=== PATIENT | female | born 1935 | race Two or more races ===

== ENCOUNTER 2018-11-29 10:56 | Emergency (ER) | payer OTHER, MEDICARE ==
[2018-11-29 11:09] VITALS: BP 108/54; PULSE 70; TEMP 97.9; BMI 28.0
--- NOTE | 2018-11-29 11:53 | PDOC ---
History of Present Illness - General Chief Complaint: Injury Stated Complaint: LOWER BACK PAIN Time Seen by Provider: 11/29/18 11:17 History Source: Patient Exam Limitations: Clinical Condition - History of Present Illness Initial Comments: 11/29/18 11:48 Patient with no significant past medical history brought in by ambulance for evaluation of lower back pain in bilateral lower leg pain status post fall while trying to get out of a box yesterday. Patient reports she was trying to get the curbside and missed a step and fell on her side and now has lower back pain and pain to bilateral lower legs which only comes on when she is laying in bed in pain to leg improve when she stands up. Patient did not take anything for pain and declined any pain meds. Patient reports she just wanted to make sure she to have any fractures. She reported pain as mild 3 out of 10 pain to lower back and bilateral legs. Patient denies hitting head or loss of consciousness Timing/Duration: 24 hours Past History - Past Medical History Allergies/Adverse Reactions: Allergies Allergy/AdvReac Type Severity Reaction Status Date / Time No Known Allergies Allergy Verified 11/29/18 11:07 Home Medications: Ambulatory Orders NK [No Known Home Medication] 11/29/18 - Suicide/Smoking/Psychosocial Hx Smoking History: Never smoked Review of Systems - Review of Systems Able to Perform ROS?: Yes Is the patient limited Montenegrin proficient: No Constitutional: No: Weakness HEENTM: No: Symptoms Reported Respiratory: No: Symptoms reported Cardiac (ROS): No: Symptoms Reported ABD/GI: No: Nausea, Vomiting Musculoskeletal: Yes: See HPI, Back Pain (mild back pain to b/l lower back), Muscle Pain (anterial-lateral b/l legs). No: Joint Swelling, Muscle Weakness, Joint Stiffness Neurological: No: Numbness, Paresthesia, Tingling, Weakness All Other Systems: Reviewed and Negative *Physical Exam - Vital Signs Last Vital Signs Temp Pulse Resp BP Pulse Ox 97.9 F 70 18 108/54 L 11/29/18 11:08 11/29/18 11:08 11/29/18 11:08 11/29/18 11:08 - Physical Exam Comments: 11/29/18 11:51 GENERAL: Well developed, well nourished. Awake and alert. No acute distress. CARDIOVASCULAR: Regular rate and rhythm. No murmurs, rubs, or gallops. PULMONARY: No evidence of respiratory distress. MUSCULOSKELETAL : mild tenderness over posterior paravertebral muscle of lumbosacral spine of L4-S2 on bilateral sides. Mild tenderness to anterior granados of bilateral leg. No calf tenderness. No calf erythema or swelling. Free range of motion of lower extremity and hip. Negative Homans sign of bilateral lower extremity No bony deformities EXTREMITIES: No cyanosis. No clubbing. No edema. No calf tenderness. SKIN: Warm and dry. Normal capillary refill. No rashes. No jaundice. NEUROLOGICAL: Alert, awake, appropriate. No motor deficits in the lower extremities. PSYCHIATRIC: Cooperative. Good eye contact. Appropriate mood and affect. General Appearance: Yes: Nourished, Appropriately Dressed. No: Apparent Distress Moderate Sedation - Procedure Monitoring Vital Signs: Procedure Monitoring Vital Signs Temperature 97.9 F 11/29/18 11:08 Pulse Rate 70 11/29/18 11:08 Respiratory Rate 18 11/29/18 11:08 Blood Pressure 108/54 L 11/29/18 11:08 O2 Sat by Pulse Oximetry (%) ED Treatment Course - RADIOLOGY Radiology Studies Ordered: Category Date Time Status LEG TIB/FIB-LEFT [RAD] Stat Radiology 11/29/18 11:34 Ordered LEG TIB/FIB-RIGHT [RAD] Stat Radiology 11/29/18 11:34 Ordered SPINE-LUMBAR SACRAL [RAD] Stat Radiology 11/29/18 11:34 Ordered Medical Decision Making - Medical Decision Making 11/29/18 11:53 Patient with no significant past medical history presented for evaluation of bilateral lower leg pain and lower back pain status post fall yesterday. Patient with no head trauma or loss of consciousness from fall. Exam significant for mild tenderness to anterior granados no bilateral lower legs with no calf tenderness. Mild tenderness paravertebral muscle of lumbosacral spine of L4-S1 with free range of motion of hip. Symptoms likely muscle strain less likely fracture of lower extremity or back and less likely DVT given no calf tenderness. X-ray of bilateral lower extremity and lumbosacral ordered to rule out fracture. Patient be discharged home on NSAIDs to take as needed for pain if negative x-ray with orthopedist follow-up as needed. 11/29/18 12:40 X-ray shows no acute pathology. Patient declined pain meds is stable for discharge with orthopedist follow-up as needed *DC/Admit/Observation/Transfer Diagnosis at time of Disposition: Leg pain, bilateral Lumbago Qualifiers: Chronicity: acute Back pain laterality: bilateral Sciatica presence: without sciatica Qualified Code(s): M54.5 - Low back pain - Discharge Dispostion Disposition: HOME Condition at time of disposition: Stable Decision to Admit order: No - Referrals Referrals: Jose Garcia DO [Staff Physician] - - Patient Instructions Printed Discharge Instructions: How to Prevent Falls Additional Instructions: Your x-ray shows no fracture or acute pathology. The symptoms likely from muscle strain. Take Motrin or Tylenol as needed for pain. Follow-up referred orthopedics if symptoms persist for more than 4 days. - Post Discharge Activity
== END 2018-11-29 12:46 | disposition home or self-care (01) ==
LOC: JERFT 10:56
DX: M54.5 Low back pain (principal); M79.604 Pain in right leg; M79.605 Pain in left leg; W10.1XXA Fall (on)(from) sidewalk curb, initial encounter; Y93.89 Activity, other specified; Y92.480 Sidewalk as the place of occurrence of the external cause; Y99.8 Other external cause status
CPT/HCPCS: 72100-TC-FY; 73590-TC-LT-FY; 73590-TC-RT-FY; 99281-25

== ENCOUNTER 2018-12-06 03:13 | Inpatient (IN) | payer OTHER, MEDICARE ==
[2018-12-06 03:53] VITALS: BMI 28.3
[2018-12-06] MEDS ORDERED: LIDOCAINE 5% TOPICAL PATCH TP ONE ×2 (03:55→05:18)
--- NOTE | 2018-12-06 04:01 | PDOC ---
History of Present Illness - General Chief Complaint: Chronic pain Stated Complaint: BACK PAIN Time Seen by Provider: 12/06/18 03:44 History Source: Patient Exam Limitations: No Limitations - History of Present Illness Initial Comments: 12/06/18 03:55 Pt is an 83yo F with PMH of anxiety, bladder spasms presenting to ED with complaints of lower back pain. Pt fell last week and had pain. She has been taking ibuprofen and other pain medications which "helps a little bit" but pain felt worse today. She states the pain starts in her lower back near the buttocks and radiates down both legs at time. Worsened with movement and relieved by lying flat. She says she has been walking but pain is preventing her from doing so. She was given hydrocodone by her pmd but it did not help. She denies numbness/tingling, weakness, bowel incontinence, fevers, chills. PMD: PMH: see hpi PSH: Meds: Nardil Allergies: nkda Past History - Past Medical History Allergies/Adverse Reactions: Allergies Allergy/AdvReac Type Severity Reaction Status Date / Time No Known Allergies Allergy Verified 12/06/18 04:47 Home Medications: Ambulatory Orders Phenelzine Sulfate [Nardil] 12/06/18 - Suicide/Smoking/Psychosocial Hx Smoking History: Never smoked Have you smoked in the past 12 months: No Information on smoking cessation initiated: No Hx Alcohol Use: No Drug/Substance Use Hx: No Review of Systems - Review of Systems Constitutional: No: Chills, Fever, Weakness HEENTM: No: Symptoms Reported Respiratory: No: Symptoms reported Cardiac (ROS): No: Symptoms Reported ABD/GI: No: Symptoms Reported, Constipated, Diarrhea, Nausea, Vomiting, Abdominal cramping Musculoskeletal: Yes: See HPI, Back Pain, Muscle Pain (legs) Integumentary: No: Symptoms Reported Neurological: No: Headache, Numbness, Tingling, Tremors *Physical Exam - Vital Signs Last Vital Signs Temp Pulse Resp BP Pulse Ox 98.8 F 66 18 134/77 96 12/06/18 03:16 12/06/18 03:16 12/06/18 03:16 12/06/18 03:16 12/06/18 03:16 - Physical Exam General Appearance: Yes: Nourished, Appropriately Dressed, Moderate Distress HEENT: positive: EOMI, EVONNE, Normal ENT Inspection Neck: positive: Trachea midline, Supple. negative: Lymphadenopathy (R), Lymphadenopathy (L) Respiratory/Chest: positive: Lungs Clear, Normal Breath Sounds Cardiovascular: positive: Regular Rhythm, Regular Rate. negative: Murmur Vascular Pulses: Carotid (R): 2+, Carotid (L): 2+, Dorsalis-Pedis (R): 2+, Doralis-Pedis (L): 2+ Gastrointestinal/Abdominal: positive: Normal Bowel Sounds, Soft. negative: Distended, Guarding, Rebound, Tenderness Rectal Exam: positive: normal rectal tone Musculoskeletal: positive: Muscle Spasm, Other (full passive ROM. Full active ROM of legs however illicits pain. No sciatica type symptoms/pain). negative: CVA Tenderness, Vertebral Tenderness Extremity: positive: Normal Capillary Refill, Pelvis Stable. negative: Coldness , Cyanosis, Pedal Edema, Swelling, Calf Tenderness Integumentary: positive: Normal Color, Dry, Warm. negative: Rash, Ecchymosis Neurologic: positive: can technician II-XII NML intact, Fully Oriented, Alert, Normal Mood/ Affect, Normal Response, Motor Strength 5/5 Deep Tendon Reflexes: Knee (L): 2+, Knee (R): 2+ Moderate Sedation - Procedure Monitoring Vital Signs: Procedure Monitoring Vital Signs Temperature 98.8 F 12/06/18 03:16 Pulse Rate 66 12/06/18 03:16 Respiratory Rate 18 12/06/18 03:16 Blood Pressure 134/77 12/06/18 03:16 O2 Sat by Pulse Oximetry (%) 96 12/06/18 03:16 Medical Decision Making - Medical Decision Making 12/06/18 04:01 Pt is an 83yo F with PMH of anxiety, bladder spasms presenting to ED with complaints of lower back pain. Pt fell last week and had pain. She has been taking ibuprofen and other pain medications which "helps a little bit" but pain felt worse today. She states the pain starts in her lower back near the buttocks and radiates down both legs at time. Worsened with movement and relieved by lying flat. She says she has been walking but pain is preventing her from doing so. She was given hydrocodone by her pmd but it did not help. She denies numbness/tingling, weakness, bowel incontinence, fevers, chills. Vitals: wnl PE: strength 5/5, sensation intact, normal reflexes, normal rectal tone, no vertebral tenderness, paraspinal spasms Ddx includes but not limited to cord compression/cauda equina, AAA, nephrolithasis, fracture, disc herniation, msk -lower suspicion for cord compression at this time. Pt did have trauma however no fractures -Robaxin, lidoderm patch -CT of sacral spine and lumbar. 12/06/18 06:22 CT shows small central bulge at level of L3-L4. Pt said she was feeling better, some pain on the L side but improved. When asking pt to get up she reported feeling the pain again around the back and across the abdomen like a band. -2 Percocet, 15mg Toradol Will reassess. signed out to Dr. Patiño *DC/Admit/Observation/Transfer Diagnosis at time of Disposition: Back pain Qualifiers: Back pain location: low back pain Chronicity: acute Back pain laterality: unspecified Sciatica presence: without sciatica Qualified Code(s): M54.5 - Low back pain - Discharge Dispostion Disposition: HOME Condition at time of disposition: Good Decision to Admit order: No - Referrals Referrals: Jose Garcia DO [Staff Physician] - Juan Carlos Adame [Non Staff, Medical] - - Patient Instructions Printed Discharge Instructions: DI for Low Back Pain Additional Instructions: You were seen in the emergency room today for back pain. There is no fracture. The most likely cause of your symptoms is a muscle spasm. Make an appointment with Dr. Adame in the next few days for evaluation and management of your symptoms. Come back to the emergency room if you have numbness/tingling, lose control of your bowel movements, have numbness in the groin area, are unable to move your legs or if any new concerning symptom develops. Thank you - Post Discharge Activity
[2018-12-06] MEDS ORDERED: METHOCARBAMOL 500 MG TABLET PO ONE (04:06)
--- NOTE | 2018-12-06 04:09 | PDOC ---
Attending Attestation - Resident Resident Name: Mary Grace Ignacio - ED Attending Attestation I have performed the following: I have examined & evaluated the patient, The case was reviewed & discussed with the resident, I agree w/resident's findings & plan - HPI HPI: 12/06/18 06:36 Pt came with back pain. She fell last week and she had a Lspine XR in the ER that revealed scoliosis and she had decreased space btwn her vertebrae. She has pain that runs down her back of legs bilat. Sounds like sciatica. - Physicial Exam PE: 12/06/18 06:38 Agree with resident exam - Medical Decision Making 12/06/18 06:38 Pt will be treated with pain meds and muscle relaxants and she will be reevaluated after CT scan 12/06/18 06:40 Patient Name: WILFRED MAIN THIS IS A PRELIMINARY REPORT FROM [facility] DATE OF SERVICE: 2018-12-06 05:43:17 IMAGES: [id number] EXAM: LUMBAR SPINE CT W/O CONTRAST HISTORY: Trauma with back pain COMPARISON: None. FINDINGS: Lumbar vertebral bodies are morphologically normal with no fracture or loss of height. There are some degenerative changes in the intervertebral disc spaces with a small central bulge at the level of L3-L4 IMPRESSION: Mild degenerative changes without lumbar spine fracture Patient Name: WILFRED MAIN THIS IS A PRELIMINARY REPORT FROM [facility] DATE OF SERVICE: 2018-12-06 05:46:59 IMAGES: [id number] EXAM: PELVIS CT WITHOUT CONTRAST HISTORY: Concern for fracture COMPARISON: None. FINDINGS: There is no pelvic fracture. Bladder appears normal. Uterus is not visualized. Rectum appears normal IMPRESSION: No pelvic fracture 12/06/18 06:41 Pt was feeling better and she was able to get some sleep, but she states that she feels just as bad as when she came in. We will try some percocet and toradol and pt will be given breakfast in the AM and signed out to the day ER team, who can discharge her back to her intermediate once she is ready to go home
[2018-12-06] MEDS ORDERED: diazePAM 2 MG TABLET PO ONE (05:19)
[2018-12-06] MEDS ORDERED: LIDOCAINE 5% TOPICAL PATCH ONE (05:26)
[2018-12-06] MEDS ORDERED: KETOROLAC TROMETHAMINE 30 MG/1 ML VIAL IM ONE (06:32)
[2018-12-06] MEDS ORDERED: KETOROLAC TROMETHAMINE 15 MG/ML VIAL ONE (06:39)
--- NOTE | 2018-12-06 07:38 | PDOC ---
*Physical Exam - Vital Signs Last Vital Signs Temp Pulse Resp BP Pulse Ox 98.8 F 66 18 134/77 96 12/06/18 03:16 12/06/18 03:16 12/06/18 03:16 12/06/18 03:16 12/06/18 03:16 ED Treatment Course - LABORATORY CBC & Chemistry Diagram: 12/07/18 08:39 12/09/18 06:00 - Medications Given in the ED: ED Medications Discontinued Medications Generic Name Dose Route Start Last Admin Trade Name John PRN Reason Stop Dose Admin Diazepam 2 mg 12/06/18 05:19 12/06/18 06:36 Valium - PO 12/06/18 05:20 Not Given ONCE ONE Ketorolac Tromethamine 15 mg 12/06/18 06:32 12/06/18 06:52 Toradol Injection - IM 12/06/18 06:33 15 mg ONCE ONE Administration Lidocaine 1 patch 12/06/18 03:55 12/06/18 04:41 Lidoderm Patch - TP 12/06/18 03:56 1 patch ONCE ONE Administration Lidocaine 1 patch 12/06/18 05:18 12/06/18 06:51 Lidoderm Patch - TP 12/06/18 05:19 1 patch ONCE ONE Administration Methocarbamol 500 mg 12/06/18 04:06 12/06/18 04:42 Robaxin - PO 12/06/18 04:07 500 mg ONCE ONE Administration Oxycodone/Acetaminophen 2 combo 12/06/18 06:20 12/06/18 06:51 Percocet 5/325 - PO 12/06/18 06:21 2 combo ONCE ONE Administration Medical Decision Making - Medical Decision Making 12/06/18 07:05 s/o from Dr. Ignacio 83 yo female presents with difficulty ambulating and worsening back pain since fall last week. CT lumbar spine neg for fracture but shows small central bulge at L3-L4 without Pt continues to be in pain, states no improvement after Toradol, lidocaine patch , percocets. 2mg IV morphine ordered along with basic blood work and with admit for inability to ambulate Pt accepted for admission *DC/Admit/Observation/Transfer Diagnosis at time of Disposition: Back pain Qualifiers: Back pain location: low back pain Chronicity: acute Back pain laterality: unspecified Sciatica presence: without sciatica Qualified Code(s): M54.5 - Low back pain - Discharge Dispostion Condition at time of disposition: Stable Decision to Admit order: Yes - Referrals - Patient Instructions - Post Discharge Activity
[2018-12-06 09:36] LABS: BASO % 0.4 % (0-2.0); EOS % 1.5 % (0-4.5); HEMATOCRIT 37.9 % (32.4-45.2); HEMOGLOBIN 12.8 GM/dL (10.7-15.3); LYMPH % 8.7 % (8-40); MCH 26.6 pg (25.7-33.7); MCHC 33.7 g/dl (32.0-36.0); MEAN CELL VOLUME 79.1 fl (80-96); MEAN PLT VOLUME 8.4 fl (7.5-11.1); MONO % 7.1 % (3.8-10.2); NEUT % 82.3 % (42.8-82.8); PLATELET COUNT 255 K/MM3 (134-434); RDW 14.7 % (11.6-15.6); WHITE BLOOD COUNT 8.2 K/mm3 (4.0-10.0)
[2018-12-06] MEDS ORDERED: morphine CARPU-JECT 2 MG/1 ML DISP.SYRIN IVPUSH ONE (09:41)
[2018-12-06] MEDS ORDERED: MORPHINE SULFATE 2 MG/ML VIAL ONE (09:44)
[2018-12-06 10:01] LABS: ALBUMIN 3.3 g/dl (3.4-5.0); ALK PHOS 93 U/L (45-117); ANION GAP 7 MMOL/L (8-16); BILIRUBIN,TOTAL 0.4 mg/dL (0.2-1); BLOOD UREA NITROGEN 16 mg/dL (7-18); CALCIUM 8.9 mg/dL (8.5-10.1); CHLORIDE 106 mmol/L (98-107); CO2 28 mmol/L (21-32); CREATININE 0.9 mg/dL (0.55-1.3); GLUCOSE,RANDOM 125 mg/dL (74-106); POTASSIUM 4.1 mmol/L (3.5-5.1); SGOT/AST 16 U/L (15-37); SGPT/ALT 14 U/L (13-61); SODIUM 141 mmol/L (136-145); TOT PROT 6.3 g/dl (6.4-8.2)
--- NOTE | 2018-12-06 13:12 | EKG ---
Test Reason : Blood Pressure : / mmHG Vent. Rate : 066 BPM Atrial Rate : 066 BPM P-R Int : 192 ms QRS Dur : 088 ms QT Int : 414 ms P-R-T Axes : 062 -30 083 degrees QTc Int : 434 ms SINUS RHYTHM WITH PREMATURE ATRIAL COMPLEXES LEFT AXIS DEVIATION NONSPECIFIC T WAVE ABNORMALITY ABNORMAL ECG NO PREVIOUS ECGS AVAILABLE Confirmed by MD CRISTINA, MICAELA ([id number]) on 12/06/2018 1:11:31 PM Referred By: Confirmed By:MICAELA EVANS MD
[2018-12-06] MEDS ORDERED: GABAPENTIN 100 MG CAPSULE (FP) ONE (13:16)
--- NOTE | 2018-12-06 13:17 | HP ---
CHIEF COMPLAINT: intractable pain PCP: Dr Bae/ in COUNT INCLUDES THE [facility] HISTORY OF PRESENT ILLNESS: The patient is a 83 year old female [place] [address] [place] [address] living with a PMH of anxiety, irritable bladder that presented to the hospital complaining of severe pain in lower back. It started after she fell last week. She was leaving the bus , tripped and fell to the ground on her back. She was able to stand up and come home. Next day she went to [facility] ED and was discharged on pain medications. Over the course of week, the pain got progressively worse that prompted the patient to go to PCP yesterday. She was given pain medications but without seeing improvement, she decided to call ambulance today. She is complaining of lover back pain, 10/10, no aggravating/alleviating factors , no radiation, no numbness, urinary incontinence, fever, chills, chills. The patient denies dizziness, LOC, headache. ER course was notable for: (1)CT (2)percocet, (3) PAST MEDICAL HISTORY: ABOVE PAST SURGICAL HISTORY: hysterectomy, in , right lumpectomy in Social History: Smoking:quit in 1973, used to smoke 1.5 pack/day for 30 years Alcohol: stopped in September 2017, used to drink everyday Drugs: denies Lives [place] [address] [place] [address], never , no children. Family History: Mother; colon cancer Father: breast cancer Allergies No Known Allergies Allergy (Verified 12/06/18 04:47) HOME MEDICATIONS: Home Medications Medication Instructions Recorded Phenelzine Sulfate [Nardil] 12/06/18 REVIEW OF SYSTEMS CONSTITUTIONAL: Absent: fever, chills, diaphoresis, generalized weakness, malaise, loss of appetite, weight change HEENT: Absent: rhinorrhea, nasal congestion, throat pain, throat swelling, difficulty swallowing, mouth swelling, ear pain, eye pain, visual changes CARDIOVASCULAR: Absent: chest pain, syncope, palpitations, irregular heart rate, lightheadedness , peripheral edema RESPIRATORY: Absent: cough, shortness of breath, dyspnea with exertion, orthopnea, wheezing, stridor, hemoptysis GASTROINTESTINAL: Absent: abdominal pain, abdominal distension, nausea, vomiting, diarrhea, constipation, melena, hematochezia GENITOURINARY: Absent: dysuria, frequency, urgency, hesitancy, hematuria, flank pain, genital pain MUSCULOSKELETAL: Absent: myalgia, arthralgia, joint swelling, back pain, neck pain SKIN: Absent: rash, itching, pallor HEMATOLOGIC/IMMUNOLOGIC: Absent: easy bleeding, easy bruising, lymphadenopathy, frequent infections ENDOCRINE: Absent: unexplained weight gain, unexplained weight loss, heat intolerance, cold intolerance NEUROLOGIC: Absent: headache, focal weakness or paresthesias, dizziness, unsteady gait, seizure, mental status changes, bladder or bowel incontinence PSYCHIATRIC: Absent: anxiety, depression, suicidal or homicidal ideation, hallucinations. PHYSICAL EXAMINATION Vital Signs - 24 hr 12/06/18 12/06/18 12/06/18 03:16 07:24 13:03 Temperature 98.8 F 98.3 F 98.0 F Pulse Rate 66 Pulse Rate [ 74 70 Right Radial] Respiratory 18 15 18 Rate Blood Pressure 134/77 Blood Pressure 114/68 122/70 [Left Arm] O2 Sat by Pulse 96 95 96 Oximetry (%) GENERAL: Awake, alert, and fully oriented, in moderate distress, lying in bed.. HEAD: Normal with no signs of trauma. EYES: Pupils equal, round and reactive to light, extraocular movements intact, conjunctiva clear. EARS, NOSE, THROAT: Moist mucous membranes. NECK: Normal range of motion, supple without lymphadenopathy, JVD, or masses. LUNGS: Breath sounds equal, clear to auscultation bilaterally. No wheezes, and no crackles. No accessory muscle use. HEART: Regular rate and rhythm, normal S1 and S2 without murmur, rub or gallop. ABDOMEN: Soft, nontender, not distended, normoactive bowel sounds, no guarding, no rebound, no masses. MUSCULOSKELETAL: Normal range of motion at all joints. Tenderness to palpation in lumbar paraspinal muscles UPPER EXTREMITIES: No peripheral edema. LOWER EXTREMITIES: 2+ pulses, no peripheral edema. NEUROLOGICAL: Cranial nerves II-XII intact. Normal speech. Motor 5/5, sensation intact. PSYCHIATRIC: Cooperative, anxious. SKIN: Warm, dry, normal turgor, no rashes. Laboratory Results - last 24 hr 12/06/18 12/06/18 09:12 09:12 WBC 8.2 RBC 4.80 Hgb 12.8 Hct 37.9 MCV 79.1 L MCH 26.6 MCHC 33.7 RDW 14.7 Plt Count 255 MPV 8.4 Absolute Neuts (auto) 6.7 Neutrophils % 82.3 Lymphocytes % 8.7 Monocytes % 7.1 Eosinophils % 1.5 Basophils % 0.4 Nucleated RBC % 0 Sodium 141 Potassium 4.1 Chloride 106 Carbon Dioxide 28 Anion Gap 7 L BUN 16 Creatinine 0.9 Creat Clearance w eGFR 59.65 Random Glucose 125 H Calcium 8.9 Total Bilirubin 0.4 AST 16 ALT 14 Alkaline Phosphatase 93 Total Protein 6.3 L Albumin 3.3 L ASSESSMENT/PLAN: The patient is a 83 year old female [place] [address] [place] [address] living with a PMH of anxiety, irritable bladder that presented to the hospital complaining of severe pain in lower back. She is admitted for intractable pain. Intractable pain in lower back irritable bladder anxiety hyperlipidemia Plan: -the patient has been complaining of lower back pain for a week without successful pain control, CT positive only for degenerative chronic changes, no acute pathoology but the patient was not able to ambulate -will continue Cyclobenzaprine 5 mg BID -will continue Gabapentin 100 mg TID -Lidoderm patch -IV Toradol -PT evaluation F/E/N: no/no changes/regular DVT PPX; Heparin sq scds Disp: med surg Problem List - Problem (1) Back pain Code(s): M54.9 - DORSALGIA, UNSPECIFIED Qualifiers: Back pain location: low back pain Chronicity: acute Back pain laterality : unspecified Sciatica presence: without sciatica Qualified Code(s): M54.5 - Low back pain Visit type - Emergency Visit Emergency Visit: Yes ED Registration Date: 12/06/18 Care time: The patient presented to the Emergency Department on the above date and was hospitalized for further evaluation of their emergent condition. - New Patient This patient is new to me today: Yes Date on this admission: 12/06/18 - Critical Care Critical Care patient: No
[2018-12-06] MEDS: GABAPENTIN 100 MG CAPSULE (FP) PO SCH ×2 (13:20→21:52)
[2018-12-06] MEDS: KETOROLAC TROMETHAMINE 30 MG/1 ML VIAL IVPUSH PRN ×2 (13:34→21:54)
[2018-12-06] MEDS ORDERED: KETOROLAC TROMETHAMINE 30 MG/1 ML VIAL ONE (13:37)
--- NOTE | 2018-12-06 16:22 | PN ---
Teaching Attending Note Name of Resident: Marilu Arriaza ATTENDING PHYSICIAN STATEMENT I saw and evaluated the patient. I reviewed the resident's note and discussed the case with the resident. I agree with the resident's findings and plan as documented with exceptions below. SUBJECTIVE: 83 yof with PMHx of anxiety, irritable bladder, sustained a fall 11/29/18, when missed a step while getting to curbside and fell. She was seen in ED on 11/29 with negative L spine xrays and sent home. However, per patient, has been having progressive pain in the back with difficulty ambulating, prompting her to come to the ED. Denies any leg weakness/tingling/numbness, urinary or bowel changes. Has h/o irritable bladder with no new concerns. patient anxious currently initially refusing to move, then able to move and elevate legs. Occasionally on tangential conversations. 12 point ROS done, neg except above. OBJECTIVE: Vital Signs Period Temp Pulse Resp BP Sys/Zepeda Pulse Ox Last 24 Hr 97.9 F-98.8 F 66-84 15-22 114-146/68-84 95-96 Intake & Output 12/03/18 12/04/18 12/05/18 12/06/18 23:59 23:59 23:59 23:59 Weight 160 lb GENERAL: Awake, alert, and fully oriented, in no acute distress, anxious intermittently screaming in bed. HEAD: Normal with no signs of trauma. EYES: Pupils equal, round and reactive to light, extraocular movements intact, sclera anicteric, conjunctiva clear. No lid lag. EARS, NOSE, THROAT: Ears normal, nares patent, oropharynx clear without exudates. Moist mucous membranes. NECK: Normal range of motion, supple without lymphadenopathy, JVD, or masses. LUNGS: Breath sounds equal, clear to auscultation bilaterally. No wheezes, and no crackles. No accessory muscle use. HEART: Regular rate and rhythm, normal S1 and S2 ABDOMEN: Soft, nontender, not distended, normoactive bowel sounds, no guarding, no rebound, no masses. MUSCULOSKELETAL: No point spinal tenderness, paraspinal muscle spasm appreciated in the lumbar region, SLR able to do upto 50 degrees with encouragement UPPER EXTREMITIES: 2+ pulses, warm, well-perfused. No cyanosis. No clubbing. No peripheral edema. LOWER EXTREMITIES: 2+ pulses, warm, well-perfused. No calf tenderness. No peripheral edema. NEUROLOGICAL: AAOx3, power 5/5, sensation intact and symmetric, no pronator drift, EOMI, PERRL, DTR bilaterally symmetric, toes down going, Cranial nerves II-XII intact. Normal speech. Gait not observed PSYCHIATRIC:anxious, intermittently screaming, tangential conversations occasionally but directable SKIN: Warm, dry, normal turgor, no rashes or lesions noted, normal capillary refill. Home Medications Medication Instructions Recorded Phenelzine Sulfate [Nardil] 15 mg PO TID 12/06/18 Active Medications Cyclobenzaprine HCl (Cyclobenzaprine Hcl) 5 mg PO BID [facility] Gabapentin (Neurontin -) 100 mg PO TID [facility] Last Admin: 12/06/18 13:20 Dose: 100 mg Heparin Sodium (Porcine) (Heparin -) 5,000 unit SQ TID [facility] Ketorolac Tromethamine (Toradol Injection -) 30 mg IVPUSH Q6H PRN PRN Reason: PAIN LEVEL 6-10 Stop: 12/11/18 13:13 Last Admin: 12/06/18 13:34 Dose: 30 mg Lidocaine (Lidoderm Patch -) 1 patch TP DAILY [facility] Miscellaneous (Lidoderm Patch Removal) 1 each DAILY@2200 [facility] Pantoprazole Sodium (Protonix -) 40 mg PO DAILY [facility] Laboratory Results - last 24 hr 12/06/18 12/06/18 09:12 09:12 WBC 8.2 RBC 4.80 Hgb 12.8 Hct 37.9 MCV 79.1 L MCH 26.6 MCHC 33.7 RDW 14.7 Plt Count 255 MPV 8.4 Absolute Neuts (auto) 6.7 Neutrophils % 82.3 Lymphocytes % 8.7 Monocytes % 7.1 Eosinophils % 1.5 Basophils % 0.4 Nucleated RBC % 0 Sodium 141 Potassium 4.1 Chloride 106 Carbon Dioxide 28 Anion Gap 7 L BUN 16 Creatinine 0.9 Creat Clearance w eGFR 59.65 Random Glucose 125 H Calcium 8.9 Total Bilirubin 0.4 AST 16 ALT 14 Alkaline Phosphatase 93 Total Protein 6.3 L [address]in [address] Lumbar spine/Pelvis/CXR results reviewed EKG NSR, T inversion in V2-V3, flat T waves in V5-V6 (no prior available for comparison) ASSESSMENT AND PLAN: 83 yof with PMHx of anxiety, irritable bladder, with low back pain after fall 11/29/2018 -Acute low back pain s/p fall, suspect lumbar sprain -Anxiety -Irritable bladder Plan: Neurological exam/imaging non concerning Pain control with tylenol/toradol/percocet prn, standing flexeril/gabapentin. PT eval Continue nardil if available DVTPPX heparin Dispo admit to obs, d/c in 24 hours if symptoms improved and no new concerns. Plan discussed with patient in detail, all questions answered. total admit time 55 min.
[2018-12-06] MEDS ORDERED: LIDOCAINE PATCH REMOVAL MC ONE (16:30)
[2018-12-06] MEDS: HEPARIN NA (PORCINE) 5,000 UNITS/ML 1ML VIAL SQ SCH ×2 (16:39→21:51)
[2018-12-06] MEDS: LIDOCAINE PATCH REMOVAL MC SCH (21:51)
[2018-12-06] MEDS: CYCLOBENZAPRINE HCL 5 MG TABLET PO SCH (21:51)
[2018-12-06] MEDS ORDERED: LIDOCAINE PATCH REMOVAL MC SCH (22:00)
[2018-12-07] MEDS: GABAPENTIN 100 MG CAPSULE (FP) PO SCH ×3 (06:15→21:42)
[2018-12-07] MEDS: HEPARIN NA (PORCINE) 5,000 UNITS/ML 1ML VIAL SQ SCH ×3 (06:15→21:41)
[2018-12-07] MEDS: KETOROLAC TROMETHAMINE 30 MG/1 ML VIAL IVPUSH PRN ×2 (06:16→13:50)
[2018-12-07] MEDS: CYCLOBENZAPRINE HCL 5 MG TABLET PO SCH ×2 (06:22→10:16)
[2018-12-07 09:01] LABS: HEMATOCRIT 36.9 % (32.4-45.2); HEMOGLOBIN 12.6 GM/dL (10.7-15.3); MCH 26.9 pg (25.7-33.7); MEAN CELL VOLUME 79.1 fl (80-96); MEAN PLT VOLUME 8.2 fl (7.5-11.1); PLATELET COUNT 253 K/MM3 (134-434); RBC 4.67 M/mm3 (3.60-5.2); RDW 14.7 % (11.6-15.6)
[2018-12-07 09:30] LABS: ALBUMIN 3.1 g/dl (3.4-5.0); ALK PHOS 86 U/L (45-117); ANION GAP 8 MMOL/L (8-16); BILIRUBIN,TOTAL 0.5 mg/dL (0.2-1); BLOOD UREA NITROGEN 17 mg/dL (7-18); CALCIUM 8.6 mg/dL (8.5-10.1); CHLORIDE 104 mmol/L (98-107); CO2 27 mmol/L (21-32); CREATININE 0.6 mg/dL (0.55-1.3); GLUCOSE,RANDOM 92 mg/dL (74-106); MAGNESIUM 2.4 mg/dL (1.8-2.4); PHOSPHOROUS 3.5 mg/dL (2.5-4.9); POTASSIUM 3.2 mmol/L (3.5-5.1); SGOT/AST 16 U/L (15-37); SGPT/ALT 16 U/L (13-61); SODIUM 139 mmol/L (136-145)
[2018-12-07] MEDS ORDERED: PT OWN MED DRAWER 7, Y5N ONE ×2 (10:13→10:27)
[2018-12-07] MEDS: PANTOPRAZOLE 40 MG TABLET (FP) PO SCH (10:15)
[2018-12-07] MEDS: LIDOCAINE 5% TOPICAL PATCH TP SCH (10:16)
[2018-12-07] MEDS ORDERED: morphine CARPU-JECT 2 MG/1 ML DISP.SYRIN IVPUSH PRN (11:50)
--- NOTE | 2018-12-07 11:55 | PN ---
Physical Exam: SUBJECTIVE: Patient seen and examined, lying on her left, anxious, screaming, asking for 'stronger' pain medications. No leg weakness/tingling/urinary or bowel symptoms. OBJECTIVE: Vital Signs Period Temp Pulse Resp BP Sys/Zepeda Pulse Ox Last 24 Hr 97.5 F-98.6 F 70-84 18-22 100-146/59-84 93-96 Intake & Output 12/04/18 12/05/18 12/06/18 12/07/18 23:59 23:59 23:59 23:59 Intake Total 400 450 Balance 400 450 Weight 160 lb GENERAL: Awake, alert, and fully oriented, in no acute distress, anxious intermittently screaming in bed. HEAD: Normal with no signs of trauma. EYES: Pupils equal, round and reactive to light, extraocular movements intact, sclera anicteric, conjunctiva clear. No lid lag. EARS, NOSE, THROAT: Ears normal, nares patent, oropharynx clear without exudates. Moist mucous membranes. NECK: Normal range of motion, supple without lymphadenopathy, JVD, or masses. LUNGS: Breath sounds equal, clear to auscultation bilaterally. No wheezes, and no crackles. No accessory muscle use. HEART: Regular rate and rhythm, normal S1 and S2 ABDOMEN: Soft, nontender, not distended, normoactive bowel sounds, no guarding, no rebound, no masses. MUSCULOSKELETAL: No point spinal tenderness, paraspinal muscle spasm appreciated in the lumbar region, SLR able to do upto 50 degrees with encouragement, moving lower extremities in bed Extremities no edema NEUROLOGICAL: AAOx3, power 5/5, sensation intact and symmetric, no pronator drift, EOMI, PERRL,sensation intact and symmetric lower extremities, Gait not observed PSYCHIATRIC:anxious, intermittently screaming, tangential conversations occasionally but directable SKIN: Warm, dry, normal turgor, no rashes or lesions noted, normal capillary refill. Laboratory Results - last 24 hr 12/07/18 12/07/18 08:39 08:39 WBC 6.0 RBC 4.67 Hgb 12.6 Hct 36.9 MCV 79.1 L MCH 26.9 MCHC 34.0 RDW 14.7 Plt Count 253 MPV 8.2 Sodium 139 Potassium 3.2 L Chloride 104 Carbon Dioxide 27 Anion Gap 8 BUN 17 Creatinine 0.6 Creat Clearance w eGFR 95.24 Random Glucose 92 Calcium 8.6 Phosphorus 3.5 Magnesium 2.4 Total Bilirubin 0.5 AST 16 ALT 16 Alkaline Phosphatase 86 Total Protein 6.0 L Albumin 3.1 L Active Medications Generic Name Dose Route Start Last Admin Trade Name Freq PRN Reason Stop Dose Admin Diazepam 2 mg 12/07/18 12:00 Valium - PO BID VIGNESH Gabapentin 100 mg 12/06/18 14:00 12/07/18 06:15 Neurontin - PO 100 mg TID [facility]IGN[facility] Administration Heparin Sodium (Porcine) 5,000 unit 12/06/18 14:00 12/07/18 06:15 Heparin - SQ 5,000 unit TID VIGNESH Administration Ketorolac Tromethamine 30 mg 12/07/18 11:52 Toradol Injection - IVPUSH 12/11/18 13:13 Q6H PRN PAIN LEVEL 4 - 6 Lidocaine 1 patch 12/07/18 10:00 12/07/18 10:16 Lidoderm Patch - TP 1 patch DAILY [facility] Administration Miscellaneous 1 each 12/06/18 22:00 12/06/18 21:51 Lidoderm Patch Removal MC 1 each DAILY@2200 VIGN[facility] Administration Morphine Sulfate 1 mg 12/07/18 11:50 Morphine Injection - IVPUSH Q4H PRN PAIN LEVEL 6-10 Pantoprazole Sodium 40 mg 12/07/18 10:00 12/07/18 10:15 Protonix - PO 40 mg DAILY [facility] Administration ASSESSMENT/PLAN: 83 yof with PMHx of anxiety, irritable bladder, with low back pain after fall 11/29/2018 -Acute low back pain s/p fall, suspect lumbar sprain -Anxiety -Irritable bladder Plan: Neurological exam/imaging non concerning Ongoing pain, unable to work with PT. Will start morphine. D/c flexeril and place on valium Continu prn tylenol/toradol/percocet prn to be held for sedation. DVTPPX heparin Dispo admit to inpatient given ongoing pain, inability to ambulate, need for IV medications and unsafe disposition currently. Plan discussed with patient and nursing in detail, all questions answered. Visit type - Emergency Visit Emergency Visit: Yes ED Registration Date: 12/06/18 Care time: The patient presented to the Emergency Department on the above date and was hospitalized for further evaluation of their emergent condition. - New Patient This patient is new to me today: No - Critical Care Critical Care patient: No - Discharge Referral Referred to [facility] Med P.C.: No
[2018-12-07] MEDS: diazePAM 2 MG TABLET PO SCH ×2 (12:19→21:42)
[2018-12-07] MEDS: MORPHINE SULFATE 2 MG/ML VIAL IVPUSH PRN ×2 (12:28→16:48)
[2018-12-07] MEDS: LIDOCAINE PATCH REMOVAL MC SCH (21:42)
[2018-12-08] MEDS: HEPARIN NA (PORCINE) 5,000 UNITS/ML 1ML VIAL SQ SCH ×3 (06:15→22:39)
[2018-12-08] MEDS: GABAPENTIN 100 MG CAPSULE (FP) PO SCH ×3 (06:16→22:39)
[2018-12-08] MEDS: KETOROLAC TROMETHAMINE 30 MG/1 ML VIAL IVPUSH PRN ×2 (06:17→17:58)
[2018-12-08] MEDS ORDERED: PT OWN MED DRAWER 7, Y5N ONE (09:53)
[2018-12-08] MEDS: PANTOPRAZOLE 40 MG TABLET (FP) PO SCH (10:15)
[2018-12-08] MEDS: LIDOCAINE 5% TOPICAL PATCH TP SCH (10:16)
[2018-12-08] MEDS: diazePAM 2 MG TABLET PO SCH ×2 (10:16→22:39)
--- NOTE | 2018-12-08 10:52 | PN ---
Teaching Attending Note Name of Resident: Karen Renae ATTENDING PHYSICIAN STATEMENT I saw and evaluated the patient. I reviewed the resident's note and discussed the case with the resident. I agree with the resident's findings and plan as documented with exceptions below. SUBJECTIVE: Patient seen and examined. Back pain better, was sleeping comfortably when seen. Anxious but appropriate. OBJECTIVE: Vital Signs Period Temp Pulse Resp BP Sys/Zepeda Pulse Ox Last 24 Hr 97.5 F-98.6 F 63-74 17-20 87-123/53-71 95-97 Intake & Output 12/05/18 12/06/18 12/07/18 12/08/18 23:59 23:59 23:59 23:59 Intake Total 400 1180 250 Balance 400 1180 250 Weight 160 lb General: Sleeping in bed, comfortable CVS:S1s2 regular Chest: CTAB, no rales or wheezing Abdomen;Soft obese, NT Musculoskeletal: no point spinal tenderness, refuses to move given pain but moving her legs more and able to elevate to 50 degrees, no new concerns Home Medications Medication Instructions Recorded Phenelzine Sulfate [Nardil] 15 mg PO TID 12/06/18 Active Medications Diazepam (Valium -) 2 mg PO BID [facility] Last Admin: 12/08/18 10:16 Dose: 2 mg Gabapentin (Neurontin -) 100 mg PO TID [facility] Last Admin: 12/08/18 06:16 Dose: 100 mg Heparin Sodium (Porcine) (Heparin -) 5,000 unit SQ TID [facility] Last Admin: 12/08/18 06:15 Dose: 5,000 unit Ketorolac Tromethamine (Toradol Injection -) 30 mg IVPUSH Q6H PRN PRN Reason: PAIN LEVEL 4 - 6 Stop: 12/11/18 13:13 Last Admin: 12/08/18 06:17 Dose: 30 mg Lidocaine (Lidoderm Patch -) 1 patch TP DAILY [facility] Last Admin: 12/08/18 10:16 Dose: 1 patch Miscellaneous (Lidoderm Patch Removal) 1 each MC DAILY@2200 [facility] Last Admin: 12/07/18 21:42 Dose: 1 each Morphine Sulfate (Morphine Sulfate) 1 mg IVPUSH Q4H PRN PRN Reason: PAIN LEVEL 6-10 Last Admin: 12/07/18 16:48 Dose: 1 mg Pantoprazole Sodium (Protonix -) 40 mg PO DAILY [facility] Last Admin: 12/08/18 10:15 Dose: 40 mg ASSESSMENT AND PLAN: 83 yof with PMHx of anxiety, irritable bladder, with low back pain after fall 11/29/2018 -Acute low back pain s/p fall, suspect lumbar sprain -Anxiety -Irritable bladder Plan: Symptoms improved. Neurological exam/imaging non concerning Suspect anxiety component. Agreable to work with PT today. pain control with morphine/toradol/valdium and prn percocet, watch for sedation. DVTPPX heparin Dispo pending PT eval, symptom improvement and disposition planning. Plan discussed with patient, nursing and CM in detail, all questions answered.
[2018-12-08] MEDS: MORPHINE SULFATE 2 MG/ML VIAL IVPUSH PRN ×2 (13:57→22:39)
--- NOTE | 2018-12-08 18:39 | PN ---
Physical Exam: SUBJECTIVE: Patient seen and examined; still with complaints of back pain; + 25feet today with rolling walker OBJECTIVE: Vital Signs Period Temp Pulse Resp BP Sys/Zepeda Pulse Ox Last 24 Hr 97.4 F-98.6 F 63-83 17-20 87-123/53-74 95-97 GENERAL: The patient is awake, alert, and fully oriented anxious LUNGS: Breath sounds equal, clear to auscultation bilaterally, no wheezes, no crackles, no accessory muscle use. HEART: Regular rate and rhythm, S1, S2 without murmur, rub or gallop. ABDOMEN: Soft, nontender, nondistended, normoactive bowel sounds, no guarding, no rebound, no hepatosplenomegaly, no masses. BACK; b/l low back tenderness; no point tenderness Active Medications Generic Name Dose Route Start Last Admin Trade Name Freq PRN Reason Stop Dose Admin Diazepam 2 mg 12/07/18 12:00 12/08/18 10:16 Valium - PO 2 mg BID [facility]IGN[facility] Administration Gabapentin 100 mg 12/06/18 14:00 12/08/18 13:50 Neurontin - PO 100 mg TID [facility] Administration Heparin Sodium (Porcine) 5,000 unit 12/06/18 14:00 12/08/18 13:50 Heparin - SQ 5,000 unit TID [facility]IGN[facility] Administration Ketorolac Tromethamine 30 mg 12/07/18 11:52 12/08/18 17:58 Toradol Injection - IVPUSH 12/11/18 13:13 30 mg Q6H PRN Administration PAIN LEVEL 4 - 6 Lidocaine 1 patch 12/07/18 10:00 12/08/18 10:16 Lidoderm Patch - TP 1 patch DAILY [facility] Administration Miscellaneous 1 each 12/06/18 22:00 12/07/18 21:42 Lidoderm Patch Removal MC 1 each DAILY@2200 [facility]IGN[facility] Administration Morphine Sulfate 1 mg 12/07/18 12:21 12/08/18 13:57 Morphine Sulfate IVPUSH 1 mg Q4H PRN Administration PAIN LEVEL 6-10 Pantoprazole Sodium 40 mg 12/07/18 10:00 12/08/18 10:15 Protonix - PO 40 mg DAILY [facility] Administration ASSESSMENT/PLAN: This is a 83 year old female with a medical history of anxiety, irritable bladder, and low back pain s/p fall. 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 - New Patient This patient is new to me today: Yes Date on this admission: 12/08/18 - Critical Care Critical Care patient: No
[2018-12-08] MEDS ORDERED: POTASSIUM CHLORIDE TABS 20 MEQ TABLET.ER (FP) PO ONE (18:43)
[2018-12-08] MEDS: LIDOCAINE PATCH REMOVAL MC SCH (22:49)
[2018-12-09] MEDS: KETOROLAC TROMETHAMINE 30 MG/1 ML VIAL IVPUSH PRN ×3 (03:39→17:20)
[2018-12-09] MEDS: HEPARIN NA (PORCINE) 5,000 UNITS/ML 1ML VIAL SQ SCH ×3 (05:33→21:04)
[2018-12-09] MEDS: GABAPENTIN 100 MG CAPSULE (FP) PO SCH ×3 (05:33→21:04)
[2018-12-09] MEDS: MORPHINE SULFATE 2 MG/ML VIAL IVPUSH PRN ×4 (07:23→22:56)
[2018-12-09 07:40] LABS: ANION GAP 8 MMOL/L (8-16); BLOOD UREA NITROGEN 20 mg/dL (7-18); CALCIUM 8.9 mg/dL (8.5-10.1); CHLORIDE 103 mmol/L (98-107); CO2 25 mmol/L (21-32); CREATININE 0.5 mg/dL (0.55-1.3); GLUCOSE,RANDOM 81 mg/dL (74-106); MAGNESIUM 2.2 mg/dL (1.8-2.4); SODIUM 136 mmol/L (136-145)
[2018-12-09] MEDS ORDERED: PT OWN MED DRAWER 7, Y5N ONE (09:26)
[2018-12-09] MEDS: diazePAM 2 MG TABLET PO SCH ×2 (10:06→21:04)
[2018-12-09] MEDS: SENNOSIDES 8.6MG TABLET (FP) PO SCH ×2 (10:06→21:04)
[2018-12-09] MEDS: PANTOPRAZOLE 40 MG TABLET (FP) PO SCH (10:07)
[2018-12-09] MEDS: LIDOCAINE 5% TOPICAL PATCH TP SCH (10:08)
[2018-12-09] MEDS: POLYETHYLENE GLYCOL 3350 119 GM BTL PO SCH (10:08)
--- NOTE | 2018-12-09 11:50 | PN ---
Physical Exam: SUBJECTIVE: Patient seen and examined; laying in bed, when told to move extremities; in severe;screaming pain;unwilling to cooperate OBJECTIVE: Vital Signs Period Temp Pulse Resp BP Sys/Zepeda Pulse Ox Last 24 Hr 97.4 F-98 F 62-83 17-20 102-127/59-74 96-97 GENERAL: The patient is awake, alert, and fully oriented, in pain LUNGS: Breath sounds equal, clear to auscultation bilaterally, no wheezes, no crackles, no accessory muscle use. HEART: Regular rate and rhythm, S1, S2 without murmur, rub or gallop. ABDOMEN: Soft, nontender, nondistended, normoactive bowel sounds, no guarding, no rebound, no hepatosplenomegaly, no masses. EXTREMITIES: 2+ pulses, warm, well-perfused, no edema. Laboratory Results - last 24 hr 12/09/18 06:00 Sodium 136 Potassium 4.0 Chloride 103 Carbon Dioxide 25 Anion Gap 8 BUN 20 H Creatinine 0.5 L Creat Clearance w eGFR 117.54 Random Glucose 81 Calcium 8.9 Magnesium 2.2 Active Medications Generic Name Dose Route Start Last Admin Trade Name Freq PRN Reason Stop Dose Admin Diazepam 2 mg 12/07/18 12:00 12/09/18 10:06 Valium - PO 2 mg BID VIGNESH Administration Gabapentin 100 mg 12/06/18 14:00 12/09/18 05:33 Neurontin - PO 100 mg TID VIGNESH Administration Heparin Sodium (Porcine) 5,000 unit 12/06/18 14:00 12/09/18 05:33 Heparin - SQ 5,000 unit TID [facility]IGN[facility] Administration Ketorolac Tromethamine 30 mg 12/07/18 11:52 12/09/18 10:05 Toradol Injection - IVPUSH 12/11/18 13:13 30 mg Q6H PRN Administration PAIN LEVEL 4 - 6 Lidocaine 1 patch 12/07/18 10:00 12/09/18 10:08 Lidoderm Patch - TP 1 patch DAILY [facility] Administration Miscellaneous 1 each 12/06/18 22:00 12/08/18 22:49 Lidoderm Patch Removal MC 1 each DAILY@2200 VIGNESH Administration Morphine Sulfate 1 mg 12/07/18 12:21 12/09/18 07:23 Morphine Sulfate IVPUSH 1 mg Q4H PRN Administration PAIN LEVEL 6-10 Pantoprazole Sodium 40 mg 12/07/18 10:00 12/09/18 10:07 Protonix - PO 40 mg DAILY [facility] Administration Polyethylene Glycol 17 gm 12/09/18 10:00 12/09/18 10:08 Miralax (For Daily Use) - PO 17 gm DAILY VIGNESH Administration Senna 1 tab 12/09/18 10:00 12/09/18 10:06 Senna - PO 1 tab BID [facility]IGNESH Administration ASSESSMENT/PLAN: This is a 83 year old female with a medical history of anxiety, irritable bladder, and low back pain s/p fall. 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 - New Patient This patient is new to me today: No - Critical Care Critical Care patient: No
[2018-12-09 12:29] LABS: URINE APPEARANCE SLCLOUDY; URINE BILIRUBIN NEGATIVE (<2.0 mg/dL); URINE COLOR YELLOW; URINE GLUCOSE (UA) NEGATIVE (NEGATIVE); URINE KETONE 1+ (NEGATIVE); URINE LEUK ESTERASE NEGATIVE (NEGATIVE); URINE NITRITE NEGATIVE (NEGATIVE); URINE PROTEIN NEGATIVE (NEGATIVE); URINE UROBILINOGEN NEGATIVE mg/dL (0.2-1.0)
[2018-12-09 12:40] LABS: EPI CELLS RARE /HPF (FEW); URINE MUCUS RARE
--- NOTE | 2018-12-09 16:43 | PN ---
Teaching Attending Note Name of Resident: Karen Renae ATTENDING PHYSICIAN STATEMENT I saw and evaluated the patient. I reviewed the resident's note and discussed the case with the resident. I agree with the resident's findings and plan as documented with exceptions below. SUBJECTIVE: Patient seen and examined. back pain improved, worked with PT yesterday, intermittently screams OBJECTIVE: Vital Signs Period Temp Pulse Resp BP Sys/Zepeda Pulse Ox Last 24 Hr 97.4 F-98 F 62-82 17-20 102-127/59-69 96-97 Intake & Output 12/06/18 12/07/18 12/08/18 12/09/18 23:59 23:59 23:59 23:59 Intake Total 400 1180 650 Balance 400 1180 650 Weight 160 lb General: sleeping comfortably, when woken up, intermittently screaming and anxious Musculoskeletal: no spinal tenderness, refuses to move LE, then noted moving spontaneously in bed and withdrawing full to pain with no concerns Abdomen:Soft, NT Home Medications Medication Instructions Recorded Phenelzine Sulfate [Nardil] 15 mg PO TID 12/06/18 Active Medications Diazepam (Valium -) 2 mg PO BID [facility] Last Admin: 12/09/18 10:06 Dose: 2 mg Gabapentin (Neurontin -) 100 mg PO TID [facility] Last Admin: 12/09/18 14:11 Dose: 100 mg Heparin Sodium (Porcine) (Heparin -) 5,000 unit SQ TID [facility] Last Admin: 12/09/18 14:11 Dose: 5,000 unit Ketorolac Tromethamine (Toradol Injection -) 30 mg IVPUSH Q6H PRN PRN Reason: PAIN LEVEL 4 - 6 Stop: 12/11/18 13:13 Last Admin: 12/09/18 10:05 Dose: 30 mg Lidocaine (Lidoderm Patch -) 1 patch TP DAILY [facility] Last Admin: 12/09/18 10:08 Dose: 1 patch Miscellaneous (Lidoderm Patch Removal) 1 each MC DAILY@2200 [facility] Last Admin: 12/08/18 22:49 Dose: 1 each Morphine Sulfate (Morphine Sulfate) 1 mg IVPUSH Q4H PRN PRN Reason: PAIN LEVEL 6-10 Last Admin: 12/09/18 12:25 Dose: 1 mg Pantoprazole Sodium (Protonix -) 40 mg PO DAILY [facility] Last Admin: 12/09/18 10:07 Dose: 40 mg Polyethylene Glycol (Miralax (For Daily Use) -) 17 gm PO DAILY [facility] Last Admin: 12/09/18 10:08 Dose: 17 gm Senna (Senna -) 1 tab PO BID [facility] Last Admin: 12/09/18 10:06 Dose: 1 tab Laboratory Results - last 24 hr 12/09/18 12/09/18 06:00 11:20 Sodium 136 Potassium 4.0 Chloride 103 Carbon Dioxide 25 Anion Gap 8 BUN 20 H Creatinine 0.5 L Creat Clearance w eGFR 117.54 Random Glucose 81 Calcium 8.9 Magnesium 2.2 Urine Color Yellow Urine Appearance Slcloudy Urine pH 5.0 Ur Specific [place] 1.023 Urine Protein Negative Urine Glucose (UA) Negative Urine Ketones 1+ H Urine Blood 2+ H Urine Nitrite Negative Urine Bilirubin Negative Urine Urobilinogen Negative Ur Leukocyte Esterase Negative Urine WBC (Auto) 4 Urine RBC (Auto) 76 Ur Epithelial Cells Rare Urine Mucus Rare ASSESSMENT AND PLAN: 83 yof with PMHx of anxiety, irritable bladder, with low back pain after fall 11/29/2018 -Acute low back pain s/p fall, suspect lumbar sprain -Anxiety -Irritable bladder Plan: Symptoms improved. Neurological exam/imaging non concerning Suspect anxiety component. PT eval noted. For SNF pain control with morphine/toradol/valdium and prn percocet, watch for sedation. Aim to d/c on percocet/lidocaine patch and flexeril prn. Avoid standing benzos jail. DVTPPX heparin Dispo plan for SNF tomorrow. Plan discussed with patient, nursing and CM in detail, all questions answered.
[2018-12-09] MEDS: LIDOCAINE PATCH REMOVAL MC SCH (21:18)
[2018-12-10] MEDS: MORPHINE SULFATE 2 MG/ML VIAL IVPUSH PRN ×2 (01:53→05:37)
[2018-12-10] MEDS ORDERED: PT OWN MED DRAWER 7, Y5N ONE (04:23)
[2018-12-10] MEDS: GABAPENTIN 100 MG CAPSULE (FP) PO SCH ×2 (05:37→15:38)
[2018-12-10] MEDS: HEPARIN NA (PORCINE) 5,000 UNITS/ML 1ML VIAL SQ SCH ×2 (05:37→15:38)
[2018-12-10 07:12] LABS: BASO % 0.7 % (0-2.0); EOS % 3.4 % (0-4.5); HEMATOCRIT 37.4 % (32.4-45.2); HEMOGLOBIN 12.8 GM/dL (10.7-15.3); LYMPH % 17.2 % (8-40); MCH 26.8 pg (25.7-33.7); MCHC 34.4 g/dl (32.0-36.0); MEAN CELL VOLUME 78.1 fl (80-96); MEAN PLT VOLUME 8.2 fl (7.5-11.1); MONO % 10.2 % (3.8-10.2); NEUT % 68.5 % (42.8-82.8); PLATELET COUNT 285 K/MM3 (134-434); RBC 4.79 M/mm3 (3.60-5.2); RDW 14.6 % (11.6-15.6); WHITE BLOOD COUNT 6.4 K/mm3 (4.0-10.0)
[2018-12-10] MEDS: KETOROLAC TROMETHAMINE 30 MG/1 ML VIAL IVPUSH PRN ×2 (08:05→15:37)
[2018-12-10 08:08] LABS: ANION GAP 7 MMOL/L (8-16); BLOOD UREA NITROGEN 18 mg/dL (7-18); CALCIUM 8.9 mg/dL (8.5-10.1); CHLORIDE 101 mmol/L (98-107); CO2 25 mmol/L (21-32); CREATININE 0.5 mg/dL (0.55-1.3); GLUCOSE,RANDOM 90 mg/dL (74-106); PHOSPHOROUS 3.6 mg/dL (2.5-4.9); POTASSIUM 3.8 mmol/L (3.5-5.1); SODIUM 133 mmol/L (136-145)
[2018-12-10] MEDS: LIDOCAINE 5% TOPICAL PATCH TP SCH (10:01)
[2018-12-10] MEDS: PANTOPRAZOLE 40 MG TABLET (FP) PO SCH (10:02)
[2018-12-10] MEDS: POLYETHYLENE GLYCOL 3350 119 GM BTL PO SCH (10:02)
[2018-12-10] MEDS: SENNOSIDES 8.6MG TABLET (FP) PO SCH (10:02)
[2018-12-10] MEDS: diazePAM 2 MG TABLET PO SCH (10:02)
--- NOTE | 2018-12-10 16:51 | DS ---
Physical Exam: SUBJECTIVE: Patient seen and examined; pain improved; sitting in bed; walked with PT with 35 feet with physical therapy today. OBJECTIVE: Vital Signs Period Temp Pulse Resp BP Sys/Zepeda Pulse Ox Last 24 Hr 97.4 F-98.0 F 66-87 17-20 114-124/50-93 95-96 PHYSICAL EXAM GENERAL: The patient is awake, alert, and fully oriented, in no acute distress. LUNGS: Breath sounds equal, clear to auscultation bilaterally, no wheezes, no crackles, no accessory muscle use. HEART: Regular rate and rhythm, S1, S2 without murmur, rub or gallop. ABDOMEN: Soft, nontender, nondistended, normoactive bowel sounds, no guarding, no rebound, no hepatosplenomegaly, no masses. EXTREMITIES: 2+ pulses, warm, well-perfused, no edema. Back pain; tender to palpation b/l lower back; NEUROLOGICAL: Cranial nerves II through XII grossly intact. Normal speech, gait not observed. LABS Laboratory Results - last 24 hr 12/10/18 12/10/18 06:08 06:08 WBC 6.4 RBC 4.79 Hgb 12.8 Hct 37.4 MCV 78.1 L MCH 26.8 MCHC 34.4 RDW 14.6 Plt Count 285 MPV 8.2 Absolute Neuts (auto) 4.4 Neutrophils % 68.5 Lymphocytes % 17.2 D Monocytes % 10.2 Eosinophils % 3.4 D Basophils % 0.7 Nucleated RBC % 0 Sodium 133 L Potassium 3.8 Chloride 101 Carbon Dioxide 25 Anion Gap 7 L BUN 18 Creatinine 0.5 L Creat Clearance w eGFR 117.54 Random Glucose 90 Calcium 8.9 Phosphorus 3.6 Magnesium 2.0 HOSPITAL COURSE: Date of Admission:12/07/18 Date of Discharge: 12/10/18 This is a 83 year old female with a medical history of anxiety, irritable bladder, and low back pain s/p fall. CT scan negative for acute changes, evident for chronic degenerative changes. Pain most likely due to lumbar sprain. She will go to rehab on five days of oxycodone and tyelenol. Minutes to complete discharge: 35 Discharge Summary Reason For Visit: LOW BACK PAIN Current Active Problems Back pain (Acute) Condition: Stable - Instructions Diet, Activity, Other Instructions: Ms Mccann, you have been evaluated for back pain. Your CAT scans and xrays were negative for acute pathology. You were most likely experiencing a lumbar sprain. You will benefit from rehab and anti inflammatory medication and a new medication call gabapentin that was started for neuropathic pain. 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 Disposition: [facility] - Home Medications Comprehensive Discharge Medication List: Ambulatory Orders Phenelzine Sulfate [Nardil] 15 mg PO TID 12/06/18 Acetaminophen [Tylenol -] 500 mg PO Q6H 14 Days #100 tablet 12/10/18 Gabapentin [Neurontin -] 100 mg PO TID capsule 12/10/18 Oxycodone HCl/Acetaminophen [Oxycodone-Acetaminophen 5-325] 1 each PO Q8H PRN 5 Days #15 tablet MDD 15mg 12/10/18 This patient is new to me today: Yes Date on this admission: 12/10/18 Emergency Visit: Yes ED Registration Date: 12/07/18 Care time: The patient presented to the Emergency Department on the above date and was hospitalized for further evaluation of their emergent condition. Critical Care patient: No - Discharge Referral Referred to [facility] Med P.C.: No
--- NOTE | 2018-12-10 17:39 | PN ---
Teaching Attending Note Name of Resident: Karen Renae ATTENDING PHYSICIAN STATEMENT I saw and evaluated the patient. I reviewed the resident's note and discussed the case with the resident. I agree with the resident's findings and plan as documented. OBJECTIVE: Last Vital Signs Temp Pulse Resp BP Pulse Ox 36.6 C 87 20 120/93 95 12/10/18 14:43 12/10/18 14:43 12/10/18 14:43 12/10/18 14:43 12/10/18 09:00 Gen: nad Pulm: ctab w/o w/r/r CV: rrr w/o m/r/g Abd: +bs, s/nt/nd Ext: no c/c/e Ms Mccann is an 83 year old female who comes in with back pain. She was admitted to the hospital. CT scans did not show fracture. She was started on a pain control regimen. She is safe for discharge to SNF for further PT and pain management.
[2018-12-10 17:53] VITALS: BP 134/83; PULSE 64; TEMP 97.5
== END 2018-12-10 19:33 | DRG 552 ==
LOC: JER 03:13 → JERBED 11:48 → UNDOADMOB 11:48 → INTOOBSV 11:48 → JERBED 14:02 → J7W 14:02 → JERBED 14:25 → J7W 14:25 → OBSVTOIN 12-07 11:52
PROVIDERS: ADMIT Hospitalist; ATTEND Internal Medicine
DX: S33.5XXA Sprain of ligaments of lumbar spine, initial encounter (principal); F41.9 Anxiety disorder, unspecified; N32.89 Other specified disorders of bladder; E87.6 Hypokalemia; W18.39XA Other fall on same level, initial encounter; Y92.008 Other place in unspecified non-institutional (private) residence as the place of occurrence of the external cause; Z87.891 Personal history of nicotine dependence
CPT/HCPCS: 36415; 71045-TC-FY; 72131-TC; 72192-TC; 80048; 80053; 81003; 81015; 83735; 84100; 85025; 85027; 87086; 93005; 93010; 97116-GP; 97162-GP; 99282-25; G0378; J1644

== ENCOUNTER 2019-01-22 19:41 | Inpatient (IN) | payer OTHER, MEDICARE ==
--- NOTE | 2019-01-22 19:51 | PDOC ---
History of Present Illness - General Chief Complaint: Injury Stated Complaint: FALL Time Seen by Provider: 01/22/19 19:51 - History of Present Illness Initial Comments: 01/22/19 20:09 83F with pmh of chronic lower back pain, anxiety and overactive bladder, sent from [facility] s/p fall on her face, sustained cut on lower lip and small cut over right eye inner cantus. Patient seems to be somehwat confused, states she has pain in her lower back. Presenting here with abnormal vitals: fever of 103 and HR of 122 Vitals from the half-way were: temp of 96.5 and heart rate 134 Fall was unwitnessed by the half-way staff. Past History - Past Medical History Allergies/Adverse Reactions: Allergies Allergy/AdvReac Type Severity Reaction Status Date / Time No Known Allergies Allergy Verified 12/06/18 04:47 Home Medications: Ambulatory Orders Phenelzine Sulfate [Nardil] 15 mg PO TID 12/06/18 Acetaminophen [Tylenol -] 500 mg PO Q6H 14 Days #100 tablet 12/10/18 Gabapentin [Neurontin -] 100 mg PO TID capsule 12/10/18 Oxycodone HCl/Acetaminophen [Oxycodone-Acetaminophen 5-325] 1 each PO Q8H PRN 5 Days #15 tablet MDD 15mg 12/10/18 Anemia: No Asthma: No Cancer: Yes Cardiac Disorders: No CVA: No COPD: No CHF: No Dementia: No Diabetes: No GI Disorders: No Disorders: No HTN: No Hypercholesterolemia: No Liver Disease: No Seizures: No Thyroid Disease: No - Surgical History Abdominal Surgery: No Appendectomy: No Cardiac Surgery: No Cholecystectomy: No Lung Surgery: No Neurologic Surgery: No Orthopedic Surgery: No - Immunization History Immunization Up to Date: No - Suicide/Smoking/Psychosocial Hx Smoking History: Unknown if ever smoked Have you smoked in the past 12 months: No Information on smoking cessation initiated: No Hx Alcohol Use: No Drug/Substance Use Hx: No Review of Systems - Review of Systems Able to Perform ROS?: No (confused, altered) Is the patient limited Turkmen proficient: No *Physical Exam - Vital Signs Last Vital Signs Temp Pulse Resp BP Pulse Ox 103.0 F H 122 H 18 128/79 96 01/22/19 19:43 01/22/19 19:43 01/22/19 19:43 01/22/19 19:43 01/22/19 19:43 - Physical Exam General Appearance: Yes: Nourished, Appropriately Dressed. No: Apparent Distress HEENT: positive: Other (Small laceration over lips, nsala bridge deformity, dried blood in left nopstrl, no intranasal hematoma. Hematoma over right superior orbital ridge.) Respiratory/Chest: positive: Lungs Clear, Normal Breath Sounds. negative: Chest Tender, Respiratory Distress Cardiovascular: positive: Regular Rhythm, S1, S2, Tachycardia Gastrointestinal/Abdominal: positive: Normal Bowel Sounds, Flat, Soft. negative : Tender Musculoskeletal: positive: Normal Inspection. negative: CVA Tenderness Extremity: positive: Normal Capillary Refill, Normal Inspection, Normal Range of Motion Integumentary: positive: Normal Color, Dry, Warm Neurologic: positive: Confused (oriented to self only. ). negative: Fully Oriented, Alert ED Treatment Course - LABORATORY CBC & Chemistry Diagram: 01/22/19 20:30 01/22/19 20:09 Medical Decision Making - Medical Decision Making 01/22/19 21:11 83f with pmh of anxiety and chronic lower back pain presenting s/p fall on the face and fever with tachycardia. patietn is altered, confused oriented to self only. Spoke to NH who says the patient is "intermittently confused" Spoke to patient's daughter who is also POA, and let her know patient was here. In addition to r/o facial fracture, skull and cervical spine fractures and intracerebral bleed, we need to investigate the source of the patient's 103 fever. We will start by getting a full sepsis order set as well as tylenol IV to bring down the fever. Pneumonia vs UTi are on top of the diagnosis. We have to consider stroke as well since this could be a worsening of the patient's mental status but the patient isn't showing any focal deficits, no weaknesses. Her face looks somewhat asymmetrical but this might be because her right lower lip is swollen due to the fall. We will obtain 01/22/19 21:22 13.9 WBC and urine positive for UTi. Will start the patient on Zosyn immediately. 01/22/19 21:37 EKG: Left axis deviation, RBBB 01/22/19 21:52 Potassium 2.8. Will give ride bags of potassium IV and obtain magnesium level. Ct head/neck/facial read pending. Due to the patient being full code, hypotensive in the 80's after one Liter bag of IV saline and septic, we will admit to the ICU. Dr. Quinn was called and she accepted the patient. 01/22/19 23:01 Ct head negative for intracranial processes. No bleed or fractures. Ct c-spine negative CT facial bone: acute bilateral displaced nasal fracture. *DC/Admit/Observation/Transfer Diagnosis at time of Disposition: Sepsis - Discharge Dispostion Decision to Admit order: Yes - Referrals - Patient Instructions - Post Discharge Activity
[2019-01-22] MEDS ORDERED: ACETAMINOPHEN 1000 MG/100 ML VIAL (NON FORMULARY) IVPB ONE (19:52)
[2019-01-22] MEDS ORDERED: ACETAMINOPHEN INJECTION 100 ML IVPB ONE (20:10)
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
[2019-01-22 21:05] LABS: BASO % 0.7 % (0-2.0); EOS % 3.2 % (0-4.5); HEMATOCRIT 40.5 % (32.4-45.2); HEMOGLOBIN 13.2 GM/dL (10.7-15.3); LYMPH % 3.9 % (8-40); MCH 25.9 pg (25.7-33.7); MCHC 32.5 g/dl (32.0-36.0); MEAN CELL VOLUME 79.7 fl (80-96); MEAN PLT VOLUME 9.6 fl (7.5-11.1); MONO % 12.3 % (3.8-10.2); NEUT % 79.9 % (42.8-82.8); PLATELET COUNT 365 K/MM3 (134-434); RBC 5.08 M/mm3 (3.60-5.2); RDW 15.5 % (11.6-15.6); WHITE BLOOD COUNT 13.9 K/mm3 (4.0-10.0)
[2019-01-22 21:13] LABS: VENOUS PH 7.42 (7.31-7.41)
[2019-01-22 21:14] LABS: VENOUS PO2 26.6 mmHg (30-40)
[2019-01-22 21:15] LABS: EPI CELLS 1.9 /HPF (0-5/HPF); HYALINE CASTS 9 /lpf (0-8); PH,URINE 5.5 (5.0-8.0); URINE APPEARANCE TURBID; URINE BACTERIA 2710.9 /hpf (NEGATIVE); URINE BILIRUBIN NEGATIVE (NEGATIVE); URINE COLOR YELLOW; URINE GLUCOSE (UA) NEGATIVE (NEGATIVE); URINE KETONE NEGATIVE (NEGATIVE); URINE LEUK ESTERASE 3+ (NEGATIVE); URINE NITRITE NEGATIVE (NEGATIVE); URINE PROTEIN 1+ (NEGATIVE); URINE UROBILINOGEN 0.2 mg/dL (0.2-1.0); URINE WBC 512 /hpf (0-5)
[2019-01-22] MEDS ORDERED: SODIUM CHLORIDE 0.9% 1000 ML INFUS.BAG IV ONE ×2 (21:19)
[2019-01-22] MEDS ORDERED: PIPERACILLIN/TAZOB 3.375 GM 3.375 GM in DEXTROSE 5%-WATER - 50 ML IVPB ONE (21:20)
[2019-01-22] MEDS ORDERED: PIPERACILLIN/TAZOB 3.375 GM 3.375 GM/50 ML BAG IVPB ONE (21:22)
[2019-01-22 21:34] LABS: URINE RBC 10 /hpf (0-4)
[2019-01-22 21:48] LABS: ALBUMIN 2.6 g/dl (3.4-5.0); ALK PHOS 102 U/L (45-117); ANION GAP 12 MMOL/L (8-16); BILIRUBIN,TOTAL 0.5 mg/dL (0.2-1); BLOOD UREA NITROGEN 31 mg/dL (7-18); CALCIUM 8.6 mg/dL (8.5-10.1); CHLORIDE 90 mmol/L (98-107); CO2 28 mmol/L (21-32); CREATININE 2.5 mg/dL (0.55-1.3); GLUCOSE,RANDOM 137 mg/dL (74-106); SGOT/AST 18 U/L (15-37); SGPT/ALT 18 U/L (13-61); SODIUM 129 mmol/L (136-145); TOT PROT 5.9 g/dl (6.4-8.2)
[2019-01-22 21:50] LABS: POTASSIUM 2.8 mmol/L (3.5-5.1)
[2019-01-22] MEDS ORDERED: KCL 10 MEQ IVPB 10 MEQ/100 ML INFUS.BAG IVPB SCH (22:00)
[2019-01-22] MEDS: KCL 10 MEQ IVPB 10 MEQ/100 ML INFUS.BAG IVPB SCH ×2 (22:00→23:00)
[2019-01-22] MEDS ORDERED: KCL 10 MEQ IVPB 20 MEQ/200 ML INFUS.BAG IVPB ONE ×2 (22:01→23:38)
[2019-01-22 22:53] LABS: INR 1.22 (0.83-1.09); PROTHROMBIN TIME (PATIENT) 14.4 SEC (9.7-13.0)
[2019-01-22 22:55] LABS: ACTIVATED PTT 31.6 SECONDS (25.2-36.5)
[2019-01-22] MEDS ORDERED: SODIUM CHLORIDE 1,000 ML IV STA (23:42)
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
[2019-01-23] MEDS ORDERED: POTASSIUM CHLORIDE 20 MEQ PREMIX IVPB 100 ML IVPB ONE (03:05)
[2019-01-23] MEDS: SODIUM CHLORIDE 1,000 ML IV SCH ×2 (05:20→12:39)
[2019-01-23] MEDS: HEPARIN NA (PORCINE) 5,000 UNITS/ML 1ML VIAL SQ SCH ×3 (06:11→21:52)
[2019-01-23 07:14] LABS: INR 1.17 (0.83-1.09); PROTHROMBIN TIME (PATIENT) 13.8 SEC (9.7-13.0)
[2019-01-23 07:16] LABS: ACTIVATED PTT 29.1 SECONDS (25.2-36.5)
[2019-01-23 07:26] LABS: BASO % 0.4 % (0-2.0); EOS % 3.1 % (0-4.5); HEMATOCRIT 32.5 % (32.4-45.2); HEMOGLOBIN 10.7 GM/dL (10.7-15.3); LYMPH % 4.9 % (8-40); MCH 26.3 pg (25.7-33.7); MCHC 33.1 g/dl (32.0-36.0); MEAN CELL VOLUME 79.6 fl (80-96); MEAN PLT VOLUME 9.1 fl (7.5-11.1); MONO % 15.5 % (3.8-10.2); NEUT % 76.1 % (42.8-82.8); PLATELET COUNT 320 K/MM3 (134-434); RBC 4.08 M/mm3 (3.60-5.2); RDW 15.4 % (11.6-15.6); WHITE BLOOD COUNT 12.7 K/mm3 (4.0-10.0)
[2019-01-23 07:28] LABS: ALBUMIN 2.1 g/dl (3.4-5.0); ALK PHOS 84 U/L (45-117); ANION GAP 9 MMOL/L (8-16); BILIRUBIN,TOTAL 0.6 mg/dL (0.2-1); BLOOD UREA NITROGEN 27 mg/dL (7-18); CALCIUM 7.5 mg/dL (8.5-10.1); CHLORIDE 105 mmol/L (98-107); CO2 24 mmol/L (21-32); CREATININE 2.4 mg/dL (0.55-1.3); GLUCOSE,RANDOM 107 mg/dL (74-106); MAGNESIUM 2.1 mg/dL (1.8-2.4); PHOSPHOROUS 3.6 mg/dL (2.5-4.9); POTASSIUM 3.3 mmol/L (3.5-5.1); SGOT/AST 18 U/L (15-37); SGPT/ALT 15 U/L (13-61); SODIUM 138 mmol/L (136-145); TOT PROT 4.9 g/dl (6.4-8.2)
[2019-01-23] MEDS: KCL 10 MEQ IVPB 10 MEQ/100 ML INFUS.BAG IVPB SCH ×4 (08:30→10:30)
[2019-01-23] MEDS ORDERED: SODIUM CHLORIDE 500 ML IV STA ×2 (08:46→19:08)
[2019-01-23] MEDS ORDERED: cefTRIAXone SODIUM 1 GM VIAL ONE (09:04)
[2019-01-23] MEDS ORDERED: DEXTROSE 5%-WATER - 50 ML IVPB ONE ×4 (09:04→21:41)
[2019-01-23] MEDS ORDERED: PT OWN MED DRAWER 7, Y5N ONE (09:27)
[2019-01-23] MEDS: MUPIROCIN 2% TOPICAL OINTMENT FOR DECOLONIZATION NS SCH ×2 (09:36→21:52)
[2019-01-23] MEDS ORDERED: CEFTRIAXONE 1 GM in DEXTROSE 5%-WATER - 50 ML IVPB SCH (10:00)
[2019-01-23 10:39] LABS: MAGNESIUM 1.9 mg/dL (1.8-2.4)
--- NOTE | 2019-01-23 10:42 | EKG ---
Test Reason : Blood Pressure : / mmHG Vent. Rate : 136 BPM Atrial Rate : 136 BPM P-R Int : 146 ms QRS Dur : 110 ms QT Int : 278 ms P-R-T Axes : 078 -66 068 degrees QTc Int : 418 ms SINUS TACHYCARDIA LEFT AXIS DEVIATION INCOMPLETE RBBB ABNORMAL ECG WHEN COMPARED WITH ECG OF 06-DEC-2018 08:04, PREMATURE ATRIAL COMPLEXES ARE NO LONGER PRESENT VENT. RATE HAS INCREASED BY 70 BPM INCOMPLETE RIGHT BUNDLE BRANCH BLOCK IS NOW PRESENT Confirmed by JUDY OCAMPO MD ([id number]) on 01/23/2019 10:42:12 AM Referred By: Confirmed By:JUDY OCAMPO MD
--- NOTE | 2019-01-23 11:05 | HP ---
Admitting History and Physical - Primary Care Physician PCP: Hector Quinn - Admission Chief Complaint: fall History of Present Illness: 83 year old female, with a significant PMH of chronic low back pain, anxiety, and hyperactive bladder, who presents to the emergency department [facility] from [facility] s/p fall. Patient notes she was getting off the bus, when she couldnt make it to the platform and fell onto her face. Patient presents with a laceration to her upper and lower lip and bruising with swelling of her nose. She endorses low back pain. Patient presents with AMS while in the ED, and cannot correctly recall current date, location, and president. HPI is limited secondary to patient being a poor historian (intermittently confused at baseline). - Past Medical History Musculoskeletal: Yes: Chronic low back pain - Smoking History Smoking history: Unknown if ever smoked Have you smoked in the past 12 months: No - Alcohol/Substance Use Hx Alcohol Use: No Home Medications - Allergies Allergies/Adverse Reactions: Allergies Allergy/AdvReac Type Severity Reaction Status Date / Time No Known Allergies Allergy Verified 01/23/19 00:06 - Home Medications Home Medications: Ambulatory Orders Diazepam 0.5 mg PO BID 01/23/19 Gabapentin 200 mg PO BID 01/23/19 Heparin - 5,000 unit SQ Q8H 01/23/19 Lidocaine [Lidocaine Pain Relief] 1 each TP DAILY 01/23/19 Mirabegron [Myrbetriq] 50 mg PO DAILY 01/23/19 Oxycodone HCl 5 mg PO Q6H PRN 01/23/19 Pantoprazole Sodium [Protonix] 40 mg PO DAILY 01/23/19 Polyethylene Glycol 3350 [Miralax (For Daily Use) -] 17 gm PO DAILY 01/23/19 Sennosides [Senna] 8.6 mg PO DAILY 01/23/19 Simethicone [Gas Relief] 80 mg PO DAILY 01/23/19 Zinc Oxide 20% Topical Oint gm NR TID 01/23/19 Physical Examination Vital Signs: Vital Signs Temperature 97.7 F 01/23/19 10:00 Pulse Rate 111 H 01/23/19 08:00 Respiratory Rate 21 H 01/23/19 10:00 Blood Pressure 88/62 L 01/23/19 10:00 O2 Sat by Pulse Oximetry (%) 99 01/23/19 08:00 Constitutional: Yes: No Distress HENT: Yes: Atraumatic Neck: Yes: Supple Cardiovascular: Yes: Regular Rate and Rhythm Respiratory: Yes: CTA Bilaterally Gastrointestinal: Yes: Normal Bowel Sounds Extremities: Yes: WNL Edema: No Peripheral Pulses WNL: Yes Neurological: Yes: Alert Labs: CBC, BMP 01/23/19 05:30 01/23/19 05:30 Imaging - Results Cat Scan: Report Reviewed Problem List - Problems (1) Fall Assessment/Plan: pt eval head ct no acute problem Code(s): W19.XXXA - UNSPECIFIED FALL, INITIAL ENCOUNTER (2) UTI (urinary tract infection) Assessment/Plan: iv abx id consult cxs sent Code(s): N39.0 - URINARY TRACT INFECTION, SITE NOT SPECIFIED (3) Sepsis Code(s): A41.9 - SEPSIS, UNSPECIFIED ORGANISM (4) Back pain Code(s): M54.9 - DORSALGIA, UNSPECIFIED Qualifiers: Back pain location: low back pain Chronicity: acute Back pain laterality : unspecified Sciatica presence: without sciatica Qualified Code(s): M54.5 - Low back pain Assessment/Plan Laboratory Tests 01/22/19 01/22/19 01/22/19 20:09 20:09 20:09 WBC RBC Hgb Hct MCV MCH MCHC RDW Plt Count MPV Absolute Neuts (auto) Neutrophils % Lymphocytes % Monocytes % Eosinophils % Basophils % Nucleated RBC % PT with INR 14.40 H INR 1.22 H PTT (Actin FS) 31.6 VBG pH 7.42 H POC VBG pCO2 42.0 POC VBG pO2 26.6 L VBG HCO3 26.7 VBG O2 Sat (Sukhwinder) 45.6 L VBG Base Excess 2.5 H Sodium 129 L Potassium 2.8 L* Chloride 90 L Carbon Dioxide 28 Anion Gap 12 BUN 31 H Creatinine 2.5 H Creat Clearance w eGFR 18.35 Random Glucose 137 H Lactic Acid Calcium 8.6 Phosphorus Magnesium 1.9 Total Bilirubin 0.5 AST 18 ALT 18 Alkaline Phosphatase 102 Creatine Kinase 82 Creatine Kinase Index CK-MB (CK-2) 1.0 Troponin I 0.04 Total Protein 5.9 L Albumin 2.6 L Urine Color Urine Appearance Urine pH Ur Specific Buckley Urine Protein Urine Glucose (UA) Urine Ketones Urine Blood Urine Nitrite Urine Bilirubin Urine Urobilinogen Ur Leukocyte Esterase Urine WBC (Auto) Urine RBC (Auto) Urine Casts (Auto) U Pathogenic Cast Auto U Epithel Cells (Auto) U Sm Round Cell (Auto) Urine Crystals (Auto) Urine Bacteria (Auto) 01/22/19 01/22/19 01/22/19 20:09 20:20 20:30 WBC 13.9 H RBC 5.08 Hgb 13.2 Hct 40.5 MCV 79.7 L MCH 25.9 MCHC 32.5 RDW 15.5 Plt Count 365 D MPV 9.6 D Absolute Neuts (auto) 11.1 H Neutrophils % 79.9 Lymphocytes % 3.9 L D Monocytes % 12.3 H Eosinophils % 3.2 Basophils % 0.7 Nucleated RBC % 0 PT with INR INR PTT (Actin FS) VBG pH POC VBG pCO2 POC VBG pO2 VBG HCO3 VBG O2 Sat (Sukhwinder) VBG Base Excess Sodium Potassium Chloride Carbon Dioxide Anion Gap BUN Creatinine Creat Clearance w eGFR Random Glucose Lactic Acid 1.3 1.6 Calcium Phosphorus Magnesium Total Bilirubin AST ALT Alkaline Phosphatase Creatine Kinase Creatine Kinase Index CK-MB (CK-2) Troponin I Total Protein Albumin Urine Color Urine Appearance Urine pH Ur Specific Buckley Urine Protein Urine Glucose (UA) Urine Ketones Urine Blood Urine Nitrite Urine Bilirubin Urine Urobilinogen Ur Leukocyte Esterase Urine WBC (Auto) Urine RBC (Auto) Urine Casts (Auto) U Pathogenic Cast Auto U Epithel Cells (Auto) U Sm Round Cell (Auto) Urine Crystals (Auto) Urine Bacteria (Auto) 01/22/19 01/23/19 01/23/19 20:30 05:30 05:30 WBC 12.7 H RBC 4.08 Hgb 10.7 Hct 32.5 D MCV 79.6 L MCH 26.3 MCHC 33.1 RDW 15.4 Plt Count 320 MPV 9.1 Absolute Neuts (auto) 9.7 H Neutrophils % 76.1 Lymphocytes % 4.9 L D Monocytes % 15.5 H Eosinophils % 3.1 Basophils % 0.4 Nucleated RBC % 0 PT with INR 13.80 H INR 1.17 H PTT (Actin FS) 29.1 VBG pH POC VBG pCO2 POC VBG pO2 VBG HCO3 VBG O2 Sat (Sukhwinder) VBG Base Excess Sodium Potassium Chloride Carbon Dioxide Anion Gap BUN Creatinine Creat Clearance w eGFR Random Glucose Lactic Acid Calcium Phosphorus Magnesium Total Bilirubin AST ALT Alkaline Phosphatase Creatine Kinase Creatine Kinase Index CK-MB (CK-2) Troponin I Total Protein Albumin Urine Color Yellow Urine Appearance Turbid Urine pH 5.5 Ur Specific Buckley 1.007 L Urine Protein 1+ H Urine Glucose (UA) Negative Urine Ketones Negative Urine Blood 2+ H Urine Nitrite Negative Urine Bilirubin Negative Urine Urobilinogen 0.2 Ur Leukocyte Esterase 3+ H Urine WBC (Auto) 512 Urine RBC (Auto) 10 Urine Casts (Auto) 9 U Pathogenic Cast Auto No Result Required. U Epithel Cells (Auto) 1.9 U Sm Round Cell (Auto) No Result Required. Urine Crystals (Auto) No Result Required. Urine Bacteria (Auto) 2710.9 01/23/19 05:30 WBC RBC Hgb Hct MCV MCH MCHC RDW Plt Count MPV Absolute Neuts (auto) Neutrophils % Lymphocytes % Monocytes % Eosinophils % Basophils % Nucleated RBC % PT with INR INR PTT (Actin FS) VBG pH POC VBG pCO2 POC VBG pO2 VBG HCO3 VBG O2 Sat (Sukhwinder) VBG Base Excess Sodium 138 Potassium 3.3 L Chloride 105 Carbon Dioxide 24 Anion Gap 9 BUN 27 H Creatinine 2.4 H Creat Clearance w eGFR 19.23 Random Glucose 107 H Lactic Acid Calcium 7.5 L Phosphorus 3.6 Magnesium 2.1 Total Bilirubin 0.6 AST 18 ALT 15 Alkaline Phosphatase 84 Creatine Kinase 200 H Creatine Kinase Index 1.1 CK-MB (CK-2) 2.2 Troponin I 0.07 H Total Protein 4.9 L Albumin 2.1 L Urine Color Urine Appearance Urine pH Ur Specific Buckley Urine Protein Urine Glucose (UA) Urine Ketones Urine Blood Urine Nitrite Urine Bilirubin Urine Urobilinogen Ur Leukocyte Esterase Urine WBC (Auto) Urine RBC (Auto) Urine Casts (Auto) U Pathogenic Cast Auto U Epithel Cells (Auto) U Sm Round Cell (Auto) Urine Crystals (Auto) Urine Bacteria (Auto) Active Medications Generic Name Dose Route Start Last Admin Trade Name Freq PRN Reason Stop Dose Admin Acetaminophen 1,000 mg 01/22/19 23:59 Ofirmev Injection - IVPB Q6H PRN FEVER Chlorhexidine Gluconate 1 applic 01/23/19 22:00 Hibiclens For Decolonization - TP HS VIGNESH Heparin Sodium (Porcine) 5,000 unit 01/23/19 06:00 05/03/19 06:11 Heparin - SQ 5,000 unit TID VIGNESH Administration Ceftriaxone Sodium 1 gm/ 50 mls @ 100 mls/hr 01/23/19 10:00 01/23/19 09:35 Dextrose IVPB 100 mls/hr DAILY VIGNESH Administration Protocol Sodium Chloride 1,000 mls @ 100 mls/hr 01/23/19 03:15 01/23/19 05:20 Normal Saline - IV 100 mls/hr ASDIR VIGNESH Administration Potassium Chloride 10 meq in 100 mls @ 100 mls/hr 01/23/19 08:30 01/23/19 10: 30 Potassium Chloride 10 Meq Premix Ivpb - IVPB 01/23/19 11:29 100 mls/hr Q60M VIGNESH Administration Mupirocin 1 applic 01/23/19 10:00 01/23/19 09:36 Bactroban Ointment (For Decolonization) - NS 01/28/19 09:59 1 applic BID VIGNESH Administration icu cc time 60 min
--- NOTE | 2019-01-23 12:03 | PN ---
Teaching Attending Note Name of Resident: Liz Donohue ATTENDING PHYSICIAN STATEMENT I saw and evaluated the patient. I reviewed the resident's note and discussed the case with the resident. I agree with the resident's findings and plan as documented. SUBJECTIVE: Pt seen and examined in the ICU. Tachycardic, hypotensive but responding to IVF boluses. Fever curve trending down. OBJECTIVE: Vital Signs Period Temp Pulse Resp BP Sys/Zepeda Pulse Ox Last 24 Hr 97.4 F-103.0 F 106-128 18-22 67-128/41-79 96-99 Intake & Output 01/20/19 01/21/19 01/22/19 01/23/19 23:59 23:59 23:59 23:59 Intake Total 850 Balance 850 Weight 83.915 kg 63.911 kg Gen: NAD at rest Heart: RRR Lung: decreased breath sounds at the bases Abd: soft, nontender Ext: no edema CBC, BMP 01/23/19 05:30 01/23/19 05:30 Active Medications Acetaminophen (Ofirmev Injection -) 1,000 mg IVPB Q6H PRN PRN Reason: FEVER Chlorhexidine Gluconate (Hibiclens For Decolonization -) 1 applic TP HS VIGNESH Heparin Sodium (Porcine) (Heparin -) 5,000 unit SQ TID [facility] Last Admin: 01/23/19 06:11 Dose: 5,000 unit Ceftriaxone Sodium 1 gm/ (Dextrose) 50 mls @ 100 mls/hr IVPB DAILY [facility]; Protocol Last Admin: 01/23/19 09:35 Dose: 100 mls/hr Sodium Chloride (Normal Saline -) 1,000 mls @ 100 mls/hr IV ASDIR VIGNESH Last Admin: 01/23/19 05:20 Dose: 100 mls/hr Mupirocin (Bactroban Ointment (For Decolonization) -) 1 applic NS BID VIGNESH Stop: 01/28/19 09:59 Last Admin: 01/23/19 09:36 Dose: 1 applic ASSESSMENT AND PLAN: UTI Severe Sepsis Acute Kidney Injury Anxiety - continue antibiotics - f/u cultures - IVF boluses - if not responding to boluses then will need central line and pressors - monitor urine output, creatinine - bladder/renal ultrasounds - O2 to keep SpO2 >90% - DVT prophylaxis - continue ICU monitoring critical care time spent in reviewing chart, evaluating patient and formulating plan 35 min
--- NOTE | 2019-01-23 12:08 | CON.ID ---
Consult Consult Specialty:: sepsis,uti,fall, ams Referred by:: Reason for Consultation:: sepsis,hypotensive,ams - History of Present Illness Chief Complaint: fall History of Present Illness: 83 year old female, with a significant PMH of chronic low back pain, anxiety, and hyperactive bladder, who presents to the emergency department BIBA from [facility] s/p fall. Patient notes she was getting off the bus, when she couldnt make it to the platform and fell onto her face. Patient presents with a laceration to her upper and lower lip and bruising with swelling of her nose. She endorses low back pain. Patient presents with AMS while in the ED, and cannot correctly recall current date, location, and president. HPI is limited secondary to patient being a poor historian (intermittently confused at baseline). patient still confused,also found to be hypotensive and in icu now - History Source History Provided By: Patient, Medical Record Limitations to Obtaining History: Poor Historian - Alcohol/Substance Use Hx Alcohol Use: No - Smoking History Smoking history: Unknown if ever smoked Have you smoked in the past 12 months: No Home Medications - Allergies Allergies/Adverse Reactions: Allergies Allergy/AdvReac Type Severity Reaction Status Date / Time No Known Allergies Allergy Verified 01/23/19 00:06 - Home Medications Home Medications: Ambulatory Orders RX: Diazepam 0.5 mg PO BID 01/23/19 RX: Gabapentin 200 mg PO BID 01/23/19 RX: Heparin - 5,000 unit SQ Q8H 01/23/19 RX: Lidocaine [Lidocaine Pain Relief] 1 each TP DAILY 01/23/19 RX: Mirabegron [Myrbetriq] 50 mg PO DAILY 01/23/19 RX: Oxycodone HCl 5 mg PO Q6H PRN 01/23/19 RX: Pantoprazole Sodium [Protonix] 40 mg PO DAILY 01/23/19 RX: Polyethylene Glycol 3350 [Miralax 119 gm Btl -] 17 gm PO DAILY 01/23/19 RX: Sennosides [Senna] 8.6 mg PO DAILY 01/23/19 RX: Simethicone [Gas Relief] 80 mg PO DAILY 01/23/19 RX: Zinc Oxide 20% Topical Oint gm NR TID 01/23/19 Amoxicillin/Potassium Clav [Augmentin 875-125 Tablet] 1 each PO BID #14 tablet 01/27/19 Review of Systems - Review of Systems Constitutional: reports: Other (pain all over) Eyes: reports: No Symptoms HENT: reports: No Symptoms Neck: reports: No Symptoms Cardiovascular: reports: No Symptoms Respiratory: reports: No Symptoms Gastrointestinal: reports: No Symptoms Genitourinary: reports: Frequency Musculoskeletal: reports: Back Pain, Other (pain all over) Neurological: reports: Confusion Endocrine: reports: No Symptoms Hematology/Lymphatic: reports: No Symptoms Psychiatric: reports: No Symptoms Physical Exam Vital Signs: Vital Signs Temperature 97.7 F 01/23/19 10:00 Pulse Rate 111 H 01/23/19 08:00 Respiratory Rate 21 H 01/23/19 10:00 Blood Pressure 88/62 L 01/23/19 10:00 O2 Sat by Pulse Oximetry (%) 99 01/23/19 08:00 Constitutional: Yes: Calm, Mild Distress Eyes: Yes: Conjunctiva Clear HENT: Yes: Atraumatic, Normocephalic Neck: Yes: Supple, Trachea Midline Cardiovascular: Yes: Regular Rate and Rhythm, Other (conitnues to be hypotensive ) Respiratory: Yes: Regular, On Nasal O2 Gastrointestinal: Yes: Normal Bowel Sounds, Soft Musculoskeletal: Yes: Muscle Pain Extremities: Yes: WNL Integumentary: Yes: Other (injury from fall) Wound/Incision: Yes: Clean/Dry Neurological: Yes: Alert, Confusion Psychiatric: Yes: Alert Labs: CBC, BMP 01/23/19 05:30 01/23/19 05:30 Imaging - Results Chest X-ray: Report Reviewed, Image Reviewed X-ray: Report Reviewed, Image Reviewed Cat Scan: Report Reviewed, Image Reviewed Assessment/Plan UTI Severe Sepsis Acute Kidney Injury Anxiety hypotension plan broad spectrum abx hydration close watch on bp await for all cx reports monitor wbc rest as per the team cc 40 min
[2019-01-23] MEDS ORDERED: PIPERACILLIN/TAZOBACTAM 2.25 GM VIAL IVPB ONE ×3 (12:57→21:41)
[2019-01-23] MEDS: PIPERACILLIN/TAZOB 2.25 GM 2.25 GM in DEXTROSE 5%-WATER - 50 ML IVPB SCH ×3 (13:00→21:51)
[2019-01-23] MEDS: ACETAMINOPHEN 1000 MG/100 ML VIAL (NON FORMULARY) IVPB PRN (13:54)
--- NOTE | 2019-01-23 15:48 | PN ---
Physical Exam: SUBJECTIVE: Patient seen this morning and has no complaints. Patient oriented x 0. OBJECTIVE: Vital Signs Temperature 99 F 01/23/19 13:11 Pulse Rate 124 H 01/23/19 13:11 Respiratory Rate 22 H 01/23/19 13:11 Blood Pressure 98/58 L 01/23/19 13:11 O2 Sat by Pulse Oximetry (%) 99 01/23/19 08:00 GENERAL: The patient is awake and alert EYES: PERRL, extraocular movements intact ENT: moist mucous membranes. LUNGS: Breath sounds equal, clear to auscultation bilaterally, no wheezes, no crackles, HEART: Regular rate and rhythm, S1, S2 without murmur, rub or gallop. ABDOMEN: Soft, nontender, nondistended, normoactive bowel sounds, no guarding EXTREMITIES: 2+ pulses, warm, well-perfused, no edema. NEUROLOGICAL: Cranial nerves II through XII grossly intact. Normal speech, gait not observed. SKIN: Warm, dry, normal turgor, no rashes or lesions noted CBCD WBC 12.7 K/mm3 (4.0-10.0) H 01/23/19 05:30 RBC 4.08 M/mm3 (3.60-5.2) 01/23/19 05:30 Hgb 10.7 GM/dL (10.7-15.3) 01/23/19 05:30 Hct 32.5 % (32.4-45.2) D 01/23/19 05:30 MCV 79.6 fl (80-96) L 01/23/19 05:30 MCHC 33.1 g/dl (32.0-36.0) 01/23/19 05:30 RDW 15.4 % (11.6-15.6) 01/23/19 05:30 Plt Count 320 K/MM3 (134-434) 01/23/19 05:30 MPV 9.1 fl (7.5-11.1) 01/23/19 05:30 CMP Sodium 138 mmol/L (136-145) 01/23/19 05:30 Potassium 3.3 mmol/L (3.5-5.1) L 01/23/19 05:30 Chloride 105 mmol/L (98-107) 01/23/19 05:30 Carbon Dioxide 24 mmol/L (21-32) 01/23/19 05:30 Anion Gap 9 MMOL/L (8-16) 01/23/19 05:30 BUN 27 mg/dL (7-18) H 01/23/19 05:30 Creatinine 2.4 mg/dL (0.55-1.3) H 01/23/19 05:30 Creat Clearance w eGFR 19.23 (>60) 01/23/19 05:30 Calcium 7.5 mg/dL (8.5-10.1) L 01/23/19 05:30 Total Bilirubin 0.6 mg/dL (0.2-1) 01/23/19 05:30 AST 18 U/L (15-37) 01/23/19 05:30 ALT 15 U/L (13-61) 01/23/19 05:30 Alkaline Phosphatase 84 U/L (45-117) 01/23/19 05:30 Total Protein 4.9 g/dl (6.4-8.2) L 01/23/19 05:30 Albumin 2.1 g/dl (3.4-5.0) L 01/23/19 05:30 Active Medications Acetaminophen (Ofirmev Injection -) 1,000 mg IVPB Q6H PRN PRN Reason: FEVER Last Admin: 01/23/19 13:54 Dose: 1,000 mg Chlorhexidine Gluconate (Hibiclens For Decolonization -) 1 applic TP HS VIGNESH Heparin Sodium (Porcine) (Heparin -) 5,000 unit SQ TID VIGNESH Last Admin: 01/23/19 13:45 Dose: 5,000 unit Sodium Chloride (Normal Saline -) 1,000 mls @ 100 mls/hr IV ASDIR VIGNESH Last Admin: 01/23/19 12:39 Dose: 100 mls/hr Piperacillin Sod/Tazobactam (Sod 2.25 gm/ Dextrose) 50 mls @ 100 mls/hr IVPB Q6H-IV VIGNESH; Protocol Last Admin: 01/23/19 13:00 Dose: 100 mls/hr Mupirocin (Bactroban Ointment (For Decolonization) -) 1 applic NS BID VIGNESH Stop: 01/28/19 09:59 Last Admin: 01/23/19 09:36 Dose: 1 applic ASSESSMENT/PLAN: Patient is a 83 y/o female with a hsitory of anxiety, back pain and dementia who presents for severe sepsis 2/2 to UTI. Neuro - dementia at baseline Cardio - low blood pressure 2/2 to severe sepsis - pressures respond to fluid, IV boluses as needed - slight tropinemia 2/2 to demand Pulm - stable - keep O2 > 90 % Renal - f/u bladder/renal ultrasounds - JONATHAN 2/2 to severe sepsis - continue to trend - avoid nephrotoxic agents ID - UTI - f/u urine cultures and blood cultures - Zosyn for treatment as per ID - acetaminophen as needed for fever FEN - NS @ 100 - soft diet as tolerated - replete K as needed Dispo: monitor in ICU while blood pressures still labile - spoke with patients health care proxy, patient is DNR/DNI Visit type - Emergency Visit Emergency Visit: No - New Patient This patient is new to me today: Yes Date on this admission: 01/23/19 - Critical Care Critical Care patient: Yes Total Critical Care Time (in minutes): 35 Critical Care Statement: The care of this patient involved high complexity decision making to prevent further life threatening deterioration of the patient 's condition and/or to evaluate & treat vital organ system(s) failure or risk of failure.
[2019-01-23] MEDS ORDERED: traMADol HCL 50 MG TABLET PO ONE (18:40)
[2019-01-23] MEDS: CHLORHEXIDINE GLUCONATE 4% CLEANSER FOR DECOLONIZATION TP SCH (21:53)
[2019-01-24] MEDS: PIPERACILLIN/TAZOB 2.25 GM 2.25 GM in DEXTROSE 5%-WATER - 50 ML IVPB SCH ×4 (03:17→20:12)
[2019-01-24] MEDS: SODIUM CHLORIDE 1,000 ML IV SCH (03:18)
[2019-01-24] MEDS ORDERED: DEXTROSE 5%-WATER - 50 ML IVPB ONE ×4 (05:45→20:03)
[2019-01-24] MEDS ORDERED: PIPERACILLIN/TAZOBACTAM 2.25 GM VIAL IVPB ONE ×4 (05:45→20:02)
[2019-01-24] MEDS: HEPARIN NA (PORCINE) 5,000 UNITS/ML 1ML VIAL SQ SCH ×3 (06:29→21:54)
[2019-01-24 06:51] LABS: HEMATOCRIT 32.8 % (32.4-45.2); HEMOGLOBIN 10.8 GM/dL (10.7-15.3); MCH 26.4 pg (25.7-33.7); MCHC 33.1 g/dl (32.0-36.0); MEAN CELL VOLUME 79.9 fl (80-96); MEAN PLT VOLUME 8.7 fl (7.5-11.1); PLATELET COUNT 385 K/MM3 (134-434); RDW 15.7 % (11.6-15.6); WHITE BLOOD COUNT 14.5 K/mm3 (4.0-10.0)
[2019-01-24 07:13] LABS: ALBUMIN 2.1 g/dl (3.4-5.0); ALK PHOS 94 U/L (45-117); ANION GAP 11 MMOL/L (8-16); BILIRUBIN,TOTAL 0.7 mg/dL (0.2-1); BLOOD UREA NITROGEN 23 mg/dL (7-18); CALCIUM 7.9 mg/dL (8.5-10.1); CHLORIDE 111 mmol/L (98-107); CO2 21 mmol/L (21-32); CREATININE 2.2 mg/dL (0.55-1.3); GLUCOSE,RANDOM 119 mg/dL (74-106); MAGNESIUM 1.7 mg/dL (1.8-2.4); PHOSPHOROUS 3.5 mg/dL (2.5-4.9); POTASSIUM 3.2 mmol/L (3.5-5.1); SGOT/AST 15 U/L (15-37); SGPT/ALT 16 U/L (13-61); SODIUM 143 mmol/L (136-145); TOT PROT 5.1 g/dl (6.4-8.2)
[2019-01-24] MEDS: KCL 10 MEQ IVPB 10 MEQ/100 ML INFUS.BAG IVPB SCH ×3 (07:30→09:30)
[2019-01-24] MEDS: ACETAMINOPHEN 1000 MG/100 ML VIAL (NON FORMULARY) IVPB PRN ×2 (07:42→16:59)
[2019-01-24] MEDS: MUPIROCIN 2% TOPICAL OINTMENT FOR DECOLONIZATION NS SCH ×2 (09:58→23:27)
--- NOTE | 2019-01-24 12:14 | PN ---
Progress Note (short form) - Note Progress Note: Seen and examined in the ICU -required IVF for BP support -low grade fever 99% -c/o severe back pain -denies ERNST/n/v/CP Current Medications Acetaminophen (Ofirmev Injection -) 1,000 mg IVPB Q6H PRN PRN Reason: FEVER Last Admin: 01/24/19 07:42 Dose: 1,000 mg Chlorhexidine Gluconate (Hibiclens For Decolonization -) 1 applic TP HS VIGNESH Last Admin: 01/23/19 21:53 Dose: 1 applic Heparin Sodium (Porcine) (Heparin -) 5,000 unit SQ TID VIGNESH Last Admin: 01/24/19 06:29 Dose: 5,000 unit Sodium Chloride (Normal Saline -) 1,000 mls @ 100 mls/hr IV ASDIR VIGNESH Last Admin: 01/24/19 03:18 Dose: 100 mls/hr Piperacillin Sod/Tazobactam (Sod 2.25 gm/ Dextrose) 50 mls @ 100 mls/hr IVPB Q6H-IV VIGNESH; Protocol Last Admin: 01/24/19 08:48 Dose: 100 mls/hr Mupirocin (Bactroban Ointment (For Decolonization) -) 1 applic NS BID VIGNESH Stop: 01/28/19 09:59 Last Admin: 01/24/19 09:58 Dose: 1 applic Vital Signs Period Temp Pulse Resp BP Sys/Zepeda Pulse Ox Last 24 Hr 98.1 F-99 F 88-124 18-22 77-124/54-74 92-99 Intake & Output 01/21/19 01/22/19 01/23/19 01/24/19 23:59 23:59 23:59 23:59 Intake Total 2650 2500 Balance 2650 2500 Weight 83.915 kg 63.911 kg Exam: General: awake, alert c/o back pain HEENT: PERRL CV: NSR Pulm: faint insp crackles ABB: SNTND EXT: WWP, no edema Neuro: AOx3, ANDERSON CBC, BMP 01/24/19 05:30 01/24/19 05:30 ASSESSMENT AND PLAN: UTI Severe Sepsis Acute Kidney Injury Anxiety - continue antibiotics - IVF boluses, will given LR x1 liter now for goal MAP >60 - monitor urine output, creatinine - renal dose medication - pain management - O2 to keep SpO2 >90% - DVT prophylaxis - continue ICU monitoring Jelena ACNP Pulm/CCM critical care time spent in reviewing chart, evaluating patient and formulating plan 35 min
[2019-01-24] MEDS ORDERED: LACTATED RINGERS SOLUTION 1000 ML INFUS.BAG IV ONE (12:15)
[2019-01-24] MEDS ORDERED: morphine SULFATE 4 MG/ML VIAL IVPUSH ONE ×2 (12:16→21:43)
--- NOTE | 2019-01-24 12:36 | PN ---
Progress Note, Physician History of Present Illness: patient still continues to ache bp still running low - Current Medication List Current Medications: Active Medications Acetaminophen (Ofirmev Injection -) 1,000 mg IVPB Q6H PRN PRN Reason: FEVER Last Admin: 01/24/19 07:42 Dose: 1,000 mg Chlorhexidine Gluconate (Hibiclens For Decolonization -) 1 applic TP HS [facility] Last Admin: 01/23/19 21:53 Dose: 1 applic Heparin Sodium (Porcine) (Heparin -) 5,000 unit SQ TID [facility] Last Admin: 01/24/19 06:29 Dose: 5,000 unit Sodium Chloride (Normal Saline -) 1,000 mls @ 100 mls/hr IV ASDIR [facility] Last Admin: 01/24/19 03:18 Dose: 100 mls/hr Piperacillin Sod/Tazobactam (Sod 2.25 gm/ Dextrose) 50 mls @ 100 mls/hr IVPB Q6H-IV VIGNESH; Protocol Last Admin: 01/24/19 08:48 Dose: 100 mls/hr Lactated Ringer's (Lactated Ringers Solution) 1,000 ml IV NOW ONE Stop: 01/24/19 12:16 Morphine Sulfate (Morphine Sulfate) 2 mg IVPUSH ONCE ONE Stop: 01/24/19 12:17 Mupirocin (Bactroban Ointment (For Decolonization) -) 1 applic NS BID [facility] Stop: 01/28/19 09:59 Last Admin: 01/24/19 09:58 Dose: 1 applic - Objective Vital Signs: Vital Signs Temperature 98.4 F 01/24/19 08:00 Pulse Rate 88 01/24/19 10:00 Respiratory Rate 21 H 01/24/19 10:00 Blood Pressure 97/67 01/24/19 10:00 O2 Sat by Pulse Oximetry (%) 92 L 01/24/19 08:00 Constitutional: Yes: Calm, Mild Distress Cardiovascular: Yes: Regular Rate and Rhythm Respiratory: Yes: Regular, CTA Bilaterally Gastrointestinal: Yes: Normal Bowel Sounds, Soft Musculoskeletal: Yes: WNL Extremities: Yes: WNL Neurological: Yes: Alert Psychiatric: Yes: Alert Labs: CBC, BMP 01/24/19 05:30 01/24/19 05:30 INR, PTT INR 1.17 (0.83-1.09) H 01/23/19 05:30 Assessment/Plan UTI Severe Sepsis Acute Kidney Injury Anxiety hypotension patient still requiring fluids to maintain bp wbc trending up plan continue abx will give one dose of vanco close monitoring monitor bp monitor wbc cc 40 min
[2019-01-24] MEDS ORDERED: VANCOMYCIN 1 GRAM (PRE-DOCKED) 1,000 MG/250 ML BAG IVPB ONE (13:00)
--- NOTE | 2019-01-24 13:22 | PN ---
Progress Note, Physician - Current Medication List Current Medications: Active Medications Acetaminophen (Ofirmev Injection -) 1,000 mg IVPB Q6H PRN PRN Reason: FEVER Last Admin: 01/24/19 07:42 Dose: 1,000 mg Chlorhexidine Gluconate (Hibiclens For Decolonization -) 1 applic TP HS [facility] Last Admin: 01/23/19 21:53 Dose: 1 applic Heparin Sodium (Porcine) (Heparin -) 5,000 unit SQ TID [facility] Last Admin: 01/24/19 06:29 Dose: 5,000 unit Sodium Chloride (Normal Saline -) 1,000 mls @ 100 mls/hr IV ASDIR [facility]IGN[facility] Last Admin: 01/24/19 03:18 Dose: 100 mls/hr Piperacillin Sod/Tazobactam (Sod 2.25 gm/ Dextrose) 50 mls @ 100 mls/hr IVPB Q6H-IV VIGN[facility]; Protocol Last Admin: 01/24/19 08:48 Dose: 100 mls/hr Vancomycin HCl (Vancomycin (Pre-Docked)) 1,000 mg in 250 mls @ 166.667 mls/hr IVPB ONCE ONE; Protocol Stop: 01/24/19 14:29 Mupirocin (Bactroban Ointment (For Decolonization) -) 1 applic NS BID [facility] Stop: 01/28/19 09:59 Last Admin: 01/24/19 09:58 Dose: 1 applic - Objective Vital Signs: Vital Signs Temperature 98.4 F 01/24/19 08:00 Pulse Rate 88 01/24/19 10:00 Respiratory Rate 21 H 01/24/19 10:00 Blood Pressure 97/67 01/24/19 10:00 O2 Sat by Pulse Oximetry (%) 92 L 01/24/19 08:00 Constitutional: Yes: No Distress HENT: Yes: Atraumatic Neck: Yes: Supple Cardiovascular: Yes: Regular Rate and Rhythm Respiratory: Yes: CTA Bilaterally Gastrointestinal: Yes: Normal Bowel Sounds Extremities: Yes: WNL Edema: No Neurological: Yes: Alert, Oriented Labs: CBC, BMP 01/24/19 05:30 01/24/19 05:30 INR, PTT INR 1.17 (0.83-1.09) H 01/23/19 05:30 Problem List - Problems (1) Fall Assessment/Plan: pt eval head ct no acute problem Code(s): W19.XXXA - UNSPECIFIED FALL, INITIAL ENCOUNTER (2) UTI (urinary tract infection) Assessment/Plan: iv abx id consult cxs sent Code(s): N39.0 - URINARY TRACT INFECTION, SITE NOT SPECIFIED (3) Sepsis Assessment/Plan: on abx cxs sent Code(s): A41.9 - SEPSIS, UNSPECIFIED ORGANISM (4) Back pain Code(s): M54.9 - DORSALGIA, UNSPECIFIED Qualifiers: Back pain location: low back pain Chronicity: acute Back pain laterality : unspecified Sciatica presence: without sciatica Qualified Code(s): M54.5 - Low back pain Assessment/Plan Laboratory Tests 01/22/19 01/22/19 01/22/19 20:09 20:09 20:09 WBC RBC Hgb Hct MCV MCH MCHC RDW Plt Count MPV Absolute Neuts (auto) Neutrophils % Lymphocytes % Monocytes % Eosinophils % Basophils % Nucleated RBC % PT with INR 14.40 H INR 1.22 H PTT (Actin FS) 31.6 VBG pH 7.42 H POC VBG pCO2 42.0 POC VBG pO2 26.6 L VBG HCO3 26.7 VBG O2 Sat (Sukhwinder) 45.6 L VBG Base Excess 2.5 H Sodium 129 L Potassium 2.8 L* Chloride 90 L Carbon Dioxide 28 Anion Gap 12 BUN 31 H Creatinine 2.5 H Creat Clearance w eGFR 18.35 Random Glucose 137 H Lactic Acid Calcium 8.6 Phosphorus Magnesium 1.9 Total Bilirubin 0.5 AST 18 ALT 18 Alkaline Phosphatase 102 Creatine Kinase 82 Creatine Kinase Index CK-MB (CK-2) 1.0 Troponin I 0.04 Total Protein 5.9 L Albumin 2.6 L Urine Color Urine Appearance Urine pH Ur Specific [place] Urine Protein Urine Glucose (UA) Urine Ketones Urine Blood Urine Nitrite Urine Bilirubin Urine Urobilinogen Ur Leukocyte Esterase Urine WBC (Auto) Urine RBC (Auto) Urine Casts (Auto) U Pathogenic Cast Auto U Epithel Cells (Auto) U Sm Round Cell (Auto) Urine Crystals (Auto) Urine Bacteria (Auto) 01/22/19 01/22/19 01/22/19 20:09 20:20 20:30 WBC 13.9 H RBC 5.08 Hgb 13.2 Hct 40.5 MCV 79.7 L MCH 25.9 MCHC 32.5 RDW 15.5 Plt Count 365 D MPV 9.6 D Absolute Neuts (auto) 11.1 H Neutrophils % 79.9 Lymphocytes % 3.9 L D Monocytes % 12.3 H Eosinophils % 3.2 Basophils % 0.7 Nucleated RBC % 0 PT with INR INR PTT (Actin FS) VBG pH POC VBG pCO2 POC VBG pO2 VBG HCO3 VBG O2 Sat (Sukhwinder) VBG Base Excess Sodium Potassium Chloride Carbon Dioxide Anion Gap BUN Creatinine Creat Clearance w eGFR Random Glucose Lactic Acid 1.3 1.6 Calcium Phosphorus Magnesium Total Bilirubin AST ALT Alkaline Phosphatase Creatine Kinase Creatine Kinase Index CK-MB (CK-2) Troponin I Total Protein Albumin Urine Color Urine Appearance Urine pH Ur Specific [place] Urine Protein Urine Glucose (UA) Urine Ketones Urine Blood Urine Nitrite Urine Bilirubin Urine Urobilinogen Ur Leukocyte Esterase Urine WBC (Auto) Urine RBC (Auto) Urine Casts (Auto) U Pathogenic Cast Auto U Epithel Cells (Auto) U Sm Round Cell (Auto) Urine Crystals (Auto) Urine Bacteria (Auto) 01/22/19 01/23/19 01/23/19 20:30 05:30 05:30 WBC 12.7 H RBC 4.08 Hgb 10.7 Hct 32.5 D MCV 79.6 L MCH 26.3 MCHC 33.1 RDW 15.4 Plt Count 320 MPV 9.1 Absolute Neuts (auto) 9.7 H Neutrophils % 76.1 Lymphocytes % 4.9 L D Monocytes % 15.5 H Eosinophils % 3.1 Basophils % 0.4 Nucleated RBC % 0 PT with INR 13.80 H INR 1.17 H PTT (Actin FS) 29.1 VBG pH POC VBG pCO2 POC VBG pO2 VBG HCO3 VBG O2 Sat (Sukhwinder) VBG Base Excess Sodium Potassium Chloride Carbon Dioxide Anion Gap BUN Creatinine Creat Clearance w eGFR Random Glucose Lactic Acid Calcium Phosphorus Magnesium Total Bilirubin AST ALT Alkaline Phosphatase Creatine Kinase Creatine Kinase Index CK-MB (CK-2) Troponin I Total Protein Albumin Urine Color Yellow Urine Appearance Turbid Urine pH 5.5 Ur Specific [place] 1.007 L Urine Protein 1+ H Urine Glucose (UA) Negative Urine Ketones Negative Urine Blood 2+ H Urine Nitrite Negative Urine Bilirubin Negative Urine Urobilinogen 0.2 Ur Leukocyte Esterase 3+ H Urine WBC (Auto) 512 Urine RBC (Auto) 10 Urine Casts (Auto) 9 U Pathogenic Cast Auto No Result Required. U Epithel Cells (Auto) 1.9 U Sm Round Cell (Auto) No Result Required. Urine Crystals (Auto) No Result Required. Urine Bacteria (Auto) 2710.9 01/23/19 05:30 WBC RBC Hgb Hct MCV MCH MCHC RDW Plt Count MPV Absolute Neuts (auto) Neutrophils % Lymphocytes % Monocytes % Eosinophils % Basophils % Nucleated RBC % PT with INR INR PTT (Actin FS) VBG pH POC VBG pCO2 POC VBG pO2 VBG HCO3 VBG O2 Sat (Sukhwinder) VBG Base Excess Sodium 138 Potassium 3.3 L Chloride 105 Carbon Dioxide 24 Anion Gap 9 BUN 27 H Creatinine 2.4 H Creat Clearance w eGFR 19.23 Random Glucose 107 H Lactic Acid Calcium 7.5 L Phosphorus 3.6 Magnesium 2.1 Total Bilirubin 0.6 AST 18 ALT 15 Alkaline Phosphatase 84 Creatine Kinase 200 H Creatine Kinase Index 1.1 CK-MB (CK-2) 2.2 Troponin I 0.07 H Total Protein 4.9 L Albumin 2.1 L Urine Color Urine Appearance Urine pH Ur Specific [place] Urine Protein Urine Glucose (UA) Urine Ketones Urine Blood Urine Nitrite Urine Bilirubin Urine Urobilinogen Ur Leukocyte Esterase Urine WBC (Auto) Urine RBC (Auto) Urine Casts (Auto) U Pathogenic Cast Auto U Epithel Cells (Auto) U Sm Round Cell (Auto) Urine Crystals (Auto) Urine Bacteria (Auto) Active Medications Generic Name Dose Route Start Last Admin Trade Name Freq PRN Reason Stop Dose Admin Acetaminophen 1,000 mg 01/22/19 23:59 Ofirmev Injection - IVPB Q6H PRN FEVER Chlorhexidine Gluconate 1 applic 01/23/19 22:00 Hibiclens For Decolonization - TP HS VIGNESH Heparin Sodium (Porcine) 5,000 unit 01/23/19 06:00 01/23/19 06:11 Heparin - SQ 5,000 unit TID VIGNESH Administration Ceftriaxone Sodium 1 gm/ 50 mls @ 100 mls/hr 01/23/19 10:00 01/23/19 09:35 Dextrose IVPB 100 mls/hr DAILY VIGNESH Administration Protocol Sodium Chloride 1,000 mls @ 100 mls/hr 01/23/19 03:15 01/23/19 05:20 Normal Saline - IV 100 mls/hr ASDIR VIGNESH Administration Potassium Chloride 10 meq in 100 mls @ 100 mls/hr 01/23/19 08:30 01/23/19 10: 30 Potassium Chloride 10 Meq Premix Ivpb - IVPB 01/23/19 11:29 100 mls/hr Q60M VIGNESH Administration Mupirocin 1 applic 01/23/19 10:00 01/23/19 09:36 Bactroban Ointment (For Decolonization) - NS 01/28/19 09:59 1 applic BID VIGNESH Administration icu cc time 60 min
[2019-01-24 14:19] LABS: ANION GAP 9 MMOL/L (8-16); BLOOD UREA NITROGEN 22 mg/dL (7-18); CHLORIDE 110 mmol/L (98-107); CO2 19 mmol/L (21-32); CREATININE 2.1 mg/dL (0.55-1.3); GLUCOSE,RANDOM 112 mg/dL (74-106); POTASSIUM 3.5 mmol/L (3.5-5.1); SODIUM 138 mmol/L (136-145)
[2019-01-24 15:49] VITALS: BMI 22.6
[2019-01-24] MEDS ORDERED: QUEtiapine FUMARATE 25 MG TABLET (FP) PO ONE (23:14)
[2019-01-24] MEDS: CHLORHEXIDINE GLUCONATE 4% CLEANSER FOR DECOLONIZATION TP SCH (23:27)
[2019-01-25] MEDS ORDERED: PIPERACILLIN/TAZOBACTAM 2.25 GM VIAL IVPB ONE ×4 (03:14→21:27)
[2019-01-25] MEDS ORDERED: DEXTROSE 5%-WATER - 50 ML IVPB ONE ×4 (03:15→21:27)
[2019-01-25] MEDS: SODIUM CHLORIDE 1,000 ML IV SCH ×2 (03:18→06:14)
[2019-01-25] MEDS: PIPERACILLIN/TAZOB 2.25 GM 2.25 GM in DEXTROSE 5%-WATER - 50 ML IVPB SCH ×4 (03:19→21:33)
[2019-01-25] MEDS: HEPARIN NA (PORCINE) 5,000 UNITS/ML 1ML VIAL SQ SCH ×3 (06:13→21:33)
[2019-01-25 06:55] LABS: HEMATOCRIT 32.1 % (32.4-45.2); HEMOGLOBIN 10.6 GM/dL (10.7-15.3); MCH 26.5 pg (25.7-33.7); MCHC 33.1 g/dl (32.0-36.0); MEAN PLT VOLUME 8.6 fl (7.5-11.1); PLATELET COUNT 402 K/MM3 (134-434); RBC 4.01 M/mm3 (3.60-5.2); RDW 16.2 % (11.6-15.6); WHITE BLOOD COUNT 14.2 K/mm3 (4.0-10.0)
[2019-01-25 07:25] LABS: ANION GAP 11 MMOL/L (8-16); BLOOD UREA NITROGEN 22 mg/dL (7-18); CALCIUM 7.9 mg/dL (8.5-10.1); CHLORIDE 110 mmol/L (98-107); CO2 22 mmol/L (21-32); CREATININE 2.1 mg/dL (0.55-1.3); GLUCOSE,RANDOM 93 mg/dL (74-106); MAGNESIUM 1.9 mg/dL (1.8-2.4); PHOSPHOROUS 3.3 mg/dL (2.5-4.9); POTASSIUM 3.4 mmol/L (3.5-5.1); SODIUM 143 mmol/L (136-145)
[2019-01-25] MEDS: MUPIROCIN 2% TOPICAL OINTMENT FOR DECOLONIZATION NS SCH ×2 (11:01→21:33)
--- NOTE | 2019-01-25 11:12 | PN ---
Progress Note (short form) - Note Progress Note: Seen and examined in the ICU -agiated/delirius overnight t/w seroquel w/ good effect -BP stable, requiring 1 liter NS yesterday AM -Cultures w/ sousa sens e. coli in urine -required morphine for pain r/t fall Current Medications Acetaminophen (Ofirmev Injection -) 1,000 mg IVPB Q6H PRN PRN Reason: FEVER Last Admin: 01/24/19 16:59 Dose: 1,000 mg Chlorhexidine Gluconate (Hibiclens For Decolonization -) 1 applic TP HS [facility] Last Admin: 01/24/19 23:27 Dose: 1 applic Heparin Sodium (Porcine) (Heparin -) 5,000 unit SQ TID [facility] Last Admin: 01/25/19 06:13 Dose: 5,000 unit Sodium Chloride (Normal Saline -) 1,000 mls @ 100 mls/hr IV ASDIR VIGNESH Last Admin: 01/25/19 06:14 Dose: 100 mls/hr Piperacillin Sod/Tazobactam (Sod 2.25 gm/ Dextrose) 50 mls @ 100 mls/hr IVPB Q6H-IV VIGNESH; Protocol Last Admin: 01/25/19 08:52 Dose: 100 mls/hr Mupirocin (Bactroban Ointment (For Decolonization) -) 1 applic NS BID [facility]IGN[facility] Stop: 01/28/19 09:59 Last Admin: 01/25/19 11:01 Dose: 1 applic Vital Signs Period Temp Pulse Resp BP Sys/Zepeda Pulse Ox Last 24 Hr 98.0 F-98.3 F 88-101 17-23 87-113/53-82 97-97 Intake & Output 01/22/19 01/23/19 01/24/19 01/25/19 23:59 23:59 23:59 23:59 Intake Total 2650 5000 1370 Balance 2650 5000 1370 Weight 83.915 kg 63.911 kg 63.503 kg Exam: in bed w/o dostress Neuro: grossly intact, AOx3 Pulm: CTA CV: NSR Abd: SNTND Ext: WWP CBC, BMP 01/25/19 05:30 01/25/19 05:30 ASSESSMENT AND PLAN: UTI Severe Sepsis Acute Kidney Injury Anxiety - continue antibiotics - seroquel qpm for delirium/agitation - IVF boluses, will given LR x1 liter now for goal MAP >60 - monitor urine output, creatinine - renal dose medication - pain management - O2 to keep SpO2 >90% - DVT prophylaxis - stable for floor transfer Jelena ACNP Pulm/CCM critical care time spent in reviewing chart, evaluating patient and formulating plan 35 min
--- NOTE | 2019-01-25 11:36 | PN ---
Progress Note, Physician History of Present Illness: patient still continues to ache bp stabilizing - Current Medication List Current Medications: Active Medications Acetaminophen (Ofirmev Injection -) 1,000 mg IVPB Q6H PRN PRN Reason: FEVER Last Admin: 01/24/19 16:59 Dose: 1,000 mg Chlorhexidine Gluconate (Hibiclens For Decolonization -) 1 applic TP HS [facility] Last Admin: 01/24/19 23:27 Dose: 1 applic Heparin Sodium (Porcine) (Heparin -) 5,000 unit SQ TID [facility]IGN[facility] Last Admin: 01/25/19 06:13 Dose: 5,000 unit Sodium Chloride (Normal Saline -) 1,000 mls @ 100 mls/hr IV ASDIR VIGNESH Last Admin: 01/25/19 06:14 Dose: 100 mls/hr Piperacillin Sod/Tazobactam (Sod 2.25 gm/ Dextrose) 50 mls @ 100 mls/hr IVPB Q6H-IV VIGNESH; Protocol Last Admin: 01/25/19 08:52 Dose: 100 mls/hr Mupirocin (Bactroban Ointment (For Decolonization) -) 1 applic NS BID [facility] Stop: 01/28/19 09:59 Last Admin: 01/25/19 11:01 Dose: 1 applic - Objective Vital Signs: Vital Signs Temperature 98.0 F 01/25/19 10:00 Pulse Rate 98 H 01/25/19 10:00 Respiratory Rate 17 01/25/19 10:00 Blood Pressure 103/69 01/25/19 10:00 O2 Sat by Pulse Oximetry (%) 97 01/25/19 09:00 Constitutional: Yes: No Distress, Calm HENT: Yes: Atraumatic Cardiovascular: Yes: Regular Rate and Rhythm Respiratory: Yes: Regular, CTA Bilaterally Gastrointestinal: Yes: Normal Bowel Sounds, Soft Musculoskeletal: Yes: WNL Extremities: Yes: WNL Neurological: Yes: Alert, Oriented Psychiatric: Yes: Alert, Oriented Labs: CBC, BMP 01/25/19 05:30 01/25/19 05:30 INR, PTT INR 1.17 (0.83-1.09) H 01/23/19 05:30 Assessment/Plan UTI Severe Sepsis Acute Kidney Injury Anxiety hypotension wbc still on the higher side plan will continue abx close watch on wbc urine cx noted monitor bp fluids as needed rest as per icu cc 40 min
[2019-01-25] MEDS ORDERED: QUEtiapine FUMARATE 25 MG TABLET (FP) ONE (21:27)
[2019-01-25] MEDS: QUEtiapine FUMARATE 50 MG TABLET PO SCH (21:34)
[2019-01-25] MEDS: CHLORHEXIDINE GLUCONATE 4% CLEANSER FOR DECOLONIZATION TP SCH (21:34)
--- NOTE | 2019-01-25 21:46 | PN ---
Progress Note, Physician - Current Medication List Current Medications: Active Medications Acetaminophen (Ofirmev Injection -) 1,000 mg IVPB Q6H PRN PRN Reason: FEVER Last Admin: 01/24/19 16:59 Dose: 1,000 mg Chlorhexidine Gluconate (Hibiclens For Decolonization -) 1 applic TP HS [facility] Last Admin: 01/25/19 21:34 Dose: 1 applic Heparin Sodium (Porcine) (Heparin -) 5,000 unit SQ TID [facility] Last Admin: 01/25/19 21:33 Dose: 5,000 unit Piperacillin Sod/Tazobactam (Sod 2.25 gm/ Dextrose) 50 mls @ 100 mls/hr IVPB Q6H-IV VIGNESH; Protocol Last Admin: 01/25/19 21:33 Dose: 100 mls/hr Mupirocin (Bactroban Ointment (For Decolonization) -) 1 applic NS BID [facility] Stop: 01/28/19 09:59 Last Admin: 01/25/19 21:33 Dose: 1 applic Quetiapine Fumarate (Seroquel -) 50 mg PO HS [facility] Last Admin: 01/25/19 21:34 Dose: 50 mg - Objective Vital Signs: Vital Signs Temperature 98.8 F 01/25/19 18:00 Pulse Rate 106 H 01/25/19 19:00 Respiratory Rate 23 H 01/25/19 19:00 Blood Pressure 115/68 01/25/19 19:00 O2 Sat by Pulse Oximetry (%) 100 01/25/19 19:00 Labs: CBC, BMP 01/25/19 05:30 01/25/19 05:30 INR, PTT INR 1.17 (0.83-1.09) H 01/23/19 05:30 Problem List - Problems (1) [id number] kidney injury Code(s): N17.9 - ACUTE KIDNEY FAILURE, UNSPECIFIED; N18.9 - CHRONIC KIDNEY DISEASE, UNSPECIFIED (2) Fall Code(s): W19.XXXA - UNSPECIFIED FALL, INITIAL ENCOUNTER Qualifiers: Encounter type: subsequent encounter Qualified Code(s): W19.XXXD - Unspecified fall, subsequent encounter (3) Sepsis Code(s): A41.9 - SEPSIS, UNSPECIFIED ORGANISM Qualifiers: Sepsis type: Escherichia coli Qualified Code(s): A41.51 - Sepsis due to Escherichia coli [E. coli] (4) Lumbago Code(s): M54.5 - LOW BACK PAIN Qualifiers: Chronicity: acute Back pain laterality: bilateral Sciatica presence: without sciatica Qualified Code(s): M54.5 - Low back pain
[2019-01-25] MEDS ORDERED: LORazepam 2 MG/ML SDV VIAL IVPUSH ONE (22:52)
[2019-01-26] MEDS: PIPERACILLIN/TAZOB 2.25 GM 2.25 GM in DEXTROSE 5%-WATER - 50 ML IVPB SCH ×4 (02:16→21:24)
[2019-01-26] MEDS: HEPARIN NA (PORCINE) 5,000 UNITS/ML 1ML VIAL SQ SCH (05:56)
[2019-01-26] MEDS ORDERED: METOPROLOL TARTRATE 5 MG/5 ML VIAL IVPUSH ONE (06:19)
[2019-01-26 06:46] LABS: HEMATOCRIT 33.3 % (32.4-45.2); HEMOGLOBIN 11.3 GM/dL (10.7-15.3); MCHC 33.8 g/dl (32.0-36.0); MEAN CELL VOLUME 79.8 fl (80-96); MEAN PLT VOLUME 8.3 fl (7.5-11.1); PLATELET COUNT 470 K/MM3 (134-434); RBC 4.17 M/mm3 (3.60-5.2); RDW 15.9 % (11.6-15.6); WHITE BLOOD COUNT 11.2 K/mm3 (4.0-10.0)
[2019-01-26] MEDS ORDERED: SODIUM CHLORIDE 0.9% 500 ML INFUS.BAG IV ONE (06:56)
[2019-01-26 07:16] LABS: ALBUMIN 1.9 g/dl (3.4-5.0); ALK PHOS 108 U/L (45-117); ANION GAP 9 MMOL/L (8-16); BILIRUBIN,TOTAL 0.7 mg/dL (0.2-1); BLOOD UREA NITROGEN 20 mg/dL (7-18); CALCIUM 8.7 mg/dL (8.5-10.1); CHLORIDE 112 mmol/L (98-107); CO2 24 mmol/L (21-32); CREATININE 1.9 mg/dL (0.55-1.3); GLUCOSE,RANDOM 90 mg/dL (74-106); MAGNESIUM 1.8 mg/dL (1.8-2.4); PHOSPHOROUS 3.4 mg/dL (2.5-4.9); SGOT/AST 14 U/L (15-37); SGPT/ALT 19 U/L (13-61); SODIUM 145 mmol/L (136-145); TOT PROT 5.3 g/dl (6.4-8.2)
[2019-01-26] MEDS ORDERED: DEXTROSE 5%-WATER - 50 ML IVPB ONE ×3 (08:28→20:59)
[2019-01-26] MEDS ORDERED: PIPERACILLIN/TAZOBACTAM 2.25 GM VIAL IVPB ONE ×3 (08:28→20:59)
[2019-01-26] MEDS: POTASSIUM CHLORIDE TABS 20 MEQ TABLET.ER (FP) PO ONE ×2 (09:08→12:06)
--- NOTE | 2019-01-26 09:59 | EKG ---
Test Reason : Blood Pressure : / mmHG Vent. Rate : 139 BPM Atrial Rate : 139 BPM P-R Int : 128 ms QRS Dur : 086 ms QT Int : 304 ms P-R-T Axes : 000 -39 078 degrees QTc Int : 462 ms SINUS TACHYCARDIA LEFT AXIS DEVIATION NONSPECIFIC ST AND T WAVE ABNORMALITY ABNORMAL ECG WHEN COMPARED WITH ECG OF 22-JAN-2019 21:02, RIGHT BUNDLE BRANCH BLOCK IS NO LONGER PRESENT ? LEAD PLACEMENT Confirmed by LILLY IVERSON, MIGUEL ([id number]) on 01/26/2019 9:58:36 AM Referred By: Confirmed By:MIGUEL CARR MD
[2019-01-26] MEDS: MUPIROCIN 2% TOPICAL OINTMENT FOR DECOLONIZATION NS SCH ×2 (10:19→21:25)
[2019-01-26] MEDS ORDERED: POTASSIUM CHLORIDE ORAL LIQUID 20 MEQ/15 ML PO ONE (11:00)
--- NOTE | 2019-01-26 12:46 | CON.CARD ---
Consult Consult Specialty:: Cardiology Referred by:: ICU Resident Reason for Consultation:: PAF with RVR - History of Present Illness Chief Complaint: Altered mental status History of Present Illness: 83 year old female, with a significant PMH of chronic low back pain, anxiety, and hyperactive bladder presents to the emergency department BIBA from [facility] s/p fall and AMS, initially tachycardic, hypotensive but responding to IVF boluses. Fever curve trending down. Cultures w/ sousa sens e. coli in urine Review of telemtry shows bursts of paroxysmal atrial fibrillation/flutter with RVR. - History Source History Provided By: Medical Record Limitations to Obtaining History: Clinical Condition - Past Medical History Musculoskeletal: Yes: Chronic low back pain - Alcohol/Substance Use Hx Alcohol Use: No - Smoking History Smoking history: Unknown if ever smoked Have you smoked in the past 12 months: No Home Medications - Allergies Allergies/Adverse Reactions: Allergies Allergy/AdvReac Type Severity Reaction Status Date / Time No Known Allergies Allergy Verified 01/23/19 00:06 - Home Medications Home Medications: Ambulatory Orders Diazepam 0.5 mg PO BID 01/23/19 Gabapentin 200 mg PO BID 01/23/19 Heparin - 5,000 unit SQ Q8H 01/23/19 Lidocaine [Lidocaine Pain Relief] 1 each TP DAILY 01/23/19 Mirabegron [Myrbetriq] 50 mg PO DAILY 01/23/19 Oxycodone HCl 5 mg PO Q6H PRN 01/23/19 Pantoprazole Sodium [Protonix] 40 mg PO DAILY 01/23/19 Polyethylene Glycol 3350 [Miralax (For Daily Use) -] 17 gm PO DAILY 01/23/19 Sennosides [Senna] 8.6 mg PO DAILY 01/23/19 Simethicone [Gas Relief] 80 mg PO DAILY 01/23/19 Zinc Oxide 20% Topical Oint gm NR TID 01/23/19 Review of Systems Unable to obtain ROS, reason: Altered mental status Vital Signs: Vital Signs Temperature 98 F 01/26/19 10:00 Pulse Rate 88 01/26/19 10:00 Respiratory Rate 16 01/26/19 10:00 Blood Pressure 88/59 L 01/26/19 10:00 O2 Sat by Pulse Oximetry (%) 100 01/25/19 19:00 Constitutional: Yes: No Distress, Calm, Thin Neck: Yes: Supple Respiratory: Yes: Regular, Diminished, On Nasal O2 Gastrointestinal: Yes: Normal Bowel Sounds, Soft Cardiovascular: Yes: Regular Rate and Rhythm JVD: No Carotid Bruit: No Heart Sounds: Yes: S1, S2 Edema: No - Other Data Labs, Other Data: CBC, BMP 01/26/19 05:30 01/26/19 05:30 INR, PTT INR 1.17 (0.83-1.09) H 01/23/19 05:30 Afib/flutter @ 139 Tele: Paroxysmal afib/flutter->SR with PAC Ejection Fraction %: LVEF > or = 40 % Imaging - Results Chest X-ray: Report Reviewed (NAD) Cat Scan: Report Reviewed (HCT: Right chronic cortical and small, chronic bilateral cerebellar infarcts) Problem List - Problems (1) Paroxysmal atrial flutter Code(s): I48.92 - UNSPECIFIED ATRIAL FLUTTER (2) Fall Code(s): W19.XXXA - UNSPECIFIED FALL, INITIAL ENCOUNTER Qualifiers: Encounter type: subsequent encounter Qualified Code(s): W19.XXXD - Unspecified fall, subsequent encounter (3) Sepsis Code(s): A41.9 - SEPSIS, UNSPECIFIED ORGANISM Qualifiers: Sepsis type: Escherichia coli Qualified Code(s): A41.51 - Sepsis due to Escherichia coli [E. coli] (4) UTI (urinary tract infection) Code(s): N39.0 - URINARY TRACT INFECTION, SITE NOT SPECIFIED Qualifiers: Urinary tract infection type: site unspecified Hematuria presence: without hematuria Qualified Code(s): N39.0 - Urinary tract infection, site not specified (5) History of multiple strokes Code(s): Z86.73 - PRSNL HX OF TIA (TIA), AND CEREB INFRC W/O RESID DEFICITS Assessment/Plan 01/26/2019 Echo: Normal LV and RV size with low normal LV and RV fxn, normal atrial sizes 1. Paroxysmal atrial fibrillation/flutter now in SR 2. Resolving Sepsis source 3. Acute on chronic kidney injury due to above improving 4. H/o strokes P:1. Agree with Eliquis 2.5 bid given elevated risk score and Lopressor 12.5 bid as hemodynamics tolerate 2. Abx course per C&S 3. Judicious IVF and monitor renal recovery 4. Thank you for consultative opportunity
--- NOTE | 2019-01-26 14:23 | PN ---
Teaching Attending Note Name of Resident: Mary Grace Ignacio ATTENDING PHYSICIAN STATEMENT I saw and evaluated the patient. I reviewed the resident's note and discussed the case with the resident. I agree with the resident's findings and plan as documented. SUBJECTIVE: Patient seen and examined in the ICU. Awake and alert. Reports generalized pain. No CP or SOB. Hemodynamics have remained stable. Intake & Output 01/23/19 01/24/19 01/25/19 01/26/19 23:59 23:59 23:59 23:59 Intake Total 2650 5000 2920 200 Balance 2650 5000 2920 200 Weight 140 lb 14.4 oz 140 lb Last Vital Signs Temp Pulse Resp BP Pulse Ox 98 F 88 16 88/59 L 100 01/26/19 10:00 01/26/19 10:00 01/26/19 10:00 01/26/19 10:00 01/25/19 19:00 Active Medications Acetaminophen (Ofirmev Injection -) 1,000 mg IVPB Q6H PRN PRN Reason: FEVER Last Admin: 01/24/19 16:59 Dose: 1,000 mg Apixaban (Eliquis -) 2.5 mg PO BID [facility] Chlorhexidine Gluconate (Hibiclens For Decolonization -) 1 applic TP HS [facility] Last Admin: 01/25/19 21:34 Dose: 1 applic Piperacillin Sod/Tazobactam (Sod 2.25 gm/ Dextrose) 50 mls @ 100 mls/hr IVPB Q6H-IV [facility]IGN[facility]; Protocol Last Admin: 01/26/19 09:08 Dose: 100 mls/hr Metoprolol Tartrate (Lopressor -) 12.5 mg PO BID [facility] Mupirocin (Bactroban Ointment (For Decolonization) -) 1 applic NS BID [facility] Stop: 01/28/19 09:59 Last Admin: 01/26/19 10:19 Dose: Not Given Quetiapine Fumarate (Seroquel -) 50 mg PO HS [facility] Last Admin: 01/25/19 21:34 Dose: 50 mg GENERAL: awake and alert, NAD EYES: PERRL, extraocular movements intact ENT: dry mucous membranes. LUNGS: Breath sounds equal, clear to auscultation bilaterally, no wheezes, no crackles, HEART: Regular rate and rhythm, S1, S2 without murmur, rub or gallop. ABDOMEN: Soft, nontender, nondistended, normoactive bowel sounds, no guarding EXTREMITIES: 2+ pulses, warm, well-perfused, no edema. NEUROLOGICAL: non-focal SKIN: Warm, dry, normal turgor, no rashes or lesions noted Laboratory Results - last 24 hr 01/26/19 01/26/19 05:30 05:30 WBC 11.2 H RBC 4.17 Hgb 11.3 Hct 33.3 MCV 79.8 L MCH 27.0 MCHC 33.8 RDW 15.9 H Plt Count 470 H MPV 8.3 Sodium 145 Potassium 3.0 L Chloride 112 H Carbon Dioxide 24 Anion Gap 9 BUN 20 H Creatinine 1.9 H Creat Clearance w eGFR 25.18 Random Glucose 90 Calcium 8.7 Phosphorus 3.4 Magnesium 1.8 Total Bilirubin 0.7 AST 14 L ALT 19 Alkaline Phosphatase 108 Total Protein 5.3 L Albumin 1.9 L TSH 1.21 Assessment/Plan Resolving Sepsis due to UTI Acute Kidney Injury Anxiety P AFib - ABX per ID - f/u final cultures - IVF boluses as needed - monitor urine output, creatinine - O2 to keep SpO2 >90% - DVT prophylaxis - Cardiology evaluation - Cardiac Telemetry monitoring Dr Souza
--- NOTE | 2019-01-26 15:03 | PN ---
Progress Note, Physician History of Present Illness: pain all over stable - Current Medication List Current Medications: Active Medications Acetaminophen (Ofirmev Injection -) 1,000 mg IVPB Q6H PRN PRN Reason: FEVER Last Admin: 01/24/19 16:59 Dose: 1,000 mg Apixaban (Eliquis -) 2.5 mg PO BID [facility] Chlorhexidine Gluconate (Hibiclens For Decolonization -) 1 applic TP HS [facility] Last Admin: 01/25/19 21:34 Dose: 1 applic Piperacillin Sod/Tazobactam (Sod 2.25 gm/ Dextrose) 50 mls @ 100 mls/hr IVPB Q6H-IV [facility]; Protocol Last Admin: 01/26/19 09:08 Dose: 100 mls/hr Metoprolol Tartrate (Lopressor -) 12.5 mg PO BID [facility] Mupirocin (Bactroban Ointment (For Decolonization) -) 1 applic NS BID [facility] Stop: 01/28/19 09:59 Last Admin: 01/26/19 10:19 Dose: Not Given Quetiapine Fumarate (Seroquel -) 50 mg PO HS [facility] Last Admin: 01/25/19 21:34 Dose: 50 mg - Objective Vital Signs: Vital Signs Temperature 98 F 01/26/19 14:00 Pulse Rate 92 H 01/26/19 14:00 Respiratory Rate 16 01/26/19 14:00 Blood Pressure 104/70 01/26/19 14:00 O2 Sat by Pulse Oximetry (%) 100 01/25/19 19:00 Constitutional: Yes: No Distress, Calm Cardiovascular: Yes: S1, S2 Respiratory: Yes: Regular, CTA Bilaterally Gastrointestinal: Yes: Normal Bowel Sounds, Soft Musculoskeletal: Yes: WNL Extremities: Yes: WNL Neurological: Yes: Alert, Oriented Psychiatric: Yes: Alert, Oriented Labs: CBC, BMP 01/26/19 05:30 01/26/19 05:30 INR, PTT INR 1.17 (0.83-1.09) H 01/23/19 05:30 Assessment/Plan UTI Severe Sepsis Acute Kidney Injury Anxiety hypotension wbc still on the higher side plan continue abx close monitoring rest as per the team cx results finalization
--- NOTE | 2019-01-26 15:19 | ECHO ---
Name: JOSE DAVID, WILFRED Exam:Adult Echocardiogram Study Date: 01/26/2019 02:31 PM Age: 83 yrs Reason For Study: sanket BP: 104/70 mmHg MMode/2D Measurements & Calculations IVSd: 0.85 cm Ao root diam: 3.4 cm LVIDd: 4.1 cm LA dimension: 2.6 cm LVIDs: 3.0 cm LVPWd: 1.0 cm EDV(Teich): 72.2 ml LVOT diam: 2.1 cm ESV(Teich): 35.0 ml TAPSE: 1.8 cm RV S Sharif: 8.8 cm/sec Doppler Measurements & Calculations MV E max sharif: 61.1 cm/sec Ao V2 max: 139.6 cm/sec MV A max sharif: 55.3 cm/sec Ao max P.8 mmHg MV E/A: 1.1 Ao V2 mean: 101.8 cm/sec MV dec time: 0.23 sec Ao mean P.6 mmHg Ao V2 VTI: 26.9 cm CLEMENT(I,D): 2.3 cm2 CLEMENT(V,D): 2.7 cm2 LV V1 max P.0 mmHg SV(LVOT): 62.9 ml LV V1 mean P.1 mmHg LV V1 max: 112.0 cm/sec LV V1 mean: 81.5 cm/sec LV V1 VTI: 18.6 cm Med Peak E' Sharif: 8.8 cm/sec Med E/e': 6.9 Lat Peak E' Sharif: 5.4 cm/sec Lat E/e': 11.2 Procedure A complete two-dimensional transthoracic echocardiogram was performed (2D, M-mode, Doppler and color flow Doppler). Technically limited study. Left Ventricle The left ventricle is normal in size. Left ventricular systolic function is low normal. Ejection Frac tion = 50-55%. No regional wall motion abnormalities noted. Right Ventricle The right ventricle is normal size. RV systolic TDI is estimated 9 cm/s suggests overall low normal f unction. Atria The left atrial size is normal. Right atrial size is normal. Mitral Valve The mitral valve is normal in structure and function. There is no mitral regurgitation noted. Tricuspid Valve The tricuspid valve is normal in structure and function. No tricuspid regurgitation. Aortic Valve The aortic valve is normal in structure and function. No aortic regurgitation is present. Pulmonic Valve The pulmonic valve is not well visualized. Great Vessels The aortic root is normal size. Pericardium/Pleura There is no pericardial effusion. Interpretation Summary Technically limited study The left ventricle is normal in size. Left ventricular systolic function is low normal. No regional wall motion abnormalities noted. Ejection Fraction = 50-55%. RV systolic TDI is estimated 9 cm/s suggests overall low normal function The left atrial size is normal. Right atrial size is normal. No significant valvular regurgitations are seen There is no pericardial effusion. Adarsh Degroot MD 01/26/2019 03:19 PM
--- NOTE | 2019-01-26 15:48 | PN ---
Physical Exam: SUBJECTIVE: Patient seen and examined at bedside. Pt had episode of tachyarrhythmia overnight with HR to 140s. EKG done. Possible atrial flutter/ fibrillation. Pt given 5mg Lopressor iv. HR decreased to 80s. NSR at this time. Pt does not have any complaints. OBJECTIVE: HD #4 Vital Signs Period Temp Pulse Resp BP Sys/Zepeda Pulse Ox Last 24 Hr 98 F-98.9 F 82-143 12-23 88-127/54-73 100-100 GENERAL: The patient is awake, alert, in no acute distress. LUNGS: Breath sounds equal, clear to auscultation bilaterally, no wheezes, no crackles, no accessory muscle use. HEART: Regular rate and rhythm, S1, S2 without murmur, rub or gallop. ABDOMEN: Soft, nontender, nondistended, normoactive bowel sounds, no guarding, no rebound, no hepatosplenomegaly, no masses. EXTREMITIES: 2+ pulses, warm, well-perfused, no edema. NEUROLOGICAL: Cranial nerves II through XII grossly intact. Normal speech, gait not observed. PSYCH: Normal mood, normal affect. SKIN: Warm, dry, normal turgor, no rashes or lesions noted Laboratory Results - last 24 hr 01/26/19 01/26/19 05:30 05:30 WBC 11.2 H RBC 4.17 Hgb 11.3 Hct 33.3 MCV 79.8 L MCH 27.0 MCHC 33.8 RDW 15.9 H Plt Count 470 H MPV 8.3 Sodium 145 Potassium 3.0 L Chloride 112 H Carbon Dioxide 24 Anion Gap 9 BUN 20 H Creatinine 1.9 H Creat Clearance w eGFR 25.18 Random Glucose 90 Calcium 8.7 Phosphorus 3.4 Magnesium 1.8 Total Bilirubin 0.7 AST 14 L ALT 19 Alkaline Phosphatase 108 Total Protein 5.3 L Albumin 1.9 L TSH 1.21 Active Medications Generic Name Dose Route Start Last Admin Trade Name Freq PRN Reason Stop Dose Admin Acetaminophen 1,000 mg 01/22/19 23:59 01/24/19 16:59 Ofirmev Injection - IVPB 1,000 mg Q6H PRN Administration FEVER Apixaban 2.5 mg 01/26/19 22:00 Eliquis - PO BID [facility] Chlorhexidine Gluconate 1 applic 01/23/19 22:00 01/25/19 21:34 Hibiclens For Decolonization - TP 1 applic HS [facility] Administration Piperacillin Sod/Tazobactam 50 mls @ 100 mls/hr 01/23/19 12:45 01/26/19 15:39 Sod 2.25 gm/ Dextrose IVPB 100 mls/hr Q6H-IV [facility] Administration Protocol Metoprolol Tartrate 12.5 mg 01/26/19 22:00 Lopressor - PO BID [facility] Mupirocin 1 applic 01/23/19 10:00 01/26/19 10:19 Bactroban Ointment (For Decolonization) - NS 01/28/19 09:59 Not Given BID [facility] Quetiapine Fumarate 50 mg 01/25/19 22:00 01/25/19 21:34 Seroquel - PO 50 mg HS [facility] Administration ASSESSMENT/PLAN: Neuro - dementia at baseline -Seroquel 50mg HS Cardio - low blood pressure 2/2 to severe sepsis. Responding to fluids. - Atrial fibrillation/flutter. Cardiology consulted. - Starting on lopressor 12.5mg BID and Eliquis 2.5 mg BID per cardiology recommendations - Echo ordered - DC heparin. Endo - Will check TSH levels per cardiology recommendation Pulm - stable - keep O2 > 90 % Renal - US do not show hydronephrosis or bladder wall thickening. - JONATHAN 2/2 to severe sepsis. Cr trending downward - continue to trend - avoid nephrotoxic agents ID - UTI - f/u urine cultures and blood cultures - Zosyn for treatment as per ID - acetaminophen as needed for fever FEN - NS @ 100 - soft diet as tolerated - replete K as needed Dispo: BP stable, not hypotensive. Stable for tele floor. Visit type - Emergency Visit Emergency Visit: No - New Patient This patient is new to me today: Yes Date on this admission: 01/26/19 - Critical Care Critical Care patient: Yes Total Critical Care Time (in minutes): 40 Critical Care Statement: The care of this patient involved high complexity decision making to prevent further life threatening deterioration of the patient 's condition and/or to evaluate & treat vital organ system(s) failure or risk of failure. - Discharge Referral Referred to [facility] Med P.C.: No
--- NOTE | 2019-01-26 17:51 | PN ---
Progress Note, Physician - Current Medication List Current Medications: Active Medications Acetaminophen (Ofirmev Injection -) 1,000 mg IVPB Q6H PRN PRN Reason: FEVER Last Admin: 01/24/19 16:59 Dose: 1,000 mg Apixaban (Eliquis -) 2.5 mg PO BID [facility] Chlorhexidine Gluconate (Hibiclens For Decolonization -) 1 applic TP HS [facility] Last Admin: 01/25/19 21:34 Dose: 1 applic Piperacillin Sod/Tazobactam (Sod 2.25 gm/ Dextrose) 50 mls @ 100 mls/hr IVPB Q6H-IV [facility]; Protocol Last Admin: 01/26/19 15:39 Dose: 100 mls/hr Metoprolol Tartrate (Lopressor -) 12.5 mg PO BID [facility] Mupirocin (Bactroban Ointment (For Decolonization) -) 1 applic NS BID [facility] Stop: 01/28/19 09:59 Last Admin: 01/26/19 10:19 Dose: Not Given Quetiapine Fumarate (Seroquel -) 50 mg PO [facility] Last Admin: 01/25/19 21:34 Dose: 50 mg - Objective Vital Signs: Vital Signs Temperature 97.6 F 01/26/19 17:28 Pulse Rate 88 01/26/19 16:00 Respiratory Rate 68 H 01/26/19 17:28 Blood Pressure 103/75 01/26/19 17:28 O2 Sat by Pulse Oximetry (%) 100 01/25/19 19:00 Constitutional: Yes: No Distress HENT: Yes: Atraumatic Neck: Yes: Supple Cardiovascular: Yes: Regular Rate and Rhythm Respiratory: Yes: CTA Bilaterally Gastrointestinal: Yes: Normal Bowel Sounds Extremities: Yes: WNL Edema: No Neurological: Yes: Alert, Oriented Labs: CBC, BMP 01/26/19 05:30 01/26/19 05:30 INR, PTT INR 1.17 (0.83-1.09) H 01/23/19 05:30 Problem List - Problems (1) Fall Assessment/Plan: pt eval head ct no acute problem Code(s): W19.XXXA - UNSPECIFIED FALL, INITIAL ENCOUNTER Qualifiers: Encounter type: subsequent encounter Qualified Code(s): W19.XXXD - Unspecified fall, subsequent encounter (2) UTI (urinary tract infection) Assessment/Plan: iv abx id consult cxs sent Code(s): N39.0 - URINARY TRACT INFECTION, SITE NOT SPECIFIED Qualifiers: Urinary tract infection type: site unspecified Hematuria presence: without hematuria Qualified Code(s): N39.0 - Urinary tract infection, site not specified (3) Sepsis Assessment/Plan: on abx cxs sent Code(s): A41.9 - SEPSIS, UNSPECIFIED ORGANISM Qualifiers: Sepsis type: Escherichia coli Qualified Code(s): A41.51 - Sepsis due to Escherichia coli [E. coli] (4) Back pain Assessment/Plan: prn pain meds Code(s): M54.9 - DORSALGIA, UNSPECIFIED Qualifiers: Back pain location: low back pain Chronicity: acute Back pain laterality : unspecified Sciatica presence: without sciatica Qualified Code(s): M54.5 - Low back pain Assessment/Plan icu cc time 40 min
[2019-01-26] MEDS ORDERED: QUEtiapine FUMARATE 25 MG TABLET (FP) ONE (20:58)
[2019-01-26] MEDS: APIXABAN 2.5 MG TABLET PO SCH (21:25)
[2019-01-26] MEDS: METOPROLOL TARTRATE 25 MG TABLET (FP) PO SCH (21:25)
[2019-01-26] MEDS: CHLORHEXIDINE GLUCONATE 4% CLEANSER FOR DECOLONIZATION TP SCH (21:25)
[2019-01-26] MEDS: QUEtiapine FUMARATE 50 MG TABLET PO SCH (21:26)
[2019-01-26] MEDS ORDERED: METOPROLOL TARTRATE 25 MG TABLET (FP) PO SCH (22:00)
[2019-01-27] MEDS ORDERED: PIPERACILLIN/TAZOBACTAM 2.25 GM VIAL IVPB ONE ×4 (01:57→20:48)
[2019-01-27] MEDS ORDERED: DEXTROSE 5%-WATER - 50 ML IVPB ONE ×4 (01:58→20:48)
[2019-01-27] MEDS: PIPERACILLIN/TAZOB 2.25 GM 2.25 GM in DEXTROSE 5%-WATER - 50 ML IVPB SCH ×4 (03:04→21:25)
[2019-01-27 09:10] LABS: BASO % 0.9 % (0-2.0); EOS % 6.6 % (0-4.5); HEMATOCRIT 34.3 % (32.4-45.2); HEMOGLOBIN 11.3 GM/dL (10.7-15.3); LYMPH % 10.9 % (8-40); MCH 26.1 pg (25.7-33.7); MEAN CELL VOLUME 79.2 fl (80-96); MEAN PLT VOLUME 7.9 fl (7.5-11.1); MONO % 10.5 % (3.8-10.2); NEUT % 71.1 % (42.8-82.8); PLATELET COUNT 495 K/MM3 (134-434); RBC 4.33 M/mm3 (3.60-5.2); RDW 15.9 % (11.6-15.6); WHITE BLOOD COUNT 9.4 K/mm3 (4.0-10.0)
[2019-01-27] MEDS: METOPROLOL TARTRATE 25 MG TABLET (FP) PO SCH ×2 (09:33→21:27)
[2019-01-27] MEDS: APIXABAN 2.5 MG TABLET PO SCH ×2 (09:33→21:26)
[2019-01-27] MEDS: MUPIROCIN 2% TOPICAL OINTMENT FOR DECOLONIZATION NS SCH ×2 (09:34→21:26)
[2019-01-27 09:42] LABS: ALBUMIN 1.9 g/dl (3.4-5.0); ALK PHOS 97 U/L (45-117); ANION GAP 8 MMOL/L (8-16); BILIRUBIN,TOTAL 0.4 mg/dL (0.2-1); BLOOD UREA NITROGEN 16 mg/dL (7-18); CALCIUM 8.7 mg/dL (8.5-10.1); CHLORIDE 111 mmol/L (98-107); CO2 28 mmol/L (21-32); CREATININE 1.6 mg/dL (0.55-1.3); GLUCOSE,RANDOM 99 mg/dL (74-106); MAGNESIUM 1.8 mg/dL (1.8-2.4); PHOSPHOROUS 3.8 mg/dL (2.5-4.9); SGOT/AST 15 U/L (15-37); SGPT/ALT 17 U/L (13-61); SODIUM 147 mmol/L (136-145)
[2019-01-27 09:46] LABS: POTASSIUM 2.8 mmol/L (3.5-5.1)
[2019-01-27] MEDS: KCL 10 MEQ IVPB 10 MEQ/100 ML INFUS.BAG IVPB SCH ×5 (10:33→21:26)
[2019-01-27] MEDS: ACETAMINOPHEN 1000 MG/100 ML VIAL (NON FORMULARY) IVPB PRN (12:18)
--- NOTE | 2019-01-27 12:37 | PN ---
Physical Exam: SUBJECTIVE: Patient seen and examined. Resting comfortably. No acute events overnight OBJECTIVE: Vital Signs Period Temp Pulse Resp BP Sys/Zepeda Pulse Ox Last 24 Hr 97.6 F-98 F 68-94 16-68 103-126/66-80 100-100 GENERAL: The patient is awake, alert, disoriented at baseline in no acute distress. EYES: PERRL, extraocular movements intact, sclera anicteric, conjunctiva clear. No ptosis. LUNGS: Breath sounds equal, clear to auscultation bilaterally, no wheezes, no crackles, no accessory muscle use. HEART: Regular rate and rhythm, S1, S2 without murmur, rub or gallop. ABDOMEN: Soft, nontender, nondistended, normoactive bowel sounds, no guarding, no rebound, no hepatosplenomegaly, no masses. EXTREMITIES: 2+ pulses, warm, well-perfused, no edema. SKIN: Warm, dry, normal turgor, no rashes or lesions noted Laboratory Results - last 24 hr 01/26/19 01/27/19 01/27/19 05:30 08:30 08:30 WBC 9.4 RBC 4.33 Hgb 11.3 Hct 34.3 MCV 79.2 L MCH 26.1 MCHC 33.0 RDW 15.9 H Plt Count 495 H MPV 7.9 Absolute Neuts (auto) 6.7 Neutrophils % 71.1 Lymphocytes % 10.9 D Monocytes % 10.5 H Eosinophils % 6.6 H D Basophils % 0.9 Nucleated RBC % 0 Sodium 145 147 H Potassium 3.0 L 2.8 L* Chloride 112 H 111 H Carbon Dioxide 24 28 Anion Gap 9 8 BUN 20 H 16 Creatinine 1.9 H 1.6 H Creat Clearance w eGFR 25.18 30.71 Random Glucose 90 99 Calcium 8.7 8.7 Phosphorus 3.4 3.8 Magnesium 1.8 1.8 Total Bilirubin 0.7 0.4 AST 14 L 15 ALT 19 17 Alkaline Phosphatase 108 97 Total Protein 5.3 L 5.0 L Albumin 1.9 L 1.9 L TSH 1.21 Active Medications Generic Name Dose Route Start Last Admin Trade Name Freq PRN Reason Stop Dose Admin Apixaban 2.5 mg 01/26/19 22:00 01/27/19 09:33 Eliquis - PO 2.5 mg BID [facility] Administration Chlorhexidine Gluconate 1 applic 01/23/19 22:00 01/26/19 21:25 Hibiclens For Decolonization - TP 1 applic HS [facility] Administration Piperacillin Sod/Tazobactam 50 mls @ 100 mls/hr 01/23/19 12:45 01/27/19 09:32 Sod 2.25 gm/ Dextrose IVPB 100 mls/hr Q6H-IV [facility] Administration Protocol Potassium Chloride 10 meq in 100 mls @ 100 mls/hr 01/27/19 11:00 01/27/19 11: 17 Potassium Chloride 10 Meq Premix Ivpb - IVPB 01/27/19 13:59 100 mls/hr Q60M [facility] Administration Metoprolol Tartrate 12.5 mg 01/26/19 22:00 01/27/19 09:33 Lopressor - PO 12.5 mg BID [facility] Administration Mupirocin 1 applic 01/23/19 10:00 01/27/19 09:34 Bactroban Ointment (For Decolonization) - NS 01/28/19 09:59 1 applic BID [facility] Administration Quetiapine Fumarate 50 mg 01/25/19 22:00 01/26/19 21:26 Seroquel - PO 50 mg HS [facility]IGN[facility] Administration ASSESSMENT/PLAN: Neuro - dementia at baseline -Seroquel 50mg HS Cardio - low blood pressure 2/2 to severe sepsis. Responding to fluids. BP has been stable - Atrial fibrillation/flutter. Cardiology consulted. - Starting on lopressor 12.5mg BID and Eliquis 2.5 mg BID per cardiology recommendations - Echo. EF 50-55% - DC heparin. Endo - Hypokalemia this AM. will replete - TSH normal Pulm - stable - keep O2 > 90 %. Is on RA Renal - US do not show hydronephrosis or bladder wall thickening. - JONATHAN 2/2 to severe sepsis. Cr trending downward - continue to trend - avoid nephrotoxic agents ID - UTI - f/u urine cultures and blood cultures - Zosyn for treatment as per ID - acetaminophen as needed for fever FEN - NS @ 100 - soft diet as tolerated - replete K as needed Dispo: BP stable, not hypotensive. Stable for tele floor. Waiting for bed Visit type - Emergency Visit Emergency Visit: Yes ED Registration Date: 01/22/19 Care time: The patient presented to the Emergency Department on the above date and was hospitalized for further evaluation of their emergent condition. - New Patient This patient is new to me today: No - Critical Care Critical Care patient: Yes Total Critical Care Time (in minutes): 40 Critical Care Statement: The care of this patient involved high complexity decision making to prevent further life threatening deterioration of the patient 's condition and/or to evaluate & treat vital organ system(s) failure or risk of failure.
--- NOTE | 2019-01-27 13:40 | PN ---
Progress Note, Physician History of Present Illness: continues to complain of generalized body pain otherwise looks comfortable - Current Medication List Current Medications: Active Medications Apixaban (Eliquis -) 2.5 mg PO BID [facility] Last Admin: 01/27/19 09:33 Dose: 2.5 mg Chlorhexidine Gluconate (Hibiclens For Decolonization -) 1 applic TP [facility] Last Admin: 01/26/19 21:25 Dose: 1 applic Piperacillin Sod/Tazobactam (Sod 2.25 gm/ Dextrose) 50 mls @ 100 mls/hr IVPB Q6H-IV [facility]; Protocol Last Admin: 01/27/19 09:32 Dose: 100 mls/hr Potassium Chloride (Potassium Chloride 10 Meq Premix Ivpb -) 10 meq in 100 mls @ 100 mls/hr IVPB Q60M [facility] Stop: 01/27/19 13:59 Last Admin: 01/27/19 12:37 Dose: 100 mls/hr Metoprolol Tartrate (Lopressor -) 12.5 mg PO BID [facility] Last Admin: 01/27/19 09:33 Dose: 12.5 mg Mupirocin (Bactroban Ointment (For Decolonization) -) 1 applic NS BID [facility] Stop: 01/28/19 09:59 Last Admin: 01/27/19 09:34 Dose: 1 applic Quetiapine Fumarate (Seroquel -) 50 mg PO [facility] Last Admin: 01/26/19 21:26 Dose: 50 mg - Objective Vital Signs: Vital Signs Temperature 97.8 F 01/27/19 06:00 Pulse Rate 82 01/27/19 10:00 Respiratory Rate 16 01/27/19 10:00 Blood Pressure 122/72 01/27/19 10:00 O2 Sat by Pulse Oximetry (%) 100 01/26/19 19:42 Constitutional: Yes: Calm, Mild Distress Cardiovascular: Yes: S1, S2 Respiratory: Yes: Regular, CTA Bilaterally Gastrointestinal: Yes: Normal Bowel Sounds, Soft Musculoskeletal: Yes: WNL Extremities: Yes: WNL Neurological: Yes: Alert, Oriented Psychiatric: Yes: Alert, Oriented Labs: CBC, BMP 01/27/19 08:30 01/27/19 08:30 INR, PTT INR 1.17 (0.83-1.09) H 01/23/19 05:30 Assessment/Plan UTI Severe Sepsis Acute Kidney Injury Anxiety hypotension wbc still on the higher side plan will continue abx wbc has normalized bp stable continue abx will decide to deescalte tomorrow rest as per the team cc 40 min
--- NOTE | 2019-01-27 13:46 | PN ---
Progress Note, Physician Chief Complaint: Events noted Remains in ICU History of Present Illness: Patient was seen and examined. Arousable. Chart was reviewed Denies chest pain or palpitations - Current Medication List Current Medications: Active Medications Apixaban (Eliquis -) 2.5 mg PO BID [facility] Last Admin: 01/27/19 09:33 Dose: 2.5 mg Chlorhexidine Gluconate (Hibiclens For Decolonization -) 1 applic TP [facility] Last Admin: 01/26/19 21:25 Dose: 1 applic Piperacillin Sod/Tazobactam (Sod 2.25 gm/ Dextrose) 50 mls @ 100 mls/hr IVPB Q6H-IV [facility]; Protocol Last Admin: 01/27/19 09:32 Dose: 100 mls/hr Potassium Chloride (Potassium Chloride 10 Meq Premix Ivpb -) 10 meq in 100 mls @ 100 mls/hr IVPB Q60M [facility] Stop: 01/27/19 13:59 Last Admin: 01/27/19 12:37 Dose: 100 mls/hr Metoprolol Tartrate (Lopressor -) 12.5 mg PO BID [facility] Last Admin: 01/27/19 09:33 Dose: 12.5 mg Mupirocin (Bactroban Ointment (For Decolonization) -) 1 applic NS BID [facility] Stop: 01/28/19 09:59 Last Admin: 01/27/19 09:34 Dose: 1 applic Quetiapine Fumarate (Seroquel -) 50 mg PO [facility] Last Admin: 01/26/19 21:26 Dose: 50 mg - Objective Vital Signs: Vital Signs Temperature 97.8 F 01/27/19 06:00 Pulse Rate 82 01/27/19 10:00 Respiratory Rate 16 01/27/19 10:00 Blood Pressure 122/72 01/27/19 10:00 O2 Sat by Pulse Oximetry (%) 100 01/26/19 19:42 Cardiovascular: Yes: Regular Rate and Rhythm, S1, S2 Respiratory: Yes: Diminished Gastrointestinal: Yes: Normal Bowel Sounds, Soft. No: Tenderness Edema: No Labs: CBC, BMP 01/27/19 08:30 01/27/19 08:30 Problem List - Problems (1) History of multiple strokes Code(s): Z86.73 - PRSNL HX OF TIA (TIA), AND CEREB INFRC W/O RESID DEFICITS (2) Paroxysmal atrial flutter Code(s): I48.92 - UNSPECIFIED ATRIAL FLUTTER (3) Sepsis Code(s): A41.9 - SEPSIS, UNSPECIFIED ORGANISM Qualifiers: Sepsis type: Escherichia coli Qualified Code(s): A41.51 - Sepsis due to Escherichia coli [E. coli] (4) UTI (urinary tract infection) Code(s): N39.0 - URINARY TRACT INFECTION, SITE NOT SPECIFIED Qualifiers: Urinary tract infection type: site unspecified Hematuria presence: without hematuria Qualified Code(s): N39.0 - Urinary tract infection, site not specified Assessment/Plan 1. Paroxysmal atrial fibrillation/flutter 2. Sepsis source 3. Acute on chronic kidney injury 4. History of stroke PLAN: 1. Agree with Eliquis 2.5 mg BID given elevated risk score and Lopressor 12.5 mg BID as hemodynamics tolerate 2. Antibiotic coverage 3. Judicious IVF and monitor renal function Further plans are to follow Adarsh Degroot MD
--- NOTE | 2019-01-27 14:29 | PN ---
Teaching Attending Note Name of Resident: Mary Grace Ignacio ATTENDING PHYSICIAN STATEMENT I saw and evaluated the patient. I reviewed the resident's note and discussed the case with the resident. I agree with the resident's findings and plan as documented. SUBJECTIVE: Patient seen and examined in the ICU. Awake and alert. Still with generalized pain but better. No CP or SOB. Hemodynamics have remained stable. Intake & Output 01/24/19 01/25/19 01/26/19 01/27/19 23:59 23:59 23:59 23:59 Intake Total 5000 2920 1110 Balance 5000 2920 1110 Weight 140 lb Last Vital Signs Temp Pulse Resp BP Pulse Ox 98 F 84 16 114/85 100 01/27/19 12:00 01/27/19 12:00 01/27/19 12:00 01/27/19 12:00 01/26/19 19:42 Active Medications Apixaban (Eliquis -) 2.5 mg PO BID [facility] Last Admin: 01/27/19 09:33 Dose: 2.5 mg Chlorhexidine Gluconate (Hibiclens For Decolonization -) 1 applic TP [facility] Last Admin: 01/26/19 21:25 Dose: 1 applic Piperacillin Sod/Tazobactam (Sod 2.25 gm/ Dextrose) 50 mls @ 100 mls/hr IVPB Q6H-IV [facility]; Protocol Last Admin: 01/27/19 09:32 Dose: 100 mls/hr Metoprolol Tartrate (Lopressor -) 12.5 mg PO BID [facility] Last Admin: 01/27/19 09:33 Dose: 12.5 mg Mupirocin (Bactroban Ointment (For Decolonization) -) 1 applic NS BID [facility] Stop: 01/28/19 09:59 Last Admin: 01/27/19 09:34 Dose: 1 applic Quetiapine Fumarate (Seroquel -) 50 mg PO [facility] Last Admin: 01/26/19 21:26 Dose: 50 mg GENERAL: awake and alert, NAD EYES: PERRL, extraocular movements intact ENT: dry mucous membranes. LUNGS: Breath sounds equal, clear to auscultation bilaterally, no wheezes, no crackles, HEART: Regular rate and rhythm, S1, S2 without murmur, rub or gallop. ABDOMEN: Soft, nontender, nondistended, normoactive bowel sounds, no guarding EXTREMITIES: 2+ pulses, warm, well-perfused, no edema. NEUROLOGICAL: non-focal SKIN: Warm, dry, normal turgor, no rashes or lesions noted Laboratory Results - last 24 hr 01/27/19 01/27/19 08:30 08:30 WBC 9.4 RBC 4.33 Hgb 11.3 Hct 34.3 MCV 79.2 L MCH 26.1 MCHC 33.0 RDW 15.9 H Plt Count 495 H MPV 7.9 Absolute Neuts (auto) 6.7 Neutrophils % 71.1 Lymphocytes % 10.9 D Monocytes % 10.5 H Eosinophils % 6.6 H D Basophils % 0.9 Nucleated RBC % 0 Sodium 147 H Potassium 2.8 L* Chloride 111 H Carbon Dioxide 28 Anion Gap 8 BUN 16 Creatinine 1.6 H Creat Clearance w eGFR 30.71 Random Glucose 99 Calcium 8.7 Phosphorus 3.8 Magnesium 1.8 Total Bilirubin 0.4 AST 15 ALT 17 Alkaline Phosphatase 97 Total Protein 5.0 L Albumin 1.9 L Assessment/Plan Resolving Sepsis due to UTI Acute Kidney Injury Anxiety P AFib - Lopressor BID - Eliquis for AC - ABX per ID - IVF boluses as needed - monitor urine output, creatinine - O2 to keep SpO2 >90% - DVT prophylaxis - Cardiac Telemetry monitoring Dr Souza
[2019-01-27] MEDS ORDERED: LORazepam 2 MG/ML SDV VIAL IVPUSH ONE (16:32)
--- NOTE | 2019-01-27 17:16 | PN ---
Progress Note, Physician - Current Medication List Current Medications: Active Medications Apixaban (Eliquis -) 2.5 mg PO BID [facility] Last Admin: 01/27/19 09:33 Dose: 2.5 mg Chlorhexidine Gluconate (Hibiclens For Decolonization -) 1 applic TP [facility] Last Admin: 01/26/19 21:25 Dose: 1 applic Piperacillin Sod/Tazobactam (Sod 2.25 gm/ Dextrose) 50 mls @ 100 mls/hr IVPB Q6H-IV [facility]; Protocol Last Admin: 01/27/19 15:28 Dose: 100 mls/hr Metoprolol Tartrate (Lopressor -) 12.5 mg PO BID [facility] Last Admin: 01/27/19 09:33 Dose: 12.5 mg Mupirocin (Bactroban Ointment (For Decolonization) -) 1 applic NS BID [facility] Stop: 01/28/19 09:59 Last Admin: 01/27/19 09:34 Dose: 1 applic Quetiapine Fumarate (Seroquel -) 50 mg PO [facility] Last Admin: 01/26/19 21:26 Dose: 50 mg - Objective Vital Signs: Vital Signs Temperature 97.9 F 01/27/19 14:00 Pulse Rate 78 01/27/19 16:00 Respiratory Rate 16 01/27/19 16:00 Blood Pressure 112/80 01/27/19 16:00 O2 Sat by Pulse Oximetry (%) 100 01/26/19 19:42 Constitutional: Yes: No Distress HENT: Yes: Atraumatic Neck: Yes: Supple Cardiovascular: Yes: Regular Rate and Rhythm Respiratory: Yes: CTA Bilaterally Gastrointestinal: Yes: Normal Bowel Sounds Extremities: Yes: WNL Edema: No Peripheral Pulses WNL: Yes Neurological: Yes: Alert, Oriented Labs: CBC, BMP 01/27/19 08:30 01/27/19 08:30 INR, PTT INR 1.17 (0.83-1.09) H 01/23/19 05:30 Problem List - Problems (1) Fall Assessment/Plan: pt eval head ct no acute problem Code(s): W19.XXXA - UNSPECIFIED FALL, INITIAL ENCOUNTER Qualifiers: Encounter type: subsequent encounter Qualified Code(s): W19.XXXD - Unspecified fall, subsequent encounter (2) UTI (urinary tract infection) Assessment/Plan: iv abx id consult cxs sent Code(s): N39.0 - URINARY TRACT INFECTION, SITE NOT SPECIFIED Qualifiers: Urinary tract infection type: site unspecified Hematuria presence: without hematuria Qualified Code(s): N39.0 - Urinary tract infection, site not specified (3) Sepsis Assessment/Plan: on abx cxs sent Code(s): A41.9 - SEPSIS, UNSPECIFIED ORGANISM Qualifiers: Sepsis type: Escherichia coli Qualified Code(s): A41.51 - Sepsis due to Escherichia coli [E. coli] (4) Back pain Code(s): M54.9 - DORSALGIA, UNSPECIFIED Qualifiers: Back pain location: low back pain Chronicity: acute Back pain laterality : unspecified Sciatica presence: without sciatica Qualified Code(s): M54.5 - Low back pain Assessment/Plan icu cc time 40 min
[2019-01-27] MEDS: CHLORHEXIDINE GLUCONATE 4% CLEANSER FOR DECOLONIZATION TP SCH (21:26)
[2019-01-27] MEDS: QUEtiapine FUMARATE 50 MG TABLET PO SCH (21:27)
[2019-01-28] MEDS: PIPERACILLIN/TAZOB 2.25 GM 2.25 GM in DEXTROSE 5%-WATER - 50 ML IVPB SCH ×2 (03:00→09:24)
[2019-01-28] MEDS ORDERED: PIPERACILLIN/TAZOBACTAM 2.25 GM VIAL IVPB ONE ×3 (06:15→13:17)
[2019-01-28] MEDS ORDERED: DEXTROSE 5%-WATER - 50 ML IVPB ONE ×3 (06:16→13:17)
[2019-01-28 06:38] LABS: BASO % 0.8 % (0-2.0); EOS % 6.5 % (0-4.5); HEMATOCRIT 32.5 % (32.4-45.2); HEMOGLOBIN 11.1 GM/dL (10.7-15.3); LYMPH % 15.8 % (8-40); MCH 26.9 pg (25.7-33.7); MCHC 34.2 g/dl (32.0-36.0); MEAN CELL VOLUME 78.8 fl (80-96); MEAN PLT VOLUME 7.6 fl (7.5-11.1); MONO % 9.5 % (3.8-10.2); NEUT % 67.4 % (42.8-82.8); PLATELET COUNT 511 K/MM3 (134-434); RBC 4.12 M/mm3 (3.60-5.2); WHITE BLOOD COUNT 8.6 K/mm3 (4.0-10.0)
[2019-01-28 07:03] LABS: ALBUMIN 1.8 g/dl (3.4-5.0); ALK PHOS 87 U/L (45-117); ANION GAP 8 MMOL/L (8-16); BILIRUBIN,TOTAL 0.4 mg/dL (0.2-1); BLOOD UREA NITROGEN 17 mg/dL (7-18); CALCIUM 8.4 mg/dL (8.5-10.1); CHLORIDE 108 mmol/L (98-107); CO2 28 mmol/L (21-32); GLUCOSE,RANDOM 81 mg/dL (74-106); SGOT/AST 15 U/L (15-37); SGPT/ALT 16 U/L (13-61); SODIUM 143 mmol/L (136-145); TOT PROT 4.8 g/dl (6.4-8.2)
--- NOTE | 2019-01-28 07:31 | PN ---
Physical Exam: SUBJECTIVE: Patient seen and examined at bedside. Patient agitated yesterday afternoon requiring .5 ativan. no events overnight. OBJECTIVE: Vital Signs Period Temp Pulse Resp BP Sys/Zepeda Pulse Ox Last 24 Hr 97.6 F-98.4 F 76-90 15-29 81-122/51-85 GENERAL: The patient is drowsy, easily rousable to voice. HEAD: Normal with no signs of trauma. NECK: Trachea midline, full range of motion, supple. LUNGS: Breath sounds equal, clear to auscultation bilaterally, no wheezes, no crackles, no accessory muscle use. HEART: Regular rate and rhythm, S1, S2 without murmur, rub or gallop. ABDOMEN: Soft, nontender, nondistended, normoactive bowel sounds, no guarding, no rebound, no hepatosplenomegaly, no masses. EXTREMITIES: 2+ pulses, warm, well-perfused, no edema. NEUROLOGICAL: Cranial nerves II through X grossly intact. Normal speech. SKIN: Warm, dry, normal turgor, no rashes or lesions noted Laboratory Results - last 24 hr 01/27/19 01/27/19 01/28/19 08:30 08:30 05:30 WBC 9.4 8.6 RBC 4.33 4.12 Hgb 11.3 11.1 Hct 34.3 32.5 MCV 79.2 L 78.8 L MCH 26.1 26.9 MCHC 33.0 34.2 RDW 15.9 H 16.0 H Plt Count 495 H 511 H MPV 7.9 7.6 Absolute Neuts (auto) 6.7 5.8 Neutrophils % 71.1 67.4 Lymphocytes % 10.9 D 15.8 D Monocytes % 10.5 H 9.5 Eosinophils % 6.6 H D 6.5 H Basophils % 0.9 0.8 Nucleated RBC % 0 0 Sodium 147 H Potassium 2.8 L* Chloride 111 H Carbon Dioxide 28 Anion Gap 8 BUN 16 Creatinine 1.6 H Creat Clearance w eGFR 30.71 Random Glucose 99 Calcium 8.7 Phosphorus 3.8 Magnesium 1.8 Total Bilirubin 0.4 AST 15 ALT 17 Alkaline Phosphatase 97 Total Protein 5.0 L Albumin 1.9 L 01/28/19 05:30 WBC RBC Hgb Hct MCV MCH MCHC RDW Plt Count MPV Absolute Neuts (auto) Neutrophils % Lymphocytes % Monocytes % Eosinophils % Basophils % Nucleated RBC % Sodium 143 Potassium Chloride 108 H Carbon Dioxide 28 Anion Gap 8 BUN 17 Creatinine 1.6 H Creat Clearance w eGFR 30.71 Random Glucose 81 Calcium 8.4 L Phosphorus Magnesium Total Bilirubin 0.4 AST 15 ALT 16 Alkaline Phosphatase 87 Total Protein 4.8 L Albumin 1.8 L Active Medications Generic Name Dose Route Start Last Admin Trade Name Freq PRN Reason Stop Dose Admin Apixaban 2.5 mg 01/26/19 22:00 01/27/19 21:26 Eliquis - PO 2.5 mg BID VIGNESH Administration Chlorhexidine Gluconate 1 applic 01/23/19 22:00 01/27/19 21:26 Hibiclens For Decolonization - TP 1 applic HS VIGNESH Administration Piperacillin Sod/Tazobactam 50 mls @ 100 mls/hr 01/23/19 12:45 01/28/19 03:00 Sod 2.25 gm/ Dextrose IVPB 100 mls/hr Q6H-IV VIGNESH Administration Protocol Lactated Ringer's 1,000 ml in 1,000 mls @ 75 mls/hr 01/28/19 07:45 Lactated Ringers Solution IV 01/28/19 21:04 ASDIR VIGNESH Metoprolol Tartrate 12.5 mg 01/26/19 22:00 01/27/19 21:27 Lopressor - PO 12.5 mg BID VIGNESH Administration Mupirocin 1 applic 01/23/19 10:00 01/27/19 21:26 Bactroban Ointment (For Decolonization) - NS 01/28/19 09:59 Not Given BID VIGNESH Quetiapine Fumarate 50 mg 01/25/19 22:00 01/27/19 21:27 Seroquel - PO 50 mg HS VIGNESH Administration ASSESSMENT/PLAN: 83 yo f w/ PMH chronic low back pain, anxiety, and hyperactive bladder, who presents to the emergency department BIBA from [facility] s/p fall. She was admitted to the ICU for sepsis 2/2 UTI. Neuro - dementia at baseline -Seroquel 50mg HS not home med; d/c'd -on BID diazepam at home; will resume when patient more awake Cardio - BP stable; was low overnight. Responding to fluids. Will resume this AM - Atrial fibrillation/flutter. Cardiology consulted. - Starting on lopressor 12.5mg BID and Eliquis 2.5 mg BID per cardiology recommendations - Echo. EF 50-55% - DC heparin. Endo - Patient w/ persistent hypokalemia; will replete - TSH normal Pulm - stable - keep O2 > 90 %. Is on RA Renal - US do not show hydronephrosis or bladder wall thickening. - JONATHAN likely 2/2 to severe sepsis. Cr trending downward. Will continue fluids w/ LR @ 75 - continue to trend - avoid nephrotoxic agents ID - UTI - f/u urine cultures and blood cultures - Zosyn 2.25 (day 6) for treatment as per ID - acetaminophen PRN fever FEN - LR @ 75 - soft diet as tolerated - replete K as needed Dispo: -Stable for tele floor. Waiting for bed Visit type - Emergency Visit Emergency Visit: Yes ED Registration Date: 01/22/19 Care time: The patient presented to the Emergency Department on the above date and was hospitalized for further evaluation of their emergent condition. - New Patient This patient is new to me today: Yes Date on this admission: 02/01/19 - Critical Care Critical Care patient: No - Discharge Referral Referred to [facility] Med P.C.: No
[2019-01-28] MEDS ORDERED: LACTATED RINGERS SOLUTION 1,000 ML/1,000 ML INFUS.BAG IV SCH (07:45)
[2019-01-28 08:14] LABS: POTASSIUM 2.7 mmol/L (3.5-5.1)
[2019-01-28] MEDS: KCL 10 MEQ IVPB 10 MEQ/100 ML INFUS.BAG IVPB SCH ×3 (08:30→11:33)
[2019-01-28] MEDS: PANTOPRAZOLE 40 MG TABLET (FP) PO SCH (09:00)
[2019-01-28] MEDS: METOPROLOL TARTRATE 25 MG TABLET (FP) PO SCH ×2 (09:03→21:12)
[2019-01-28] MEDS: SIMETHICONE 80 MG TAB.CHEW (FP) PO SCH (09:23)
[2019-01-28] MEDS: POTASSIUM CHLORIDE TABS 20 MEQ TABLET.ER (FP) PO SCH (09:23)
[2019-01-28] MEDS: POLYETHYLENE GLYCOL 3350 119 GM BTL PO SCH (09:23)
[2019-01-28] MEDS: SENNOSIDES 8.6MG TABLET (FP) PO SCH (09:23)
[2019-01-28] MEDS: APIXABAN 2.5 MG TABLET PO SCH ×2 (09:23→21:13)
[2019-01-28 10:02] LABS: CREATININE 1.6 mg/dL (0.55-1.3)
--- NOTE | 2019-01-28 11:32 | PN ---
Teaching Attending Note Name of Resident: Sebastian Key ATTENDING PHYSICIAN STATEMENT I saw and evaluated the patient. I reviewed the resident's note and discussed the case with the resident. I agree with the resident's findings and plan as documented. SUBJECTIVE: Pt seen and examined in the ICU. c/o generalized pain which is chronic. Currently in sinus rhythm. OBJECTIVE: Vital Signs Period Temp Pulse Resp BP Sys/Zepeda Pulse Ox Last 24 Hr 97.6 F-98.4 F 75-90 15-29 81-119/51-85 Intake & Output 01/25/19 01/26/19 01/27/19 01/28/19 23:59 23:59 23:59 23:59 Intake Total 2920 1110 250 150 Balance 2920 1110 250 150 Gen: NAD at rest Heart: RRR Lung: decreased breath sounds at the bases Abd: soft, nontender Ext: no edema CBC, BMP 01/28/19 05:30 01/28/19 05:30 Active Medications Apixaban (Eliquis -) 2.5 mg PO BID [facility] Last Admin: 01/28/19 09:23 Dose: 2.5 mg Chlorhexidine Gluconate (Hibiclens For Decolonization -) 1 applic TP HS [facility] Last Admin: 01/27/19 21:26 Dose: 1 applic Piperacillin Sod/Tazobactam (Sod 2.25 gm/ Dextrose) 50 mls @ 100 mls/hr IVPB Q6H-IV VIGNESH; Protocol Last Admin: 01/28/19 09:24 Dose: 100 mls/hr Lactated Ringer's (Lactated Ringers Solution) 1,000 ml in 1,000 mls @ 75 mls/ hr IV ASDIR VIGNESH Stop: 01/28/19 21:04 Last Admin: 01/28/19 08:00 Dose: 75 mls/hr Metoprolol Tartrate (Lopressor -) 12.5 mg PO BID [facility] Last Admin: 01/28/19 09:03 Dose: 12.5 mg Pantoprazole Sodium (Protonix -) 40 mg PO DAILY [facility] Last Admin: 01/28/19 09:00 Dose: 40 mg Polyethylene Glycol (Miralax (For Daily Use) -) 17 gm PO DAILY [facility] Last Admin: 01/28/19 09:23 Dose: 17 gm Potassium Chloride (K-Dur -) 40 meq PO DAILY [facility] Last Admin: 01/28/19 09:23 Dose: 40 meq Senna (Senna -) 1 tab PO DAILY VIGNESH Last Admin: 01/28/19 09:23 Dose: 1 tab Simethicone (Mylicon -) 80 mg PO DAILY [facility] Last Admin: 01/28/19 09:23 Dose: 80 mg ASSESSMENT AND PLAN: UTI Severe Sepsis Acute Kidney Injury Paroxysmal Atrial Fibrillation Anxiety - continue antibiotics per ID - IVF - monitor urine output, creatinine - O2 to keep SpO2 >90% - pain control - rate/rhythm control - continue anticoagulation - can monitor on telemetry
--- NOTE | 2019-01-28 13:38 | PN ---
Progress Note, Physician History of Present Illness: stable no new issues - Current Medication List Current Medications: Active Medications Apixaban (Eliquis -) 2.5 mg PO BID [facility] Last Admin: 01/28/19 09:23 Dose: 2.5 mg Chlorhexidine Gluconate (Hibiclens For Decolonization -) 1 applic TP HS [facility] Last Admin: 01/27/19 21:26 Dose: 1 applic Gabapentin (Neurontin -) 200 mg PO BID [facility] Lactated Ringer's (Lactated Ringers Solution) 1,000 ml in 1,000 mls @ 75 mls/ hr IV ASDIR [facility] Stop: 01/28/19 21:04 Last Admin: 01/28/19 08:00 Dose: 75 mls/hr Metoprolol Tartrate (Lopressor -) 12.5 mg PO BID [facility] Last Admin: 01/28/19 09:03 Dose: 12.5 mg Non-Formulary Medication (Lidocaine [Lidocaine Pain Relief]) 1 each TP DAILY [facility] Oxycodone HCl (Roxicodone -) 5 mg PO Q6H PRN PRN Reason: PAIN Pantoprazole Sodium (Protonix -) 40 mg PO DAILY [facility] Last Admin: 01/28/19 09:00 Dose: 40 mg Polyethylene Glycol (Miralax (For Daily Use) -) 17 gm PO DAILY [facility] Last Admin: 01/28/19 09:23 Dose: 17 gm Potassium Chloride (K-Dur -) 40 meq PO DAILY [facility] Last Admin: 01/28/19 09:23 Dose: 40 meq Senna (Senna -) 1 tab PO DAILY [facility] Last Admin: 01/28/19 09:23 Dose: 1 tab Simethicone (Mylicon -) 80 mg PO DAILY [facility] Last Admin: 01/28/19 09:23 Dose: 80 mg - Objective Vital Signs: Vital Signs Temperature 98.1 F 01/28/19 10:00 Pulse Rate 67 01/28/19 10:00 Respiratory Rate 15 01/28/19 10:00 Blood Pressure 112/74 01/28/19 10:00 O2 Sat by Pulse Oximetry (%) 98 01/28/19 10:00 Constitutional: Yes: Calm, Mild Distress Cardiovascular: Yes: S1, S2 Respiratory: Yes: Regular, CTA Bilaterally Musculoskeletal: Yes: WNL Extremities: Yes: Other Neurological: Yes: Alert Psychiatric: Yes: Alert Labs: CBC, BMP 01/28/19 05:30 01/28/19 05:30 INR, PTT INR 1.17 (0.83-1.09) H 01/23/19 05:30 Assessment/Plan UTI Severe Sepsis Acute Kidney Injury Anxiety hypotension wbc normalized plan will stop abx and monitor rest as per the team
[2019-01-28] MEDS ORDERED: LIDOCAINE TP SCH (13:45)
[2019-01-28] MEDS: oxyCODONE HCL 5 MG TABLET PO PRN ×2 (14:18→21:13)
[2019-01-28] MEDS: GABAPENTIN 100 MG CAPSULE (FP) PO SCH ×2 (14:18→21:13)
--- NOTE | 2019-01-28 17:17 | PN ---
Progress Note, Physician History of Present Illness: Mental status improving, remains in NSR, afebrile. - Current Medication List Current Medications: Active Medications Apixaban (Eliquis -) 2.5 mg PO BID [facility] Last Admin: 01/28/19 09:23 Dose: 2.5 mg Chlorhexidine Gluconate (Hibiclens For Decolonization -) 1 applic TP HS [facility] Last Admin: 01/27/19 21:26 Dose: 1 applic Gabapentin (Neurontin -) 200 mg PO BID [facility] Last Admin: 01/28/19 14:18 Dose: 200 mg Lactated Ringer's (Lactated Ringers Solution) 1,000 ml in 1,000 mls @ 75 mls/ hr IV ASDIR [facility] Stop: 01/28/19 21:04 Last Admin: 01/28/19 08:00 Dose: 75 mls/hr Metoprolol Tartrate (Lopressor -) 12.5 mg PO BID [facility] Last Admin: 01/28/19 09:03 Dose: 12.5 mg Non-Formulary Medication (Lidocaine [Lidocaine Pain Relief]) 1 each TP DAILY [facility] Oxycodone HCl (Roxicodone -) 5 mg PO Q6H PRN PRN Reason: PAIN Last Admin: 01/28/19 14:18 Dose: 5 mg Pantoprazole Sodium (Protonix -) 40 mg PO DAILY [facility] Last Admin: 01/28/19 09:00 Dose: 40 mg Polyethylene Glycol (Miralax (For Daily Use) -) 17 gm PO DAILY [facility] Last Admin: 01/28/19 09:23 Dose: 17 gm Potassium Chloride (K-Dur -) 40 meq PO DAILY [facility] Last Admin: 01/28/19 09:23 Dose: 40 meq Senna (Senna -) 1 tab PO DAILY [facility] Last Admin: 01/28/19 09:23 Dose: 1 tab Simethicone (Mylicon -) 80 mg PO DAILY [facility] Last Admin: 01/28/19 09:23 Dose: 80 mg - Objective Vital Signs: Vital Signs Temperature 97.7 F 01/28/19 14:00 Pulse Rate 94 H 01/28/19 16:00 Respiratory Rate 01/28/19 16:00 Blood Pressure 109/78 01/28/19 16:00 O2 Sat by Pulse Oximetry (%) 100 01/28/19 14:25 Constitutional: Yes: No Distress, Calm, Thin Neck: Yes: Supple Cardiovascular: Yes: Regular Rate and Rhythm Respiratory: Yes: Regular, Diminished, On Nasal O2 Gastrointestinal: Yes: Normal Bowel Sounds, Soft Edema: No Labs: CBC, BMP 01/28/19 05:30 01/28/19 05:30 INR, PTT INR 1.17 (0.83-1.09) H 01/23/19 05:30 - ....Imaging EKG: Report Reviewed (Tele: NSR) Problem List - Problems (1) Paroxysmal atrial flutter Code(s): I48.92 - UNSPECIFIED ATRIAL FLUTTER (2) Fall Code(s): W19.XXXA - UNSPECIFIED FALL, INITIAL ENCOUNTER Qualifiers: Encounter type: subsequent encounter Qualified Code(s): W19.XXXD - Unspecified fall, subsequent encounter (3) Sepsis Code(s): A41.9 - SEPSIS, UNSPECIFIED ORGANISM Qualifiers: Sepsis type: Escherichia coli Qualified Code(s): A41.51 - Sepsis due to Escherichia coli [E. coli] (4) UTI (urinary tract infection) Code(s): N39.0 - URINARY TRACT INFECTION, SITE NOT SPECIFIED Qualifiers: Urinary tract infection type: site unspecified Hematuria presence: without hematuria Qualified Code(s): N39.0 - Urinary tract infection, site not specified (5) History of multiple strokes Code(s): Z86.73 - PRSNL HX OF TIA (TIA), AND CEREB INFRC W/O RESID DEFICITS Assessment/Plan 01/26/2019 Echo: Normal LV and RV size with low normal LV and RV fxn, normal atrial sizes 1. Paroxysmal atrial fibrillation/flutter now in SR 2. Resolving Sepsis source 3. Acute on chronic kidney injury due to above improving 4. H/o strokes P:1. Continue Eliquis 2.5 bid given elevated risk score and Lopressor 12.5 bid as hemodynamics tolerate 2. Monitor off Abx course per C&S 3. Judicious IVF and monitor renal recovery 4. O2 to keep SpO2 >90%
[2019-01-28] MEDS: LIDOCAINE 5% TOPICAL PATCH TP SCH (18:04)
--- NOTE | 2019-01-28 18:21 | PN ---
Progress Note, Physician History of Present Illness: doing well - Current Medication List Current Medications: Active Medications Apixaban (Eliquis -) 2.5 mg PO BID [facility] Chlorhexidine Gluconate (Hibiclens For Decolonization -) 1 applic TP HS [facility] Diazepam (Valium -) 0.5 mg PO BID [facility] Gabapentin (Neurontin -) 200 mg PO BID [facility] Last Admin: 01/28/19 14:18 Dose: 200 mg Lactated Ringer's (Lactated Ringers Solution) 1,000 ml in 1,000 mls @ 75 mls/ hr IV ASDIR VIGNESH Stop: 01/28/19 21:04 Last Admin: 01/28/19 08:00 Dose: 75 mls/hr Lidocaine (Lidoderm Patch -) 1 patch TP DAILY [facility] Last Admin: 01/28/19 18:04 Dose: 1 patch Metoprolol Tartrate (Lopressor -) 12.5 mg PO BID [facility] Miscellaneous (Lidoderm Patch Removal) 1 each MC DAILY@2200 [facility] Oxycodone HCl (Roxicodone -) 5 mg PO Q6H PRN PRN Reason: PAIN Last Admin: 01/28/19 14:18 Dose: 5 mg Pantoprazole Sodium (Protonix -) 40 mg PO DAILY [facility] Last Admin: 01/28/19 09:00 Dose: 40 mg Polyethylene Glycol (Miralax (For Daily Use) -) 17 gm PO DAILY [facility] Last Admin: 01/28/19 09:23 Dose: 17 gm Potassium Chloride (K-Dur -) 40 meq PO DAILY [facility] Last Admin: 01/28/19 09:23 Dose: 40 meq Senna (Senna -) 1 tab PO DAILY [facility] Last Admin: 01/28/19 09:23 Dose: 1 tab Simethicone (Mylicon -) 80 mg PO DAILY [facility] Last Admin: 01/28/19 09:23 Dose: 80 mg - Objective Vital Signs: Vital Signs Temperature 98.7 F 01/28/19 17:51 Pulse Rate 93 H 01/28/19 17:51 Respiratory Rate 17 01/28/19 17:51 Blood Pressure 119/69 01/28/19 17:51 O2 Sat by Pulse Oximetry (%) 100 01/28/19 14:25 Constitutional: Yes: No Distress HENT: Yes: Atraumatic Neck: Yes: Supple Cardiovascular: Yes: Regular Rate and Rhythm Respiratory: Yes: CTA Bilaterally Gastrointestinal: Yes: Normal Bowel Sounds Extremities: Yes: WNL Neurological: Yes: Alert, Oriented Labs: CBC, BMP 01/28/19 05:30 01/28/19 05:30 INR, PTT INR 1.17 (0.83-1.09) H 01/23/19 05:30 Problem List - Problems (1) Fall Assessment/Plan: pt eval head ct no acute problem Code(s): W19.XXXA - UNSPECIFIED FALL, INITIAL ENCOUNTER Qualifiers: Encounter type: subsequent encounter Qualified Code(s): W19.XXXD - Unspecified fall, subsequent encounter (2) UTI (urinary tract infection) Assessment/Plan: iv abx completed monitor Code(s): N39.0 - URINARY TRACT INFECTION, SITE NOT SPECIFIED Qualifiers: Urinary tract infection type: site unspecified Hematuria presence: without hematuria Qualified Code(s): N39.0 - Urinary tract infection, site not specified (3) Sepsis Assessment/Plan: completed abx observe Code(s): A41.9 - SEPSIS, UNSPECIFIED ORGANISM Qualifiers: Sepsis type: Escherichia coli Qualified Code(s): A41.51 - Sepsis due to Escherichia coli [E. coli] (4) Back pain Assessment/Plan: prn pain meds Code(s): M54.9 - DORSALGIA, UNSPECIFIED Qualifiers: Back pain location: low back pain Chronicity: acute Back pain laterality : unspecified Sciatica presence: without sciatica Qualified Code(s): M54.5 - Low back pain Assessment/Plan icu cc time 40 min
[2019-01-28] MEDS: ACETAMINOPHEN 325 MG TABLET (FP) PO PRN (21:12)
[2019-01-28] MEDS: CHLORHEXIDINE GLUCONATE 4% CLEANSER FOR DECOLONIZATION TP SCH (21:23)
[2019-01-28] MEDS: LIDOCAINE PATCH REMOVAL MC SCH (21:23)
[2019-01-28] MEDS ORDERED: diazePAM 5 MG TABLET PO SCH ×2 (22:00)
[2019-01-28 22:22] LABS: CALCIUM 8.6 mg/dL (8.5-10.1); CREATININE 1.9 mg/dL (0.55-1.3); POTASSIUM 3.9 mmol/L (3.5-5.1)
[2019-01-29 07:04] LABS: HEMATOCRIT 32.4 % (32.4-45.2); HEMOGLOBIN 10.7 GM/dL (10.7-15.3); MCH 26.3 pg (25.7-33.7); MCHC 33.2 g/dl (32.0-36.0); MEAN CELL VOLUME 79.3 fl (80-96); MEAN PLT VOLUME 7.8 fl (7.5-11.1); PLATELET COUNT 488 K/MM3 (134-434); RBC 4.08 M/mm3 (3.60-5.2); WHITE BLOOD COUNT 17.8 K/mm3 (4.0-10.0)
[2019-01-29 07:20] LABS: CALCIUM 8.5 mg/dL (8.5-10.1); CREATININE 2.6 mg/dL (0.55-1.3); MAGNESIUM 1.6 mg/dL (1.8-2.4); PHOSPHOROUS 3.4 mg/dL (2.5-4.9); POTASSIUM 3.8 mmol/L (3.5-5.1)
[2019-01-29] MEDS: APIXABAN 2.5 MG TABLET PO SCH ×2 (09:29→21:50)
[2019-01-29] MEDS: SIMETHICONE 80 MG TAB.CHEW (FP) PO SCH (09:29)
[2019-01-29] MEDS: GABAPENTIN 100 MG CAPSULE (FP) PO SCH ×2 (09:29→21:50)
[2019-01-29] MEDS: SENNOSIDES 8.6MG TABLET (FP) PO SCH (09:29)
[2019-01-29] MEDS: POTASSIUM CHLORIDE TABS 20 MEQ TABLET.ER (FP) PO SCH (09:29)
[2019-01-29] MEDS: METOPROLOL TARTRATE 25 MG TABLET (FP) PO SCH ×2 (09:29→21:50)
[2019-01-29] MEDS: PANTOPRAZOLE 40 MG TABLET (FP) PO SCH (09:29)
[2019-01-29] MEDS: POLYETHYLENE GLYCOL 3350 119 GM BTL PO SCH (09:30)
[2019-01-29] MEDS: LIDOCAINE 5% TOPICAL PATCH TP SCH (09:30)
--- NOTE | 2019-01-29 09:48 | PN ---
Progress Note, Physician History of Present Illness: Mental status improving, remains in NSR, afebrile. - Current Medication List Current Medications: Active Medications Acetaminophen (Tylenol -) 650 mg PO Q6H PRN PRN Reason: FEVER Last Admin: 01/28/19 21:12 Dose: 650 mg Apixaban (Eliquis -) 2.5 mg PO BID [facility] Last Admin: 01/29/19 09:29 Dose: 2.5 mg Chlorhexidine Gluconate (Hibiclens For Decolonization -) 1 applic TP HS [facility] Last Admin: 01/28/19 21:23 Dose: Not Given Diazepam (Valium -) 0.5 mg PO BID [facility] Gabapentin (Neurontin -) 200 mg PO BID [facility] Last Admin: 01/29/19 09:29 Dose: 200 mg Lidocaine (Lidoderm Patch -) 1 patch TP DAILY [facility] Last Admin: 01/29/19 09:30 Dose: 1 patch Metoprolol Tartrate (Lopressor -) 12.5 mg PO BID [facility] Last Admin: 01/29/19 09:29 Dose: 12.5 mg Miscellaneous (Lidoderm Patch Removal) 1 each MC DAILY@2200 [facility] Last Admin: 01/28/19 21:23 Dose: Not Given Oxycodone HCl (Roxicodone -) 5 mg PO Q6H PRN PRN Reason: PAIN Last Admin: 01/28/19 21:13 Dose: 5 mg Pantoprazole Sodium (Protonix -) 40 mg PO DAILY [facility] Last Admin: 01/29/19 09:29 Dose: 40 mg Polyethylene Glycol (Miralax (For Daily Use) -) 17 gm PO DAILY [facility] Last Admin: 01/29/19 09:30 Dose: Not Given Potassium Chloride (K-Dur -) 40 meq PO DAILY [facility] Last Admin: 01/29/19 09:29 Dose: 40 meq Senna (Senna -) 1 tab PO DAILY [facility] Last Admin: 01/29/19 09:29 Dose: Not Given Simethicone (Mylicon -) 80 mg PO DAILY [facility] Last Admin: 01/29/19 09:29 Dose: 80 mg - Objective Vital Signs: Vital Signs Temperature 97.9 F 01/29/19 08:13 Pulse Rate 84 01/29/19 08:13 Respiratory Rate 18 01/29/19 08:13 Blood Pressure 101/51 L 01/29/19 08:13 O2 Sat by Pulse Oximetry (%) 95 01/29/19 08:15 Constitutional: Yes: No Distress, Calm Neck: Yes: Supple Cardiovascular: Yes: Regular Rate and Rhythm Respiratory: Yes: Regular, Diminished Gastrointestinal: Yes: Normal Bowel Sounds, Soft Edema: No Labs: CBC, BMP 01/29/19 05:30 01/29/19 05:30 INR, PTT INR 1.17 (0.83-1.09) H 01/23/19 05:30 - ....Imaging EKG: Report Reviewed (Tele: NSR) Problem List - Problems (1) Paroxysmal atrial flutter Code(s): I48.92 - UNSPECIFIED ATRIAL FLUTTER (2) Fall Code(s): W19.XXXA - UNSPECIFIED FALL, INITIAL ENCOUNTER Qualifiers: Encounter type: subsequent encounter Qualified Code(s): W19.XXXD - Unspecified fall, subsequent encounter (3) Sepsis Code(s): A41.9 - SEPSIS, UNSPECIFIED ORGANISM Qualifiers: Sepsis type: Escherichia coli Qualified Code(s): A41.51 - Sepsis due to Escherichia coli [E. coli] (4) UTI (urinary tract infection) Code(s): N39.0 - URINARY TRACT INFECTION, SITE NOT SPECIFIED Qualifiers: Urinary tract infection type: site unspecified Hematuria presence: without hematuria Qualified Code(s): N39.0 - Urinary tract infection, site not specified (5) History of multiple strokes Code(s): Z86.73 - PRSNL HX OF TIA (TIA), AND CEREB INFRC W/O RESID DEFICITS Assessment/Plan 01/26/2019 Echo: Normal LV and RV size with low normal LV and RV fxn, normal atrial sizes 1. Paroxysmal atrial fibrillation/flutter now in SR 2. Resolving Sepsis source 3. Acute on chronic kidney injury 4. H/o strokes P:1. Continue Eliquis 2.5 bid given elevated risk score and Lopressor 12.5 bid as hemodynamics tolerate 2. Monitor off Abx course per C&S 3. Judicious IVF and monitor renal recovery 4. O2 to keep SpO2 >90%
--- NOTE | 2019-01-29 10:29 | PN ---
Progress Note, Physician History of Present Illness: stable generalized pain - Current Medication List Current Medications: Active Medications Acetaminophen (Tylenol -) 650 mg PO Q6H PRN PRN Reason: FEVER Last Admin: 01/28/19 21:12 Dose: 650 mg Apixaban (Eliquis -) 2.5 mg PO BID [facility] Last Admin: 01/29/19 09:29 Dose: 2.5 mg Chlorhexidine Gluconate (Hibiclens For Decolonization -) 1 applic TP HS [facility] Last Admin: 01/28/19 21:23 Dose: Not Given Diazepam (Valium -) 0.5 mg PO BID [facility] Gabapentin (Neurontin -) 200 mg PO BID [facility] Last Admin: 01/29/19 09:29 Dose: 200 mg Lidocaine (Lidoderm Patch -) 1 patch TP DAILY [facility] Last Admin: 01/29/19 09:30 Dose: 1 patch Metoprolol Tartrate (Lopressor -) 12.5 mg PO BID [facility] Last Admin: 01/29/19 09:29 Dose: 12.5 mg Miscellaneous (Lidoderm Patch Removal) 1 each MC DAILY@2200 [facility] Last Admin: 01/28/19 21:23 Dose: Not Given Oxycodone HCl (Roxicodone -) 5 mg PO Q6H PRN PRN Reason: PAIN Last Admin: 01/28/19 21:13 Dose: 5 mg Pantoprazole Sodium (Protonix -) 40 mg PO DAILY [facility] Last Admin: 01/29/19 09:29 Dose: 40 mg Polyethylene Glycol (Miralax (For Daily Use) -) 17 gm PO DAILY [facility] Last Admin: 01/29/19 09:30 Dose: Not Given Potassium Chloride (K-Dur -) 40 meq PO DAILY [facility] Last Admin: 01/29/19 09:29 Dose: 40 meq Senna (Senna -) 1 tab PO DAILY [facility] Last Admin: 01/29/19 09:29 Dose: Not Given Simethicone (Mylicon -) 80 mg PO DAILY [facility] Last Admin: 01/29/19 09:29 Dose: 80 mg - Objective Vital Signs: Vital Signs Temperature 97.9 F 01/29/19 08:13 Pulse Rate 84 01/29/19 08:13 Respiratory Rate 18 01/29/19 08:13 Blood Pressure 101/51 L 01/29/19 08:13 O2 Sat by Pulse Oximetry (%) 95 01/29/19 08:15 Constitutional: Yes: No Distress, Calm Cardiovascular: Yes: S1, S2 Gastrointestinal: Yes: Normal Bowel Sounds Musculoskeletal: Yes: WNL Extremities: Yes: WNL Neurological: Yes: Alert, Oriented Psychiatric: Yes: Alert, Oriented Labs: CBC, BMP 01/29/19 05:30 01/29/19 05:30 INR, PTT INR 1.17 (0.83-1.09) H 01/23/19 05:30 Assessment/Plan UTI Severe Sepsis Acute Kidney Injury Anxiety hypotension plan continue current mgmt monitor wbc rest as per the team patient stable
--- NOTE | 2019-01-29 10:59 | PN ---
Progress Note (short form) - Note Progress Note: PULMONARY Denies shortness of breath or chest pain. Vital Signs Period Temp Pulse Resp BP Sys/Zepeda Pulse Ox Last 24 Hr 97.7 F-100.2 F 78-104 17-22 80-119/45-78 95-100 Gen: NAD at rest Heart: RRR Lung: decreased breath sounds at the bases Abd: soft, nontender Ext: no edema CBC, BMP 01/29/19 05:30 01/29/19 05:30 Active Medications Acetaminophen (Tylenol -) 650 mg PO Q6H PRN PRN Reason: FEVER Last Admin: 01/28/19 21:12 Dose: 650 mg Apixaban (Eliquis -) 2.5 mg PO BID [facility] [place] Last Admin: 01/29/19 09:29 Dose: 2.5 mg Chlorhexidine Gluconate (Hibiclens For Decolonization -) 1 applic TP HS [facility] [place] Last Admin: 01/28/19 21:23 Dose: Not Given Diazepam (Valium -) 0.5 mg PO BID [facility] [place] Gabapentin (Neurontin -) 200 mg PO BID [facility] [place] Last Admin: 01/29/19 09:29 Dose: 200 mg Lidocaine (Lidoderm Patch -) 1 patch TP DAILY [facility] [place] Last Admin: 01/29/19 09:30 Dose: 1 patch Metoprolol Tartrate (Lopressor -) 12.5 mg PO BID [facility] [place] Last Admin: 01/29/19 09:29 Dose: 12.5 mg Miscellaneous (Lidoderm Patch Removal) 1 each MC DAILY@2200 [facility] [place] Last Admin: 01/28/19 21:23 Dose: Not Given Oxycodone HCl (Roxicodone -) 5 mg PO Q6H PRN PRN Reason: PAIN Last Admin: 01/28/19 21:13 Dose: 5 mg Pantoprazole Sodium (Protonix -) 40 mg PO DAILY [facility] [place] Last Admin: 01/29/19 09:29 Dose: 40 mg Polyethylene Glycol (Miralax (For Daily Use) -) 17 gm PO DAILY [facility] [place] Last Admin: 01/29/19 09:30 Dose: Not Given Potassium Chloride (K-Dur -) 40 meq PO DAILY [facility] [place] Last Admin: 01/29/19 09:29 Dose: 40 meq Senna (Senna -) 1 tab PO DAILY [facility] [place] Last Admin: 01/29/19 09:29 Dose: Not Given Simethicone (Mylicon -) 80 mg PO DAILY [facility] Last Admin: 01/29/19 09:29 Dose: 80 mg A/P UTI Severe Sepsis resolving Acute Kidney Injury Paroxysmal Atrial Fibrillation Anxiety - continue antibiotics per ID - resume IVF - monitor urine output, creatinine - may need ruiz placement - O2 to keep SpO2 >90% - pain control - rate/rhythm control - continue anticoagulation
[2019-01-29] MEDS: SODIUM CHLORIDE 1,000 ML IV SCH (11:16)
[2019-01-29 11:27] LABS: HEMATOCRIT 30.6 % (32.4-45.2); HEMOGLOBIN 10.2 GM/dL (10.7-15.3); MCH 26.4 pg (25.7-33.7); MCHC 33.2 g/dl (32.0-36.0); MEAN CELL VOLUME 79.6 fl (80-96); MEAN PLT VOLUME 7.4 fl (7.5-11.1); PLATELET COUNT 466 K/MM3 (134-434); RBC 3.85 M/mm3 (3.60-5.2); RDW 15.9 % (11.6-15.6)
[2019-01-29] MEDS: ACETAMINOPHEN 325 MG TABLET (FP) PO PRN (13:40)
[2019-01-29] MEDS: oxyCODONE HCL 5 MG TABLET PO PRN (13:40)
--- NOTE | 2019-01-29 17:00 | PN ---
Progress Note, Physician History of Present Illness: wbc increased had temp last night - Current Medication List Current Medications: Active Medications Acetaminophen (Tylenol -) 650 mg PO Q6H PRN PRN Reason: FEVER Last Admin: 01/29/19 13:40 Dose: 650 mg Apixaban (Eliquis -) 2.5 mg PO BID [facility] Last Admin: 01/29/19 09:29 Dose: 2.5 mg Chlorhexidine Gluconate (Hibiclens For Decolonization -) 1 applic TP HS [facility] Last Admin: 01/28/19 21:23 Dose: Not Given Diazepam (Valium -) 0.5 mg PO BID [facility] Gabapentin (Neurontin -) 200 mg PO BID [facility] Last Admin: 01/29/19 09:29 Dose: 200 mg Sodium Chloride (Normal Saline -) 1,000 mls @ 75 mls/hr IV ASDIR [facility] Last Admin: 01/29/19 11:16 Dose: 75 mls/hr Lidocaine (Lidoderm Patch -) 1 patch TP DAILY [facility] Last Admin: 01/29/19 09:30 Dose: 1 patch Metoprolol Tartrate (Lopressor -) 12.5 mg PO BID [facility] Last Admin: 01/29/19 09:29 Dose: 12.5 mg Miscellaneous (Lidoderm Patch Removal) 1 each MC DAILY@2200 [facility] Last Admin: 01/28/19 21:23 Dose: Not Given Oxycodone HCl (Roxicodone -) 5 mg PO Q6H PRN PRN Reason: PAIN Last Admin: 01/29/19 13:40 Dose: 5 mg Pantoprazole Sodium (Protonix -) 40 mg PO DAILY [facility] Last Admin: 01/29/19 09:29 Dose: 40 mg Polyethylene Glycol (Miralax (For Daily Use) -) 17 gm PO DAILY [facility] Last Admin: 01/29/19 09:30 Dose: Not Given Potassium Chloride (K-Dur -) 40 meq PO DAILY [facility] Last Admin: 01/29/19 09:29 Dose: 40 meq Senna (Senna -) 1 tab PO DAILY [facility] Last Admin: 01/29/19 09:29 Dose: Not Given Simethicone (Mylicon -) 80 mg PO DAILY [facility] Last Admin: 01/29/19 09:29 Dose: 80 mg - Objective Vital Signs: Vital Signs Temperature 97.7 F 01/29/19 15:39 Pulse Rate 67 05/09/19 15:39 Respiratory Rate 20 01/29/19 15:39 Blood Pressure 89/51 L 01/29/19 15:39 O2 Sat by Pulse Oximetry (%) 95 01/29/19 08:15 HENT: Yes: Atraumatic Neck: Yes: Supple Cardiovascular: Yes: Regular Rate and Rhythm Respiratory: Yes: CTA Bilaterally Gastrointestinal: Yes: Normal Bowel Sounds Extremities: Yes: WNL Edema: No Neurological: Yes: Alert, Oriented Labs: CBC, BMP 01/29/19 11:05 01/29/19 05:30 INR, PTT INR 1.17 (0.83-1.09) H 01/23/19 05:30 Problem List - Problems (1) Fall Assessment/Plan: pt eval head ct no acute problem Code(s): W19.XXXA - UNSPECIFIED FALL, INITIAL ENCOUNTER Qualifiers: Encounter type: subsequent encounter Qualified Code(s): W19.XXXD - Unspecified fall, subsequent encounter (2) UTI (urinary tract infection) Assessment/Plan: will start abx again Code(s): N39.0 - URINARY TRACT INFECTION, SITE NOT SPECIFIED Qualifiers: Urinary tract infection type: site unspecified Hematuria presence: without hematuria Qualified Code(s): N39.0 - Urinary tract infection, site not specified (3) Sepsis Assessment/Plan: start abx agaib iv hydration Code(s): A41.9 - SEPSIS, UNSPECIFIED ORGANISM Qualifiers: Sepsis type: Escherichia coli Qualified Code(s): A41.51 - Sepsis due to Escherichia coli [E. coli] (4) Back pain Assessment/Plan: prn pain meds Code(s): M54.9 - DORSALGIA, UNSPECIFIED Qualifiers: Back pain location: low back pain Chronicity: acute Back pain laterality : unspecified Sciatica presence: without sciatica Qualified Code(s): M54.5 - Low back pain (5) [id number] kidney injury Assessment/Plan: iv hydration renal consult Code(s): N17.9 - ACUTE KIDNEY FAILURE, UNSPECIFIED; N18.9 - CHRONIC KIDNEY DISEASE, UNSPECIFIED
[2019-01-29] MEDS ORDERED: PIPERACILLIN/TAZOBACTAM 3.375 GM VIAL IVPB ONE (18:11)
[2019-01-29] MEDS ORDERED: DEXTROSE 5%-WATER - 50 ML IVPB ONE (18:11)
[2019-01-29] MEDS ORDERED: PIPERACILLIN/TAZOB 3.375 GM 3.375 GM in DEXTROSE 5%-WATER - 50 ML IVPB ONE (18:30)
[2019-01-29] MEDS: LIDOCAINE PATCH REMOVAL MC SCH (21:50)
[2019-01-29] MEDS: CHLORHEXIDINE GLUCONATE 4% CLEANSER FOR DECOLONIZATION TP SCH (21:50)
[2019-01-30 07:10] LABS: BASO % 0.7 % (0-2.0); EOS % 2.7 % (0-4.5); HEMATOCRIT 30.6 % (32.4-45.2); HEMOGLOBIN 9.9 GM/dL (10.7-15.3); LYMPH % 4.3 % (8-40); MCH 25.7 pg (25.7-33.7); MCHC 32.3 g/dl (32.0-36.0); MEAN CELL VOLUME 79.7 fl (80-96); MEAN PLT VOLUME 7.8 fl (7.5-11.1); MONO % 7.1 % (3.8-10.2); NEUT % 85.2 % (42.8-82.8); PLATELET COUNT 469 K/MM3 (134-434); RBC 3.84 M/mm3 (3.60-5.2); RDW 16.3 % (11.6-15.6); WHITE BLOOD COUNT 18.9 K/mm3 (4.0-10.0)
[2019-01-30 08:00] LABS: ALBUMIN 1.9 g/dl (3.4-5.0); BILIRUBIN,TOTAL 0.4 mg/dL (0.2-1); CALCIUM 8.4 mg/dL (8.5-10.1); CREATININE 3.2 mg/dL (0.55-1.3); POTASSIUM 3.9 mmol/L (3.5-5.1)
--- NOTE | 2019-01-30 09:31 | PN ---
Progress Note, Physician History of Present Illness: Mental status improving, remains in NSR, afebrile. - Current Medication List Current Medications: Active Medications Acetaminophen (Tylenol -) 650 mg PO Q6H PRN PRN Reason: FEVER Last Admin: 01/29/19 13:40 Dose: 650 mg Apixaban (Eliquis -) 2.5 mg PO BID [facility] Last Admin: 01/29/19 21:50 Dose: 2.5 mg Chlorhexidine Gluconate (Hibiclens For Decolonization -) 1 applic TP HS [facility] Last Admin: 01/29/19 21:50 Dose: Not Given Gabapentin (Neurontin -) 200 mg PO BID [facility] Last Admin: 01/29/19 21:50 Dose: 200 mg Sodium Chloride (Normal Saline -) 1,000 mls @ 75 mls/hr IV ASDIR [facility] Last Admin: 01/29/19 11:16 Dose: 75 mls/hr Lidocaine (Lidoderm Patch -) 1 patch TP DAILY [facility] Last Admin: 01/29/19 09:30 Dose: 1 patch Metoprolol Tartrate (Lopressor -) 12.5 mg PO BID [facility] Last Admin: 01/29/19 21:50 Dose: 12.5 mg Miscellaneous (Lidoderm Patch Removal) 1 each MC DAILY@2200 [facility] Last Admin: 01/29/19 21:50 Dose: 1 each Oxycodone HCl (Roxicodone -) 5 mg PO Q6H PRN PRN Reason: PAIN Last Admin: 01/29/19 13:40 Dose: 5 mg Pantoprazole Sodium (Protonix -) 40 mg PO DAILY [facility] Last Admin: 01/29/19 09:29 Dose: 40 mg Polyethylene Glycol (Miralax (For Daily Use) -) 17 gm PO DAILY [facility] Last Admin: 01/29/19 09:30 Dose: Not Given Potassium Chloride (K-Dur -) 40 meq PO DAILY [facility] Last Admin: 01/29/19 09:29 Dose: 40 meq Senna (Senna -) 1 tab PO DAILY [facility] Last Admin: 01/29/19 09:29 Dose: Not Given Simethicone (Mylicon -) 80 mg PO DAILY [facility] Last Admin: 01/29/19 09:29 Dose: 80 mg - Objective Vital Signs: Vital Signs Temperature 98.1 F 01/30/19 06:00 Pulse Rate 82 01/30/19 06:00 Respiratory Rate 18 01/30/19 06:00 Blood Pressure 102/60 01/30/19 06:00 O2 Sat by Pulse Oximetry (%) 98 01/30/19 06:00 Constitutional: Yes: No Distress, Calm Neck: Yes: Supple Cardiovascular: Yes: Regular Rate and Rhythm Respiratory: Yes: Regular, Diminished Gastrointestinal: Yes: Soft, Hypoactive Bowel Sounds Edema: No Labs: CBC, BMP 01/30/19 06:19 01/30/19 06:19 INR, PTT INR 1.17 (0.83-1.09) H 01/23/19 05:30 - ....Imaging EKG: Report Reviewed (Tele: NSR) Problem List - Problems (1) Paroxysmal atrial flutter Code(s): I48.92 - UNSPECIFIED ATRIAL FLUTTER (2) Fall Code(s): W19.XXXA - UNSPECIFIED FALL, INITIAL ENCOUNTER Qualifiers: Encounter type: subsequent encounter Qualified Code(s): W19.XXXD - Unspecified fall, subsequent encounter (3) Sepsis Code(s): A41.9 - SEPSIS, UNSPECIFIED ORGANISM Qualifiers: Sepsis type: Escherichia coli Qualified Code(s): A41.51 - Sepsis due to Escherichia coli [E. coli] (4) UTI (urinary tract infection) Code(s): N39.0 - URINARY TRACT INFECTION, SITE NOT SPECIFIED Qualifiers: Urinary tract infection type: site unspecified Hematuria presence: without hematuria Qualified Code(s): N39.0 - Urinary tract infection, site not specified (5) History of multiple strokes Code(s): Z86.73 - PRSNL HX OF TIA (TIA), AND CEREB INFRC W/O RESID DEFICITS (6) [id number] kidney injury Code(s): N17.9 - ACUTE KIDNEY FAILURE, UNSPECIFIED; N18.9 - CHRONIC KIDNEY DISEASE, UNSPECIFIED (7) Bladder distension Code(s): N32.89 - OTHER SPECIFIED DISORDERS OF BLADDER Assessment/Plan 01/26/2019 Echo: Normal LV and RV size with low normal LV and RV fxn, normal atrial sizes 1. Paroxysmal atrial fibrillation/flutter now in SR 2. Resolving Sepsis source 3. Acute on chronic kidney injury 4. Bladder distension 5. H/o strokes P:1. Continue Eliquis 2.5 bid given elevated risk score and Lopressor 12.5 bid as hemodynamics tolerate 2. Monitor off Abx course per C&S 3. Judicious IVF, ruiz and monitor renal recovery 4. O2 to keep SpO2 >90%
[2019-01-30] MEDS: LIDOCAINE 5% TOPICAL PATCH TP SCH (09:51)
[2019-01-30] MEDS: PANTOPRAZOLE 40 MG TABLET (FP) PO SCH (09:52)
[2019-01-30] MEDS: APIXABAN 2.5 MG TABLET PO SCH ×2 (09:52→22:10)
[2019-01-30] MEDS: SENNOSIDES 8.6MG TABLET (FP) PO SCH (09:52)
[2019-01-30] MEDS: ACETAMINOPHEN 325 MG TABLET (FP) PO PRN (09:52)
[2019-01-30] MEDS: GABAPENTIN 100 MG CAPSULE (FP) PO SCH ×2 (09:52→22:11)
[2019-01-30] MEDS: SIMETHICONE 80 MG TAB.CHEW (FP) PO SCH (09:52)
[2019-01-30] MEDS: METOPROLOL TARTRATE 25 MG TABLET (FP) PO SCH ×2 (09:52→22:10)
[2019-01-30] MEDS: POTASSIUM CHLORIDE TABS 20 MEQ TABLET.ER (FP) PO SCH (09:52)
[2019-01-30] MEDS: oxyCODONE HCL 5 MG TABLET PO PRN (09:53)
[2019-01-30] MEDS: POLYETHYLENE GLYCOL 3350 119 GM BTL PO SCH (11:23)
[2019-01-30] MEDS: SODIUM CHLORIDE 1,000 ML IV SCH (11:23)
--- NOTE | 2019-01-30 11:30 | PN ---
Progress Note, Physician History of Present Illness: PULMONARY AWAKE,COMFORTABLE,-RESP DISTRESS - Current Medication List Current Medications: Active Medications Acetaminophen (Tylenol -) 650 mg PO Q6H PRN PRN Reason: FEVER Last Admin: 01/30/19 09:52 Dose: 650 mg Apixaban (Eliquis -) 2.5 mg PO BID [facility] Last Admin: 01/30/19 09:52 Dose: 2.5 mg Chlorhexidine Gluconate (Hibiclens For Decolonization -) 1 applic TP HS [facility] Last Admin: 01/29/19 21:50 Dose: Not Given Gabapentin (Neurontin -) 200 mg PO BID [facility] Last Admin: 01/30/19 09:52 Dose: 200 mg Sodium Chloride (Normal Saline -) 1,000 mls @ 75 mls/hr IV ASDIR [facility] Last Admin: 01/30/19 11:23 Dose: 75 mls/hr Lidocaine (Lidoderm Patch -) 1 patch TP DAILY [facility] Last Admin: 01/30/19 09:51 Dose: 1 patch Metoprolol Tartrate (Lopressor -) 12.5 mg PO BID [facility] Last Admin: 01/30/19 09:52 Dose: 12.5 mg Miscellaneous (Lidoderm Patch Removal) 1 each MC DAILY@2200 [facility] Last Admin: 01/29/19 21:50 Dose: 1 each Oxycodone HCl (Roxicodone -) 5 mg PO Q6H PRN PRN Reason: PAIN Last Admin: 01/30/19 09:53 Dose: 5 mg Pantoprazole Sodium (Protonix -) 40 mg PO DAILY [facility] Last Admin: 01/30/19 09:52 Dose: 40 mg Polyethylene Glycol (Miralax (For Daily Use) -) 17 gm PO DAILY [facility] Last Admin: 01/30/19 11:23 Dose: Not Given Potassium Chloride (K-Dur -) 40 meq PO DAILY [facility] Last Admin: 01/30/19 09:52 Dose: 40 meq Senna (Senna -) 1 tab PO DAILY [facility] Last Admin: 01/30/19 09:52 Dose: 1 tab Simethicone (Mylicon -) 80 mg PO DAILY [facility] Last Admin: 01/30/19 09:52 Dose: 80 mg - Objective Vital Signs: Vital Signs Temperature 98.1 F 01/30/19 10:00 Pulse Rate 76 01/30/19 10:00 Respiratory Rate 18 01/30/19 10:00 Blood Pressure 100/52 L 01/30/19 10:00 O2 Sat by Pulse Oximetry (%) 98 01/30/19 10:00 Constitutional: Yes: Well Nourished, Calm Eyes: Yes: WNL HENT: Yes: WNL Neck: Yes: WNL Cardiovascular: Yes: Pulse Irregular, S1, S2 Respiratory: Yes: CTA Bilaterally Gastrointestinal: Yes: Normal Bowel Sounds, Soft Extremities: Yes: WNL Edema: No Labs: CBC, BMP 01/30/19 06:19 01/30/19 06:19 INR, PTT INR 1.17 (0.83-1.09) H 01/23/19 05:30 Problem List - Problems (1) [id number]-[id number] kidney injury Code(s): N17.9 - ACUTE KIDNEY FAILURE, UNSPECIFIED; N18.9 - CHRONIC KIDNEY DISEASE, UNSPECIFIED (2) Paroxysmal atrial flutter Code(s): I48.92 - UNSPECIFIED ATRIAL FLUTTER (3) Sepsis Code(s): A41.9 - SEPSIS, UNSPECIFIED ORGANISM Qualifiers: Sepsis type: Escherichia coli Qualified Code(s): A41.51 - Sepsis due to Escherichia coli [E. coli] (4) UTI (urinary tract infection) Code(s): N39.0 - URINARY TRACT INFECTION, SITE NOT SPECIFIED Qualifiers: Urinary tract infection type: site unspecified Hematuria presence: without hematuria Qualified Code(s): N39.0 - Urinary tract infection, site not specified Assessment/Plan A/P UTI Severe Sepsis resolving Acute Kidney Injury Paroxysmal Atrial Fibrillation Anxiety - antibiotics per ID - IVF - monitor urine output, creatinine - O2 to keep SpO2 >90% - pain control - rate/rhythm control - anticoagulation DR BEYER
[2019-01-30 12:33] LABS: EPI CELLS 5.3 /HPF (0-5/HPF); HYALINE CASTS 49 /lpf (0-8); PH,URINE 7.5 (5.0-8.0); URINE APPEARANCE TURBID; URINE BILIRUBIN NEGATIVE (NEGATIVE); URINE COLOR YELLOW; URINE GLUCOSE (UA) NEGATIVE (NEGATIVE); URINE KETONE NEGATIVE (NEGATIVE); URINE LEUK ESTERASE 3+ (NEGATIVE); URINE NITRITE NEGATIVE (NEGATIVE); URINE PROTEIN TRACE (NEGATIVE); URINE RBC 7 /hpf (0-4); URINE UROBILINOGEN 0.2 mg/dL (0.2-1.0); URINE WBC 800 /hpf (0-5)
--- NOTE | 2019-01-30 14:05 | PN ---
Progress Note, Physician History of Present Illness: clinically patient stable awake and alert wbc on the higher side - Current Medication List Current Medications: Active Medications Acetaminophen (Tylenol -) 650 mg PO Q6H PRN PRN Reason: FEVER Last Admin: 01/30/19 09:52 Dose: 650 mg Apixaban (Eliquis -) 2.5 mg PO BID [facility] Last Admin: 01/30/19 09:52 Dose: 2.5 mg Chlorhexidine Gluconate (Hibiclens For Decolonization -) 1 applic TP HS [facility] Last Admin: 01/29/19 21:50 Dose: Not Given Gabapentin (Neurontin -) 200 mg PO BID [facility] Last Admin: 01/30/19 09:52 Dose: 200 mg Sodium Chloride (Normal Saline -) 1,000 mls @ 75 mls/hr IV ASDIR [facility] Last Admin: 01/30/19 11:23 Dose: 75 mls/hr Lidocaine (Lidoderm Patch -) 1 patch TP DAILY [facility] Last Admin: 01/30/19 09:51 Dose: 1 patch Metoprolol Tartrate (Lopressor -) 12.5 mg PO BID [facility] Last Admin: 01/30/19 09:52 Dose: 12.5 mg Miscellaneous (Lidoderm Patch Removal) 1 each MC DAILY@2200 [facility] Last Admin: 01/29/19 21:50 Dose: 1 each Oxycodone HCl (Roxicodone -) 5 mg PO Q6H PRN PRN Reason: PAIN Last Admin: 01/30/19 09:53 Dose: 5 mg Pantoprazole Sodium (Protonix -) 40 mg PO DAILY [facility] Last Admin: 01/30/19 09:52 Dose: 40 mg Polyethylene Glycol (Miralax (For Daily Use) -) 17 gm PO DAILY [facility] Last Admin: 01/30/19 11:23 Dose: Not Given Potassium Chloride (K-Dur -) 40 meq PO DAILY [facility] Last Admin: 01/30/19 09:52 Dose: 40 meq Senna (Senna -) 1 tab PO DAILY [facility] Last Admin: 01/30/19 09:52 Dose: 1 tab Simethicone (Mylicon -) 80 mg PO DAILY [facility] Last Admin: 01/30/19 09:52 Dose: 80 mg - Objective Vital Signs: Vital Signs Temperature 98.1 F 01/30/19 10:00 Pulse Rate 76 01/30/19 10:00 Respiratory Rate 18 01/30/19 10:00 Blood Pressure 100/52 L 01/30/19 10:00 O2 Sat by Pulse Oximetry (%) 98 01/30/19 10:00 Constitutional: Yes: No Distress, Calm Cardiovascular: Yes: S1, S2 Respiratory: Yes: Regular, Poor Air Entry Gastrointestinal: Yes: Normal Bowel Sounds Musculoskeletal: Yes: WNL Extremities: Yes: WNL Neurological: Yes: Alert, Oriented Psychiatric: Yes: Alert, Oriented Labs: CBC, BMP 01/30/19 06:19 01/30/19 06:19 INR, PTT INR 1.17 (0.83-1.09) H 01/23/19 05:30 Assessment/Plan UTI Severe Sepsis Acute Kidney Injury Anxiety hypotension patients wbc has increased also her creatinine has incrsed urine showing infection again will start patient on ceftriaxone consider nephrology
[2019-01-30] MEDS ORDERED: cefTRIAXone SODIUM 1 GM VIAL ONE (14:37)
[2019-01-30] MEDS ORDERED: DEXTROSE 5%-WATER - 50 ML IVPB ONE (14:38)
[2019-01-30] MEDS: CEFTRIAXONE 1 GM in DEXTROSE 5%-WATER - 50 ML IVPB SCH (14:38)
--- NOTE | 2019-01-30 15:33 | PN ---
Progress Note, Physician - Current Medication List Current Medications: Active Medications Acetaminophen (Tylenol -) 650 mg PO Q6H PRN PRN Reason: FEVER Last Admin: 01/30/19 09:52 Dose: 650 mg Apixaban (Eliquis -) 2.5 mg PO BID [facility] Last Admin: 01/30/19 09:52 Dose: 2.5 mg Chlorhexidine Gluconate (Hibiclens For Decolonization -) 1 applic TP HS [facility] Last Admin: 01/29/19 21:50 Dose: Not Given Gabapentin (Neurontin -) 200 mg PO BID [facility] Last Admin: 01/30/19 09:52 Dose: 200 mg Sodium Chloride (Normal Saline -) 1,000 mls @ 75 mls/hr IV ASDIR [facility] Last Admin: 01/30/19 11:23 Dose: 75 mls/hr Ceftriaxone Sodium 1 gm/ (Dextrose) 50 mls @ 100 mls/hr IVPB DAILY [facility]; Protocol Last Admin: 01/30/19 14:38 Dose: 100 mls/hr Lidocaine (Lidoderm Patch -) 1 patch TP DAILY [facility] Last Admin: 01/30/19 09:51 Dose: 1 patch Metoprolol Tartrate (Lopressor -) 12.5 mg PO BID [facility] Last Admin: 01/30/19 09:52 Dose: 12.5 mg Miscellaneous (Lidoderm Patch Removal) 1 each MC DAILY@2200 [facility] Last Admin: 01/29/19 21:50 Dose: 1 each Oxycodone HCl (Roxicodone -) 5 mg PO Q6H PRN PRN Reason: PAIN Last Admin: 01/30/19 09:53 Dose: 5 mg Pantoprazole Sodium (Protonix -) 40 mg PO DAILY [facility] Last Admin: 01/30/19 09:52 Dose: 40 mg Polyethylene Glycol (Miralax (For Daily Use) -) 17 gm PO DAILY [facility] Last Admin: 01/30/19 11:23 Dose: Not Given Potassium Chloride (K-Dur -) 40 meq PO DAILY [facility] Last Admin: 01/30/19 09:52 Dose: 40 meq Senna (Senna -) 1 tab PO DAILY [facility] Last Admin: 01/30/19 09:52 Dose: 1 tab Simethicone (Mylicon -) 80 mg PO DAILY [facility] Last Admin: 01/30/19 09:52 Dose: 80 mg - Objective Vital Signs: Vital Signs Temperature 98.3 F 01/30/19 14:00 Pulse Rate 71 01/30/19 14:00 Respiratory Rate 18 01/30/19 10:00 Blood Pressure 110/59 L 01/30/19 14:00 O2 Sat by Pulse Oximetry (%) 98 01/30/19 10:00 Constitutional: Yes: No Distress HENT: Yes: Atraumatic Neck: Yes: Supple Cardiovascular: Yes: Regular Rate and Rhythm Respiratory: Yes: CTA Bilaterally Gastrointestinal: Yes: Normal Bowel Sounds Extremities: Yes: WNL Edema: No Peripheral Pulses WNL: Yes Neurological: Yes: Alert, Oriented Labs: CBC, BMP 01/30/19 06:19 01/30/19 06:19 INR, PTT INR 1.17 (0.83-1.09) H 01/23/19 05:30 Problem List - Problems (1) Fall Code(s): W19.XXXA - UNSPECIFIED FALL, INITIAL ENCOUNTER Qualifiers: Encounter type: subsequent encounter Qualified Code(s): W19.XXXD - Unspecified fall, subsequent encounter (2) UTI (urinary tract infection) Assessment/Plan: on iv abx Code(s): N39.0 - URINARY TRACT INFECTION, SITE NOT SPECIFIED Qualifiers: Urinary tract infection type: site unspecified Hematuria presence: without hematuria Qualified Code(s): N39.0 - Urinary tract infection, site not specified (3) Sepsis Assessment/Plan: on iv abx iv hydration Code(s): A41.9 - SEPSIS, UNSPECIFIED ORGANISM Qualifiers: Sepsis type: Escherichia coli Qualified Code(s): A41.51 - Sepsis due to Escherichia coli [E. coli] (4) Back pain Assessment/Plan: prn pain meds Code(s): M54.9 - DORSALGIA, UNSPECIFIED Qualifiers: Back pain location: low back pain Chronicity: acute Back pain laterality : unspecified Sciatica presence: without sciatica Qualified Code(s): M54.5 - Low back pain (5) [id number] kidney injury Assessment/Plan: iv hydration renal consult Code(s): N17.9 - ACUTE KIDNEY FAILURE, UNSPECIFIED; N18.9 - CHRONIC KIDNEY DISEASE, UNSPECIFIED
--- NOTE | 2019-01-30 16:41 | CONSULT ---
Consult Consult Specialty:: Nephrology Reason for Consultation:: JONATHAN - History of Present Illness Chief Complaint: initially presented after a fall History of Present Illness: Pt is an 83 year old female with pmhx of back pain, cva, a-fib, overactive bladder and anxiety who was initially admitted after a fall. She was found to be febrile and admitted with sepsis secondary to UTI. She was found to have to have elevated creatinine on admission that improved mildly then worsened. I was called to evaluate her. She was started on fluids last night and she had a ruiz placed today. She is making urine. She denies shortness of breath. 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 Cardio/Vascular: Yes: AFIB Musculoskeletal: Yes: Chronic low back pain - Alcohol/Substance Use Hx Alcohol Use: No - Smoking History Smoking history: Unknown if ever smoked Have you smoked in the past 12 months: No Home Medications - Allergies Allergies/Adverse Reactions: Allergies Allergy/AdvReac Type Severity Reaction Status Date / Time No Known Allergies Allergy Verified 01/23/19 00:06 - Home Medications Home Medications: Ambulatory Orders Diazepam 0.5 mg PO BID 01/23/19 Gabapentin 200 mg PO BID 01/23/19 Heparin - 5,000 unit SQ Q8H 01/23/19 Lidocaine [Lidocaine Pain Relief] 1 each TP DAILY 01/23/19 Mirabegron [Myrbetriq] 50 mg PO DAILY 01/23/19 Oxycodone HCl 5 mg PO Q6H PRN 01/23/19 Pantoprazole Sodium [Protonix] 40 mg PO DAILY 01/23/19 Polyethylene Glycol 3350 [Miralax 119 gm Btl -] 17 gm PO DAILY 01/23/19 Sennosides [Senna] 8.6 mg PO DAILY 01/23/19 Simethicone [Gas Relief] 80 mg PO DAILY 01/23/19 Zinc Oxide 20% Topical Oint gm NR TID 01/23/19 Amoxicillin/Potassium Clav [Augmentin 875-125 Tablet] 1 each PO BID #14 tablet 01/27/19 Family Disease History - Family Disease History Family History: Denies Review of Systems - Review of Systems Constitutional: reports: Malaise. denies: Chills Eyes: reports: No Symptoms HENT: reports: No Symptoms Neck: reports: No Symptoms Cardiovascular: reports: No Symptoms Gastrointestinal: reports: No Symptoms Genitourinary: reports: No Symptoms Musculoskeletal: reports: Back Pain Neurological: reports: No Symptoms Endocrine: reports: No Symptoms Psychiatric: reports: No Symptoms Physical Exam Vital Signs: Vital Signs Temperature 97.8 F 01/30/19 15:53 Pulse Rate 72 01/30/19 15:53 Respiratory Rate 18 01/30/19 10:00 Blood Pressure 80/46 L 01/30/19 15:53 O2 Sat by Pulse Oximetry (%) 98 01/30/19 10:00 Constitutional: Yes: Calm Eyes: Yes: Conjunctiva Clear HENT: Yes: Atraumatic Cardiovascular: Yes: S1, S2 Respiratory: Yes: CTA Bilaterally Gastrointestinal: Yes: Soft Renal/: Yes: Ruiz Present Musculoskeletal: Yes: Muscle Weakness Edema: No Neurological: Yes: Oriented Psychiatric: Yes: Oriented Labs: CBC, BMP 01/30/19 06:19 01/30/19 06:19 Imaging - Results Ultrasound: Report Reviewed Problem List - Problems (1) JONATHAN (acute kidney injury) Code(s): N17.9 - ACUTE KIDNEY FAILURE, UNSPECIFIED (2) Paroxysmal atrial flutter Code(s): I48.92 - UNSPECIFIED ATRIAL FLUTTER (3) Sepsis Code(s): A41.9 - SEPSIS, UNSPECIFIED ORGANISM Qualifiers: Sepsis type: Escherichia coli Qualified Code(s): A41.51 - Sepsis due to Escherichia coli [E. coli] (4) UTI (urinary tract infection) Code(s): N39.0 - URINARY TRACT INFECTION, SITE NOT SPECIFIED Qualifiers: Urinary tract infection type: site unspecified Hematuria presence: without hematuria Qualified Code(s): N39.0 - Urinary tract infection, site not specified (5) Back pain Code(s): M54.9 - DORSALGIA, UNSPECIFIED Qualifiers: Back pain location: low back pain Chronicity: acute Back pain laterality : unspecified Sciatica presence: without sciatica Qualified Code(s): M54.5 - Low back pain Assessment/Plan Current Medications Generic Name Dose Route Start Last Admin Trade Name Freq PRN Reason Stop Dose Admin Acetaminophen 650 mg 01/28/19 20:47 01/30/19 09:52 Tylenol - PO 650 mg Q6H PRN Administration FEVER Apixaban 2.5 mg 01/28/19 22:00 01/30/19 09:52 Eliquis - PO 2.5 mg BID V[facility] Administration Chlorhexidine Gluconate 1 applic 01/28/19 22:00 01/29/19 21:50 Hibiclens For Decolonization - TP Not Given HS [facility]IGNESH Gabapentin 200 mg 01/28/19 13:45 01/30/19 09:52 Neurontin - PO 200 mg BID V[facility] Administration Sodium Chloride 1,000 mls @ 75 mls/hr 01/29/19 11:00 01/30/19 11:23 Normal Saline - IV 75 mls/hr ASDIR [facility] Administration Ceftriaxone Sodium 1 gm/ 50 mls @ 100 mls/hr 01/30/19 14:30 01/30/19 14:38 Dextrose IVPB 100 mls/hr DAILY [facility] Administration Protocol Lidocaine 1 patch 01/28/19 17:45 01/30/19 09:51 Lidoderm Patch - TP 1 patch DAILY [facility] Administration Metoprolol Tartrate 12.5 mg 01/28/19 22:00 01/30/19 09:52 Lopressor - PO 12.5 mg BID [facility] Administration Miscellaneous 1 each 01/28/19 22:00 01/29/19 21:50 Lidoderm Patch Removal MC 1 each DAILY@2200 [facility] Administration Oxycodone HCl 5 mg 01/28/19 13:34 01/30/19 09:53 Roxicodone - PO 5 mg Q6H PRN Administration PAIN Pantoprazole Sodium 40 mg 01/28/19 10:00 01/30/19 09:52 Protonix - PO 40 mg DAILY [facility] Administration Polyethylene Glycol 17 gm 01/28/19 10:00 01/30/19 11:23 Miralax (For Daily Use) - PO Not Given DAILY [facility] Potassium Chloride 40 meq 01/28/19 10:00 01/30/19 09:52 K-Dur - PO 40 meq DAILY [facility] Administration Senna 1 tab 01/28/19 10:00 01/30/19 09:52 Senna - PO 1 tab DAILY [facility] Administration Simethicone 80 mg 01/28/19 10:00 01/30/19 09:52 Mylicon - PO 80 mg DAILY [facility] Administration Impression 1. JONATHAN 2. UTI 3. sepsis 4. a-fib 5. cva Plan - check urine eos - repeat ua - monitor output - cont fluids as she is not eating - will order renal workup for JONATHAN - renal dose meds
[2019-01-30] MEDS: CHLORHEXIDINE GLUCONATE 4% CLEANSER FOR DECOLONIZATION TP SCH (22:13)
[2019-01-30] MEDS: LIDOCAINE PATCH REMOVAL MC SCH (22:17)
[2019-01-31] MEDS: oxyCODONE HCL 5 MG TABLET PO PRN ×2 (00:51→09:16)
[2019-01-31] MEDS: ACETAMINOPHEN 325 MG TABLET (FP) PO PRN ×3 (00:52→17:09)
[2019-01-31] MEDS ORDERED: cefTRIAXone SODIUM 1 GM VIAL ONE (07:28)
[2019-01-31] MEDS ORDERED: DEXTROSE 5%-WATER - 50 ML IVPB ONE (07:28)
[2019-01-31 08:22] LABS: CALCIUM 8.5 mg/dL (8.5-10.1); CREATININE 3.9 mg/dL (0.55-1.3); POTASSIUM 3.7 mmol/L (3.5-5.1)
--- NOTE | 2019-01-31 08:33 | PN ---
Progress Note (short form) - Note Progress Note: RENAL pt is awake and alert denies new complaints very anxious Last Vital Signs Temp Pulse Resp BP Pulse Ox 97.8 F 71 20 103/59 L 100 01/31/19 07:45 01/31/19 07:45 01/31/19 07:45 01/31/19 07:45 01/31/19 07:45 lungs clear cvs s1s2 rr abd soft ext no edema neuro a+ox3 [address] with a lot of urine CBC, BMP 01/30/19 06:19 01/31/19 06:38 Current Medications Generic Name Dose Route Start Last Admin Trade Name Freq PRN Reason Stop Dose Admin Acetaminophen 650 mg 01/28/19 20:47 01/31/19 00:52 Tylenol - PO 650 mg Q6H PRN Administration FEVER Apixaban 2.5 mg 01/28/19 22:00 01/30/19 22:10 Eliquis - PO 2.5 mg BID [facility] Administration Chlorhexidine Gluconate 1 applic 01/28/19 22:00 01/30/19 22:13 Hibiclens For Decolonization - TP Not Given HS [facility] Gabapentin 200 mg 01/28/19 13:45 01/30/19 22:11 Neurontin - PO 200 mg BID [facility] Administration Sodium Chloride 1,000 mls @ 75 mls/hr 01/29/19 11:00 01/30/19 11:23 Normal Saline - IV 75 mls/hr ASDIR [facility] Administration Ceftriaxone Sodium 1 gm/ 50 mls @ 100 mls/hr 01/30/19 14:30 01/30/19 14:38 Dextrose IVPB 100 mls/hr DAILY [facility] Administration Protocol Lidocaine 1 patch 01/28/19 17:45 01/30/19 09:51 Lidoderm Patch - TP 1 patch DAILY [facility] Administration Metoprolol Tartrate 12.5 mg 01/28/19 22:00 01/30/19 22:10 Lopressor - PO 12.5 mg BID [facility] Administration Miscellaneous 1 each 01/28/19 22:00 01/30/19 22:17 Lidoderm Patch Removal MC 1 each DAILY@2200 [facility] Administration Oxycodone HCl 5 mg 01/28/19 13:34 01/31/19 00:51 Roxicodone - PO 5 mg Q6H PRN Administration PAIN Pantoprazole Sodium 40 mg 01/28/19 10:00 01/30/19 09:52 Protonix - PO 40 mg DAILY [facility] Administration Polyethylene Glycol 17 gm 01/28/19 10:00 01/30/19 11:23 Miralax (For Daily Use) - PO Not Given DAILY [facility] Potassium Chloride 40 meq 01/28/19 10:00 01/30/19 09:52 K-Dur - PO 40 meq DAILY [facility] Administration Senna 1 tab 01/28/19 10:00 01/30/19 09:52 Senna - PO 1 tab DAILY [facility] Administration Simethicone 80 mg 01/28/19 10:00 01/30/19 09:52 Mylicon - PO 80 mg DAILY [facility] Administration Impression 1. JONATHAN- etiology unclear. She is making a lot of urine with ruiz which makes obstructive uropathy a possibility since she has a ruiz now 2. UTI 3. sepsis 4. a-fib 5. cva Plan - check urine eos - repeat ua - monitor output - increase fluids - will order renal workup for JONATHAN - renal dose meds dc ppi MV
[2019-01-31] MEDS ORDERED: RANITIDINE HCL 150 MG TABLET (FP) PO ONE (08:38)
[2019-01-31] MEDS: CEFTRIAXONE 1 GM in DEXTROSE 5%-WATER - 50 ML IVPB SCH (09:15)
[2019-01-31] MEDS: GABAPENTIN 100 MG CAPSULE (FP) PO SCH ×2 (09:16→21:17)
[2019-01-31] MEDS: POTASSIUM CHLORIDE TABS 20 MEQ TABLET.ER (FP) PO SCH (09:17)
[2019-01-31] MEDS: SENNOSIDES 8.6MG TABLET (FP) PO SCH (09:18)
[2019-01-31] MEDS: APIXABAN 2.5 MG TABLET PO SCH ×2 (09:18→21:12)
[2019-01-31] MEDS: POLYETHYLENE GLYCOL 3350 119 GM BTL PO SCH (09:18)
[2019-01-31] MEDS: SIMETHICONE 80 MG TAB.CHEW (FP) PO SCH (09:18)
[2019-01-31] MEDS: METOPROLOL TARTRATE 25 MG TABLET (FP) PO SCH ×2 (09:19→21:16)
[2019-01-31] MEDS: SODIUM CHLORIDE 1,000 ML IV SCH (09:21)
--- NOTE | 2019-01-31 12:55 | PN ---
Progress Note, Physician History of Present Illness: stable - Current Medication List Current Medications: Active Medications Acetaminophen (Tylenol -) 650 mg PO Q6H PRN PRN Reason: FEVER Last Admin: 01/31/19 09:17 Dose: 650 mg Apixaban (Eliquis -) 2.5 mg PO BID [facility] Last Admin: 01/31/19 09:18 Dose: 2.5 mg Chlorhexidine Gluconate (Hibiclens For Decolonization -) 1 applic TP HS [facility] Last Admin: 01/30/19 22:13 Dose: Not Given Gabapentin (Neurontin -) 200 mg PO BID [facility] Last Admin: 01/31/19 09:16 Dose: 200 mg Ceftriaxone Sodium 1 gm/ (Dextrose) 50 mls @ 100 mls/hr IVPB DAILY [facility]; Protocol Last Admin: 01/31/19 09:15 Dose: 100 mls/hr Sodium Chloride (Normal Saline -) 1,000 mls @ 100 mls/hr IV ASDIR [facility] Last Admin: 01/31/19 09:21 Dose: 100 mls/hr Lidocaine (Lidoderm Patch -) 1 patch TP DAILY [facility] Last Admin: 01/30/19 09:51 Dose: 1 patch Metoprolol Tartrate (Lopressor -) 12.5 mg PO BID [facility] Last Admin: 01/31/19 09:19 Dose: 12.5 mg Miscellaneous (Lidoderm Patch Removal) 1 each MC DAILY@2200 [facility] Last Admin: 01/30/19 22:17 Dose: 1 each Oxycodone HCl (Roxicodone -) 5 mg PO Q6H PRN PRN Reason: PAIN Last Admin: 01/31/19 09:16 Dose: 5 mg Polyethylene Glycol (Miralax (For Daily Use) -) 17 gm PO DAILY [facility] Last Admin: 01/31/19 09:18 Dose: Not Given Potassium Chloride (K-Dur -) 40 meq PO DAILY [facility] Last Admin: 01/31/19 09:17 Dose: 40 meq Senna (Senna -) 1 tab PO DAILY [facility] Last Admin: 01/31/19 09:18 Dose: 1 tab Simethicone (Mylicon -) 80 mg PO DAILY [facility] Last Admin: 01/31/19 09:18 Dose: 80 mg - Objective Vital Signs: Vital Signs Temperature 97.8 F 01/31/19 07:45 Pulse Rate 71 01/31/19 07:45 Respiratory Rate 20 01/31/19 07:45 Blood Pressure 103/59 L 01/31/19 07:45 O2 Sat by Pulse Oximetry (%) 100 01/31/19 07:45 Constitutional: Yes: No Distress HENT: Yes: Atraumatic Neck: Yes: Supple Cardiovascular: Yes: Regular Rate and Rhythm Respiratory: Yes: CTA Bilaterally Gastrointestinal: Yes: Normal Bowel Sounds Extremities: Yes: WNL Edema: No Neurological: Yes: Alert Labs: CBC, BMP 01/30/19 06:19 01/31/19 06:38 INR, PTT INR 1.17 (0.83-1.09) H 01/23/19 05:30 Problem List - Problems (1) Fall Assessment/Plan: pt eval head ct no acute problem Code(s): W19.XXXA - UNSPECIFIED FALL, INITIAL ENCOUNTER Qualifiers: Encounter type: subsequent encounter Qualified Code(s): W19.XXXD - Unspecified fall, subsequent encounter (2) UTI (urinary tract infection) Assessment/Plan: on iv abx cxs noted id on board Code(s): N39.0 - URINARY TRACT INFECTION, SITE NOT SPECIFIED Qualifiers: Urinary tract infection type: site unspecified Hematuria presence: without hematuria Qualified Code(s): N39.0 - Urinary tract infection, site not specified (3) Sepsis Assessment/Plan: on iv abx iv hydration Code(s): A41.9 - SEPSIS, UNSPECIFIED ORGANISM Qualifiers: Sepsis type: Escherichia coli Qualified Code(s): A41.51 - Sepsis due to Escherichia coli [E. coli] (4) Back pain Assessment/Plan: prn pain meds Code(s): M54.9 - DORSALGIA, UNSPECIFIED Qualifiers: Back pain location: low back pain Chronicity: acute Back pain laterality : unspecified Sciatica presence: without sciatica Qualified Code(s): M54.5 - Low back pain (5) [id number] kidney injury Assessment/Plan: iv hydration renal consult Code(s): N17.9 - ACUTE KIDNEY FAILURE, UNSPECIFIED; N18.9 - CHRONIC KIDNEY DISEASE, UNSPECIFIED
--- NOTE | 2019-01-31 13:02 | PN ---
Progress Note (short form) - Note Progress Note: PULMONARY Denies shortness of breath or chest pain. Good urine output s/p ruiz placement. Vital Signs Period Temp Pulse Resp BP Sys/Zepeda Pulse Ox Last 24 Hr 97.8 F-98.4 F 71-85 18-20 80-110/46-69 100-100 Intake & Output 01/28/19 01/29/19 01/30/19 01/31/19 23:59 23:59 23:59 23:59 Intake Total 1655 2075 1415 1380 Output Total 1250 1000 Balance 1655 2075 165 380 Gen: NAD at rest Heart: RRR Lung: decreased breath sounds at the bases Abd: soft, nontender Ext: no edema CBC, BMP 01/30/19 06:19 01/31/19 06:38 Active Medications Acetaminophen (Tylenol -) 650 mg PO Q6H PRN PRN Reason: FEVER Last Admin: 01/31/19 09:17 Dose: 650 mg Apixaban (Eliquis -) 2.5 mg PO BID [facility] Last Admin: 01/31/19 09:18 Dose: 2.5 mg Chlorhexidine Gluconate (Hibiclens For Decolonization -) 1 applic TP HS [facility] Last Admin: 01/30/19 22:13 Dose: Not Given Gabapentin (Neurontin -) 200 mg PO BID [facility] Last Admin: 01/31/19 09:16 Dose: 200 mg Ceftriaxone Sodium 1 gm/ (Dextrose) 50 mls @ 100 mls/hr IVPB DAILY [facility]; Protocol Last Admin: 01/31/19 09:15 Dose: 100 mls/hr Sodium Chloride (Normal Saline -) 1,000 mls @ 100 mls/hr IV ASDIR [facility] Last Admin: 01/31/19 09:21 Dose: 100 mls/hr Lidocaine (Lidoderm Patch -) 1 patch TP DAILY [facility] Last Admin: 01/30/19 09:51 Dose: 1 patch Metoprolol Tartrate (Lopressor -) 12.5 mg PO BID [facility] Last Admin: 01/31/19 09:19 Dose: 12.5 mg Miscellaneous (Lidoderm Patch Removal) 1 each MC DAILY@2200 [facility] Last Admin: 01/30/19 22:17 Dose: 1 each Oxycodone HCl (Roxicodone -) 5 mg PO Q6H PRN PRN Reason: PAIN Last Admin: 01/31/19 09:16 Dose: 5 mg Polyethylene Glycol (Miralax (For Daily Use) -) 17 gm PO DAILY [facility] Last Admin: 01/31/19 09:18 Dose: Not Given Potassium Chloride (K-Dur -) 40 meq PO DAILY [facility] Last Admin: 01/31/19 09:17 Dose: 40 meq Senna (Senna -) 1 tab PO DAILY [facility] Last Admin: 01/31/19 09:18 Dose: 1 tab Simethicone (Mylicon -) 80 mg PO DAILY [facility] Last Admin: 01/31/19 09:18 Dose: 80 mg A/P UTI Severe Sepsis resolving Acute Kidney Injury Paroxysmal Atrial Fibrillation Anxiety - continue antibiotics per ID - IVF - monitor urine output, creatinine - O2 to keep SpO2 >90% - pain control - rate/rhythm control - continue anticoagulation
--- NOTE | 2019-01-31 16:26 | PN ---
Progress Note, Physician History of Present Illness: Pt seen, events noted. She is alert, without distress. Denies SOB/cough, chest pain, abd pain/n/v/d. Ruiz catheter has been placed. - Current Medication List Current Medications: Active Medications Acetaminophen (Tylenol -) 650 mg PO Q6H PRN PRN Reason: FEVER Last Admin: 01/31/19 09:17 Dose: 650 mg Apixaban (Eliquis -) 2.5 mg PO BID [facility] Last Admin: 01/31/19 09:18 Dose: 2.5 mg Chlorhexidine Gluconate (Hibiclens For Decolonization -) 1 applic TP HS [facility] Last Admin: 01/30/19 22:13 Dose: Not Given Gabapentin (Neurontin -) 200 mg PO BID [facility] Last Admin: 01/31/19 09:16 Dose: 200 mg Ceftriaxone Sodium 1 gm/ (Dextrose) 50 mls @ 100 mls/hr IVPB DAILY [facility]; Protocol Last Admin: 01/31/19 09:15 Dose: 100 mls/hr Sodium Chloride (Normal Saline -) 1,000 mls @ 100 mls/hr IV ASDIR [facility] Last Admin: 01/31/19 09:21 Dose: 100 mls/hr Lidocaine (Lidoderm Patch -) 1 patch TP DAILY [facility] Last Admin: 01/30/19 09:51 Dose: 1 patch Metoprolol Tartrate (Lopressor -) 12.5 mg PO BID [facility] Last Admin: 01/31/19 09:19 Dose: 12.5 mg Miscellaneous (Lidoderm Patch Removal) 1 each MC DAILY@2200 [facility] Last Admin: 01/30/19 22:17 Dose: 1 each Polyethylene Glycol (Miralax (For Daily Use) -) 17 gm PO DAILY [facility] Last Admin: 01/31/19 09:18 Dose: Not Given Potassium Chloride (K-Dur -) 40 meq PO DAILY [facility] Last Admin: 01/31/19 09:17 Dose: 40 meq Senna (Senna -) 1 tab PO DAILY [facility] Last Admin: 01/31/19 09:18 Dose: 1 tab Simethicone (Mylicon -) 80 mg PO DAILY [facility] Last Admin: 01/31/19 09:18 Dose: 80 mg - Objective Vital Signs: Vital Signs Temperature 97.9 F 01/31/19 14:03 Pulse Rate 71 01/31/19 14:03 Respiratory Rate 20 01/31/19 07:45 Blood Pressure 111/65 01/31/19 14:03 O2 Sat by Pulse Oximetry (%) 100 01/31/19 07:45 Constitutional: Yes: No Distress, Calm Cardiovascular: Yes: Regular Rate and Rhythm Respiratory: Yes: Regular Gastrointestinal: Yes: Normal Bowel Sounds, Soft Genitourinary: Yes: Ruiz Present Integumentary: Yes: Bruising Neurological: Yes: Alert Labs: CBC, BMP 01/30/19 06:19 01/31/19 06:38 INR, PTT INR 1.17 (0.83-1.09) H 01/23/19 05:30 Microbiology 01/30/19 11:30 Urine - Urine Ruiz Urine Culture - Final NO GROWTH OBTAINED 01/22/19 20:09 Blood - Peripheral Venous Blood Culture - Final NO GROWTH AFTER 5 DAYS INCUBATION 01/22/19 20:09 Blood - Peripheral Venous Blood Culture - Final NO GROWTH AFTER 5 DAYS INCUBATION 01/22/19 20:30 Urine - Urine Clean Catch Urine Culture - Final Escherichia Coli Problem List - Problems (1) JONATHAN (acute kidney injury) Code(s): N17.9 - ACUTE KIDNEY FAILURE, UNSPECIFIED (2) Sepsis Code(s): A41.9 - SEPSIS, UNSPECIFIED ORGANISM Qualifiers: Sepsis type: Escherichia coli Qualified Code(s): A41.51 - Sepsis due to Escherichia coli [E. coli] (3) UTI (urinary tract infection) Code(s): N39.0 - URINARY TRACT INFECTION, SITE NOT SPECIFIED Qualifiers: Urinary tract infection type: site unspecified Hematuria presence: without hematuria Qualified Code(s): N39.0 - Urinary tract infection, site not specified (4) Back pain Code(s): M54.9 - DORSALGIA, UNSPECIFIED Qualifiers: Back pain location: low back pain Chronicity: acute Back pain laterality : unspecified Sciatica presence: without sciatica Qualified Code(s): M54.5 - Low back pain Assessment/Plan UTI s/p Fall AMS - resolved Hypotension - improved Leukocytosis - wbc upward trend JONATHAN - creatinine rising, ruiz inserted -- latest Urine culture neg, wbc elevated but relative stable since yesterday, will continue monitor -- has been started on Ceftriaxone, continue for now empirically -- blood culture, urine eosinophils ordered -- Nephrology following monitor vitals
--- NOTE | 2019-01-31 17:03 | PN ---
Progress Note, Physician Chief Complaint: Alert; lying in bed; c/o lower back pain. History of Present Illness: The patient is an 83 year old white female, with a significant PMH of chronic low back pain, PAF, systolic CHF (ECHO: low normal LVEF and RVEF), anxiety, ? dementia, and hyperactive bladder, who presents to the emergency department BIB from [facility] s/p fall. Patient notes she was getting off the bus , when she couldnt make it to the platform and fell onto her face. Patient presents with a laceration to her upper and lower lip and bruising with swelling of her nose. She endorses low back pain. Patient presents with AMS while in the ED, and cannot correctly recall current date, location, and president. HPI is limited secondary to patient being a poor historian ( intermittently confused at baseline). - Current Medication List Current Medications: Active Medications Acetaminophen (Tylenol -) 650 mg PO Q6H PRN PRN Reason: FEVER Last Admin: 01/31/19 09:17 Dose: 650 mg Apixaban (Eliquis -) 2.5 mg PO BID [facility] Last Admin: 01/31/19 09:18 Dose: 2.5 mg Chlorhexidine Gluconate (Hibiclens For Decolonization -) 1 applic TP HS [facility] Last Admin: 01/30/19 22:13 Dose: Not Given Gabapentin (Neurontin -) 200 mg PO BID [facility] Last Admin: 01/31/19 09:16 Dose: 200 mg Ceftriaxone Sodium 1 gm/ (Dextrose) 50 mls @ 100 mls/hr IVPB DAILY [facility]; Protocol Last Admin: 01/31/19 09:15 Dose: 100 mls/hr Sodium Chloride (Normal Saline -) 1,000 mls @ 100 mls/hr IV ASDIR [facility] Last Admin: 01/31/19 09:21 Dose: 100 mls/hr Lidocaine (Lidoderm Patch -) 1 patch TP DAILY [facility] Last Admin: 01/30/19 09:51 Dose: 1 patch Metoprolol Tartrate (Lopressor -) 12.5 mg PO BID [facility] Last Admin: 01/31/19 09:19 Dose: 12.5 mg Miscellaneous (Lidoderm Patch Removal) 1 each MC DAILY@2200 [facility] Last Admin: 01/30/19 22:17 Dose: 1 each Polyethylene Glycol (Miralax (For Daily Use) -) 17 gm PO DAILY [facility] Last Admin: 01/31/19 09:18 Dose: Not Given Potassium Chloride (K-Dur -) 40 meq PO DAILY [facility] Last Admin: 01/31/19 09:17 Dose: 40 meq Senna (Senna -) 1 tab PO DAILY [facility] Last Admin: 01/31/19 09:18 Dose: 1 tab Simethicone (Mylicon -) 80 mg PO DAILY [facility] Last Admin: 01/31/19 09:18 Dose: 80 mg - Objective Vital Signs: Vital Signs Temperature 97.9 F 01/31/19 14:03 Pulse Rate 71 01/31/19 14:03 Respiratory Rate 20 01/31/19 07:45 Blood Pressure 111/65 01/31/19 14:03 O2 Sat by Pulse Oximetry (%) 100 01/31/19 07:45 Constitutional: Yes: Anxious Eyes: Yes: WNL HENT: Yes: WNL Neck: Yes: WNL Cardiovascular: Yes: S1 (varies in intensity), S2 Respiratory: Yes: WNL Gastrointestinal: Yes: Soft ...Rectal Exam: Yes: Deferred Genitourinary: No: Anuria Breast(s): Yes: WNL Musculoskeletal: Yes: Back Pain, Muscle Weakness Extremities: Yes: Cool Edema: No Integumentary: Yes: WNL Neurological: Yes: Confusion, Weakness Psychiatric: Yes: Other (?hx dementia) Labs: CBC, BMP 01/30/19 06:19 01/31/19 06:38 INR, PTT INR 1.17 (0.83-1.09) H 01/23/19 05:30 Abnormal Lab Results 01/31/19 06:38 Chloride 108 H BUN 33 H Creatinine 3.9 H Abnormal Lab Results 02/01/19 02/01/19 06:23 06:23 WBC 11.7 H Hgb 9.7 L Hct 29.5 L RDW 16.5 H Plt Count 457 H Absolute Neuts (auto) 9.3 H Chloride 112 H BUN 32 H Creatinine 3.7 H Calcium 8.4 L AST 8 L ALT 12 L Total Protein 4.8 L Albumin 1.8 L - ....Imaging Other: Image Reviewed (telemetry: NSR with sinus arrhythmia) Problem List - Problems (1) [id number] kidney injury Assessment/Plan: Fluids; avoid dehydration. F/u BUN/Cr. Code(s): N17.9 - ACUTE KIDNEY FAILURE, UNSPECIFIED; N18.9 - CHRONIC KIDNEY DISEASE, UNSPECIFIED (2) Paroxysmal atrial flutter Assessment/Plan: No in sinus rhythm with sinus arrhythmia. On metoprolol tartrate bid. On apixaban 2.5 mg bid. Code(s): I48.92 - UNSPECIFIED ATRIAL FLUTTER (3) UTI (urinary tract infection) Code(s): N39.0 - URINARY TRACT INFECTION, SITE NOT SPECIFIED Qualifiers: Urinary tract infection type: site unspecified Hematuria presence: without hematuria Qualified Code(s): N39.0 - Urinary tract infection, site not specified (4) Back pain Code(s): M54.9 - DORSALGIA, UNSPECIFIED Qualifiers: Back pain location: low back pain Chronicity: acute Back pain laterality : unspecified Sciatica presence: without sciatica Qualified Code(s): M54.5 - Low back pain
[2019-01-31] MEDS: CHLORHEXIDINE GLUCONATE 4% CLEANSER FOR DECOLONIZATION TP SCH (21:18)
[2019-01-31] MEDS: LIDOCAINE PATCH REMOVAL MC SCH (21:19)
[2019-01-31 23:13] LABS: EPI CELLS 7.4 /HPF (0-5/HPF); HYALINE CASTS 6 /lpf (0-8); PH,URINE 7.5 (5.0-8.0); URINE APPEARANCE CLEAR; URINE BACTERIA 1.9 /hpf (NEGATIVE); URINE BILIRUBIN NEGATIVE (NEGATIVE); URINE COLOR YELLOW; URINE GLUCOSE (UA) NEGATIVE (NEGATIVE); URINE KETONE NEGATIVE (NEGATIVE); URINE LEUK ESTERASE 2+ (NEGATIVE); URINE NITRITE NEGATIVE (NEGATIVE); URINE PROTEIN TRACE (NEGATIVE); URINE RBC 3 /hpf (0-4); URINE UROBILINOGEN 0.2 mg/dL (0.2-1.0); URINE WBC 34 /hpf (0-5)
[2019-02-01] MEDS: oxyCODONE HCL 5 MG TABLET PO PRN ×2 (01:59→22:21)
[2019-02-01] MEDS: ACETAMINOPHEN 325 MG TABLET (FP) PO PRN ×3 (06:53→22:21)
[2019-02-01 07:33] LABS: BASO % 0.4 % (0-2.0); EOS % 3.6 % (0-4.5); HEMATOCRIT 29.5 % (32.4-45.2); HEMOGLOBIN 9.7 GM/dL (10.7-15.3); LYMPH % 8.3 % (8-40); MCH 26.8 pg (25.7-33.7); MEAN CELL VOLUME 81.1 fl (80-96); MEAN PLT VOLUME 7.9 fl (7.5-11.1); MONO % 7.9 % (3.8-10.2); NEUT % 79.8 % (42.8-82.8); PLATELET COUNT 457 K/MM3 (134-434); RBC 3.64 M/mm3 (3.60-5.2); RDW 16.5 % (11.6-15.6); WHITE BLOOD COUNT 11.7 K/mm3 (4.0-10.0)
[2019-02-01 07:51] LABS: ALBUMIN 1.8 g/dl (3.4-5.0); BILIRUBIN,TOTAL 0.3 mg/dL (0.2-1); CALCIUM 8.4 mg/dL (8.5-10.1); CREATININE 3.7 mg/dL (0.55-1.3); POTASSIUM 3.7 mmol/L (3.5-5.1); TOT PROT 4.8 g/dl (6.4-8.2)
[2019-02-01] MEDS: SODIUM CHLORIDE 1,000 ML IV SCH ×2 (08:00→19:26)
[2019-02-01] MEDS ORDERED: DEXTROSE 5%-WATER - 50 ML IVPB ONE (09:51)
[2019-02-01] MEDS ORDERED: cefTRIAXone SODIUM 1 GM VIAL ONE (09:51)
[2019-02-01] MEDS: APIXABAN 2.5 MG TABLET PO SCH ×2 (10:37→22:20)
[2019-02-01] MEDS: METOPROLOL TARTRATE 25 MG TABLET (FP) PO SCH ×2 (10:37→22:20)
[2019-02-01] MEDS: GABAPENTIN 100 MG CAPSULE (FP) PO SCH ×2 (10:37→22:20)
[2019-02-01] MEDS: SENNOSIDES 8.6MG TABLET (FP) PO SCH (10:38)
[2019-02-01] MEDS: SIMETHICONE 80 MG TAB.CHEW (FP) PO SCH (10:38)
[2019-02-01] MEDS: POTASSIUM CHLORIDE TABS 20 MEQ TABLET.ER (FP) PO SCH (10:38)
[2019-02-01] MEDS: CEFTRIAXONE 1 GM in DEXTROSE 5%-WATER - 50 ML IVPB SCH (10:39)
[2019-02-01] MEDS: LIDOCAINE 5% TOPICAL PATCH TP SCH (10:40)
[2019-02-01] MEDS: POLYETHYLENE GLYCOL 3350 119 GM BTL PO SCH (10:40)
--- NOTE | 2019-02-01 12:05 | PN ---
Progress Note (short form) - Note Progress Note: PULMONARY Denies shortness of breath or chest pain. Vital Signs Period Temp Pulse Resp BP Sys/Zepeda Pulse Ox Last 24 Hr 97.5 F-98.7 F 71-86 20-20 111-121/63-72 94-95 Intake & Output 01/29/19 01/30/19 01/31/19 02/01/19 23:59 23:59 23:59 23:59 Intake Total 2075 1415 3030 200 Output Total 1250 3900 1200 Balance 2075 165 -870 -1000 Gen: NAD at rest Heart: RRR Lung: decreased breath sounds at the bases Abd: soft, nontender Ext: no edema CBC, BMP 02/01/19 06:23 02/01/19 06:23 Active Medications Acetaminophen (Tylenol -) 650 mg PO Q6H PRN PRN Reason: FEVER Last Admin: 02/01/19 06:53 Dose: 650 mg Apixaban (Eliquis -) 2.5 mg PO BID [facility] Last Admin: 02/01/19 10:37 Dose: 2.5 mg Chlorhexidine Gluconate (Hibiclens For Decolonization -) 1 applic TP HS [facility] Last Admin: 01/31/19 21:18 Dose: Not Given Gabapentin (Neurontin -) 200 mg PO BID [facility] Last Admin: 02/01/19 10:37 Dose: 200 mg Ceftriaxone Sodium 1 gm/ (Dextrose) 50 mls @ 100 mls/hr IVPB DAILY [facility]; Protocol Last Admin: 02/01/19 10:39 Dose: 100 mls/hr Sodium Chloride (Normal Saline -) 1,000 mls @ 100 mls/hr IV ASDIR [facility] Last Admin: 02/01/19 08:00 Dose: 100 mls/hr Lidocaine (Lidoderm Patch -) 1 patch TP DAILY [facility] Last Admin: 02/01/19 10:40 Dose: 1 patch Metoprolol Tartrate (Lopressor -) 12.5 mg PO BID [facility] Last Admin: 02/01/19 10:37 Dose: 12.5 mg Miscellaneous (Lidoderm Patch Removal) 1 each MC DAILY@2200 [facility] Last Admin: 01/31/19 21:19 Dose: 1 each Oxycodone HCl (Roxicodone -) 5 mg PO Q6H PRN PRN Reason: PAIN LEVEL 4 - 6 Last Admin: 02/01/19 01:59 Dose: 5 mg Polyethylene Glycol (Miralax (For Daily Use) -) 17 gm PO DAILY [facility] Last Admin: 02/01/19 10:40 Dose: 17 gm Potassium Chloride (K-Dur -) 40 meq PO DAILY [facility] Last Admin: 02/01/19 10:38 Dose: 40 meq Senna (Senna -) 1 tab PO DAILY [facility] Last Admin: 02/01/19 10:38 Dose: 1 tab Simethicone (Mylicon -) 80 mg PO DAILY [facility] Last Admin: 02/01/19 10:38 Dose: 80 mg A/P UTI Severe Sepsis resolving Acute Kidney Injury Paroxysmal Atrial Fibrillation Anxiety - continue antibiotics per ID - IVF - monitor urine output, creatinine - O2 to keep SpO2 >90% - pain control - rate/rhythm control - continue anticoagulation
--- NOTE | 2019-02-01 13:17 | PN ---
Progress Note, Physician History of Present Illness: Pt is alert, without distress. only complaining of generalized body pain. - Current Medication List Current Medications: Active Medications Acetaminophen (Tylenol -) 650 mg PO Q6H PRN PRN Reason: FEVER Last Admin: 02/01/19 06:53 Dose: 650 mg Apixaban (Eliquis -) 2.5 mg PO BID [facility] Last Admin: 02/01/19 10:37 Dose: 2.5 mg Chlorhexidine Gluconate (Hibiclens For Decolonization -) 1 applic TP HS [facility] Last Admin: 01/31/19 21:18 Dose: Not Given Gabapentin (Neurontin -) 200 mg PO BID [facility] Last Admin: 02/01/19 10:37 Dose: 200 mg Ceftriaxone Sodium 1 gm/ (Dextrose) 50 mls @ 100 mls/hr IVPB DAILY [facility]; Protocol Last Admin: 02/01/19 10:39 Dose: 100 mls/hr Sodium Chloride (Normal Saline -) 1,000 mls @ 100 mls/hr IV ASDIR [facility] Last Admin: 02/01/19 08:00 Dose: 100 mls/hr Lidocaine (Lidoderm Patch -) 1 patch TP DAILY [facility] Last Admin: 02/01/19 10:40 Dose: 1 patch Metoprolol Tartrate (Lopressor -) 12.5 mg PO BID [facility] Last Admin: 02/01/19 10:37 Dose: 12.5 mg Miscellaneous (Lidoderm Patch Removal) 1 each MC DAILY@2200 [facility] Last Admin: 01/31/19 21:19 Dose: 1 each Oxycodone HCl (Roxicodone -) 5 mg PO Q6H PRN PRN Reason: PAIN LEVEL 4 - 6 Last Admin: 02/01/19 01:59 Dose: 5 mg Polyethylene Glycol (Miralax (For Daily Use) -) 17 gm PO DAILY [facility] Last Admin: 02/01/19 10:40 Dose: 17 gm Potassium Chloride (K-Dur -) 40 meq PO DAILY [facility] Last Admin: 02/01/19 10:38 Dose: 40 meq Senna (Senna -) 1 tab PO DAILY [facility] Last Admin: 02/01/19 10:38 Dose: 1 tab Simethicone (Mylicon -) 80 mg PO DAILY [facility] Last Admin: 02/01/19 10:38 Dose: 80 mg - Objective Vital Signs: Vital Signs Temperature 97.6 F 05/12/19 10:00 Pulse Rate 77 02/01/19 10:00 Respiratory Rate 20 02/01/19 10:00 Blood Pressure 121/72 02/01/19 10:00 O2 Sat by Pulse Oximetry (%) 95 02/01/19 10:00 Constitutional: Yes: No Distress, Calm Cardiovascular: Yes: Regular Rate and Rhythm Respiratory: Yes: Regular Gastrointestinal: Yes: Normal Bowel Sounds, Soft Genitourinary: Yes: Ruiz Present Neurological: Yes: Alert Labs: CBC, BMP 02/01/19 06:23 02/01/19 06:23 INR, PTT INR 1.17 (0.83-1.09) H 01/23/19 05:30 Microbiology 01/30/19 11:30 Urine - Urine Ruiz Urine Culture - Final NO GROWTH OBTAINED 01/22/19 20:09 Blood - Peripheral Venous Blood Culture - Final NO GROWTH AFTER 5 DAYS INCUBATION 01/22/19 20:09 Blood - Peripheral Venous Blood Culture - Final NO GROWTH AFTER 5 DAYS INCUBATION 01/22/19 20:30 Urine - Urine Clean Catch Urine Culture - Final Escherichia Coli Problem List - Problems (1) JONATHAN (acute kidney injury) Code(s): N17.9 - ACUTE KIDNEY FAILURE, UNSPECIFIED (2) Sepsis Code(s): A41.9 - SEPSIS, UNSPECIFIED ORGANISM Qualifiers: Sepsis type: Escherichia coli Qualified Code(s): A41.51 - Sepsis due to Escherichia coli [E. coli] (3) UTI (urinary tract infection) Code(s): N39.0 - URINARY TRACT INFECTION, SITE NOT SPECIFIED Qualifiers: Urinary tract infection type: site unspecified Hematuria presence: without hematuria Qualified Code(s): N39.0 - Urinary tract infection, site not specified (4) Back pain Code(s): M54.9 - DORSALGIA, UNSPECIFIED Qualifiers: Back pain location: low back pain Chronicity: acute Back pain laterality : unspecified Sciatica presence: without sciatica Qualified Code(s): M54.5 - Low back pain Assessment/Plan UTI s/p Fall AMS - resolved Hypotension - improved Leukocytosis JONATHAN -ruiz inserted -- latest Urine culture neg, f/u blood culture results -- continue antibiotics for now, will re-assess need -- wbc decreased, remains afebrile -- urine eosinophils ordered -- creatinine decreased, Nephrology following monitor vitals
--- NOTE | 2019-02-01 14:56 | PN ---
Progress Note, Physician Chief Complaint: Pt alert; has trouble getting comfortable in bed; c/o back pain. History of Present Illness: The patient is an 83 year old white female, with a significant PMH of chronic low back pain, anxiety, and hyperactive bladder, who presents to the emergency department [facility] from [facility] s/p fall. Patient notes she was getting off the bus, when she couldnt make it to the platform and fell onto her face. Patient presents with a laceration to her upper and lower lip and bruising with swelling of her nose. She endorses low back pain. Patient presents with AMS while in the ED, and cannot correctly recall current date, location, and president. HPI is limited secondary to patient being a poor historian ( intermittently confused at baseline). - Current Medication List Current Medications: Active Medications Acetaminophen (Tylenol -) 650 mg PO Q6H PRN PRN Reason: FEVER Last Admin: 02/01/19 13:52 Dose: 650 mg Apixaban (Eliquis -) 2.5 mg PO BID [facility] Last Admin: 02/01/19 10:37 Dose: 2.5 mg Chlorhexidine Gluconate (Hibiclens For Decolonization -) 1 applic TP HS [facility] Last Admin: 01/31/19 21:18 Dose: Not Given Gabapentin (Neurontin -) 200 mg PO BID [facility] Last Admin: 02/01/19 10:37 Dose: 200 mg Ceftriaxone Sodium 1 gm/ (Dextrose) 50 mls @ 100 mls/hr IVPB DAILY [facility]; Protocol Last Admin: 02/01/19 10:39 Dose: 100 mls/hr Sodium Chloride (Normal Saline -) 1,000 mls @ 100 mls/hr IV ASDIR [facility] Last Admin: 02/01/19 08:00 Dose: 100 mls/hr Lidocaine (Lidoderm Patch -) 1 patch TP DAILY [facility] Last Admin: 02/01/19 10:40 Dose: 1 patch Metoprolol Tartrate (Lopressor -) 12.5 mg PO BID [facility] Last Admin: 02/01/19 10:37 Dose: 12.5 mg Miscellaneous (Lidoderm Patch Removal) 1 each MC DAILY@2200 [facility] Last Admin: 01/31/19 21:19 Dose: 1 each Oxycodone HCl (Roxicodone -) 5 mg PO Q6H PRN PRN Reason: PAIN LEVEL 4 - 6 Last Admin: 02/01/19 01:59 Dose: 5 mg Polyethylene Glycol (Miralax (For Daily Use) -) 17 gm PO DAILY [facility] Last Admin: 02/01/19 10:40 Dose: 17 gm Potassium Chloride (K-Dur -) 40 meq PO DAILY [facility] Last Admin: 02/01/19 10:38 Dose: 40 meq Senna (Senna -) 1 tab PO DAILY [facility] Last Admin: 02/01/19 10:38 Dose: 1 tab Simethicone (Mylicon -) 80 mg PO DAILY [facility] Last Admin: 02/01/19 10:38 Dose: 80 mg - Objective Vital Signs: Vital Signs Temperature 98.6 F 02/01/19 14:00 Pulse Rate 73 02/01/19 14:00 Respiratory Rate 20 02/01/19 10:00 Blood Pressure 110/61 02/01/19 14:00 O2 Sat by Pulse Oximetry (%) 95 02/01/19 10:00 Constitutional: Yes: Anxious, Thin Eyes: Yes: WNL HENT: Yes: WNL Neck: Yes: WNL Cardiovascular: Yes: S1, S2 Respiratory: Yes: WNL Gastrointestinal: Yes: Soft ...Rectal Exam: Yes: Deferred Genitourinary: No: Anuria Breast(s): Yes: WNL Musculoskeletal: Yes: Back Pain, Muscle Weakness Extremities: Yes: Cool Edema: No Peripheral Pulses WNL: Yes Integumentary: Yes: WNL Neurological: Yes: Confusion, Weakness Psychiatric: Yes: Other Labs: CBC, BMP 02/01/19 06:23 02/01/19 06:23 INR, PTT INR 1.17 (0.83-1.09) H 01/23/19 05:30 Abnormal Lab Results 02/01/19 02/01/19 06:23 06:23 WBC 11.7 H Hgb 9.7 L Hct 29.5 L RDW 16.5 H Plt Count 457 H Absolute Neuts (auto) 9.3 H Chloride 112 H BUN 32 H Creatinine 3.7 H Calcium 8.4 L AST 8 L ALT 12 L Total Protein 4.8 L Albumin 1.8 L Problem List - Problems (1) [id number] kidney injury Assessment/Plan: Worsening BUN/Cr. Fluids; avoid dehydration. Renal w/u in progress; PPI d/tristin. Code(s): N17.9 - ACUTE KIDNEY FAILURE, UNSPECIFIED; N18.9 - CHRONIC KIDNEY DISEASE, UNSPECIFIED (2) Paroxysmal atrial flutter Assessment/Plan: Now sinus rhythm with sinus arrhythmia. On metoprolol tartrate bid. On apixaban 2.5 mg bid. ECHO: low normal LVEF and RVEF Code(s): I48.92 - UNSPECIFIED ATRIAL FLUTTER (3) UTI (urinary tract infection) Assessment/Plan: on antibiotics. Leukocytosis improving. Code(s): N39.0 - URINARY TRACT INFECTION, SITE NOT SPECIFIED Qualifiers: Urinary tract infection type: site unspecified Hematuria presence: without hematuria Qualified Code(s): N39.0 - Urinary tract infection, site not specified (4) Back pain Assessment/Plan: on roxycodone. Code(s): M54.9 - DORSALGIA, UNSPECIFIED Qualifiers: Back pain location: low back pain Chronicity: acute Back pain laterality : unspecified Sciatica presence: without sciatica Qualified Code(s): M54.5 - Low back pain
[2019-02-01] MEDS: CHLORHEXIDINE GLUCONATE 4% CLEANSER FOR DECOLONIZATION TP SCH (22:20)
[2019-02-01] MEDS: LIDOCAINE PATCH REMOVAL MC SCH (22:20)
--- NOTE | 2019-02-01 23:12 | PN ---
Progress Note, Physician - Current Medication List Current Medications: Active Medications Acetaminophen (Tylenol -) 650 mg PO Q6H PRN PRN Reason: FEVER Last Admin: 02/01/19 22:21 Dose: 650 mg Apixaban (Eliquis -) 2.5 mg PO BID [facility] Last Admin: 02/01/19 22:20 Dose: 2.5 mg Chlorhexidine Gluconate (Hibiclens For Decolonization -) 1 applic TP HS [facility] Last Admin: 02/01/19 22:20 Dose: Not Given Gabapentin (Neurontin -) 200 mg PO BID [facility] Last Admin: 02/01/19 22:20 Dose: 200 mg Ceftriaxone Sodium 1 gm/ (Dextrose) 50 mls @ 100 mls/hr IVPB DAILY [facility]; Protocol Last Admin: 02/01/19 10:39 Dose: 100 mls/hr Sodium Chloride (Normal Saline -) 1,000 mls @ 100 mls/hr IV ASDIR [facility] Last Admin: 02/01/19 19:26 Dose: 100 mls/hr Lidocaine (Lidoderm Patch -) 1 patch TP DAILY [facility] Last Admin: 02/01/19 10:40 Dose: 1 patch Metoprolol Tartrate (Lopressor -) 12.5 mg PO BID [facility] Last Admin: 02/01/19 22:20 Dose: 12.5 mg Miscellaneous (Lidoderm Patch Removal) 1 each MC DAILY@2200 [facility] Last Admin: 02/01/19 22:20 Dose: 1 each Oxycodone HCl (Roxicodone -) 5 mg PO Q6H PRN PRN Reason: PAIN LEVEL 4 - 6 Last Admin: 02/01/19 22:21 Dose: 5 mg Polyethylene Glycol (Miralax (For Daily Use) -) 17 gm PO DAILY [facility] Last Admin: 02/01/19 10:40 Dose: 17 gm Potassium Chloride (K-Dur -) 40 meq PO DAILY [facility] Last Admin: 02/01/19 10:38 Dose: 40 meq Senna (Senna -) 1 tab PO DAILY [facility] Last Admin: 02/01/19 10:38 Dose: 1 tab Simethicone (Mylicon -) 80 mg PO DAILY [facility] Last Admin: 02/01/19 10:38 Dose: 80 mg - Objective Vital Signs: Vital Signs Temperature 98.4 F 02/01/19 21:07 Pulse Rate 78 02/01/19 21:07 Respiratory Rate 20 02/01/19 21:07 Blood Pressure 132/70 02/01/19 21:07 O2 Sat by Pulse Oximetry (%) 93 L 02/01/19 21:00 Labs: CBC, BMP 02/01/19 06:23 02/01/19 06:23 INR, PTT INR 1.17 (0.83-1.09) H 01/23/19 05:30
[2019-02-02 00:10] LABS: HBSAG SCREEN Negative (Negative); HEP B CORE AB, TOT Negative (Negative)
[2019-02-02] MEDS ORDERED: cefTRIAXone SODIUM 1 GM VIAL ONE (09:31)
[2019-02-02] MEDS ORDERED: DEXTROSE 5%-WATER - 50 ML IVPB ONE (09:31)
[2019-02-02] MEDS: CEFTRIAXONE 1 GM in DEXTROSE 5%-WATER - 50 ML IVPB SCH (09:33)
[2019-02-02] MEDS: GABAPENTIN 100 MG CAPSULE (FP) PO SCH ×2 (09:33→21:30)
[2019-02-02] MEDS: METOPROLOL TARTRATE 25 MG TABLET (FP) PO SCH ×2 (09:33→21:29)
[2019-02-02] MEDS: APIXABAN 2.5 MG TABLET PO SCH ×2 (09:33→21:29)
[2019-02-02] MEDS: SIMETHICONE 80 MG TAB.CHEW (FP) PO SCH (09:33)
[2019-02-02] MEDS: SENNOSIDES 8.6MG TABLET (FP) PO SCH (09:35)
[2019-02-02] MEDS: LIDOCAINE 5% TOPICAL PATCH TP SCH (09:35)
[2019-02-02] MEDS: POTASSIUM CHLORIDE TABS 20 MEQ TABLET.ER (FP) PO SCH (09:35)
--- NOTE | 2019-02-02 09:42 | PN ---
Progress Note, Physician History of Present Illness: Mental status improving, remains in NSR, afebrile. - Current Medication List Current Medications: Active Medications Acetaminophen (Tylenol -) 650 mg PO Q6H PRN PRN Reason: FEVER Last Admin: 02/01/19 22:21 Dose: 650 mg Apixaban (Eliquis -) 2.5 mg PO BID [facility] Last Admin: 02/01/19 22:20 Dose: 2.5 mg Chlorhexidine Gluconate (Hibiclens For Decolonization -) 1 applic TP HS [facility] Last Admin: 02/01/19 22:20 Dose: Not Given Gabapentin (Neurontin -) 200 mg PO BID [facility] Last Admin: 02/01/19 22:20 Dose: 200 mg Ceftriaxone Sodium 1 gm/ (Dextrose) 50 mls @ 100 mls/hr IVPB DAILY [facility]; Protocol Last Admin: 02/01/19 10:39 Dose: 100 mls/hr Sodium Chloride (Normal Saline -) 1,000 mls @ 100 mls/hr IV ASDIR [facility] Last Admin: 02/01/19 19:26 Dose: 100 mls/hr Lidocaine (Lidoderm Patch -) 1 patch TP DAILY [facility] Last Admin: 02/01/19 10:40 Dose: 1 patch Metoprolol Tartrate (Lopressor -) 12.5 mg PO BID [facility] Last Admin: 02/01/19 22:20 Dose: 12.5 mg Miscellaneous (Lidoderm Patch Removal) 1 each MC DAILY@2200 [facility] Last Admin: 02/01/19 22:20 Dose: 1 each Oxycodone HCl (Roxicodone -) 5 mg PO Q6H PRN PRN Reason: PAIN LEVEL 4 - 6 Last Admin: 02/01/19 22:21 Dose: 5 mg Polyethylene Glycol (Miralax (For Daily Use) -) 17 gm PO DAILY [facility] Last Admin: 02/01/19 10:40 Dose: 17 gm Potassium Chloride (K-Dur -) 40 meq PO DAILY [facility] Last Admin: 02/01/19 10:38 Dose: 40 meq Senna (Senna -) 1 tab PO DAILY [facility] Last Admin: 02/01/19 10:38 Dose: 1 tab Simethicone (Mylicon -) 80 mg PO DAILY [facility] Last Admin: 02/01/19 10:38 Dose: 80 mg - Objective Vital Signs: Vital Signs Temperature 98 F 02/02/19 09:15 Pulse Rate 80 02/02/19 09:15 Respiratory Rate 20 02/02/19 09:15 Blood Pressure 147/80 02/02/19 09:15 O2 Sat by Pulse Oximetry (%) 93 L 02/01/19 22:00 Constitutional: Yes: No Distress, Calm, Thin Neck: Yes: Supple Cardiovascular: Yes: Regular Rate and Rhythm Respiratory: Yes: Regular, Diminished Gastrointestinal: Yes: Normal Bowel Sounds, Soft Edema: No Labs: CBC, BMP 02/01/19 06:23 02/01/19 06:23 INR, PTT INR 1.17 (0.83-1.09) H 01/23/19 05:30 - ....Imaging EKG: Report Reviewed (Tele: NSR) Problem List - Problems (1) Paroxysmal atrial flutter Code(s): I48.92 - UNSPECIFIED ATRIAL FLUTTER (2) Fall Code(s): W19.XXXA - UNSPECIFIED FALL, INITIAL ENCOUNTER Qualifiers: Encounter type: subsequent encounter Qualified Code(s): W19.XXXD - Unspecified fall, subsequent encounter (3) Sepsis Code(s): A41.9 - SEPSIS, UNSPECIFIED ORGANISM Qualifiers: Sepsis type: Escherichia coli Qualified Code(s): A41.51 - Sepsis due to Escherichia coli [E. coli] (4) UTI (urinary tract infection) Code(s): N39.0 - URINARY TRACT INFECTION, SITE NOT SPECIFIED Qualifiers: Urinary tract infection type: site unspecified Hematuria presence: without hematuria Qualified Code(s): N39.0 - Urinary tract infection, site not specified (5) History of multiple strokes Code(s): Z86.73 - PRSNL HX OF TIA (TIA), AND CEREB INFRC W/O RESID DEFICITS (6) [id number] kidney injury Code(s): N17.9 - ACUTE KIDNEY FAILURE, UNSPECIFIED; N18.9 - CHRONIC KIDNEY DISEASE, UNSPECIFIED (7) Bladder distension Code(s): N32.89 - OTHER SPECIFIED DISORDERS OF BLADDER Assessment/Plan 01/26/2019 Echo: Normal LV and RV size with low normal LV and RV fxn, normal atrial sizes 1. Paroxysmal atrial fibrillation/flutter now in SR 2. Resolving Sepsis source 3. Acute on chronic kidney injury, possible obstructive uropathy now with ruiz 4. Bladder distension 5. H/o strokes P:1. Continue Eliquis 2.5 bid given elevated risk score and Lopressor 12.5 bid as hemodynamics tolerate 2. Complete Abx course per C&S 3. Judicious IVF, ruiz and monitor renal recovery 4. O2 to keep SpO2 >90%
[2019-02-02] MEDS: POLYETHYLENE GLYCOL 3350 119 GM BTL PO SCH (09:45)
--- NOTE | 2019-02-02 11:34 | PN ---
Progress Note, Physician History of Present Illness: generalized body ache says she walked a bit now feels uncomfortable wbc has decreased - Current Medication List Current Medications: Active Medications Acetaminophen (Tylenol -) 650 mg PO Q6H PRN PRN Reason: FEVER Last Admin: 02/01/19 22:21 Dose: 650 mg Apixaban (Eliquis -) 2.5 mg PO BID [facility] Last Admin: 02/02/19 09:33 Dose: 2.5 mg Chlorhexidine Gluconate (Hibiclens For Decolonization -) 1 applic TP HS [facility] Last Admin: 02/01/19 22:20 Dose: Not Given Gabapentin (Neurontin -) 200 mg PO BID [facility] Last Admin: 02/02/19 09:33 Dose: 200 mg Ceftriaxone Sodium 1 gm/ (Dextrose) 50 mls @ 100 mls/hr IVPB DAILY [facility]; Protocol Last Admin: 02/02/19 09:33 Dose: 100 mls/hr Sodium Chloride (Normal Saline -) 1,000 mls @ 100 mls/hr IV ASDIR [facility] Last Admin: 02/01/19 19:26 Dose: 100 mls/hr Lidocaine (Lidoderm Patch -) 1 patch TP DAILY [facility] Last Admin: 02/02/19 09:35 Dose: 1 patch Metoprolol Tartrate (Lopressor -) 12.5 mg PO BID [facility] Last Admin: 02/02/19 09:33 Dose: 12.5 mg Miscellaneous (Lidoderm Patch Removal) 1 each MC DAILY@2200 [facility] Last Admin: 02/01/19 22:20 Dose: 1 each Oxycodone HCl (Roxicodone -) 5 mg PO Q6H PRN PRN Reason: PAIN LEVEL 4 - 6 Last Admin: 02/01/19 22:21 Dose: 5 mg Polyethylene Glycol (Miralax (For Daily Use) -) 17 gm PO DAILY [facility] Last Admin: 02/02/19 09:45 Dose: 17 gm Potassium Chloride (K-Dur -) 40 meq PO DAILY [facility] Last Admin: 02/02/19 09:35 Dose: 40 meq Senna (Senna -) 1 tab PO DAILY [facility] Last Admin: 02/02/19 09:35 Dose: 1 tab Simethicone (Mylicon -) 80 mg PO DAILY [facility] Last Admin: 02/02/19 09:33 Dose: 80 mg - Objective Vital Signs: Vital Signs Temperature 98 F 02/02/19 09:15 Pulse Rate 80 02/02/19 09:15 Respiratory Rate 20 02/02/19 09:15 Blood Pressure 147/80 02/02/19 09:15 O2 Sat by Pulse Oximetry (%) 96 02/02/19 10:00 Constitutional: Yes: Calm, Mild Distress Cardiovascular: Yes: S1, S2 Respiratory: Yes: Regular, CTA Bilaterally Gastrointestinal: Yes: Normal Bowel Sounds, Soft Musculoskeletal: Yes: WNL Extremities: Yes: Other Neurological: Yes: Alert, Oriented Psychiatric: Yes: Alert, Oriented Labs: CBC, BMP 02/01/19 06:23 02/01/19 06:23 INR, PTT INR 1.17 (0.83-1.09) H 01/23/19 05:30 Assessment/Plan UTI Severe Sepsis Acute Kidney Injury Anxiety hypotension plan continue current mgmt wbc trending down will deescalate abx tomorrow if stable rest as per the team
[2019-02-02] MEDS: ACETAMINOPHEN 325 MG TABLET (FP) PO PRN ×2 (11:36→21:54)
[2019-02-02] MEDS: SODIUM CHLORIDE 1,000 ML IV SCH (11:37)
[2019-02-02] MEDS: oxyCODONE HCL 5 MG TABLET PO PRN ×2 (11:37→21:55)
--- NOTE | 2019-02-02 12:15 | PN ---
Progress Note, Physician History of Present Illness: Pt seen and examined at bedside. She is awake and alert. She denies shortness of breath. She has poor PO intake. - Current Medication List Current Medications: Active Medications Acetaminophen (Tylenol -) 650 mg PO Q6H PRN PRN Reason: FEVER Last Admin: 02/02/19 11:36 Dose: 650 mg Apixaban (Eliquis -) 2.5 mg PO BID [facility] Last Admin: 02/02/19 09:33 Dose: 2.5 mg Chlorhexidine Gluconate (Hibiclens For Decolonization -) 1 applic TP HS [facility] Last Admin: 02/01/19 22:20 Dose: Not Given Gabapentin (Neurontin -) 200 mg PO BID [facility] Last Admin: 02/02/19 09:33 Dose: 200 mg Ceftriaxone Sodium 1 gm/ (Dextrose) 50 mls @ 100 mls/hr IVPB DAILY [facility]; Protocol Last Admin: 02/02/19 09:33 Dose: 100 mls/hr Sodium Chloride (Normal Saline -) 1,000 mls @ 100 mls/hr IV ASDIR [facility] Last Admin: 02/02/19 11:37 Dose: 100 mls/hr Lidocaine (Lidoderm Patch -) 1 patch TP DAILY [facility] Last Admin: 02/02/19 09:35 Dose: 1 patch Metoprolol Tartrate (Lopressor -) 12.5 mg PO BID [facility] Last Admin: 02/02/19 09:33 Dose: 12.5 mg Miscellaneous (Lidoderm Patch Removal) 1 each MC DAILY@2200 [facility] Last Admin: 02/01/19 22:20 Dose: 1 each Oxycodone HCl (Roxicodone -) 5 mg PO Q6H PRN PRN Reason: PAIN LEVEL 4 - 6 Last Admin: 02/02/19 11:37 Dose: 5 mg Polyethylene Glycol (Miralax (For Daily Use) -) 17 gm PO DAILY [facility] Last Admin: 02/02/19 09:45 Dose: 17 gm Potassium Chloride (K-Dur -) 40 meq PO DAILY [facility] Last Admin: 02/02/19 09:35 Dose: 40 meq Senna (Senna -) 1 tab PO DAILY [facility] Last Admin: 02/02/19 09:35 Dose: 1 tab Simethicone (Mylicon -) 80 mg PO DAILY [facility] Last Admin: 02/02/19 09:33 Dose: 80 mg - Objective Vital Signs: Vital Signs Temperature 98 F 02/02/19 09:15 Pulse Rate 80 02/02/19 09:15 Respiratory Rate 20 02/02/19 09:15 Blood Pressure 147/80 02/02/19 09:15 O2 Sat by Pulse Oximetry (%) 96 02/02/19 10:00 Constitutional: Yes: Calm Eyes: Yes: Conjunctiva Clear HENT: Yes: Atraumatic Neck: Yes: Supple Cardiovascular: Yes: S1, S2 Respiratory: Yes: CTA Bilaterally Gastrointestinal: Yes: Normal Bowel Sounds, Soft Genitourinary: Yes: Shea Present Musculoskeletal: Yes: WNL Edema: No Neurological: Yes: Oriented Psychiatric: Yes: Oriented Labs: CBC, BMP 02/01/19 06:23 02/01/19 06:23 INR, PTT INR 1.17 (0.83-1.09) H 01/23/19 05:30 Problem List - Problems (1) JONATHAN (acute kidney injury) Code(s): N17.9 - ACUTE KIDNEY FAILURE, UNSPECIFIED (2) Paroxysmal atrial flutter Code(s): I48.92 - UNSPECIFIED ATRIAL FLUTTER (3) Sepsis Code(s): A41.9 - SEPSIS, UNSPECIFIED ORGANISM Qualifiers: Sepsis type: Escherichia coli Qualified Code(s): A41.51 - Sepsis due to Escherichia coli [E. coli] (4) UTI (urinary tract infection) Code(s): N39.0 - URINARY TRACT INFECTION, SITE NOT SPECIFIED Qualifiers: Urinary tract infection type: site unspecified Hematuria presence: without hematuria Qualified Code(s): N39.0 - Urinary tract infection, site not specified (5) Back pain Code(s): M54.9 - DORSALGIA, UNSPECIFIED Qualifiers: Back pain location: low back pain Chronicity: acute Back pain laterality : unspecified Sciatica presence: without sciatica Qualified Code(s): M54.5 - Low back pain Assessment/Plan Current Medications Generic Name Dose Route Start Last Admin Trade Name Freq PRN Reason Stop Dose Admin Acetaminophen 650 mg 01/28/19 20:47 02/02/19 11:36 Tylenol - PO 650 mg Q6H PRN Administration FEVER Apixaban 2.5 mg 01/28/19 22:00 02/02/19 09:33 Eliquis - PO 2.5 mg BID [facility] Administration Chlorhexidine Gluconate 1 applic 01/28/19 22:00 02/01/19 22:20 Hibiclens For Decolonization - TP Not Given HS [facility]IGN[facility] Gabapentin 200 mg 01/28/19 13:45 02/02/19 09:33 Neurontin - PO 200 mg BID [facility] Administration Ceftriaxone Sodium 1 gm/ 50 mls @ 100 mls/hr 01/30/19 14:30 02/02/19 09:33 Dextrose IVPB 100 mls/hr DAILY [facility] Administration Protocol Sodium Chloride 1,000 mls @ 100 mls/hr 01/31/19 08:37 02/02/19 11:37 Normal Saline - IV 100 mls/hr ASDIR [facility] Administration Lidocaine 1 patch 01/28/19 17:45 02/02/19 09:35 Lidoderm Patch - TP 1 patch DAILY [facility] Administration Metoprolol Tartrate 12.5 mg 01/28/19 22:00 02/02/19 09:33 Lopressor - PO 12.5 mg BID [facility] Administration Miscellaneous 1 each 01/28/19 22:00 02/01/19 22:20 Lidoderm Patch Removal MC 1 each DAILY@2200 [facility] Administration Oxycodone HCl 5 mg 01/31/19 17:16 02/02/19 11:37 Roxicodone - PO 5 mg Q6H PRN Administration PAIN LEVEL 4 - 6 Polyethylene Glycol 17 gm 01/28/19 10:00 02/02/19 09:45 Miralax (For Daily Use) - PO 17 gm DAILY [facility] Administration Potassium Chloride 40 meq 01/28/19 10:00 02/02/19 09:35 K-Dur - PO 40 meq DAILY [facility] Administration Senna 1 tab 01/28/19 10:00 02/02/19 09:35 Senna - PO 1 tab DAILY [facility] Administration Simethicone 80 mg 01/28/19 10:00 02/02/19 09:33 Mylicon - PO 80 mg DAILY [facility] Administration Laboratory Tests 12/09/18 12/10/18 01/22/19 06:00 06:08 20:09 WBC Sodium Potassium Chloride Carbon Dioxide Anion Gap BUN Creatinine 0.5 L 0.5 L 2.5 H Ur Specific [place] Urine Blood Ur Leukocyte Esterase Urine WBC (Auto) Urine RBC (Auto) Urine Eosinophils CELESTINA M-Mitch URIEL Screen c-ANCA Proteinase 3 (PR3) p-ANCA Atypical p-ANCA Myeloperoxidase Ab Double Strand DNA Ab Glomerular Base Memb Ab Hepatitis A Ab Total Hep Bs Antigen Hep Bs Antibody Hep B Core Total Ab HCV Quantitation 01/23/19 01/24/19 01/26/19 05:30 05:30 05:30 WBC Sodium Potassium Chloride Carbon Dioxide Anion Gap BUN Creatinine 2.4 H 2.2 H 1.9 H Ur Specific [place] Urine Blood Ur Leukocyte Esterase Urine WBC (Auto) Urine RBC (Auto) Urine Eosinophils CELESTINA M-Mitch URIEL Screen c-ANCA Proteinase 3 (PR3) p-ANCA Atypical p-ANCA Myeloperoxidase Ab Double Strand DNA Ab Glomerular Base Memb Ab Hepatitis A Ab Total Hep Bs Antigen Hep Bs Antibody Hep B Core Total Ab HCV Quantitation 01/28/19 01/28/19 01/29/19 05:30 21:00 05:30 WBC Sodium Potassium Chloride Carbon Dioxide Anion Gap BUN Creatinine 1.6 H 1.9 H 2.6 H Ur Specific [place] Urine Blood Ur Leukocyte Esterase Urine WBC (Auto) Urine RBC (Auto) Urine Eosinophils CELESTINA M-Mitch URIEL Screen c-ANCA Proteinase 3 (PR3) p-ANCA Atypical p-ANCA Myeloperoxidase Ab Double Strand DNA Ab Glomerular Base Memb Ab Hepatitis A Ab Total Hep Bs Antigen Hep Bs Antibody Hep B Core Total Ab HCV Quantitation 01/29/19 01/30/19 01/30/19 11:05 06:19 06:19 WBC 18.0 H 18.9 H Sodium 135 L Potassium 3.9 Chloride 104 Carbon Dioxide 21 Anion Gap 10 BUN 29 H Creatinine 3.2 H Ur Specific [place] Urine Blood Ur Leukocyte Esterase Urine WBC (Auto) Urine RBC (Auto) Urine Eosinophils CELESTINA M-Mitch URIEL Screen c-ANCA Proteinase 3 (PR3) p-ANCA Atypical p-ANCA Myeloperoxidase Ab Double Strand DNA Ab Glomerular Base Memb Ab Hepatitis A Ab Total Hep Bs Antigen Hep Bs Antibody Hep B Core Total Ab HCV Quantitation 01/30/19 01/31/19 01/31/19 11:30 06:38 06:38 WBC Sodium Potassium Chloride Carbon Dioxide Anion Gap BUN Creatinine Ur Specific [place] 1.005 L Urine Blood 2+ H Ur Leukocyte Esterase 3+ H Urine WBC (Auto) 800 Urine RBC (Auto) 7 Urine Eosinophils CELESTINA M-Mitch Pending URIEL Screen Pending c-ANCA Pending Proteinase 3 (PR3) Pending p-ANCA Pending Atypical p-ANCA Pending Myeloperoxidase Ab Pending Double Strand DNA Ab Pending Glomerular Base Memb Ab Pending Hepatitis A Ab Total Hep Bs Antigen Hep Bs Antibody Hep B Core Total Ab HCV Quantitation 01/31/19 01/31/19 06:38 10:00 WBC Sodium Potassium Chloride Carbon Dioxide Anion Gap BUN Creatinine Ur Specific [place] Urine Blood Ur Leukocyte Esterase Urine WBC (Auto) Urine RBC (Auto) Urine Eosinophils Pending CELESTINA M-Mitch URIEL Screen c-ANCA Proteinase 3 (PR3) p-ANCA Atypical p-ANCA Myeloperoxidase Ab Double Strand DNA Ab Glomerular Base Memb Ab Hepatitis A Ab Total Negative Hep Bs Antigen Negative Hep Bs Antibody Non reactive Hep B Core Total Ab Negative HCV Quantitation Pending Impression 1. JONATHAN 2. UTI 3. sepsis 4. a-fib 5. cva Plan - renal function is starting to improve - follow urine eos - cont fluids - follow serologic workup - renal dose meds
--- NOTE | 2019-02-02 12:39 | PN ---
Progress Note (short form) - Note Progress Note: Overall improving. Denies shortness of breath or chest pain. No acute events overnight. Intake & Output 01/30/19 01/31/19 02/01/19 02/02/19 23:59 23:59 23:59 23:59 Intake Total 1415 3030 2820 1060 Output Total 1250 3900 2900 Balance 165 -870 -80 1060 Last Vital Signs Temp Pulse Resp BP Pulse Ox 98 F 80 20 147/80 96 02/02/19 09:15 02/02/19 09:15 02/02/19 09:15 02/02/19 09:15 02/02/19 10:00 Active Medications Acetaminophen (Tylenol -) 650 mg PO Q6H PRN PRN Reason: FEVER Last Admin: 02/02/19 11:36 Dose: 650 mg Apixaban (Eliquis -) 2.5 mg PO BID [facility] Last Admin: 02/02/19 09:33 Dose: 2.5 mg Chlorhexidine Gluconate (Hibiclens For Decolonization -) 1 applic TP HS [facility] Last Admin: 02/01/19 22:20 Dose: Not Given Gabapentin (Neurontin -) 200 mg PO BID [facility] Last Admin: 02/02/19 09:33 Dose: 200 mg Ceftriaxone Sodium 1 gm/ (Dextrose) 50 mls @ 100 mls/hr IVPB DAILY [facility]; Protocol Last Admin: 02/02/19 09:33 Dose: 100 mls/hr Sodium Chloride (Normal Saline -) 1,000 mls @ 100 mls/hr IV ASDIR [facility] Last Admin: 02/02/19 11:37 Dose: 100 mls/hr Lidocaine (Lidoderm Patch -) 1 patch TP DAILY [facility] Last Admin: 02/02/19 09:35 Dose: 1 patch Metoprolol Tartrate (Lopressor -) 12.5 mg PO BID [facility] Last Admin: 02/02/19 09:33 Dose: 12.5 mg Miscellaneous (Lidoderm Patch Removal) 1 each MC DAILY@2200 [facility] Last Admin: 02/01/19 22:20 Dose: 1 each Oxycodone HCl (Roxicodone -) 5 mg PO Q6H PRN PRN Reason: PAIN LEVEL 4 - 6 Last Admin: 02/02/19 11:37 Dose: 5 mg Polyethylene Glycol (Miralax (For Daily Use) -) 17 gm PO DAILY [facility] Last Admin: 02/02/19 09:45 Dose: 17 gm Potassium Chloride (K-Dur -) 40 meq PO DAILY [facility] Last Admin: 02/02/19 09:35 Dose: 40 meq Senna (Senna -) 1 tab PO DAILY [facility] Last Admin: 02/02/19 09:35 Dose: 1 tab Simethicone (Mylicon -) 80 mg PO DAILY [facility] Last Admin: 02/02/19 09:33 Dose: 80 mg Gen: NAD at rest Heart: RRR Lung: decreased breath sounds at the bases Abd: soft, nontender Ext: no edema Laboratory Results - last 24 hr 01/31/19 01/31/19 06:38 06:38 Double Strand DNA Ab 1 Hepatitis A Ab Total Negative Hep Bs Antigen Negative Hep Bs Antibody Non reactive Hep B Core Total Ab Negative A/P UTI Severe Sepsis resolving Acute Kidney Injury Paroxysmal Atrial Fibrillation Anxiety - ABX per ID - monitor urine output, creatinine - O2 to keep SpO2 >90% - pain control - rate/rhythm control - continue anticoagulation Dr Souza
--- NOTE | 2019-02-02 18:48 | PN ---
Progress Note, Physician History of Present Illness: stable - Current Medication List Current Medications: Active Medications Acetaminophen (Tylenol -) 650 mg PO Q6H PRN PRN Reason: FEVER Last Admin: 02/02/19 11:36 Dose: 650 mg Apixaban (Eliquis -) 2.5 mg PO BID [facility] Last Admin: 02/02/19 09:33 Dose: 2.5 mg Chlorhexidine Gluconate (Hibiclens For Decolonization -) 1 applic TP HS [facility] Last Admin: 02/01/19 22:20 Dose: Not Given Gabapentin (Neurontin -) 200 mg PO BID [facility] Last Admin: 02/02/19 09:33 Dose: 200 mg Ceftriaxone Sodium 1 gm/ (Dextrose) 50 mls @ 100 mls/hr IVPB DAILY [facility]; Protocol Last Admin: 02/02/19 09:33 Dose: 100 mls/hr Sodium Chloride (Normal Saline -) 1,000 mls @ 100 mls/hr IV ASDIR [facility] Last Admin: 02/02/19 11:37 Dose: 100 mls/hr Lidocaine (Lidoderm Patch -) 1 patch TP DAILY [facility] Last Admin: 02/02/19 09:35 Dose: 1 patch Metoprolol Tartrate (Lopressor -) 12.5 mg PO BID [facility] Last Admin: 02/02/19 09:33 Dose: 12.5 mg Miscellaneous (Lidoderm Patch Removal) 1 each MC DAILY@2200 [facility] Last Admin: 02/01/19 22:20 Dose: 1 each Oxycodone HCl (Roxicodone -) 5 mg PO Q6H PRN PRN Reason: PAIN LEVEL 4 - 6 Last Admin: 02/02/19 11:37 Dose: 5 mg Polyethylene Glycol (Miralax (For Daily Use) -) 17 gm PO DAILY [facility] Last Admin: 02/02/19 09:45 Dose: 17 gm Potassium Chloride (K-Dur -) 40 meq PO DAILY [facility] Last Admin: 02/02/19 09:35 Dose: 40 meq Senna (Senna -) 1 tab PO DAILY [facility] Last Admin: 02/02/19 09:35 Dose: 1 tab Simethicone (Mylicon -) 80 mg PO DAILY [facility] Last Admin: 02/02/19 09:33 Dose: 80 mg - Objective Vital Signs: Vital Signs Temperature 98 F 02/02/19 17:00 Pulse Rate 88 02/02/19 17:00 Respiratory Rate 20 02/02/19 17:00 Blood Pressure 110/70 02/02/19 17:00 O2 Sat by Pulse Oximetry (%) 96 02/02/19 10:00 Constitutional: Yes: No Distress HENT: Yes: Atraumatic Neck: Yes: Supple Cardiovascular: Yes: Regular Rate and Rhythm Respiratory: Yes: Rhonchi Gastrointestinal: Yes: Normal Bowel Sounds Extremities: Yes: WNL Edema: No Peripheral Pulses WNL: Yes Neurological: Yes: Alert Labs: CBC, BMP 02/01/19 06:23 02/01/19 06:23 INR, PTT INR 1.17 (0.83-1.09) H 01/23/19 05:30 Problem List - Problems (1) Fall Assessment/Plan: pt eval Code(s): W19.XXXA - UNSPECIFIED FALL, INITIAL ENCOUNTER Qualifiers: Encounter type: subsequent encounter Qualified Code(s): W19.XXXD - Unspecified fall, subsequent encounter (2) UTI (urinary tract infection) Assessment/Plan: on iv abx cxs noted id on board Code(s): N39.0 - URINARY TRACT INFECTION, SITE NOT SPECIFIED Qualifiers: Urinary tract infection type: site unspecified Hematuria presence: without hematuria Qualified Code(s): N39.0 - Urinary tract infection, site not specified (3) Sepsis Assessment/Plan: on iv abx iv hydration Code(s): A41.9 - SEPSIS, UNSPECIFIED ORGANISM Qualifiers: Sepsis type: Escherichia coli Qualified Code(s): A41.51 - Sepsis due to Escherichia coli [E. coli] (4) Back pain Assessment/Plan: prn pain meds Code(s): M54.9 - DORSALGIA, UNSPECIFIED Qualifiers: Back pain location: low back pain Chronicity: acute Back pain laterality : unspecified Sciatica presence: without sciatica Qualified Code(s): M54.5 - Low back pain (5) [id number] kidney injury Assessment/Plan: iv hydration renal consult Code(s): N17.9 - ACUTE KIDNEY FAILURE, UNSPECIFIED; N18.9 - CHRONIC KIDNEY DISEASE, UNSPECIFIED
[2019-02-02] MEDS: CHLORHEXIDINE GLUCONATE 4% CLEANSER FOR DECOLONIZATION TP SCH (21:29)
[2019-02-02] MEDS: LIDOCAINE PATCH REMOVAL MC SCH (22:20)
[2019-02-03 07:42] LABS: CALCIUM 8.8 mg/dL (8.5-10.1); CREATININE 2.8 mg/dL (0.55-1.3); POTASSIUM 3.7 mmol/L (3.5-5.1)
[2019-02-03] MEDS ORDERED: cefTRIAXone SODIUM 1 GM VIAL ONE (09:35)
[2019-02-03] MEDS ORDERED: DEXTROSE 5%-WATER - 50 ML IVPB ONE (09:35)
[2019-02-03 10:09] LABS: ANTIGLOMERULAR BASEMENT MEN.AB 3 units (0-20)
[2019-02-03] MEDS: POTASSIUM CHLORIDE TABS 20 MEQ TABLET.ER (FP) PO SCH (10:25)
[2019-02-03] MEDS: METOPROLOL TARTRATE 25 MG TABLET (FP) PO SCH ×2 (10:25→21:01)
[2019-02-03] MEDS: APIXABAN 2.5 MG TABLET PO SCH ×2 (10:26→21:00)
[2019-02-03] MEDS: SIMETHICONE 80 MG TAB.CHEW (FP) PO SCH (10:26)
[2019-02-03] MEDS: POLYETHYLENE GLYCOL 3350 119 GM BTL PO SCH (10:26)
[2019-02-03] MEDS: GABAPENTIN 100 MG CAPSULE (FP) PO SCH ×2 (10:26→21:02)
[2019-02-03] MEDS: SENNOSIDES 8.6MG TABLET (FP) PO SCH (10:26)
[2019-02-03] MEDS: CEFTRIAXONE 1 GM in DEXTROSE 5%-WATER - 50 ML IVPB SCH (10:27)
[2019-02-03] MEDS: SODIUM CHLORIDE 1,000 ML IV SCH (10:27)
[2019-02-03] MEDS: LIDOCAINE 5% TOPICAL PATCH TP SCH (10:47)
--- NOTE | 2019-02-03 10:51 | PN ---
Progress Note, Physician History of Present Illness: PULMONARY AWAKE, COMFORTABLE,-RESP DISTRESS - Current Medication List Current Medications: Active Medications Acetaminophen (Tylenol -) 650 mg PO Q6H PRN PRN Reason: FEVER Last Admin: 02/02/19 21:54 Dose: 650 mg Apixaban (Eliquis -) 2.5 mg PO BID [facility] Last Admin: 02/03/19 10:26 Dose: 2.5 mg Chlorhexidine Gluconate (Hibiclens For Decolonization -) 1 applic TP HS [facility] Last Admin: 02/02/19 21:29 Dose: Not Given Gabapentin (Neurontin -) 200 mg PO BID [facility] Last Admin: 02/03/19 10:26 Dose: 200 mg Ceftriaxone Sodium 1 gm/ (Dextrose) 50 mls @ 100 mls/hr IVPB DAILY [facility]; Protocol Last Admin: 02/03/19 10:27 Dose: 100 mls/hr Sodium Chloride (Normal Saline -) 1,000 mls @ 100 mls/hr IV ASDIR [facility] Last Admin: 02/03/19 10:27 Dose: 100 mls/hr Lidocaine (Lidoderm Patch -) 1 patch TP DAILY [facility] Last Admin: 02/03/19 10:47 Dose: 1 patch Metoprolol Tartrate (Lopressor -) 12.5 mg PO BID [facility] Last Admin: 02/03/19 10:25 Dose: 12.5 mg Miscellaneous (Lidoderm Patch Removal) 1 each MC DAILY@2200 [facility] Last Admin: 02/02/19 22:20 Dose: 1 each Oxycodone HCl (Roxicodone -) 5 mg PO Q6H PRN PRN Reason: PAIN LEVEL 4 - 6 Last Admin: 02/02/19 21:55 Dose: 5 mg Polyethylene Glycol (Miralax (For Daily Use) -) 17 gm PO DAILY [facility] Last Admin: 02/03/19 10:26 Dose: 17 gm Potassium Chloride (K-Dur -) 40 meq PO DAILY [facility] Last Admin: 02/03/19 10:25 Dose: 40 meq Senna (Senna -) 1 tab PO DAILY [facility] Last Admin: 02/03/19 10:26 Dose: 1 tab Simethicone (Mylicon -) 80 mg PO DAILY [facility] Last Admin: 02/03/19 10:26 Dose: 80 mg - Objective Vital Signs: Vital Signs Temperature 98 F 02/03/19 10:00 Pulse Rate 82 02/03/19 10:00 Respiratory Rate 18 02/03/19 10:00 Blood Pressure 128/80 02/03/19 10:00 O2 Sat by Pulse Oximetry (%) 97 02/02/19 22:00 Constitutional: Yes: Well Nourished, Calm Eyes: Yes: WNL HENT: Yes: WNL Neck: Yes: WNL Cardiovascular: Yes: Pulse Irregular, S1, S2 Respiratory: Yes: Rales (BIBASILAR RALES) Gastrointestinal: Yes: Normal Bowel Sounds, Soft Extremities: Yes: WNL Edema: No Labs: CBC, BMP 02/01/19 06:23 02/03/19 05:30 INR, PTT INR 1.17 (0.83-1.09) H 01/23/19 05:30 Problem List - Problems (1) [id number] kidney injury Code(s): N17.9 - ACUTE KIDNEY FAILURE, UNSPECIFIED; N18.9 - CHRONIC KIDNEY DISEASE, UNSPECIFIED (2) Paroxysmal atrial flutter Code(s): I48.92 - UNSPECIFIED ATRIAL FLUTTER (3) Sepsis Code(s): A41.9 - SEPSIS, UNSPECIFIED ORGANISM Qualifiers: Sepsis type: Escherichia coli Qualified Code(s): A41.51 - Sepsis due to Escherichia coli [E. coli] (4) UTI (urinary tract infection) Code(s): N39.0 - URINARY TRACT INFECTION, SITE NOT SPECIFIED Qualifiers: Urinary tract infection type: site unspecified Hematuria presence: without hematuria Qualified Code(s): N39.0 - Urinary tract infection, site not specified Assessment/Plan A/P UTI Severe Sepsis resolved Acute Kidney Injury Paroxysmal Atrial Fibrillation Anxiety - antibiotics per ID - IVF - monitor urine output, creatinine - O2 to keep SpO2 >90% - rate/rhythm control - anticoagulation DR BEYER
--- NOTE | 2019-02-03 11:35 | PN ---
Progress Note, Physician Chief Complaint: Events noted No in distress History of Present Illness: Patient was seen and examined. awake Chart was reviewed Denies chest pain or palpitations - Current Medication List Current Medications: Active Medications Acetaminophen (Tylenol -) 650 mg PO Q6H PRN PRN Reason: FEVER Last Admin: 02/02/19 21:54 Dose: 650 mg Apixaban (Eliquis -) 2.5 mg PO BID [facility] Last Admin: 02/03/19 10:26 Dose: 2.5 mg Chlorhexidine Gluconate (Hibiclens For Decolonization -) 1 applic TP HS [facility] Last Admin: 02/02/19 21:29 Dose: Not Given Gabapentin (Neurontin -) 200 mg PO BID [facility] Last Admin: 02/03/19 10:26 Dose: 200 mg Ceftriaxone Sodium 1 gm/ (Dextrose) 50 mls @ 100 mls/hr IVPB DAILY [facility]; Protocol Last Admin: 02/03/19 10:27 Dose: 100 mls/hr Sodium Chloride (Normal Saline -) 1,000 mls @ 100 mls/hr IV ASDIR [facility] Last Admin: 02/03/19 10:27 Dose: 100 mls/hr Lidocaine (Lidoderm Patch -) 1 patch TP DAILY [facility] Last Admin: 02/03/19 10:47 Dose: 1 patch Metoprolol Tartrate (Lopressor -) 12.5 mg PO BID [facility] Last Admin: 02/03/19 10:25 Dose: 12.5 mg Miscellaneous (Lidoderm Patch Removal) 1 each MC DAILY@2200 [facility] Last Admin: 02/02/19 22:20 Dose: 1 each Oxycodone HCl (Roxicodone -) 5 mg PO Q6H PRN PRN Reason: PAIN LEVEL 4 - 6 Last Admin: 02/02/19 21:55 Dose: 5 mg Polyethylene Glycol (Miralax (For Daily Use) -) 17 gm PO DAILY [facility] Last Admin: 02/03/19 10:26 Dose: 17 gm Potassium Chloride (K-Dur -) 40 meq PO DAILY [facility] Last Admin: 02/03/19 10:25 Dose: 40 meq Senna (Senna -) 1 tab PO DAILY [facility] Last Admin: 02/03/19 10:26 Dose: 1 tab Simethicone (Mylicon -) 80 mg PO DAILY [facility] Last Admin: 02/03/19 10:26 Dose: 80 mg - Objective Vital Signs: Vital Signs Temperature 98 F 02/03/19 10:00 Pulse Rate 82 02/03/19 10:00 Respiratory Rate 18 02/03/19 10:00 Blood Pressure 128/80 02/03/19 10:00 O2 Sat by Pulse Oximetry (%) 97 02/02/19 22:00 Eyes: Yes: PERRL HENT: Yes: Atraumatic Neck: Yes: Supple Cardiovascular: Yes: Regular Rate and Rhythm, S1, S2 Respiratory: Yes: Diminished Gastrointestinal: Yes: Normal Bowel Sounds, Soft. No: Tenderness Edema: No Additional Findings/Remarks: - Review of Systems Constitutional: denies: Chills, Fever Cardiovascular: denies: Chest Pain. denies: Palpitations, Shortness of Breath Respiratory: denies: Cough, Hemoptysis, Orthopnea, PND, SOB, SOB on Exertion Gastrointestinal: denies: Diarrhea, Nausea. denies: Abdominal Pain, Constipation, Melena, Rectal Bleeding, Vomiting Genitourinary: denies: Dysuria, Hematuria Musculoskeletal: denies: Back Pain, Joint Pain Neurological: denies: Dizziness, Headache, Seizure, Syncope Labs: CBC, BMP 02/01/19 06:23 02/03/19 05:30 Problem List - Problems (1) History of multiple strokes Code(s): Z86.73 - PRSNL HX OF TIA (TIA), AND CEREB INFRC W/O RESID DEFICITS (2) Paroxysmal atrial flutter Code(s): I48.92 - UNSPECIFIED ATRIAL FLUTTER (3) Sepsis Code(s): A41.9 - SEPSIS, UNSPECIFIED ORGANISM Qualifiers: Sepsis type: Escherichia coli Qualified Code(s): A41.51 - Sepsis due to Escherichia coli [E. coli] (4) UTI (urinary tract infection) Code(s): N39.0 - URINARY TRACT INFECTION, SITE NOT SPECIFIED Qualifiers: Urinary tract infection type: site unspecified Hematuria presence: without hematuria Qualified Code(s): N39.0 - Urinary tract infection, site not specified Assessment/Plan 1. Paroxysmal atrial fibrillation/flutter now in sinus rhythm 2. Resolving Sepsis source 3. Acute on chronic kidney injury, possible obstructive uropathy 4. Bladder distension 5. History of stroke PLAN: 1. Continue Eliquis 2.5 mg BID given elevated risk score and Lopressor 12.5 mg BID as hemodynamics tolerate 2. Antibiotic coverage 3. Judicious IVF and monitor renal function Further plans are to follow Adarsh Degroot MD
--- NOTE | 2019-02-03 12:27 | PN ---
Progress Note, Physician - Current Medication List Current Medications: Active Medications Acetaminophen (Tylenol -) 650 mg PO Q6H PRN PRN Reason: FEVER Last Admin: 02/02/19 21:54 Dose: 650 mg Apixaban (Eliquis -) 2.5 mg PO BID [facility] Last Admin: 02/03/19 10:26 Dose: 2.5 mg Chlorhexidine Gluconate (Hibiclens For Decolonization -) 1 applic TP HS [facility] Last Admin: 02/02/19 21:29 Dose: Not Given Gabapentin (Neurontin -) 200 mg PO BID [facility] Last Admin: 02/03/19 10:26 Dose: 200 mg Ceftriaxone Sodium 1 gm/ (Dextrose) 50 mls @ 100 mls/hr IVPB DAILY [facility]; Protocol Last Admin: 02/03/19 10:27 Dose: 100 mls/hr Sodium Chloride (Normal Saline -) 1,000 mls @ 100 mls/hr IV ASDIR [facility] Last Admin: 02/03/19 10:27 Dose: 100 mls/hr Lidocaine (Lidoderm Patch -) 1 patch TP DAILY [facility] Last Admin: 02/03/19 10:47 Dose: 1 patch Metoprolol Tartrate (Lopressor -) 12.5 mg PO BID [facility] Last Admin: 02/03/19 10:25 Dose: 12.5 mg Miscellaneous (Lidoderm Patch Removal) 1 each MC DAILY@2200 [facility] Last Admin: 02/02/19 22:20 Dose: 1 each Oxycodone HCl (Roxicodone -) 5 mg PO Q6H PRN PRN Reason: PAIN LEVEL 4 - 6 Last Admin: 02/02/19 21:55 Dose: 5 mg Polyethylene Glycol (Miralax (For Daily Use) -) 17 gm PO DAILY [facility] Last Admin: 02/03/19 10:26 Dose: 17 gm Potassium Chloride (K-Dur -) 40 meq PO DAILY [facility] Last Admin: 02/03/19 10:25 Dose: 40 meq Senna (Senna -) 1 tab PO DAILY [facility] Last Admin: 02/03/19 10:26 Dose: 1 tab Simethicone (Mylicon -) 80 mg PO DAILY [facility] Last Admin: 02/03/19 10:26 Dose: 80 mg - Objective Vital Signs: Vital Signs Temperature 98 F 02/03/19 10:00 Pulse Rate 82 02/03/19 10:00 Respiratory Rate 18 05/14/19 10:00 Blood Pressure 128/80 02/03/19 10:00 O2 Sat by Pulse Oximetry (%) 97 02/02/19 22:00 Labs: CBC, BMP 02/01/19 06:23 02/03/19 05:30 INR, PTT INR 1.17 (0.83-1.09) H 01/23/19 05:30
--- NOTE | 2019-02-03 12:46 | PN ---
Progress Note, Physician History of Present Illness: Pt seen and examined at bedside. Her PO intake remains poor. She denies shortness of breath. - Current Medication List Current Medications: Active Medications Acetaminophen (Tylenol -) 650 mg PO Q6H PRN PRN Reason: FEVER Last Admin: 02/02/19 21:54 Dose: 650 mg Apixaban (Eliquis -) 2.5 mg PO BID [facility] Last Admin: 02/03/19 10:26 Dose: 2.5 mg Chlorhexidine Gluconate (Hibiclens For Decolonization -) 1 applic TP HS [facility] Last Admin: 02/02/19 21:29 Dose: Not Given Gabapentin (Neurontin -) 200 mg PO BID [facility] Last Admin: 02/03/19 10:26 Dose: 200 mg Ceftriaxone Sodium 1 gm/ (Dextrose) 50 mls @ 100 mls/hr IVPB DAILY [facility]; Protocol Last Admin: 02/03/19 10:27 Dose: 100 mls/hr Sodium Chloride (Normal Saline -) 1,000 mls @ 100 mls/hr IV ASDIR [facility] Last Admin: 02/03/19 10:27 Dose: 100 mls/hr Lidocaine (Lidoderm Patch -) 1 patch TP DAILY [facility] Last Admin: 02/03/19 10:47 Dose: 1 patch Metoprolol Tartrate (Lopressor -) 12.5 mg PO BID [facility] Last Admin: 02/03/19 10:25 Dose: 12.5 mg Miscellaneous (Lidoderm Patch Removal) 1 each MC DAILY@2200 [facility] Last Admin: 02/02/19 22:20 Dose: 1 each Oxycodone HCl (Roxicodone -) 5 mg PO Q6H PRN PRN Reason: PAIN LEVEL 4 - 6 Last Admin: 02/02/19 21:55 Dose: 5 mg Polyethylene Glycol (Miralax (For Daily Use) -) 17 gm PO DAILY [facility] Last Admin: 02/03/19 10:26 Dose: 17 gm Potassium Chloride (K-Dur -) 40 meq PO DAILY [facility] Last Admin: 02/03/19 10:25 Dose: 40 meq Senna (Senna -) 1 tab PO DAILY [facility] Last Admin: 02/03/19 10:26 Dose: 1 tab Simethicone (Mylicon -) 80 mg PO DAILY [facility] Last Admin: 02/03/19 10:26 Dose: 80 mg - Objective Vital Signs: Vital Signs Temperature 98 F 02/03/19 10:00 Pulse Rate 82 02/03/19 10:00 Respiratory Rate 18 02/03/19 10:00 Blood Pressure 128/80 02/03/19 10:00 O2 Sat by Pulse Oximetry (%) 97 02/02/19 22:00 Constitutional: Yes: Calm Eyes: Yes: Conjunctiva Clear HENT: Yes: Atraumatic Neck: Yes: Supple Cardiovascular: Yes: S1, S2 Respiratory: Yes: CTA Bilaterally Gastrointestinal: Yes: Normal Bowel Sounds, Soft Genitourinary: Yes: Shea Present Musculoskeletal: Yes: Muscle Weakness Edema: No Neurological: Yes: Oriented Psychiatric: Yes: Oriented Labs: CBC, BMP 02/01/19 06:23 02/03/19 05:30 INR, PTT INR 1.17 (0.83-1.09) H 01/23/19 05:30 Problem List - Problems (1) JONATHAN (acute kidney injury) Code(s): N17.9 - ACUTE KIDNEY FAILURE, UNSPECIFIED (2) Paroxysmal atrial flutter Code(s): I48.92 - UNSPECIFIED ATRIAL FLUTTER (3) Sepsis Code(s): A41.9 - SEPSIS, UNSPECIFIED ORGANISM Qualifiers: Sepsis type: Escherichia coli Qualified Code(s): A41.51 - Sepsis due to Escherichia coli [E. coli] (4) UTI (urinary tract infection) Code(s): N39.0 - URINARY TRACT INFECTION, SITE NOT SPECIFIED Qualifiers: Urinary tract infection type: site unspecified Hematuria presence: without hematuria Qualified Code(s): N39.0 - Urinary tract infection, site not specified (5) Back pain Code(s): M54.9 - DORSALGIA, UNSPECIFIED Qualifiers: Back pain location: low back pain Chronicity: acute Back pain laterality : unspecified Sciatica presence: without sciatica Qualified Code(s): M54.5 - Low back pain Assessment/Plan Current Medications Generic Name Dose Route Start Last Admin Trade Name Freq PRN Reason Stop Dose Admin Acetaminophen 650 mg 01/28/19 20:47 02/02/19 21:54 Tylenol - PO 650 mg Q6H PRN Administration FEVER Apixaban 2.5 mg 01/28/19 22:00 02/03/19 10:26 Eliquis - PO 2.5 mg BID [facility] Administration Chlorhexidine Gluconate 1 applic 01/28/19 22:00 02/02/19 21:29 Hibiclens For Decolonization - TP Not Given HS [facility] Gabapentin 200 mg 01/28/19 13:45 02/03/19 10:26 Neurontin - PO 200 mg BID [facility] Administration Ceftriaxone Sodium 1 gm/ 50 mls @ 100 mls/hr 01/30/19 14:30 02/03/19 10:27 Dextrose IVPB 100 mls/hr DAILY [facility] Administration Protocol Sodium Chloride 1,000 mls @ 100 mls/hr 01/31/19 08:37 02/03/19 10:27 Normal Saline - IV 100 mls/hr ASDIR [facility] Administration Lidocaine 1 patch 01/28/19 17:45 02/03/19 10:47 Lidoderm Patch - TP 1 patch DAILY [facility] Administration Metoprolol Tartrate 12.5 mg 01/28/19 22:00 02/03/19 10:25 Lopressor - PO 12.5 mg BID [facility] Administration Miscellaneous 1 each 01/28/19 22:00 02/02/19 22:20 Lidoderm Patch Removal MC 1 each DAILY@2200 [facility] Administration Oxycodone HCl 5 mg 01/31/19 17:16 02/02/19 21:55 Roxicodone - PO 5 mg Q6H PRN Administration PAIN LEVEL 4 - 6 Polyethylene Glycol 17 gm 01/28/19 10:00 02/03/19 10:26 Miralax (For Daily Use) - PO 17 gm DAILY [facility] Administration Potassium Chloride 40 meq 01/28/19 10:00 02/03/19 10:25 K-Dur - PO 40 meq DAILY [facility] Administration Senna 1 tab 01/28/19 10:00 02/03/19 10:26 Senna - PO 1 tab DAILY [facility] Administration Simethicone 80 mg 01/28/19 10:00 02/03/19 10:26 Mylicon - PO 80 mg DAILY [facility] Administration Laboratory Tests 01/31/19 01/31/19 06:38 06:38 CELESTINA M-Mitch Pending URIEL Screen Negative Atypical p-ANCA Pending Glomerular Base Memb Ab 3 Impression 1. JONATHAN 2. UTI 3. sepsis 4. a-fib 5. cva Plan - renal function is improving - repeat labs in am - encourage PO intake - can give nepro - follow urine eos - follow serologic workup
[2019-02-03 13:30] LABS: HEMATOCRIT 30.9 % (32.4-45.2); HEMOGLOBIN 10.2 GM/dL (10.7-15.3); MCH 26.4 pg (25.7-33.7); MEAN PLT VOLUME 7.6 fl (7.5-11.1); PLATELET COUNT 441 K/MM3 (134-434); RBC 3.86 M/mm3 (3.60-5.2); RDW 16.2 % (11.6-15.6); WHITE BLOOD COUNT 9.6 K/mm3 (4.0-10.0)
--- NOTE | 2019-02-03 15:27 | PN ---
Progress Note, Physician History of Present Illness: stable - Current Medication List Current Medications: Active Medications Acetaminophen (Tylenol -) 650 mg PO Q6H PRN PRN Reason: FEVER Last Admin: 02/02/19 21:54 Dose: 650 mg Apixaban (Eliquis -) 2.5 mg PO BID [facility] Last Admin: 02/03/19 10:26 Dose: 2.5 mg Chlorhexidine Gluconate (Hibiclens For Decolonization -) 1 applic TP HS [facility] Last Admin: 02/02/19 21:29 Dose: Not Given Gabapentin (Neurontin -) 200 mg PO BID [facility] Last Admin: 02/03/19 10:26 Dose: 200 mg Ceftriaxone Sodium 1 gm/ (Dextrose) 50 mls @ 100 mls/hr IVPB DAILY [facility]; Protocol Last Admin: 02/03/19 10:27 Dose: 100 mls/hr Sodium Chloride (Normal Saline -) 1,000 mls @ 100 mls/hr IV ASDIR [facility] Last Admin: 02/03/19 10:27 Dose: 100 mls/hr Lidocaine (Lidoderm Patch -) 1 patch TP DAILY [facility] Last Admin: 02/03/19 10:47 Dose: 1 patch Metoprolol Tartrate (Lopressor -) 12.5 mg PO BID [facility] Last Admin: 02/03/19 10:25 Dose: 12.5 mg Miscellaneous (Lidoderm Patch Removal) 1 each MC DAILY@2200 [facility] Last Admin: 02/02/19 22:20 Dose: 1 each Oxycodone HCl (Roxicodone -) 5 mg PO Q6H PRN PRN Reason: PAIN LEVEL 4 - 6 Last Admin: 02/02/19 21:55 Dose: 5 mg Polyethylene Glycol (Miralax (For Daily Use) -) 17 gm PO DAILY [facility] Last Admin: 02/03/19 10:26 Dose: 17 gm Potassium Chloride (K-Dur -) 40 meq PO DAILY [facility] Last Admin: 02/03/19 10:25 Dose: 40 meq Senna (Senna -) 1 tab PO DAILY [facility] Last Admin: 02/03/19 10:26 Dose: 1 tab Simethicone (Mylicon -) 80 mg PO DAILY [facility] Last Admin: 02/03/19 10:26 Dose: 80 mg - Objective Vital Signs: Vital Signs Temperature 98 F 02/03/19 10:00 Pulse Rate 82 02/03/19 10:00 Respiratory Rate 18 02/03/19 10:00 Blood Pressure 128/80 02/03/19 10:00 O2 Sat by Pulse Oximetry (%) 97 02/02/19 22:00 Constitutional: Yes: No Distress HENT: Yes: Atraumatic Neck: Yes: Supple Cardiovascular: Yes: Regular Rate and Rhythm Respiratory: Yes: CTA Bilaterally Extremities: Yes: WNL Edema: No Peripheral Pulses WNL: Yes Neurological: Yes: Alert Labs: CBC, BMP 02/03/19 12:50 02/03/19 05:30 INR, PTT INR 1.17 (0.83-1.09) H 01/23/19 05:30 Problem List - Problems (1) Fall Assessment/Plan: pt eval Code(s): W19.XXXA - UNSPECIFIED FALL, INITIAL ENCOUNTER Qualifiers: Encounter type: subsequent encounter Qualified Code(s): W19.XXXD - Unspecified fall, subsequent encounter (2) UTI (urinary tract infection) Assessment/Plan: on iv abx cxs noted id on board Code(s): N39.0 - URINARY TRACT INFECTION, SITE NOT SPECIFIED Qualifiers: Urinary tract infection type: site unspecified Hematuria presence: without hematuria Qualified Code(s): N39.0 - Urinary tract infection, site not specified (3) Sepsis Assessment/Plan: on iv abx iv hydration Code(s): A41.9 - SEPSIS, UNSPECIFIED ORGANISM Qualifiers: Sepsis type: Escherichia coli Qualified Code(s): A41.51 - Sepsis due to Escherichia coli [E. coli] (4) Back pain Code(s): M54.9 - DORSALGIA, UNSPECIFIED Qualifiers: Back pain location: low back pain Chronicity: acute Back pain laterality : unspecified Sciatica presence: without sciatica Qualified Code(s): M54.5 - Low back pain (5) Chcax-or-fhytyoh kidney injury Code(s): N17.9 - ACUTE KIDNEY FAILURE, UNSPECIFIED; N18.9 - CHRONIC KIDNEY DISEASE, UNSPECIFIED
[2019-02-03] MEDS: ACETAMINOPHEN 325 MG TABLET (FP) PO PRN (17:38)
[2019-02-03] MEDS: LIDOCAINE PATCH REMOVAL MC SCH (21:01)
[2019-02-03] MEDS: CHLORHEXIDINE GLUCONATE 4% CLEANSER FOR DECOLONIZATION TP SCH (21:01)
[2019-02-04 07:52] LABS: CALCIUM 8.5 mg/dL (8.5-10.1); CREATININE 2.3 mg/dL (0.55-1.3); POTASSIUM 3.2 mmol/L (3.5-5.1)
[2019-02-04] MEDS: SODIUM CHLORIDE 1,000 ML IV SCH (09:00)
[2019-02-04] MEDS ORDERED: cefTRIAXone SODIUM 1 GM VIAL ONE (10:20)
[2019-02-04] MEDS ORDERED: DEXTROSE 5%-WATER - 50 ML IVPB ONE (10:21)
[2019-02-04] MEDS: METOPROLOL TARTRATE 25 MG TABLET (FP) PO SCH ×2 (10:33→22:27)
[2019-02-04] MEDS: SIMETHICONE 80 MG TAB.CHEW (FP) PO SCH (10:34)
[2019-02-04] MEDS: LIDOCAINE 5% TOPICAL PATCH TP SCH (10:34)
[2019-02-04] MEDS: GABAPENTIN 100 MG CAPSULE (FP) PO SCH ×2 (10:34→22:27)
[2019-02-04] MEDS: SENNOSIDES 8.6MG TABLET (FP) PO SCH (10:34)
[2019-02-04] MEDS: POTASSIUM CHLORIDE TABS 20 MEQ TABLET.ER (FP) PO SCH (10:34)
[2019-02-04] MEDS: APIXABAN 2.5 MG TABLET PO SCH ×2 (10:34→22:27)
[2019-02-04] MEDS: POLYETHYLENE GLYCOL 3350 119 GM BTL PO SCH (10:35)
[2019-02-04] MEDS: CEFTRIAXONE 1 GM in DEXTROSE 5%-WATER - 50 ML IVPB SCH (10:37)
--- NOTE | 2019-02-04 11:33 | PN ---
Progress Note, Physician History of Present Illness: Pt seen and examined at bedside. She is awake and appears comfortable. She still has poor PO intake. - Current Medication List Current Medications: Active Medications Acetaminophen (Tylenol -) 650 mg PO Q6H PRN PRN Reason: FEVER Last Admin: 02/03/19 17:38 Dose: 650 mg Apixaban (Eliquis -) 2.5 mg PO BID [facility] Last Admin: 02/04/19 10:34 Dose: 2.5 mg Chlorhexidine Gluconate (Hibiclens For Decolonization -) 1 applic TP HS [facility] Last Admin: 02/03/19 21:01 Dose: Not Given Gabapentin (Neurontin -) 200 mg PO BID [facility] Last Admin: 02/04/19 10:34 Dose: 200 mg Ceftriaxone Sodium 1 gm/ (Dextrose) 50 mls @ 100 mls/hr IVPB DAILY [facility]; Protocol Last Admin: 02/04/19 10:37 Dose: 100 mls/hr Sodium Chloride (Normal Saline -) 1,000 mls @ 100 mls/hr IV ASDIR [facility] Last Admin: 02/04/19 09:00 Dose: 100 mls/hr Lidocaine (Lidoderm Patch -) 1 patch TP DAILY [facility] Last Admin: 02/04/19 10:34 Dose: 1 patch Metoprolol Tartrate (Lopressor -) 12.5 mg PO BID [facility] Last Admin: 02/04/19 10:33 Dose: 12.5 mg Miscellaneous (Lidoderm Patch Removal) 1 each MC DAILY@2200 [facility] Last Admin: 02/03/19 21:01 Dose: 1 each Polyethylene Glycol (Miralax (For Daily Use) -) 17 gm PO DAILY [facility] Last Admin: 02/04/19 10:35 Dose: 17 gm Potassium Chloride (K-Dur -) 40 meq PO DAILY [facility] Last Admin: 02/04/19 10:34 Dose: 40 meq Senna (Senna -) 1 tab PO DAILY [facility] Last Admin: 02/04/19 10:34 Dose: 1 tab Simethicone (Mylicon -) 80 mg PO DAILY [facility] Last Admin: 02/04/19 10:34 Dose: 80 mg - Objective Vital Signs: Vital Signs Temperature 98 F 02/04/19 10:00 Pulse Rate 80 02/04/19 10:00 Respiratory Rate 20 02/04/19 10:00 Blood Pressure 120/79 02/04/19 10:00 O2 Sat by Pulse Oximetry (%) 97 02/04/19 10:00 Constitutional: Yes: Calm Eyes: Yes: Conjunctiva Clear HENT: Yes: Atraumatic Cardiovascular: Yes: S1, S2 Respiratory: Yes: CTA Bilaterally Gastrointestinal: Yes: Soft Genitourinary: Yes: Shea Present Edema: No Integumentary: Yes: WNL Neurological: Yes: Oriented Psychiatric: Yes: Oriented Labs: CBC, BMP 02/03/19 12:50 02/04/19 06:30 INR, PTT INR 1.17 (0.83-1.09) H 01/23/19 05:30 Problem List - Problems (1) JONATHAN (acute kidney injury) Code(s): N17.9 - ACUTE KIDNEY FAILURE, UNSPECIFIED (2) Paroxysmal atrial flutter Code(s): I48.92 - UNSPECIFIED ATRIAL FLUTTER (3) Sepsis Code(s): A41.9 - SEPSIS, UNSPECIFIED ORGANISM Qualifiers: Sepsis type: Escherichia coli Qualified Code(s): A41.51 - Sepsis due to Escherichia coli [E. coli] (4) UTI (urinary tract infection) Code(s): N39.0 - URINARY TRACT INFECTION, SITE NOT SPECIFIED Qualifiers: Urinary tract infection type: site unspecified Hematuria presence: without hematuria Qualified Code(s): N39.0 - Urinary tract infection, site not specified (5) Back pain Code(s): M54.9 - DORSALGIA, UNSPECIFIED Qualifiers: Back pain location: low back pain Chronicity: acute Back pain laterality : unspecified Sciatica presence: without sciatica Qualified Code(s): M54.5 - Low back pain Assessment/Plan Current Medications Generic Name Dose Route Start Last Admin Trade Name Freq PRN Reason Stop Dose Admin Acetaminophen 650 mg 01/28/19 20:47 02/03/19 17:38 Tylenol - PO 650 mg Q6H PRN Administration FEVER Apixaban 2.5 mg 01/28/19 22:00 02/04/19 10:34 Eliquis - PO 2.5 mg BID [facility] Administration Chlorhexidine Gluconate 1 applic 01/28/19 22:00 02/03/19 21:01 Hibiclens For Decolonization - TP Not Given HS [facility] Gabapentin 200 mg 01/28/19 13:45 02/04/19 10:34 Neurontin - PO 200 mg BID [facility] Administration Ceftriaxone Sodium 1 gm/ 50 mls @ 100 mls/hr 01/30/19 14:30 02/04/19 10:37 Dextrose IVPB 100 mls/hr DAILY [facility] Administration Protocol Sodium Chloride 1,000 mls @ 100 mls/hr 01/31/19 08:37 02/04/19 09:00 Normal Saline - IV 100 mls/hr ASDIR [facility] Administration Lidocaine 1 patch 01/28/19 17:45 02/04/19 10:34 Lidoderm Patch - TP 1 patch DAILY [facility] Administration Metoprolol Tartrate 12.5 mg 01/28/19 22:00 02/04/19 10:33 Lopressor - PO 12.5 mg BID [facility] Administration Miscellaneous 1 each 01/28/19 22:00 02/03/19 21:01 Lidoderm Patch Removal MC 1 each DAILY@2200 [facility] Administration Polyethylene Glycol 17 gm 01/28/19 10:00 02/04/19 10:35 Miralax (For Daily Use) - PO 17 gm DAILY [facility] Administration Potassium Chloride 40 meq 01/28/19 10:00 02/04/19 10:34 K-Dur - PO 40 meq DAILY [facility] Administration Senna 1 tab 01/28/19 10:00 02/04/19 10:34 Senna - PO 1 tab DAILY [facility] Administration Simethicone 80 mg 01/28/19 10:00 02/04/19 10:34 Mylicon - PO 80 mg DAILY [facility] Administration Impression 1. JONATHAN 2. UTI 3. sepsis 4. a-fib 5. cva Plan - renal function improving - replace potassium - decrease rate of fluids - encourage PO intake - follow serologies
[2019-02-04] MEDS ORDERED: SODIUM CHLORIDE 1,000 ML IV SCH (11:34)
--- NOTE | 2019-02-04 11:36 | PN ---
Progress Note, Physician History of Present Illness: PULMONARY ALERT,C/O WEAKNESS,-SOB - Current Medication List Current Medications: Active Medications Acetaminophen (Tylenol -) 650 mg PO Q6H PRN PRN Reason: FEVER Last Admin: 02/03/19 17:38 Dose: 650 mg Apixaban (Eliquis -) 2.5 mg PO BID [facility] Last Admin: 02/04/19 10:34 Dose: 2.5 mg Chlorhexidine Gluconate (Hibiclens For Decolonization -) 1 applic TP HS [facility] Last Admin: 02/03/19 21:01 Dose: Not Given Gabapentin (Neurontin -) 200 mg PO BID [facility] Last Admin: 02/04/19 10:34 Dose: 200 mg Ceftriaxone Sodium 1 gm/ (Dextrose) 50 mls @ 100 mls/hr IVPB DAILY [facility]; Protocol Last Admin: 02/04/19 10:37 Dose: 100 mls/hr Sodium Chloride (Normal Saline -) 1,000 mls @ 100 mls/hr IV ASDIR [facility] Last Admin: 02/04/19 09:00 Dose: 100 mls/hr Lidocaine (Lidoderm Patch -) 1 patch TP DAILY [facility] Last Admin: 02/04/19 10:34 Dose: 1 patch Metoprolol Tartrate (Lopressor -) 12.5 mg PO BID [facility] Last Admin: 02/04/19 10:33 Dose: 12.5 mg Miscellaneous (Lidoderm Patch Removal) 1 each MC DAILY@2200 [facility] Last Admin: 02/03/19 21:01 Dose: 1 each Polyethylene Glycol (Miralax (For Daily Use) -) 17 gm PO DAILY [facility] Last Admin: 02/04/19 10:35 Dose: 17 gm Potassium Chloride (K-Dur -) 40 meq PO DAILY [facility] Last Admin: 02/04/19 10:34 Dose: 40 meq Senna (Senna -) 1 tab PO DAILY [facility] Last Admin: 02/04/19 10:34 Dose: 1 tab Simethicone (Mylicon -) 80 mg PO DAILY [facility] Last Admin: 02/04/19 10:34 Dose: 80 mg - Objective Vital Signs: Vital Signs Temperature 98 F 02/04/19 10:00 Pulse Rate 80 02/04/19 10:00 Respiratory Rate 20 02/04/19 10:00 Blood Pressure 120/79 02/04/19 10:00 O2 Sat by Pulse Oximetry (%) 97 02/04/19 10:00 Constitutional: Yes: Calm, Thin Eyes: Yes: WNL HENT: Yes: WNL Neck: Yes: WNL Cardiovascular: Yes: Pulse Irregular, S1, S2 Respiratory: Yes: Rales (BIBASILAR CRACKLES) Gastrointestinal: Yes: Normal Bowel Sounds, Soft Extremities: Yes: WNL Edema: No Labs: CBC, BMP 02/04/19 06:30 INR, PTT Problem List - Problems (1) [id number] kidney injury Code(s): N17.9 - ACUTE KIDNEY FAILURE, UNSPECIFIED; N18.9 - CHRONIC KIDNEY DISEASE, UNSPECIFIED (2) Paroxysmal atrial flutter Code(s): I48.92 - UNSPECIFIED ATRIAL FLUTTER (3) Sepsis Code(s): A41.9 - SEPSIS, UNSPECIFIED ORGANISM Qualifiers: Qualified Code(s): A41.51 - Sepsis due to Escherichia coli [E. coli] (4) UTI (urinary tract infection) Code(s): N39.0 - URINARY TRACT INFECTION, SITE NOT SPECIFIED Qualifiers: Qualified Code(s): N39.0 - Urinary tract infection, site not specified Assessment/Plan A/P UTI Severe Sepsis resolved Acute Kidney Injury Paroxysmal Atrial Fibrillation Anxiety - antibiotics per ID - IVF - monitor urine output, creatinine - O2 to keep SpO2 >90% - rate/rhythm control - anticoagulation DR BEYER
--- NOTE | 2019-02-04 11:37 | PN ---
Progress Note, Physician History of Present Illness: Mental status improving, remains in NSR, afebrile. - Current Medication List Current Medications: Active Medications Acetaminophen (Tylenol -) 650 mg PO Q6H PRN PRN Reason: FEVER Last Admin: 02/03/19 17:38 Dose: 650 mg Apixaban (Eliquis -) 2.5 mg PO BID [facility] Last Admin: 02/04/19 10:34 Dose: 2.5 mg Chlorhexidine Gluconate (Hibiclens For Decolonization -) 1 applic TP HS [facility] Last Admin: 02/03/19 21:01 Dose: Not Given Gabapentin (Neurontin -) 200 mg PO BID [facility] Last Admin: 02/04/19 10:34 Dose: 200 mg Ceftriaxone Sodium 1 gm/ (Dextrose) 50 mls @ 100 mls/hr IVPB DAILY [facility]; Protocol Last Admin: 02/04/19 10:37 Dose: 100 mls/hr Sodium Chloride (Normal Saline -) 1,000 mls @ 60 mls/hr IV ASDIR [facility] Lidocaine (Lidoderm Patch -) 1 patch TP DAILY [facility] Last Admin: 02/04/19 10:34 Dose: 1 patch Metoprolol Tartrate (Lopressor -) 12.5 mg PO BID [facility] Last Admin: 02/04/19 10:33 Dose: 12.5 mg Miscellaneous (Lidoderm Patch Removal) 1 each MC DAILY@2200 [facility] Last Admin: 02/03/19 21:01 Dose: 1 each Polyethylene Glycol (Miralax (For Daily Use) -) 17 gm PO DAILY [facility] Last Admin: 02/04/19 10:35 Dose: 17 gm Potassium Chloride (K-Dur -) 40 meq PO DAILY [facility] Last Admin: 02/04/19 10:34 Dose: 40 meq Potassium Chloride (K-Dur -) 20 meq PO ONCE ONE Stop: 02/04/19 16:01 Senna (Senna -) 1 tab PO DAILY [facility] Last Admin: 02/04/19 10:34 Dose: 1 tab Simethicone (Mylicon -) 80 mg PO DAILY [facility] Last Admin: 02/04/19 10:34 Dose: 80 mg - Objective Vital Signs: Vital Signs Temperature 98 F 02/04/19 10:00 Pulse Rate 80 02/04/19 10:00 Respiratory Rate 20 02/04/19 10:00 Blood Pressure 120/79 02/04/19 10:00 O2 Sat by Pulse Oximetry (%) 97 02/04/19 10:00 Constitutional: Yes: No Distress, Calm Neck: Yes: Supple Cardiovascular: Yes: Regular Rate and Rhythm Respiratory: Yes: Regular, Diminished Gastrointestinal: Yes: Normal Bowel Sounds, Soft Edema: No Labs: CBC, BMP 02/03/19 12:50 02/04/19 06:30 INR, PTT INR 1.17 (0.83-1.09) H 01/23/19 05:30 - ....Imaging EKG: Report Reviewed (Tele: NSR) Problem List - Problems (1) Paroxysmal atrial flutter Code(s): I48.92 - UNSPECIFIED ATRIAL FLUTTER (2) Fall Code(s): W19.XXXA - UNSPECIFIED FALL, INITIAL ENCOUNTER Qualifiers: Encounter type: subsequent encounter Qualified Code(s): W19.XXXD - Unspecified fall, subsequent encounter (3) Sepsis Code(s): A41.9 - SEPSIS, UNSPECIFIED ORGANISM Qualifiers: Sepsis type: Escherichia coli Qualified Code(s): A41.51 - Sepsis due to Escherichia coli [E. coli] (4) UTI (urinary tract infection) Code(s): N39.0 - URINARY TRACT INFECTION, SITE NOT SPECIFIED Qualifiers: Urinary tract infection type: site unspecified Hematuria presence: without hematuria Qualified Code(s): N39.0 - Urinary tract infection, site not specified (5) History of multiple strokes Code(s): Z86.73 - PRSNL HX OF TIA (TIA), AND CEREB INFRC W/O RESID DEFICITS (6) Qafqy-kh-mvsrfar kidney injury Code(s): N17.9 - ACUTE KIDNEY FAILURE, UNSPECIFIED; N18.9 - CHRONIC KIDNEY DISEASE, UNSPECIFIED (7) Bladder distension Code(s): N32.89 - OTHER SPECIFIED DISORDERS OF BLADDER Assessment/Plan 01/26/2019 Echo: Normal LV and RV size with low normal LV and RV fxn, normal atrial sizes 1. Paroxysmal atrial fibrillation/flutter now in sinus rhythm 2. Resolving Sepsis source 3. Acute on chronic kidney injury resolving, possible obstructive uropathy 4. Bladder distension 5. History of stroke PLAN: 1. Continue Eliquis 2.5 mg BID given elevated risk score and consolidate Toprol XL 25 qd as hemodynamics tolerate 2. Antibiotic coverage 3. Judicious IVF and monitor renal recovery, replete K as you are
[2019-02-04 13:13] LABS: ATYPICAL pANCA <1:20 titer (Neg:<1:20); C-ANCA <1:20 titer (Neg:<1:20); P-ANCA <1:20 titer (Neg:<1:20)
--- NOTE | 2019-02-04 13:39 | PN ---
Progress Note, Physician - Current Medication List Current Medications: Active Medications Acetaminophen (Tylenol -) 650 mg PO Q6H PRN PRN Reason: FEVER Last Admin: 02/03/19 17:38 Dose: 650 mg Apixaban (Eliquis -) 2.5 mg PO BID [facility] Last Admin: 02/04/19 10:34 Dose: 2.5 mg Gabapentin (Neurontin -) 200 mg PO BID [facility] Last Admin: 02/04/19 10:34 Dose: 200 mg Ceftriaxone Sodium 1 gm/ (Dextrose) 50 mls @ 100 mls/hr IVPB DAILY [facility]; Protocol Last Admin: 02/04/19 10:37 Dose: 100 mls/hr Sodium Chloride (Normal Saline -) 1,000 mls @ 60 mls/hr IV ASDIR [facility] Lidocaine (Lidoderm Patch -) 1 patch TP DAILY [facility] Last Admin: 02/04/19 10:34 Dose: 1 patch Metoprolol Succinate (Toprol Xl -) 25 mg PO DAILY [facility] Metoprolol Tartrate (Lopressor -) 12.5 mg PO BID [facility] Stop: 02/05/19 06:00 Last Admin: 02/04/19 10:33 Dose: 12.5 mg Miscellaneous (Lidoderm Patch Removal) 1 each MC DAILY@2200 [facility] Last Admin: 02/03/19 21:01 Dose: 1 each Polyethylene Glycol (Miralax (For Daily Use) -) 17 gm PO DAILY [facility] Last Admin: 02/04/19 10:35 Dose: 17 gm Potassium Chloride (K-Dur -) 40 meq PO DAILY [facility] Last Admin: 02/04/19 10:34 Dose: 40 meq Potassium Chloride (K-Dur -) 20 meq PO ONCE ONE Stop: 02/04/19 16:01 Senna (Senna -) 1 tab PO DAILY [facility] Last Admin: 02/04/19 10:34 Dose: 1 tab Simethicone (Mylicon -) 80 mg PO DAILY [facility] Last Admin: 02/04/19 10:34 Dose: 80 mg - Objective Vital Signs: Vital Signs Temperature 98 F 02/04/19 10:00 Pulse Rate 80 02/04/19 10:00 Respiratory Rate 20 02/04/19 10:00 Blood Pressure 120/79 02/04/19 10:00 O2 Sat by Pulse Oximetry (%) 97 02/04/19 10:00 Labs: CBC, BMP 02/03/19 12:50 02/04/19 06:30 INR, PTT INR 1.17 (0.83-1.09) H 01/23/19 05:30
[2019-02-04] MEDS ORDERED: POTASSIUM CHLORIDE TABS 20 MEQ TABLET.ER (FP) PO ONE (16:00)
--- NOTE | 2019-02-04 21:05 | PN ---
Progress Note, Physician - Current Medication List Current Medications: Active Medications Acetaminophen (Tylenol -) 650 mg PO Q6H PRN PRN Reason: FEVER Last Admin: 02/03/19 17:38 Dose: 650 mg Apixaban (Eliquis -) 2.5 mg PO BID [facility] Last Admin: 02/04/19 10:34 Dose: 2.5 mg Gabapentin (Neurontin -) 200 mg PO BID [facility] Last Admin: 02/04/19 10:34 Dose: 200 mg Ceftriaxone Sodium 1 gm/ (Dextrose) 50 mls @ 100 mls/hr IVPB DAILY [facility]; Protocol Last Admin: 02/04/19 10:37 Dose: 100 mls/hr Sodium Chloride (Normal Saline -) 1,000 mls @ 60 mls/hr IV ASDIR [facility] Last Admin: 02/04/19 12:00 Dose: 60 mls/hr Lidocaine (Lidoderm Patch -) 1 patch TP DAILY [facility] Last Admin: 02/04/19 10:34 Dose: 1 patch Metoprolol Succinate (Toprol Xl -) 25 mg PO DAILY [facility] Metoprolol Tartrate (Lopressor -) 12.5 mg PO BID [facility] Stop: 02/05/19 06:00 Last Admin: 02/04/19 10:33 Dose: 12.5 mg Miscellaneous (Lidoderm Patch Removal) 1 each MC DAILY@2200 [facility] Last Admin: 02/03/19 21:01 Dose: 1 each Polyethylene Glycol (Miralax (For Daily Use) -) 17 gm PO DAILY [facility] Last Admin: 02/04/19 10:35 Dose: 17 gm Potassium Chloride (K-Dur -) 40 meq PO DAILY [facility] Last Admin: 02/04/19 10:34 Dose: 40 meq Senna (Senna -) 1 tab PO DAILY [facility] Last Admin: 02/04/19 10:34 Dose: 1 tab Simethicone (Mylicon -) 80 mg PO DAILY [facility] Last Admin: 02/04/19 10:34 Dose: 80 mg - Objective Vital Signs: Vital Signs Temperature 97.7 F 02/04/19 18:00 Pulse Rate 115 H 02/04/19 18:00 Respiratory Rate 20 02/04/19 18:00 Blood Pressure 126/72 02/04/19 18:00 O2 Sat by Pulse Oximetry (%) 97 02/04/19 10:00 Constitutional: Yes: No Distress HENT: Yes: Atraumatic Neck: Yes: Supple Cardiovascular: Yes: Regular Rate and Rhythm Respiratory: Yes: Rhonchi Gastrointestinal: Yes: Normal Bowel Sounds Extremities: Yes: WNL Edema: No Peripheral Pulses WNL: Yes Neurological: Yes: Alert Labs: CBC, BMP 02/03/19 12:50 02/04/19 06:30 INR, PTT INR 1.17 (0.83-1.09) H 01/23/19 05:30 Problem List - Problems (1) Fall Assessment/Plan: pt eval Code(s): W19.XXXA - UNSPECIFIED FALL, INITIAL ENCOUNTER Qualifiers: Encounter type: subsequent encounter Qualified Code(s): W19.XXXD - Unspecified fall, subsequent encounter (2) UTI (urinary tract infection) Assessment/Plan: on iv abx cxs noted id on board Code(s): N39.0 - URINARY TRACT INFECTION, SITE NOT SPECIFIED Qualifiers: Urinary tract infection type: site unspecified Hematuria presence: without hematuria Qualified Code(s): N39.0 - Urinary tract infection, site not specified (3) Sepsis Assessment/Plan: on iv abx iv hydration Code(s): A41.9 - SEPSIS, UNSPECIFIED ORGANISM Qualifiers: Sepsis type: Escherichia coli Qualified Code(s): A41.51 - Sepsis due to Escherichia coli [E. coli] (4) Back pain Code(s): M54.9 - DORSALGIA, UNSPECIFIED Qualifiers: Back pain location: low back pain Chronicity: acute Back pain laterality : unspecified Sciatica presence: without sciatica Qualified Code(s): M54.5 - Low back pain (5) [id number] kidney injury Code(s): N17.9 - ACUTE KIDNEY FAILURE, UNSPECIFIED; N18.9 - CHRONIC KIDNEY DISEASE, UNSPECIFIED
[2019-02-04] MEDS: LIDOCAINE PATCH REMOVAL MC SCH (22:27)
[2019-02-05 07:34] LABS: BASO % 0.9 % (0-2.0); HEMATOCRIT 32.4 % (32.4-45.2); HEMOGLOBIN 10.7 GM/dL (10.7-15.3); LYMPH % 13.2 % (8-40); MCHC 33.1 g/dl (32.0-36.0); MEAN CELL VOLUME 78.6 fl (80-96); MEAN PLT VOLUME 7.6 fl (7.5-11.1); MONO % 9.4 % (3.8-10.2); NEUT % 74.5 % (42.8-82.8); PLATELET COUNT 427 K/MM3 (134-434); RBC 4.12 M/mm3 (3.60-5.2); RDW 15.9 % (11.6-15.6); WHITE BLOOD COUNT 8.5 K/mm3 (4.0-10.0)
[2019-02-05 08:15] LABS: ALBUMIN 2.3 g/dl (3.4-5.0); BILIRUBIN,TOTAL 0.3 mg/dL (0.2-1); CALCIUM 8.9 mg/dL (8.5-10.1); CREATININE 1.9 mg/dL (0.55-1.3); MAGNESIUM 1.1 mg/dL (1.8-2.4); POTASSIUM 3.6 mmol/L (3.5-5.1); TOT PROT 5.7 g/dl (6.4-8.2)
--- NOTE | 2019-02-05 09:30 | PN ---
Progress Note, Physician History of Present Illness: Mental status improving, remains in NSR, afebrile, appetite suppressed. - Current Medication List Current Medications: Active Medications Acetaminophen (Tylenol -) 650 mg PO Q6H PRN PRN Reason: FEVER Last Admin: 02/03/19 17:38 Dose: 650 mg Apixaban (Eliquis -) 2.5 mg PO BID [facility] Last Admin: 02/04/19 22:27 Dose: 2.5 mg Gabapentin (Neurontin -) 200 mg PO BID [facility] Last Admin: 02/04/19 22:27 Dose: 200 mg Ceftriaxone Sodium 1 gm/ (Dextrose) 50 mls @ 100 mls/hr IVPB DAILY [facility]; Protocol Last Admin: 02/04/19 10:37 Dose: 100 mls/hr Sodium Chloride (Normal Saline -) 1,000 mls @ 60 mls/hr IV ASDIR [facility] Last Admin: 02/04/19 12:00 Dose: 60 mls/hr Lidocaine (Lidoderm Patch -) 1 patch TP DAILY [facility] Last Admin: 02/04/19 10:34 Dose: 1 patch Metoprolol Succinate (Toprol Xl -) 25 mg PO DAILY [facility] Miscellaneous (Lidoderm Patch Removal) 1 each MC DAILY@2200 [facility] Last Admin: 02/04/19 22:27 Dose: 1 each Polyethylene Glycol (Miralax (For Daily Use) -) 17 gm PO DAILY [facility] Last Admin: 02/04/19 10:35 Dose: 17 gm Potassium Chloride (K-Dur -) 40 meq PO DAILY [facility] Last Admin: 02/04/19 10:34 Dose: 40 meq Senna (Senna -) 1 tab PO DAILY [facility] Last Admin: 02/04/19 10:34 Dose: 1 tab Simethicone (Mylicon -) 80 mg PO DAILY [facility] Last Admin: 02/04/19 10:34 Dose: 80 mg - Objective Vital Signs: Vital Signs Temperature 97.6 F 02/05/19 05:38 Pulse Rate 82 02/05/19 05:38 Respiratory Rate 18 02/05/19 05:38 Blood Pressure 110/74 02/05/19 05:38 O2 Sat by Pulse Oximetry (%) 96 02/04/19 22:00 Constitutional: Yes: No Distress, Calm, Thin Neck: Yes: Supple Cardiovascular: Yes: Regular Rate and Rhythm Respiratory: Yes: Regular, Diminished Gastrointestinal: Yes: Soft, Hypoactive Bowel Sounds Edema: No Labs: CBC, BMP 02/05/19 06:00 02/05/19 06:00 INR, PTT INR 1.17 (0.83-1.09) H 01/23/19 05:30 - ....Imaging EKG: Report Reviewed (Tele: NSR) Problem List - Problems (1) Paroxysmal atrial flutter Code(s): I48.92 - UNSPECIFIED ATRIAL FLUTTER (2) Fall Code(s): W19.XXXA - UNSPECIFIED FALL, INITIAL ENCOUNTER Qualifiers: Encounter type: subsequent encounter Qualified Code(s): W19.XXXD - Unspecified fall, subsequent encounter (3) Sepsis Code(s): A41.9 - SEPSIS, UNSPECIFIED ORGANISM Qualifiers: Sepsis type: Escherichia coli Qualified Code(s): A41.51 - Sepsis due to Escherichia coli [E. coli] (4) UTI (urinary tract infection) Code(s): N39.0 - URINARY TRACT INFECTION, SITE NOT SPECIFIED Qualifiers: Urinary tract infection type: site unspecified Hematuria presence: without hematuria Qualified Code(s): N39.0 - Urinary tract infection, site not specified (5) History of multiple strokes Code(s): Z86.73 - PRSNL HX OF TIA (TIA), AND CEREB INFRC W/O RESID DEFICITS (6) [id number] kidney injury Code(s): N17.9 - ACUTE KIDNEY FAILURE, UNSPECIFIED; N18.9 - CHRONIC KIDNEY DISEASE, UNSPECIFIED (7) Bladder distension Code(s): N32.89 - OTHER SPECIFIED DISORDERS OF BLADDER Assessment/Plan 01/26/2019 Echo: Normal LV and RV size with low normal LV and RV fxn, normal atrial sizes 1. Paroxysmal atrial fibrillation/flutter now in sinus rhythm 2. Resolving Sepsis source 3. Acute on chronic kidney injury resolving, possible obstructive uropathy 4. Bladder distension 5. History of stroke PLAN: 1. Continue Eliquis 2.5 mg BID given elevated risk score and started Toprol XL 25 qd as hemodynamics tolerate 2. Complete antibiotic coverage 3. Judicious IVF and monitor renal recovery, replete K as you are
[2019-02-05] MEDS ORDERED: metoPROLOL SUCCINATE 25 MG TAB.SR.24H (FP) PO SCH (10:00)
[2019-02-05] MEDS ORDERED: cefTRIAXone SODIUM 1 GM VIAL ONE (10:12)
[2019-02-05] MEDS ORDERED: DEXTROSE 5%-WATER - 50 ML IVPB ONE (10:13)
[2019-02-05] MEDS: LIDOCAINE 5% TOPICAL PATCH TP SCH (10:39)
[2019-02-05] MEDS: SIMETHICONE 80 MG TAB.CHEW (FP) PO SCH (10:40)
[2019-02-05] MEDS: SENNOSIDES 8.6MG TABLET (FP) PO SCH (10:40)
[2019-02-05] MEDS: GABAPENTIN 100 MG CAPSULE (FP) PO SCH (10:40)
[2019-02-05] MEDS: APIXABAN 2.5 MG TABLET PO SCH (10:40)
[2019-02-05] MEDS: CEFTRIAXONE 1 GM in DEXTROSE 5%-WATER - 50 ML IVPB SCH (10:41)
[2019-02-05] MEDS: POLYETHYLENE GLYCOL 3350 119 GM BTL PO SCH (10:42)
[2019-02-05] MEDS: POTASSIUM CHLORIDE TABS 20 MEQ TABLET.ER (FP) PO SCH (10:43)
--- NOTE | 2019-02-05 11:17 | PN ---
Progress Note (short form) - Note Progress Note: Overall improving. Denies shortness of breath or chest pain. No acute events overnight. Intake & Output 02/02/19 02/03/19 02/04/19 02/05/19 23:59 23:59 23:59 23:59 Intake Total 1989 2189 1500 660 Output Total 3700 4800 4300 1200 Balance -1710 -2610 -2800 -540 Last Vital Signs Temp Pulse Resp BP Pulse Ox 97.5 F L 84 18 115/74 97 02/05/19 09:33 02/05/19 09:33 02/05/19 09:33 02/05/19 09:33 02/05/19 09:48 Active Medications Acetaminophen (Tylenol -) 650 mg PO Q6H PRN PRN Reason: FEVER Last Admin: 02/03/19 17:38 Dose: 650 mg Apixaban (Eliquis -) 2.5 mg PO BID [facility] Last Admin: 02/05/19 10:40 Dose: 2.5 mg Gabapentin (Neurontin -) 200 mg PO BID [facility] Last Admin: 02/05/19 10:40 Dose: 200 mg Ceftriaxone Sodium 1 gm/ (Dextrose) 50 mls @ 100 mls/hr IVPB DAILY [facility]; Protocol Last Admin: 02/05/19 10:41 Dose: 100 mls/hr Sodium Chloride (Normal Saline -) 1,000 mls @ 60 mls/hr IV ASDIR [facility] Last Admin: 02/04/19 12:00 Dose: 60 mls/hr Lidocaine (Lidoderm Patch -) 1 patch TP DAILY [facility] Last Admin: 02/05/19 10:39 Dose: 1 patch Metoprolol Succinate (Toprol Xl -) 25 mg PO DAILY [facility] Last Admin: 02/05/19 10:40 Dose: 25 mg Miscellaneous (Lidoderm Patch Removal) 1 each MC DAILY@2200 [facility] Last Admin: 02/04/19 22:27 Dose: 1 each Polyethylene Glycol (Miralax (For Daily Use) -) 17 gm PO DAILY [facility] Last Admin: 02/05/19 10:42 Dose: Not Given Potassium Chloride (K-Dur -) 40 meq PO DAILY [facility] Last Admin: 02/05/19 10:43 Dose: 40 meq Senna (Senna -) 1 tab PO DAILY [facility] Last Admin: 02/05/19 10:40 Dose: 1 tab Simethicone (Mylicon -) 80 mg PO DAILY [facility] Last Admin: 02/05/19 10:40 Dose: 80 mg Gen: NAD at rest Heart: RRR Lung: decreased breath sounds at the bases Abd: soft, nontender Ext: no edema Laboratory Results - last 24 hr 01/31/19 01/31/19 02/05/19 06:38 10:00 06:00 WBC RBC Hgb Hct MCV MCH MCHC RDW Plt Count MPV Absolute Neuts (auto) Neutrophils % Lymphocytes % Monocytes % Eosinophils % Basophils % Nucleated RBC % Sodium 143 Potassium 3.6 Chloride 112 H Carbon Dioxide 21 Anion Gap 9 BUN 18 Creatinine 1.9 H Est GFR (CKD-EPI)AfAm 27.57 Est GFR (CKD-EPI)NonAf 23.79 Random Glucose 91 Calcium 8.9 Magnesium 1.1 L Total Bilirubin 0.3 AST 10 L ALT 12 L Alkaline Phosphatase 74 Total Protein 5.7 L Albumin 2.3 L Urine Eosinophils None seen c-ANCA <1:20 Proteinase 3 (PR3) <3.5 p-ANCA <1:20 Atypical p-ANCA <1:20 Myeloperoxidase Ab <9.0 02/05/19 06:00 WBC 8.5 RBC 4.12 Hgb 10.7 Hct 32.4 MCV 78.6 L MCH 26.0 MCHC 33.1 RDW 15.9 H Plt Count 427 MPV 7.6 Absolute Neuts (auto) 6.3 Neutrophils % 74.5 Lymphocytes % 13.2 D Monocytes % 9.4 Eosinophils % 2.0 Basophils % 0.9 Nucleated RBC % 0 Sodium Potassium Chloride Carbon Dioxide Anion Gap BUN Creatinine Est GFR (CKD-EPI)AfAm Est GFR (CKD-EPI)NonAf Random Glucose Calcium Magnesium Total Bilirubin AST ALT Alkaline Phosphatase Total Protein Albumin Urine Eosinophils c-ANCA Proteinase 3 (PR3) p-ANCA Atypical p-ANCA Myeloperoxidase Ab A/P UTI Severe Sepsis resolving Acute Kidney Injury Paroxysmal Atrial Fibrillation Anxiety - ABX per ID - O2 to keep SpO2 >90% - pain control - rate/rhythm control - continue anticoagulation Dr Souza
--- NOTE | 2019-02-05 11:41 | PN ---
Progress Note, Physician History of Present Illness: stable no new issues - Current Medication List Current Medications: Active Medications Acetaminophen (Tylenol -) 650 mg PO Q6H PRN PRN Reason: FEVER Last Admin: 02/03/19 17:38 Dose: 650 mg Apixaban (Eliquis -) 2.5 mg PO BID [facility] Last Admin: 02/05/19 10:40 Dose: 2.5 mg Gabapentin (Neurontin -) 200 mg PO BID [facility] Last Admin: 02/05/19 10:40 Dose: 200 mg Sodium Chloride (Normal Saline -) 1,000 mls @ 60 mls/hr IV ASDIR [facility] Last Admin: 02/04/19 12:00 Dose: 60 mls/hr Lidocaine (Lidoderm Patch -) 1 patch TP DAILY [facility] Last Admin: 02/05/19 10:39 Dose: 1 patch Metoprolol Succinate (Toprol Xl -) 25 mg PO DAILY [facility] Last Admin: 02/05/19 10:40 Dose: 25 mg Miscellaneous (Lidoderm Patch Removal) 1 each MC DAILY@2200 [facility] Last Admin: 02/04/19 22:27 Dose: 1 each Polyethylene Glycol (Miralax (For Daily Use) -) 17 gm PO DAILY [facility] Last Admin: 02/05/19 10:42 Dose: Not Given Potassium Chloride (K-Dur -) 40 meq PO DAILY [facility] Last Admin: 02/05/19 10:43 Dose: 40 meq Senna (Senna -) 1 tab PO DAILY [facility] Last Admin: 02/05/19 10:40 Dose: 1 tab Simethicone (Mylicon -) 80 mg PO DAILY [facility] Last Admin: 02/05/19 10:40 Dose: 80 mg - Objective Vital Signs: Vital Signs Temperature 97.5 F L 02/05/19 09:33 Pulse Rate 84 02/05/19 09:33 Respiratory Rate 18 02/05/19 09:33 Blood Pressure 115/74 02/05/19 09:33 O2 Sat by Pulse Oximetry (%) 97 02/05/19 09:48 Constitutional: Yes: No Distress, Calm Cardiovascular: Yes: Regular Rate and Rhythm Respiratory: Yes: Regular, CTA Bilaterally Musculoskeletal: Yes: WNL Extremities: Yes: WNL Neurological: Yes: Alert, Oriented Psychiatric: Yes: Alert, Oriented Labs: CBC, BMP 02/05/19 06:00 02/05/19 06:00 INR, PTT INR 1.17 (0.83-1.09) H 01/23/19 05:30 Assessment/Plan UTI Severe Sepsis Acute Kidney Injury Anxiety hypotension plan wbc normalized will stop abx rest as per the team patient doing well
--- NOTE | 2019-02-05 14:36 | DS ---
Physical Examination Vital Signs: Vital Signs Temperature 97.5 F L 02/05/19 09:33 Pulse Rate 84 02/05/19 09:33 Respiratory Rate 18 02/05/19 09:33 Blood Pressure 115/74 02/05/19 09:33 O2 Sat by Pulse Oximetry (%) 97 02/05/19 09:48 Constitutional: Yes: No Distress HENT: Yes: Atraumatic Neck: Yes: Supple Cardiovascular: Yes: Regular Rate and Rhythm Respiratory: Yes: CTA Bilaterally Gastrointestinal: Yes: Normal Bowel Sounds Extremities: Yes: WNL Neurological: Yes: Alert Labs: CBC, BMP 02/05/19 06:00 02/05/19 06:00 Discharge Summary Reason For Visit: SEPSIS Current Active Problems JONATHAN (acute kidney injury) (Acute) [id number] kidney injury (Acute) Bladder distension (Acute) Fall (Acute) History of multiple strokes (Acute) Paroxysmal atrial flutter (Acute) Sepsis (Acute) UTI (urinary tract infection) (Acute) - Instructions Referrals: Hector Quinn MD [Primary Care Provider] - - Home Medications Comprehensive Discharge Medication List: Ambulatory Orders Gabapentin 200 mg PO BID 01/23/19 Heparin - 5,000 unit SQ Q8H 01/23/19 Lidocaine [Lidocaine Pain Relief] 1 each TP DAILY 01/23/19 Mirabegron [Myrbetriq] 50 mg PO DAILY 01/23/19 Oxycodone HCl 5 mg PO Q6H PRN 01/23/19 Pantoprazole Sodium [Protonix] 40 mg PO DAILY 01/23/19 Polyethylene Glycol 3350 [Miralax 119 gm Btl -] 17 gm PO DAILY 01/23/19 Sennosides [Senna] 8.6 mg PO DAILY 01/23/19 Simethicone [Gas Relief] 80 mg PO DAILY 01/23/19 Zinc Oxide 20% Topical Oint gm NR TID 01/23/19 Apixaban [Eliquis -] 2.5 mg PO BID tablet 02/05/19 Metoprolol Succinate [Toprol XL -] 25 mg PO DAILY tab.sr.24h 02/05/19 nj snf
[2019-02-05 15:15] VITALS: BP 112/75; PULSE 73; TEMP 98.8
--- NOTE | 2019-02-05 15:39 | PN ---
Progress Note, Physician History of Present Illness: Pt seen and examined at bedside. She is awake and appears comfortable. - Current Medication List Current Medications: Active Medications Acetaminophen (Tylenol -) 650 mg PO Q6H PRN PRN Reason: FEVER Last Admin: 02/03/19 17:38 Dose: 650 mg Apixaban (Eliquis -) 2.5 mg PO BID [facility] Last Admin: 02/05/19 10:40 Dose: 2.5 mg Gabapentin (Neurontin -) 200 mg PO BID [facility] Last Admin: 02/05/19 10:40 Dose: 200 mg Sodium Chloride (Normal Saline -) 1,000 mls @ 60 mls/hr IV ASDIR [facility] Last Admin: 02/04/19 12:00 Dose: 60 mls/hr Lidocaine (Lidoderm Patch -) 1 patch TP DAILY [facility] Last Admin: 02/05/19 10:39 Dose: 1 patch Metoprolol Succinate (Toprol Xl -) 25 mg PO DAILY [facility] Last Admin: 02/05/19 10:40 Dose: 25 mg Miscellaneous (Lidoderm Patch Removal) 1 each MC DAILY@2200 [facility] Last Admin: 02/04/19 22:27 Dose: 1 each Polyethylene Glycol (Miralax (For Daily Use) -) 17 gm PO DAILY [facility] Last Admin: 02/05/19 10:42 Dose: Not Given Potassium Chloride (K-Dur -) 40 meq PO DAILY [facility] Last Admin: 02/05/19 10:43 Dose: 40 meq Senna (Senna -) 1 tab PO DAILY [facility] Last Admin: 02/05/19 10:40 Dose: 1 tab Simethicone (Mylicon -) 80 mg PO DAILY [facility] Last Admin: 02/05/19 10:40 Dose: 80 mg - Objective Vital Signs: Vital Signs Temperature 98.8 F 02/05/19 15:10 Pulse Rate 73 02/05/19 15:10 Respiratory Rate 18 02/05/19 15:10 Blood Pressure 112/75 02/05/19 15:10 O2 Sat by Pulse Oximetry (%) 97 02/05/19 09:48 Constitutional: Yes: Calm Eyes: Yes: Conjunctiva Clear HENT: Yes: Atraumatic Neck: Yes: Supple Cardiovascular: Yes: S1, S2 Respiratory: Yes: CTA Bilaterally Gastrointestinal: Yes: Normal Bowel Sounds, Soft Genitourinary: Yes: Incontinence Musculoskeletal: Yes: Muscle Weakness Edema: No Neurological: Yes: Confusion Psychiatric: Yes: Oriented Labs: CBC, BMP 02/05/19 06:00 02/05/19 06:00 INR, PTT INR 1.17 (0.83-1.09) H 01/23/19 05:30 Problem List - Problems (1) JONATHAN (acute kidney injury) Code(s): N17.9 - ACUTE KIDNEY FAILURE, UNSPECIFIED (2) Paroxysmal atrial flutter Code(s): I48.92 - UNSPECIFIED ATRIAL FLUTTER (3) Sepsis Code(s): A41.9 - SEPSIS, UNSPECIFIED ORGANISM Qualifiers: Sepsis type: Escherichia coli Qualified Code(s): A41.51 - Sepsis due to Escherichia coli [E. coli] (4) UTI (urinary tract infection) Code(s): N39.0 - URINARY TRACT INFECTION, SITE NOT SPECIFIED Qualifiers: Urinary tract infection type: site unspecified Hematuria presence: without hematuria Qualified Code(s): N39.0 - Urinary tract infection, site not specified (5) Back pain Code(s): M54.9 - DORSALGIA, UNSPECIFIED Qualifiers: Back pain location: low back pain Chronicity: acute Back pain laterality : unspecified Sciatica presence: without sciatica Qualified Code(s): M54.5 - Low back pain Assessment/Plan Current Medications Generic Name Dose Route Start Last Admin Trade Name Freq PRN Reason Stop Dose Admin Acetaminophen 650 mg 01/28/19 20:47 02/03/19 17:38 Tylenol - PO 650 mg Q6H PRN Administration FEVER Apixaban 2.5 mg 01/28/19 22:00 02/05/19 10:40 Eliquis - PO 2.5 mg BID [facility] Administration Gabapentin 200 mg 01/28/19 13:45 02/05/19 10:40 Neurontin - PO 200 mg BID [facility] Administration Sodium Chloride 1,000 mls @ 60 mls/hr 02/04/19 11:34 02/04/19 12:00 Normal Saline - IV 60 mls/hr ASDIR [facility] Administration Lidocaine 1 patch 01/28/19 17:45 02/05/19 10:39 Lidoderm Patch - TP 1 patch DAILY [facility] Administration Metoprolol Succinate 25 mg 02/05/19 10:00 02/05/19 10:40 Toprol Xl - PO 25 mg DAILY [facility] Administration Miscellaneous 1 each 01/28/19 22:00 02/04/19 22:27 Lidoderm Patch Removal MC 1 each DAILY@2200 [facility] Administration Polyethylene Glycol 17 gm 01/28/19 10:00 02/05/19 10:42 Miralax (For Daily Use) - PO Not Given DAILY [facility] Potassium Chloride 40 meq 01/28/19 10:00 02/05/19 10:43 K-Dur - PO 40 meq DAILY [facility] Administration Senna 1 tab 01/28/19 10:00 02/05/19 10:40 Senna - PO 1 tab DAILY [facility] Administration Simethicone 80 mg 01/28/19 10:00 02/05/19 10:40 Mylicon - PO 80 mg DAILY [facility] Administration Laboratory Tests 01/31/19 01/31/19 06:38 06:38 CELESTINA M-Mitch Not observed URIEL Screen Negative c-ANCA <1:20 Proteinase 3 (PR3) <3.5 p-ANCA <1:20 Atypical p-ANCA <1:20 Myeloperoxidase Ab <9.0 Double Strand DNA Ab 1 Glomerular Base Memb Ab 3 Impression 1. JONATHAN 2. UTI 3. sepsis 4. a-fib 5. cva Plan - renal function continues to improve - serologies negative so far - encourage po intake - monitor lytes - volume status is stable
== END 2019-02-05 18:21 | DRG 871 ==
LOC: SUPCPDRO 19:41 → JER 19:41 → JERBED 22:56 → JICU 01-23 00:27 → J4W 01-28 20:03
PROVIDERS: ADMIT Internal Medicine; ATTEND Internal Medicine
PROC: 0T9B70Z Drainage of Bladder with Drainage Device, Via Natural or Artificial Opening (ICD-10-PCS; principal; 2019-01-30)
DX: A41.51 Sepsis due to Escherichia coli [E. coli] (principal); G93.41 Metabolic encephalopathy; N39.0 Urinary tract infection, site not specified; N17.9 Acute kidney failure, unspecified; I48.92 Unspecified atrial flutter; R65.20 Severe sepsis without septic shock; E87.6 Hypokalemia; R29.6 Repeated falls; E86.0 Dehydration; I48.0 Paroxysmal atrial fibrillation; S02.2XXA Fracture of nasal bones, initial encounter for closed fracture; I95.9 Hypotension, unspecified; N18.9 Chronic kidney disease, unspecified; Z66 Do not resuscitate; S01.511A Laceration without foreign body of lip, initial encounter; S01.111A Laceration without foreign body of right eyelid and periocular area, initial encounter; F03.90 Unspecified dementia, unspecified severity, without behavioral disturbance, psychotic disturbance, mood disturbance, and anxiety; M54.5 Low back pain; F41.9 Anxiety disorder, unspecified; N32.81 Overactive bladder; W01.0XXA Fall on same level from slipping, tripping and stumbling without subsequent striking against object, initial encounter; Y93.89 Activity, other specified; Y92.128 Other place in nursing home as the place of occurrence of the external cause; Y99.8 Other external cause status; I45.10 Unspecified right bundle-branch block; Z86.73 Personal history of transient ischemic attack (TIA), and cerebral infarction without residual deficits; Z85.9 Personal history of malignant neoplasm, unspecified
CPT/HCPCS: 36415; 70450-TC; 70486-TC; 71045-TC-FY; 72125-TC; 76775-TC; 76856-TC; 80048; 80053; 81003; 82550; 82553; 82565; 82803; 83516; 83520; 83605; 83735; 84100; 84155; 84165; 84300; 84443; 84484; 85025; 85027; 85610; 85730; 86038; 86225; 86256; 86704; 86706; 86708; 86850; 86900; 86901; 87040; 87086; 87186; 87205; 87340; 87522; 93005; 93010; 93306-TC; 97116-GP; 97162-GP; 99285-25; J0131; J1644; J7030

== ENCOUNTER 2019-02-23 11:03 | Inpatient (IN) | payer OTHER, MEDICARE ==
[2019-02-23 11:14] VITALS: BMI 23.0
--- NOTE | 2019-02-23 11:32 | PDOC ---
Attending Attestation - Resident Resident Name: AyalaVal - ED Attending Attestation I have performed the following: I have examined & evaluated the patient, The case was reviewed & discussed with the resident, I agree w/resident's findings & plan, Exceptions are as noted - HPI HPI: 02/23/19 11:35 83y F hx of hyperactive bladder, chronic back pain, presents for syncope. Pt states that she was getting PT, has her typicaly chornic back pain, but had a witnessed syncopal episode. Pt denies any associated cp, palpatitations, sob, fever/chills, cough, abd pain, n/v, diaphroesis, diarrhia, melena, bpr. Pt is not sure if she has had dysuria since hse has very little control of her urination due to her hyperaticve bladder. Additionally, pt notes she has had a poor appteitie recently. Pt does not recall the syncopal episode no seizure like activityk urinary or bowel inctoninence, tongue biting - Physicial Exam PE: 02/23/19 12:00 GENERAL: The patient is awake, alert, and fully oriented, Nontoxic - in no acute distress. HEAD: Normocephalic, atraumatic. EYES: extraocular movements intact, sclera anicteric, pale conjunctiva ENT: Normal voice, dry mucous membranes. NECK: Normal range of motion, supple LUNGS: Breath sounds equal, clear to auscultation bilaterally. No wheezes, no rhonchi, no rales. HEART: Regular rate and rhythm, normal S1 and S2 without murmur, rub or gallop. ABDOMEN: Soft, mild lower abd ttp, No guarding, no rebound. No CVA tenderness EXTREMITIES: Normal range of motion, trace edema. BACK: mild l lower back ttp on paraspinal region NEUROLOGICAL: No facial assymetry, Normal speech, moving all 4 extremities spontaneously and symmetrically PSYCH: Normal mood, normal affect. SKIN: Warm, Dry, normal turgor, - Medical Decision Making 02/23/19 11:50 83-year-old female presenting with witnessed syncopal episode without seizure- like activity. Differential is wide and includes but not limited to anemia, metabolic derangements, dehydration/orthostatics, ACS, arrhythmia We will obtain CBC, CMP, troponin will place pt contour sander will obtain EKG, UA Fluids for hydration will reassess 02/23/19 15:40 Patient's blood work was reviewed, there is a significant white count of 23. Electrolytes were reviewed noted for mild hypokalemia L we'll replete The patient's UA is relatively clear as the patient has the elevated white count and lower abdominal tenderness we'll obtain a CT to rule out acute pathology 02/23/19 17:40 ct restults cw diverticullitis will start abx will admit for further managmenet Heart Score/ECG Review - ECG Impressions Comment:: 02/23/19 12:05 Twelve-lead EKG was performed and reviewed by me. There is normal sinus rhythm with a normal rate. rate of 90 The axis is normal. The intervals are normal. There is normal R wave progression Nonspecific TWI
--- NOTE | 2019-02-23 12:02 | PDOC ---
History of Present Illness - General Chief Complaint: Syncope/Near Syncope Stated Complaint: Syncope/Near Syncope Time Seen by Provider: 02/23/19 11:32 History Source: Patient Exam Limitations: No Limitations - History of Present Illness Initial Comments: 02/23/19 12:01 83 y/o M With PMHx of Anxiety, irritable bladder, back pain, recent falls, with recent admission for Sepsis due to UTI, presents today from [facility] ( [place]) after a syncopal episode. Patient was in her usual state of health this AM however she is unable to recall the event. The last thing the patient recalls is eating this morning, and shortly after being in the ambulance. She was informed by nursing staff that she syncopized; She says it was not accompanied by loss of bowel or bladder control, tongue biting or jerking movements of her extremities. She denies hitting her head. Patient mentions that lately, she feels very thirsty however has a diminished appetite, chills and nausea. Additionally mentions having chronic incontinence and chronic lower back pain. Denies any associated fevers, chest pain, SOB, vomiting, diarrhea, constipation, dysuria, hematuria. Patient mentions she is medication compliant and her only recent medication change is stopping her Phenelezine and starting another Anti-Anxiety medication. Patient presents with [facility] Form--She is DNR/DNI Past History - Travel Traveled outside of the country in the last 30 days: No Close contact w/someone who was outside of country & ill: No - Past Medical History Allergies/Adverse Reactions: Allergies Allergy/AdvReac Type Severity Reaction Status Date / Time No Known Allergies Allergy Verified 02/23/19 11:11 Home Medications: Ambulatory Orders Lidocaine [Lidocaine Pain Relief] 1 each TP DAILY 01/23/19 Mirabegron [Myrbetriq] 25 mg PO DAILY 01/23/19 Oxycodone HCl 5 mg PO Q6H PRN 01/23/19 Sennosides [Senna] 8.6 mg PO DAILY 01/23/19 Zinc Oxide 20% Topical Oint 1 applic NR TID 01/23/19 Acetaminophen [Pain Relief] 650 mg PO QID 02/23/19 Omeprazole 20 mg PO DAILY 02/23/19 Propylene Glycol [Systane Balance] 10 ml OP BID 02/23/19 Venlafaxine HCl [Effexor -] 25 mg PO BIDLASIX 02/23/19 Anemia: No Asthma: No Cancer: Yes Cardiac Disorders: No CVA: No COPD: No CHF: No Dementia: No Diabetes: No GI Disorders: No Disorders: No HTN: No Hypercholesterolemia: No Liver Disease: No Seizures: No Thyroid Disease: No - Surgical History Abdominal Surgery: No Appendectomy: No Cardiac Surgery: No Cholecystectomy: No Lung Surgery: No Neurologic Surgery: No Orthopedic Surgery: No Other Surgical History: 02/23/19 12:12 Hysterectomy, R Lumpectomy - Family Disease History Family Disease History: CA: Mother (Colon) - Immunization History Immunization Up to Date: No - Suicide/Smoking/Psychosocial Hx Smoking History: Former smoker (Quit 1973; 1.5 ppd x 30 years prior) Have you smoked in the past 12 months: No Information on smoking cessation initiated: No Hx Alcohol Use: Yes (1 Daily Drink) Drug/Substance Use Hx: No Review of Systems - Review of Systems Constitutional: Yes: Loss of Appetite. No: Chills, Fever, Weakness Respiratory: No: Cough, Shortness of Breath Cardiac (ROS): No: Chest Pain, Edema, Lightheadedness, Palpitations ABD/GI: Yes: Poor Appetite. No: Constipated, Diarrhea, Vomiting : Yes: Incontinence (Chronic) Neurological: No: Numbness, Tingling Psychiatric: Yes: Anxiety *Physical Exam - Vital Signs Last Vital Signs Temp Pulse Resp BP Pulse Ox 97.5 F L 87 18 93/66 97 02/23/19 11:11 02/23/19 11:11 02/23/19 11:11 02/23/19 11:11 02/23/19 11:11 Orthostatics Supine: 96/64, HR 93 Sittin/61, HR 90 Patient refuses to stand, feels she will fall - Physical Exam General Appearance: Yes: Appropriately Dressed HEENT: positive: EOMI, EVONNE Respiratory/Chest: positive: Normal Breath Sounds. negative: Crackles, Rhonchi , Wheezing Cardiovascular: positive: Regular Rhythm, Regular Rate, S1, S2. negative: Edema , JVD, Murmur Gastrointestinal/Abdominal: positive: Normal Bowel Sounds, Tender (to palpation in the b/l LQ). 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 Differential Includes cardiac causes, metabolic derangements, Dehydration, Arrhythmia. Will Check CBC, CMP, Mag, Phos , Trop, UA. EKG reveals NSR, VR 90, QTc 450. Orthostatics noted above. Continue to monitor on Tele. Give 1L NS Bolus. Will reassess. 02/23/19 14:32 Laboratory Last Values WBC 23.6 K/mm3 (4.0-10.0) H 02/23/19 12:30 RBC 4.40 M/mm3 (3.60-5.2) 02/23/19 12:30 Hgb 11.3 GM/dL (10.7-15.3) 02/23/19 12:30 Hct 34.8 % (32.4-45.2) 02/23/19 12:30 MCV 79.1 fl (80-96) L 02/23/19 12:30 MCH 25.7 pg (25.7-33.7) 02/23/19 12:30 MCHC 32.5 g/dl (32.0-36.0) 02/23/19 12:30 RDW 16.3 % (11.6-15.6) H 02/23/19 12:30 Plt Count 352 K/MM3 (134-434) 02/23/19 12:30 MPV 8.7 fl (7.5-11.1) D 02/23/19 12:30 Absolute Neuts (auto) 21.4 K/mm3 (1.5-8.0) H 02/23/19 12:30 Neutrophils % 91.0 % (42.8-82.8) H D 02/23/19 12:30 Lymphocytes % 4.1 % (8-40) L D 02/23/19 12:30 Monocytes % 4.4 % (3.8-10.2) 02/23/19 12:30 Eosinophils % 0.2 % (0-4.5) D 02/23/19 12:30 Basophils % 0.3 % (0-2.0) 02/23/19 12:30 Nucleated RBC % 0 % (0-0) 02/23/19 12:30 Sodium 133 mmol/L (136-145) L 02/23/19 12:30 Potassium 3.0 mmol/L (3.5-5.1) L 02/23/19 12:30 Chloride 97 mmol/L (98-107) L 02/23/19 12:30 Carbon Dioxide 23 mmol/L (21-32) 02/23/19 12:30 Anion Gap 14 MMOL/L (8-16) 02/23/19 12:30 BUN 15 mg/dL (7-18) 02/23/19 12:30 Creatinine 1.1 mg/dL (0.55-1.3) 02/23/19 12:30 Est GFR (CKD-EPI)AfAm 53.39 02/23/19 12:30 Est GFR (CKD-EPI)NonAf 46.07 02/23/19 12:30 Random Glucose 104 mg/dL (74-106) 02/23/19 12:30 Calcium 9.2 mg/dL (8.5-10.1) 02/23/19 12:30 Phosphorus 3.1 mg/dL (2.5-4.9) 02/23/19 12:30 Magnesium 1.8 mg/dL (1.8-2.4) 02/23/19 12:30 Total Bilirubin 0.9 mg/dL (0.2-1) 02/23/19 12:30 AST 12 U/L (15-37) L 02/23/19 12:30 ALT 12 U/L (13-61) L 02/23/19 12:30 Alkaline Phosphatase 107 U/L (45-117) 02/23/19 12:30 Creatine Kinase 35 U/L (26-192) 02/23/19 12:45 Troponin I 0.06 ng/ml (0.00-0.05) H 02/23/19 12:45 Total Protein 6.4 g/dl (6.4-8.2) 02/23/19 12:30 Albumin 3.2 g/dl (3.4-5.0) L 02/23/19 12:30 Urine Color Yellow 02/23/19 13:59 Urine Appearance Clear 02/23/19 13:59 Urine pH 5.5 (5.0-8.0) D 02/23/19 13:59 Ur Specific [place] 1.011 (1.010-1.035) 02/23/19 13:59 Urine Protein Negative (NEGATIVE) 02/23/19 13:59 Urine Glucose (UA) Negative (NEGATIVE) 02/23/19 13:59 Urine Ketones 1+ (NEGATIVE) H 02/23/19 13:59 Urine Blood Negative (NEGATIVE) 02/23/19 13:59 Urine Nitrite Negative (NEGATIVE) 02/23/19 13:59 Urine Bilirubin Negative (NEGATIVE) 02/23/19 13:59 Urine Urobilinogen 0.2 mg/dL (0.2-1.0) 02/23/19 13:59 Ur Leukocyte Esterase Trace (NEGATIVE) 02/23/19 13:59 Urine WBC (Auto) 7 /hpf (0-5) 02/23/19 13:59 Urine RBC (Auto) 3 /hpf (0-4) 02/23/19 13:59 Urine Casts (Auto) 4 /lpf (0-8) 02/23/19 13:59 U Epithel Cells (Auto) 1.3 /HPF (0-5/HPF) 02/23/19 13:59 Urine Bacteria (Auto) 280.5 /hpf (NEGATIVE) 02/23/19 13:59 Labwork noted above. Unclear etiology of WBC Count; Afebrile, UA not suggestive of UTI, CXR does not reveal infiltrate. Will Chect CT A/P With IV Contrast give LQ Tenderness. K+ Repleted. Repeat Trop. 02/23/19 17:28 CT A/P: Findings consistent with a mild degree of acute sigmoid diverticulitis without abscess formation. Clinical correlation and follow-up recommended. Please see above discussion. Will Admit to [facility] for Acute Diverticulitis, Syncopal episode. Collect Blood cx , then give Zosyn 3.375 x 1, NS @ 60 mls/hr, Keep NPO. Spoke with Dr. Quinn who accepts patient for admission. *DC/Admit/Observation/Transfer Diagnosis at time of Disposition: Diverticulitis Syncopal episodes Qualifiers: Syncope type: unspecified Qualified Code(s): R55 - Syncope and collapse - Discharge Dispostion Condition at time of disposition: Guarded Decision to Admit order: Yes - Referrals - Patient Instructions - Post Discharge Activity
[2019-02-23] MEDS ORDERED: SODIUM CHLORIDE 1,000 ML IV STA (12:04)
[2019-02-23 13:22] LABS: BASO % 0.3 % (0-2.0); EOS % 0.2 % (0-4.5); HEMATOCRIT 34.8 % (32.4-45.2); HEMOGLOBIN 11.3 GM/dL (10.7-15.3); LYMPH % 4.1 % (8-40); MCH 25.7 pg (25.7-33.7); MCHC 32.5 g/dl (32.0-36.0); MEAN CELL VOLUME 79.1 fl (80-96); MEAN PLT VOLUME 8.7 fl (7.5-11.1); MONO % 4.4 % (3.8-10.2); PLATELET COUNT 352 K/MM3 (134-434); RDW 16.3 % (11.6-15.6); WHITE BLOOD COUNT 23.6 K/mm3 (4.0-10.0)
[2019-02-23 13:42] LABS: ALBUMIN 3.2 g/dl (3.4-5.0); BILIRUBIN,TOTAL 0.9 mg/dL (0.2-1); CALCIUM 9.2 mg/dL (8.5-10.1); CREATININE 1.1 mg/dL (0.55-1.3); MAGNESIUM 1.8 mg/dL (1.8-2.4); PHOSPHOROUS 3.1 mg/dL (2.5-4.9); TOT PROT 6.4 g/dl (6.4-8.2)
[2019-02-23] MEDS ORDERED: POTASSIUM CHLORIDE TABS 20 MEQ TABLET.ER (FP) PO ONE ×2 (14:02→14:11)
[2019-02-23] MEDS ORDERED: KCL 10 MEQ IVPB 30 MEQ/300 ML INFUS.BAG IVPB ONE (14:11)
[2019-02-23 14:23] LABS: EPI CELLS 1.3 /HPF (0-5/HPF); HYALINE CASTS 4 /lpf (0-8); PH,URINE 5.5 (5.0-8.0); URINE APPEARANCE CLEAR; URINE BACTERIA 280.5 /hpf (NEGATIVE); URINE BILIRUBIN NEGATIVE (NEGATIVE); URINE COLOR YELLOW; URINE GLUCOSE (UA) NEGATIVE (NEGATIVE); URINE KETONE 1+ (NEGATIVE); URINE LEUK ESTERASE TRACE (NEGATIVE); URINE NITRITE NEGATIVE (NEGATIVE); URINE PROTEIN NEGATIVE (NEGATIVE); URINE RBC 3 /hpf (0-4); URINE UROBILINOGEN 0.2 mg/dL (0.2-1.0); URINE WBC 7 /hpf (0-5)
[2019-02-23] MEDS: KCL 10 MEQ IVPB 10 MEQ/100 ML INFUS.BAG IVPB SCH ×3 (14:25→17:40)
[2019-02-23] MEDS ORDERED: ACETAMINOPHEN 1000 MG/100 ML VIAL (NON FORMULARY) IVPB ONE (14:36)
[2019-02-23] MEDS ORDERED: ACETAMINOPHEN INJECTION 100 ML IVPB ONE (14:37)
[2019-02-23 15:53] LABS: ANISOCYTOSIS 2+; MACROCYTOSIS 0; OVALOCYTE 1+; PLATELET ESTIMATE NORMAL
[2019-02-23] MEDS ORDERED: morphine CARPU-JECT 2 MG/1 ML DISP.SYRIN IVPUSH ONE (16:27)
[2019-02-23] MEDS ORDERED: MORPHINE SULFATE 2 MG/ML VIAL ONE (16:29)
[2019-02-23] MEDS ORDERED: PIPERACILLIN/TAZOB 3.375 GM 3.375 GM in DEXTROSE 5%-WATER - 50 ML IVPB ONE (17:27)
[2019-02-23] MEDS ORDERED: SODIUM CHLORIDE 1,000 ML IV SCH (17:30)
--- NOTE | 2019-02-23 17:57 | HP ---
Admitting History and Physical - Primary Care Physician PCP: Hector Quinn - Admission History of Present Illness: 83y F hx of hyperactive bladder, chronic back pain, presents for syncope. Pt states that she was getting PT, has her typicaly chornic back pain, but had a witnessed syncopal episode. Pt denies any associated cp, palpatitations, sob, fever/chills, cough, abd pain, n/v, diaphroesis, diarrhia, melena, bpr. Pt is not sure if she has had dysuria since hse has very little control of her urination due to her hyperaticve bladder. Additionally, pt notes she has had a poor appteitie recently. - Past Medical History SENIOR SYSTEMS ARCHITECT: Yes: CVA Cardiovascular: Yes: AFIB Musculoskeletal: Yes: Chronic low back pain - Smoking History Smoking history: Former smoker (Quit 1973; 1.5 ppd x 30 years prior) Have you smoked in the past 12 months: No - Alcohol/Substance Use Hx Alcohol Use: Yes (1 Daily Drink) Home Medications - Allergies Allergies/Adverse Reactions: Allergies Allergy/AdvReac Type Severity Reaction Status Date / Time No Known Allergies Allergy Verified 02/23/19 11:11 - Home Medications Home Medications: Ambulatory Orders Lidocaine [Lidocaine Pain Relief] 1 each TP DAILY 01/23/19 Mirabegron [Myrbetriq] 25 mg PO DAILY 01/23/19 Oxycodone HCl 5 mg PO Q6H PRN 01/23/19 Sennosides [Senna] 8.6 mg PO DAILY 01/23/19 Zinc Oxide 20% Topical Oint 1 applic NR TID 01/23/19 Acetaminophen [Pain Relief] 650 mg PO QID 02/23/19 Omeprazole 20 mg PO DAILY 02/23/19 Propylene Glycol [Systane Balance] 10 ml OP BID 02/23/19 Venlafaxine HCl [Effexor -] 25 mg PO BIDLASIX 02/23/19 Physical Examination Vital Signs: Vital Signs Temperature 98.5 F 02/23/19 13:20 Pulse Rate 72 02/23/19 13:20 Respiratory Rate 02/23/19 13:20 Blood Pressure 100/68 02/23/19 13:20 O2 Sat by Pulse Oximetry (%) 100 02/23/19 13:20 Constitutional: Yes: No Distress HENT: Yes: Atraumatic Neck: Yes: Supple Cardiovascular: Yes: Regular Rate and Rhythm Respiratory: Yes: CTA Bilaterally Gastrointestinal: Yes: Normal Bowel Sounds Extremities: Yes: WNL Edema: No Neurological: Yes: Alert, Oriented Labs: CBC, BMP 02/23/19 12:30 02/23/19 12:30 Imaging - Results X-ray: Report Reviewed Problem List - Problems (1) Diverticulitis Assessment/Plan: npo iv abx ivf Code(s): K57.92 - DVTRCLI OF INTEST, PART UNSP, W/O PERF OR ABSCESS W/O BLEED (2) Syncopal episodes Code(s): R55 - SYNCOPE AND COLLAPSE Qualifiers: Syncope type: vasovagal syncope Qualified Code(s): R55 - Syncope and collapse (3) History of multiple strokes Code(s): Z86.73 - PRSNL HX OF TIA (TIA), AND CEREB INFRC W/O RESID DEFICITS (4) UTI (urinary tract infection) Assessment/Plan: on ivabx cxs pending Code(s): N39.0 - URINARY TRACT INFECTION, SITE NOT SPECIFIED Qualifiers: Assessment/Plan Laboratory Tests 02/23/19 02/23/19 02/23/19 12:30 12:30 12:45 WBC 23.6 H RBC 4.40 Hgb 11.3 Hct 34.8 MCV 79.1 L MCH 25.7 MCHC 32.5 RDW 16.3 H Plt Count 352 MPV 8.7 D Absolute Neuts (auto) 21.4 H Neutrophils % 91.0 H D Neutrophils % (Manual) 88.9 H Band Neutrophils % 1.0 Lymphocytes % 4.1 L D Lymphocytes % (Manual) 4.0 L Monocytes % 4.4 Monocytes % (Manual) 5 Eosinophils % 0.2 D Eosinophils % (Manual) 0.0 Basophils % 0.3 Basophils % (Manual) 0.0 Myelocytes % (Man) 0 Promyelocytes % (Man) 0 Blast Cells % (Manual) 0 Nucleated RBC % 0 Metamyelocytes 1 Hypochromia 0 Platelet Estimate Normal Platelet Comment Present Polychromasia 1+ Poikilocytosis 1+ Anisocytosis 2+ Microcytosis 1+ Macrocytosis 0 Spherocytes 1+ Ovalocytes 1+ [place] Cells 1+ Acanthocytes (Spur) 1+ Schistocytes 1+ Sodium 133 L Potassium 3.0 L Chloride 97 L Carbon Dioxide 23 Anion Gap 14 BUN 15 Creatinine 1.1 Est GFR (CKD-EPI)AfAm 53.39 Est GFR (CKD-EPI)NonAf 46.07 Random Glucose 104 Calcium 9.2 Phosphorus 3.1 Magnesium 1.8 Total Bilirubin 0.9 AST 12 L ALT 12 L Alkaline Phosphatase 107 Creatine Kinase 35 Troponin I 0.06 H Total Protein 6.4 Albumin 3.2 L Urine Color Urine Appearance Urine pH Ur Specific [place] Urine Protein Urine Glucose (UA) Urine Ketones Urine Blood Urine Nitrite Urine Bilirubin Urine Urobilinogen Ur Leukocyte Esterase Urine WBC (Auto) Urine RBC (Auto) Urine Casts (Auto) U Epithel Cells (Auto) Urine Bacteria (Auto) 02/23/19 13:59 WBC RBC Hgb Hct MCV MCH MCHC RDW Plt Count MPV Absolute Neuts (auto) Neutrophils % Neutrophils % (Manual) Band Neutrophils % Lymphocytes % Lymphocytes % (Manual) Monocytes % Monocytes % (Manual) Eosinophils % Eosinophils % (Manual) Basophils % Basophils % (Manual) Myelocytes % (Man) Promyelocytes % (Man) Blast Cells % (Manual) Nucleated RBC % Metamyelocytes Hypochromia Platelet Estimate Platelet Comment Polychromasia Poikilocytosis Anisocytosis Microcytosis Macrocytosis Spherocytes Ovalocytes [place] Cells Acanthocytes (Spur) Schistocytes Sodium Potassium Chloride Carbon Dioxide Anion Gap BUN Creatinine Est GFR (CKD-EPI)AfAm Est GFR (CKD-EPI)NonAf Random Glucose Calcium Phosphorus Magnesium Total Bilirubin AST ALT Alkaline Phosphatase Creatine Kinase Troponin I Total Protein Albumin Urine Color Yellow Urine Appearance Clear Urine pH 5.5 D Ur Specific [place] 1.011 Urine Protein Negative Urine Glucose (UA) Negative Urine Ketones 1+ H Urine Blood Negative Urine Nitrite Negative Urine Bilirubin Negative Urine Urobilinogen 0.2 Ur Leukocyte Esterase Trace Urine WBC (Auto) 7 Urine RBC (Auto) 3 Urine Casts (Auto) 4 U Epithel Cells (Auto) 1.3 Urine Bacteria (Auto) 280.5 Active Medications Generic Name Dose Route Start Last Admin Trade Name Freq PRN Reason Stop Dose Admin Acetaminophen 650 mg 02/23/19 19:41 Tylenol - PO Q6H PRN FEVER Docusate Sodium 100 mg 02/23/19 22:00 02/25/19 11:08 Colace - PO 100 mg BID VIGNESH Administration Sodium Chloride 1,000 mls @ 100 mls/hr 02/23/19 18:00 02/24/19 18:00 Normal Saline - IV 100 mls/hr ASDIR VIGNESH Administration Piperacillin Sod/Tazobactam 50 mls @ 100 mls/hr 02/24/19 12:00 02/25/19 18:13 Sod 3.375 gm/ Dextrose IVPB 100 mls/hr Q8H-IV VIGNESH Administration Protocol Non-Formulary Medication 25 mg 02/24/19 10:00 Mirabegron [Myrbetriq] PO DAILY VIGNESH Oxycodone HCl 10 mg 02/23/19 18:00 02/25/19 16:36 Roxicodone - PO 10 mg Q6H PRN Administration PAIN Venlafaxine HCl 25 mg 02/24/19 08:00 02/25/19 18:15 Effexor - PO 25 mg BIDWM VIGNESH Administration
[2019-02-23] MEDS: SODIUM CHLORIDE 1,000 ML IV SCH (18:12)
[2019-02-23] MEDS ORDERED: PIPERACILLIN/TAZOB 3.375 GM 3.375 GM/50 ML BAG IVPB ONE (18:54)
[2019-02-23] MEDS ORDERED: DOCUSATE SODIUM 100 MG CAPSULE (FP) PO ONE (21:41)
[2019-02-23] MEDS: DOCUSATE SODIUM 100 MG CAPSULE (FP) PO SCH (21:51)
[2019-02-24] MEDS ORDERED: PT OWN MED DRAWER 7, Y5N ONE (09:36)
[2019-02-24] MEDS: DOCUSATE SODIUM 100 MG CAPSULE (FP) PO SCH ×2 (09:41→22:00)
[2019-02-24] MEDS: VENLAFAXINE HCL 25 MG TABLET PO SCH ×2 (09:41→18:00)
[2019-02-24] MEDS ORDERED: PATIENT'S OWN MEDICATION (NON-FORMULARY) (Mirabegron [Myrbetriq] 25 MG) PO SCH (10:00)
--- NOTE | 2019-02-24 11:01 | CON.CARD ---
Consult Consult Specialty:: Cardiology Referred by:: Dr. Quinn Reason for Consultation:: Cardiac evaluation - History of Present Illness Chief Complaint: Syncope History of Present Illness: Patient is an 83 year old female with underlying history of anxiety, irritable bladder, history of UTI who resides at [facility] in [place] who presents after a syncopal episode. She remembers eating in the morning and shortly after she found herself in the ambulance. She denies chest pain, SOB or palpitations. She denies paroxysmal nocturnal dyspnea or orthopnea. She denies fever or chills. She denies nausea, vomiting, diarrhea or abdominal pain. She denies headache or lightheadedness at this time. She denies any visible injuries. She says she is compliant with all of her medications. - History Source History Provided By: Patient, Medical Record Limitations to Obtaining History: No Limitations - Past Medical History Gastrointestinal: Yes: Irritable Bowel Disease Musculoskeletal: Yes: Chronic low back pain - Alcohol/Substance Use Hx Alcohol Use: Yes (1 Daily Drink) - Smoking History Smoking history: Former smoker (Quit 1973; 1.5 ppd x 30 years prior) Have you smoked in the past 12 months: No Home Medications - Allergies Allergies/Adverse Reactions: Allergies Allergy/AdvReac Type Severity Reaction Status Date / Time No Known Allergies Allergy Verified 02/23/19 11:11 - Home Medications Home Medications: Ambulatory Orders Lidocaine [Lidocaine Pain Relief] 1 each TP DAILY 01/23/19 Mirabegron [Myrbetriq] 25 mg PO DAILY 01/23/19 Oxycodone HCl 5 mg PO Q6H PRN 01/23/19 Sennosides [Senna] 8.6 mg PO DAILY 01/23/19 Zinc Oxide 20% Topical Oint 1 applic NR TID 01/23/19 Acetaminophen [Pain Relief] 650 mg PO QID 02/23/19 Omeprazole 20 mg PO DAILY 02/23/19 Propylene Glycol [Systane Balance] 10 ml OP BID 02/23/19 Venlafaxine HCl [Effexor -] 25 mg PO BIDLASIX 02/23/19 Review of Systems - Review of Systems Constitutional: reports: Weakness. denies: Chills, Fever Cardiovascular: denies: Chest Pain, Palpitations, Shortness of Breath Respiratory: denies: Cough, Hemoptysis, Orthopnea, PND, SOB, SOB on Exertion Gastrointestinal: denies: Abdominal Pain, Constipation, Diarrhea, Melena, Nausea , Rectal Bleeding, Vomiting Genitourinary: denies: Dysuria, Hematuria Musculoskeletal: denies: Back Pain, Joint Pain Neurological: reports: Syncope. denies: Dizziness, Headache, Seizure Vital Signs: Vital Signs Temperature 98.2 F 02/24/19 10:00 Pulse Rate 86 02/24/19 10:00 Respiratory Rate 18 02/24/19 10:00 Blood Pressure 108/60 02/24/19 10:00 O2 Sat by Pulse Oximetry (%) 97 02/24/19 06:00 Eyes: Yes: PERRL HENT: Yes: Atraumatic Neck: Yes: Supple Respiratory: Yes: CTA Bilaterally Gastrointestinal: Yes: Normal Bowel Sounds, Soft. No: Tenderness Cardiovascular: Yes: Regular Rate and Rhythm JVD: No Heart Sounds: Yes: S1, S2 Murmur: Yes: Systolic Murmur, Grade 1 Edema: No - Other Data Labs, Other Data: CBC, BMP 02/23/19 12:30 02/23/19 12:30 Troponin, BNP 02/23/19 02/23/19 12:45 18:00 Troponin I 0.06 H 0.05 Sinus rhythm with nonspecific T abnormality Imaging - Results Chest X-ray: Report Reviewed (Unremarkable) Cat Scan: Report Reviewed (Abd CT acute sigmoid diverticulitis) EKG: Report Reviewed Problem List - Problems (1) Diverticulitis Code(s): K57.92 - DVTRCLI OF INTEST, PART UNSP, W/O PERF OR ABSCESS W/O BLEED (2) Syncopal episodes Code(s): R55 - SYNCOPE AND COLLAPSE Qualifiers: Syncope type: vasovagal syncope Qualified Code(s): R55 - Syncope and collapse (3) [id number] kidney injury Code(s): N17.9 - ACUTE KIDNEY FAILURE, UNSPECIFIED; N18.9 - CHRONIC KIDNEY DISEASE, UNSPECIFIED (4) Sepsis Code(s): A41.9 - SEPSIS, UNSPECIFIED ORGANISM Qualifiers: Sepsis type: Escherichia coli Qualified Code(s): A41.51 - Sepsis due to Escherichia coli [E. coli] (5) UTI (urinary tract infection) Code(s): N39.0 - URINARY TRACT INFECTION, SITE NOT SPECIFIED Qualifiers: Assessment/Plan 1. Syncope, etiology to be determined 2. Irritable bowel syndrome 3. History of UTI 4. ? Organic brain 5. Demand ischemia PLAN: 1. Trend troponin 2. Echocardiography to assess LV/RV and valvular function 3. GI evaluation 4. Antibiotic coverage Further plans are to follow Adarsh Degroot MD
--- NOTE | 2019-02-24 12:04 | EKG ---
Test Reason : Blood Pressure : / mmHG Vent. Rate : 090 BPM Atrial Rate : 090 BPM P-R Int : 176 ms QRS Dur : 094 ms QT Int : 368 ms P-R-T Axes : 045 -25 072 degrees QTc Int : 450 ms SINUS RHYTHM WITH PREMATURE SUPRAVENTRICULAR COMPLEXES NONSPECIFIC T WAVE ABNORMALITY ABNORMAL ECG Confirmed by Chito Andres MD ([id number]) on 02/24/2019 12:03:37 PM Referred By: Confirmed By:Chito Andres MD
[2019-02-24] MEDS ORDERED: PIPERACILLIN/TAZOBACTAM 3.375 GM VIAL IVPB ONE ×2 (12:55→18:38)
[2019-02-24] MEDS ORDERED: DEXTROSE 5%-WATER - 50 ML IVPB ONE ×2 (12:55→18:38)
[2019-02-24] MEDS: PIPERACILLIN/TAZOB 3.375 GM 3.375 GM in DEXTROSE 5%-WATER - 50 ML IVPB SCH ×2 (12:58→19:01)
--- NOTE | 2019-02-24 14:13 | PN ---
Progress Note, Physician History of Present Illness: stable - Current Medication List Current Medications: Active Medications Acetaminophen (Tylenol -) 650 mg PO Q6H PRN PRN Reason: FEVER Docusate Sodium (Colace -) 100 mg PO BID [facility] Last Admin: 02/24/19 09:41 Dose: 100 mg Sodium Chloride (Normal Saline -) 1,000 mls @ 100 mls/hr IV ASDIR [facility]IGN[facility] Last Admin: 02/23/19 18:12 Dose: 100 mls/hr Piperacillin Sod/Tazobactam (Sod 3.375 gm/ Dextrose) 50 mls @ 100 mls/hr IVPB Q8H-IV VIGNESH; Protocol Last Admin: 02/24/19 12:58 Dose: 100 mls/hr Non-Formulary Medication (Mirabegron [Myrbetriq]) 25 mg PO DAILY [facility] Oxycodone HCl (Roxicodone -) 10 mg PO Q6H PRN PRN Reason: PAIN Venlafaxine HCl (Effexor -) 25 mg PO BIDWM [facility], [facility] Last Admin: 02/24/19 09:41 Dose: 25 mg - Objective Vital Signs: Vital Signs Temperature 98.2 F 02/24/19 10:00 Pulse Rate 86 02/24/19 10:00 Respiratory Rate 18 02/24/19 10:00 Blood Pressure 108/60 02/24/19 10:00 O2 Sat by Pulse Oximetry (%) 97 02/24/19 06:00 Constitutional: Yes: No Distress HENT: Yes: Atraumatic Neck: Yes: Supple Cardiovascular: Yes: Regular Rate and Rhythm Respiratory: Yes: Rhonchi Gastrointestinal: Yes: Normal Bowel Sounds Extremities: Yes: WNL Edema: No Peripheral Pulses WNL: Yes Neurological: Yes: Alert, Oriented Labs: CBC, BMP 02/23/19 12:30 02/23/19 12:30 Problem List - Problems (1) Diverticulitis Assessment/Plan: npo iv abx Code(s): K57.92 - DVTRCLI OF INTEST, PART UNSP, W/O PERF OR ABSCESS W/O BLEED (2) Syncopal episodes Code(s): R55 - SYNCOPE AND COLLAPSE Qualifiers: Syncope type: vasovagal syncope Qualified Code(s): R55 - Syncope and collapse (3) History of multiple strokes Code(s): Z86.73 - PRSNL HX OF TIA (TIA), AND CEREB INFRC W/O RESID DEFICITS (4) UTI (urinary tract infection) Assessment/Plan: on ivabx cxs pending Code(s): N39.0 - URINARY TRACT INFECTION, SITE NOT SPECIFIED Qualifiers:
[2019-02-24] MEDS: SODIUM CHLORIDE 1,000 ML IV SCH (18:00)
[2019-02-24 20:46] LABS: HEMATOCRIT 30.9 % (32.4-45.2); HEMOGLOBIN 9.9 GM/dL (10.7-15.3); MCH 25.7 pg (25.7-33.7); MCHC 32.1 g/dl (32.0-36.0); MEAN CELL VOLUME 80.1 fl (80-96); MEAN PLT VOLUME 8.6 fl (7.5-11.1); PLATELET COUNT 335 K/MM3 (134-434); RBC 3.85 M/mm3 (3.60-5.2); RDW 16.5 % (11.6-15.6); WHITE BLOOD COUNT 17.2 K/mm3 (4.0-10.0)
[2019-02-24 21:18] LABS: ALBUMIN 2.7 g/dl (3.4-5.0); BILIRUBIN,TOTAL 0.6 mg/dL (0.2-1); CALCIUM 8.1 mg/dL (8.5-10.1); CREATININE 0.8 mg/dL (0.55-1.3); TOT PROT 5.6 g/dl (6.4-8.2)
[2019-02-24 21:28] LABS: POTASSIUM 2.7 mmol/L (3.5-5.1)
[2019-02-24] MEDS ORDERED: MAGNESIUM SULF 50% (8.12 MEQ/2 ML-1 GM VIAL) IVPB ONE (21:37)
[2019-02-24] MEDS: KCL 10 MEQ IVPB 10 MEQ/100 ML INFUS.BAG IVPB SCH (23:46)
[2019-02-25] MEDS: KCL 10 MEQ IVPB 10 MEQ/100 ML INFUS.BAG IVPB SCH ×3 (02:45→23:20)
[2019-02-25] MEDS ORDERED: PIPERACILLIN/TAZOBACTAM 3.375 GM VIAL IVPB ONE ×3 (03:56→18:08)
[2019-02-25] MEDS ORDERED: DEXTROSE 5%-WATER - 50 ML IVPB ONE ×3 (03:56→18:08)
[2019-02-25] MEDS: PIPERACILLIN/TAZOB 3.375 GM 3.375 GM in DEXTROSE 5%-WATER - 50 ML IVPB SCH ×3 (04:51→18:13)
[2019-02-25 08:06] LABS: SERUM IRON SATURATION 8 % (15-55); TOTAL IRON BINDING CAPACITY 186 ug/dL (250-450); UIBC 172 ug/dL (118-369)
[2019-02-25] MEDS: VENLAFAXINE HCL 25 MG TABLET PO SCH ×2 (09:07→18:15)
--- NOTE | 2019-02-25 11:06 | PN ---
Progress Note, Physician History of Present Illness: No further near or true syncope. Removed telemetry monitoring. - Current Medication List Current Medications: Active Medications Acetaminophen (Tylenol -) 650 mg PO Q6H PRN PRN Reason: FEVER Docusate Sodium (Colace -) 100 mg PO BID [facility] Last Admin: 02/24/19 22:00 Dose: 100 mg Sodium Chloride (Normal Saline -) 1,000 mls @ 100 mls/hr IV ASDIR VIGNESH Last Admin: 02/24/19 18:00 Dose: 100 mls/hr Piperacillin Sod/Tazobactam (Sod 3.375 gm/ Dextrose) 50 mls @ 100 mls/hr IVPB Q8H-IV VIGNESH; Protocol Last Admin: 02/25/19 04:51 Dose: 100 mls/hr Non-Formulary Medication (Mirabegron [Myrbetriq]) 25 mg PO DAILY [facility] Oxycodone HCl (Roxicodone -) 10 mg PO Q6H PRN PRN Reason: PAIN Venlafaxine HCl (Effexor -) 25 mg PO BIDWM [facility] Last Admin: 02/25/19 09:07 Dose: 25 mg - Objective Vital Signs: Vital Signs Temperature 98.7 F 02/25/19 02:00 Pulse Rate 87 02/25/19 02:00 Respiratory Rate 20 02/25/19 02:00 Blood Pressure 77/62 L 02/25/19 02:00 O2 Sat by Pulse Oximetry (%) 98 02/24/19 21:00 Constitutional: Yes: No Distress, Calm, Thin Neck: Yes: Supple Cardiovascular: Yes: Regular Rate and Rhythm Respiratory: Yes: Regular, Diminished Gastrointestinal: Yes: Soft, Hypoactive Bowel Sounds, Tenderness Edema: No Labs: CBC, BMP 02/24/19 20:20 02/24/19 20:20 - ....Imaging Chest X-ray: Report Reviewed (NAD) Cat Scan: Report Reviewed (Acute mild sigmoid diverticulitis w/o abscess) Problem List - Problems (1) Diverticulitis Code(s): K57.92 - DVTRCLI OF INTEST, PART UNSP, W/O PERF OR ABSCESS W/O BLEED (2) Syncopal episodes Code(s): R55 - SYNCOPE AND COLLAPSE Qualifiers: Syncope type: vasovagal syncope Qualified Code(s): R55 - Syncope and collapse (3) Sepsis Code(s): A41.9 - SEPSIS, UNSPECIFIED ORGANISM Qualifiers: Sepsis type: Escherichia coli Qualified Code(s): A41.51 - Sepsis due to Escherichia coli [E. coli] (4) UTI (urinary tract infection) Code(s): N39.0 - URINARY TRACT INFECTION, SITE NOT SPECIFIED Qualifiers: Assessment/Plan 1. Syncope referable to sepsis 2. Acute mild sigmoid diverticulitis w/o abscess 3. Hafnia Alvei UTI 4. ? Organic brain 5. Demand ischemia PLAN: 1. Troponin plateaued, replete K 2. F/u echocardiography to assess LV/RV and valvular function 3. Abx course per C&S, IV hydration, bowel rest 4. GI evaluation for possible sigmoidoscopy after inflammation abates.
[2019-02-25] MEDS: DOCUSATE SODIUM 100 MG CAPSULE (FP) PO SCH ×2 (11:08→21:32)
--- NOTE | 2019-02-25 12:20 | CON.ID ---
Consult Consult Specialty:: infectious diseases Referred by:: dr rzd Reason for Consultation:: diverticulitis,abd pain - History of Present Illness Chief Complaint: abd pain History of Present Illness: 83y F hx of hyperactive bladder, chronic back pain, presents for syncope. Pt states that she was getting PT, has her typicaly chornic back pain, but had a witnessed syncopal episode. Pt denies any associated cp, palpatitations, sob, fever/chills, cough, abd pain, n/v, diaphroesis, diarrhia, melena, bpr. Pt is not sure if she has had dysuria since hse has very little control of her urination due to her hyperaticve bladder. Additionally, pt notes she has had a poor appteitie recently. patient known to me from previous admission patient also c/o of pain in the left lower quadrant and suprapubic pain - History Source History Provided By: Patient, Family Member Limitations to Obtaining History: No Limitations - Past Medical History [employer]: Yes: CVA Cardio/Vascular: Yes: AFIB Gastrointestinal: Yes: Irritable Bowel Disease Musculoskeletal: Yes: Chronic low back pain - Alcohol/Substance Use Hx Alcohol Use: Yes (1 Daily Drink) - Smoking History Smoking history: Former smoker (Quit 1973; 1.5 ppd x 30 years prior) Have you smoked in the past 12 months: No Home Medications - Allergies Allergies/Adverse Reactions: Allergies Allergy/AdvReac Type Severity Reaction Status Date / Time No Known Allergies Allergy Verified 02/23/19 11:11 - Home Medications Home Medications: Ambulatory Orders RX: Lidocaine [Lidocaine Pain Relief] 1 each TP DAILY 01/23/19 RX: Mirabegron [Myrbetriq] 25 mg PO DAILY 01/23/19 RX: Oxycodone HCl 5 mg PO Q6H PRN 01/23/19 RX: Sennosides [Senna] 8.6 mg PO DAILY 01/23/19 RX: Zinc Oxide 20% Topical Oint 1 applic NR TID 01/23/19 Acetaminophen [Pain Relief] 650 mg PO QID 02/23/19 Propylene Glycol [Systane Balance] 10 ml OP BID 02/23/19 RX: Omeprazole 20 mg PO DAILY 02/23/19 Venlafaxine HCl [Effexor -] 25 mg PO BIDLASIX 02/23/19 Review of Systems - Review of Systems Constitutional: reports: Weakness Eyes: reports: No Symptoms HENT: reports: No Symptoms Neck: reports: No Symptoms Cardiovascular: reports: No Symptoms Respiratory: reports: No Symptoms Gastrointestinal: reports: Abdominal Pain Musculoskeletal: reports: No Symptoms Integumentary: reports: No Symptoms Neurological: reports: No Symptoms Endocrine: reports: No Symptoms Hematology/Lymphatic: reports: No Symptoms Psychiatric: reports: No Symptoms Physical Exam Vital Signs: Vital Signs Temperature 98.7 F 02/25/19 02:00 Pulse Rate 87 02/25/19 02:00 Respiratory Rate 20 02/25/19 02:00 Blood Pressure 77/62 L 02/25/19 02:00 O2 Sat by Pulse Oximetry (%) 98 02/24/19 21:00 Constitutional: Yes: Well Nourished, Calm, Mild Distress Cardiovascular: Yes: Regular Rate and Rhythm Respiratory: Yes: Regular, CTA Bilaterally Gastrointestinal: Yes: Normal Bowel Sounds, Soft, Tenderness Musculoskeletal: Yes: WNL Extremities: Yes: WNL Neurological: Yes: Alert, Oriented Psychiatric: Yes: Alert, Oriented Labs: CBC, BMP 02/24/19 20:20 02/24/19 20:20 Imaging - Results Chest X-ray: Report Reviewed, Image Reviewed Cat Scan: Report Reviewed, Image Reviewed Assessment/Plan Problem List - Problems (1) Diverticulitis Code(s): K57.92 - DVTRCLI OF INTEST, PART UNSP, W/O PERF OR ABSCESS W/O BLEED (2) Syncopal episodes Code(s): R55 - SYNCOPE AND COLLAPSE Qualifiers: Syncope type: unspecified Qualified Code(s): R55 - Syncope and collapse (3) History of multiple strokes Code(s): Z86.73 - PRSNL HX OF TIA (TIA), AND CEREB INFRC W/O RESID DEFICITS (4) UTI (urinary tract infection) Code(s): N39.0 - URINARY TRACT INFECTION, SITE NOT SPECIFIED Qualifiers: plan will start patient on abx await for identification of the organism rest as per the team family in room discussed in great detail wiht the family
--- NOTE | 2019-02-25 12:24 | PN ---
Progress Note, Physician History of Present Illness: says she is not feeling too good abd pain better - Current Medication List Current Medications: Active Medications Acetaminophen (Tylenol -) 650 mg PO Q6H PRN PRN Reason: FEVER Docusate Sodium (Colace -) 100 mg PO BID [facility] Last Admin: 02/25/19 11:08 Dose: 100 mg Sodium Chloride (Normal Saline -) 1,000 mls @ 100 mls/hr IV ASDIR VIGNESH Last Admin: 02/24/19 18:00 Dose: 100 mls/hr Piperacillin Sod/Tazobactam (Sod 3.375 gm/ Dextrose) 50 mls @ 100 mls/hr IVPB Q8H-IV VIGNESH; Protocol Last Admin: 02/25/19 11:09 Dose: 100 mls/hr Non-Formulary Medication (Mirabegron [Myrbetriq]) 25 mg PO DAILY [facility] Oxycodone HCl (Roxicodone -) 10 mg PO Q6H PRN PRN Reason: PAIN Venlafaxine HCl (Effexor -) 25 mg PO BIDWM [facility] Last Admin: 02/25/19 09:07 Dose: 25 mg - Objective Vital Signs: Vital Signs Temperature 98.7 F 02/25/19 02:00 Pulse Rate 87 02/25/19 02:00 Respiratory Rate 20 02/25/19 02:00 Blood Pressure 77/62 L 02/25/19 02:00 O2 Sat by Pulse Oximetry (%) 98 02/24/19 21:00 Constitutional: Yes: Calm, Mild Distress Cardiovascular: Yes: S1, S2 Gastrointestinal: Yes: Normal Bowel Sounds, Soft Neurological: Yes: Alert, Oriented Labs: CBC, BMP 02/24/19 20:20 02/24/19 20:20 Assessment/Plan Problem List - Problems (1) Diverticulitis Code(s): K57.92 - DVTRCLI OF INTEST, PART UNSP, W/O PERF OR ABSCESS W/O BLEED (2) Syncopal episodes Code(s): R55 - SYNCOPE AND COLLAPSE Qualifiers: Syncope type: unspecified Qualified Code(s): R55 - Syncope and collapse (3) History of multiple strokes Code(s): Z86.73 - PRSNL HX OF TIA (TIA), AND CEREB INFRC W/O RESID DEFICITS (4) UTI (urinary tract infection) Code(s): N39.0 - URINARY TRACT INFECTION, SITE NOT SPECIFIED Qualifiers: plan continue abx rest as per the team
[2019-02-25] MEDS: oxyCODONE HCL 5 MG TABLET PO PRN (16:36)
--- NOTE | 2019-02-25 18:51 | PN ---
Progress Note, Physician History of Present Illness: stable - Current Medication List Current Medications: Active Medications Acetaminophen (Tylenol -) 650 mg PO Q6H PRN PRN Reason: FEVER Docusate Sodium (Colace -) 100 mg PO BID [facility] Last Admin: 02/25/19 11:08 Dose: 100 mg Sodium Chloride (Normal Saline -) 1,000 mls @ 100 mls/hr IV ASDIR VIGNESH Last Admin: 02/24/19 18:00 Dose: 100 mls/hr Piperacillin Sod/Tazobactam (Sod 3.375 gm/ Dextrose) 50 mls @ 100 mls/hr IVPB Q8H-IV VIGNESH; Protocol Last Admin: 02/25/19 18:13 Dose: 100 mls/hr Non-Formulary Medication (Mirabegron [Myrbetriq]) 25 mg PO DAILY [facility] Oxycodone HCl (Roxicodone -) 10 mg PO Q6H PRN PRN Reason: PAIN Last Admin: 02/25/19 16:36 Dose: 10 mg Venlafaxine HCl (Effexor -) 25 mg PO BIDWM [facility] Last Admin: 02/25/19 18:15 Dose: 25 mg - Objective Vital Signs: Vital Signs Temperature 98 F 02/25/19 14:15 Pulse Rate 78 02/25/19 14:15 Respiratory Rate 20 02/25/19 14:15 Blood Pressure 113/67 02/25/19 14:15 O2 Sat by Pulse Oximetry (%) 96 02/25/19 09:00 Constitutional: Yes: No Distress HENT: Yes: Atraumatic Neck: Yes: Supple Cardiovascular: Yes: Regular Rate and Rhythm Respiratory: Yes: CTA Bilaterally Gastrointestinal: Yes: Normal Bowel Sounds Extremities: Yes: WNL Neurological: Yes: Alert, Oriented Labs: CBC, BMP 02/24/19 20:20 02/24/19 20:20 Problem List - Problems (1) Diverticulitis Assessment/Plan: npo iv abx ivf Code(s): K57.92 - DVTRCLI OF INTEST, PART UNSP, W/O PERF OR ABSCESS W/O BLEED (2) Syncopal episodes Code(s): R55 - SYNCOPE AND COLLAPSE Qualifiers: Syncope type: vasovagal syncope Qualified Code(s): R55 - Syncope and collapse (3) History of multiple strokes Code(s): Z86.73 - PRSNL HX OF TIA (TIA), AND CEREB INFRC W/O RESID DEFICITS (4) UTI (urinary tract infection) Assessment/Plan: on ivabx cxs pending Code(s): N39.0 - URINARY TRACT INFECTION, SITE NOT SPECIFIED Qualifiers: (5) Hypokalemia Assessment/Plan: will replace Code(s): E87.6 - HYPOKALEMIA
[2019-02-25] MEDS: SODIUM CHLORIDE 1,000 ML IV SCH (21:32)
[2019-02-25] MEDS: PANTOPRAZOLE SODIUM 40 MG VIAL IVPUSH SCH (21:32)
[2019-02-25 21:37] LABS: ALBUMIN 2.8 g/dl (3.4-5.0); BILIRUBIN,TOTAL 0.5 mg/dL (0.2-1); CALCIUM 8.5 mg/dL (8.5-10.1); CREATININE 0.7 mg/dL (0.55-1.3); TOT PROT 5.8 g/dl (6.4-8.2)
[2019-02-25 22:00] LABS: POTASSIUM 2.8 mmol/L (3.5-5.1)
[2019-02-26] MEDS: KCL 10 MEQ IVPB 10 MEQ/100 ML INFUS.BAG IVPB SCH ×3 (01:15→16:07)
[2019-02-26] MEDS ORDERED: DEXTROSE 5%-WATER - 50 ML IVPB ONE ×3 (02:06→18:35)
[2019-02-26] MEDS ORDERED: PIPERACILLIN/TAZOBACTAM 3.375 GM VIAL IVPB ONE ×3 (02:06→18:35)
[2019-02-26] MEDS: PIPERACILLIN/TAZOB 3.375 GM 3.375 GM in DEXTROSE 5%-WATER - 50 ML IVPB SCH ×3 (03:30→18:44)
[2019-02-26] MEDS: oxyCODONE HCL 5 MG TABLET PO PRN ×2 (05:11→12:49)
[2019-02-26 07:09] LABS: BASO % 0.5 % (0-2.0); EOS % 0.9 % (0-4.5); HEMATOCRIT 32.7 % (32.4-45.2); HEMOGLOBIN 10.5 GM/dL (10.7-15.3); LYMPH % 2.8 % (8-40); MCH 25.7 pg (25.7-33.7); MCHC 32.2 g/dl (32.0-36.0); MEAN CELL VOLUME 79.9 fl (80-96); MEAN PLT VOLUME 8.4 fl (7.5-11.1); MONO % 8.5 % (3.8-10.2); NEUT % 87.3 % (42.8-82.8); PLATELET COUNT 371 K/MM3 (134-434); RBC 4.09 M/mm3 (3.60-5.2); RDW 16.6 % (11.6-15.6); WHITE BLOOD COUNT 17.6 K/mm3 (4.0-10.0)
[2019-02-26 07:33] LABS: ALBUMIN 2.7 g/dl (3.4-5.0); BILIRUBIN,TOTAL 0.8 mg/dL (0.2-1); CALCIUM 8.6 mg/dL (8.5-10.1); CREATININE 0.8 mg/dL (0.55-1.3); TOT PROT 5.7 g/dl (6.4-8.2)
[2019-02-26 07:41] LABS: POTASSIUM 2.7 mmol/L (3.5-5.1)
[2019-02-26 08:06] LABS: SERUM IRON SATURATION 7 % (15-55); TOTAL IRON BINDING CAPACITY 192 ug/dL (250-450); UIBC 178 ug/dL (118-369)
[2019-02-26] MEDS: VENLAFAXINE HCL 25 MG TABLET PO SCH ×2 (09:21→18:13)
[2019-02-26] MEDS: PANTOPRAZOLE SODIUM 40 MG VIAL IVPUSH SCH (10:10)
[2019-02-26] MEDS: DOCUSATE SODIUM 100 MG CAPSULE (FP) PO SCH ×2 (10:11→22:33)
--- NOTE | 2019-02-26 10:27 | PN ---
Progress Note, Physician History of Present Illness: No further near or true syncope. Removed telemetry monitoring. - Current Medication List Current Medications: Active Medications Acetaminophen (Tylenol -) 650 mg PO Q6H PRN PRN Reason: FEVER Docusate Sodium (Colace -) 100 mg PO BID [facility] Last Admin: 02/26/19 10:11 Dose: 100 mg Sodium Chloride (Normal Saline -) 1,000 mls @ 100 mls/hr IV ASDIR VIGNESH Last Admin: 02/25/19 21:32 Dose: 100 mls/hr Piperacillin Sod/Tazobactam (Sod 3.375 gm/ Dextrose) 50 mls @ 100 mls/hr IVPB Q8H-IV VIGNESH; Protocol Last Admin: 02/26/19 10:10 Dose: 100 mls/hr Non-Formulary Medication (Mirabegron [Myrbetriq]) 25 mg PO DAILY [facility] Oxycodone HCl (Roxicodone -) 10 mg PO Q6H PRN PRN Reason: PAIN Last Admin: 02/26/19 05:11 Dose: 10 mg Pantoprazole Sodium (Protonix Iv) 40 mg IVPUSH DAILY [facility] Last Admin: 02/26/19 10:10 Dose: 40 mg Venlafaxine HCl (Effexor -) 25 mg PO BIDWM [facility] Last Admin: 02/26/19 09:21 Dose: 25 mg - Objective Vital Signs: Vital Signs Temperature 98.2 F 02/26/19 05:12 Pulse Rate 93 H 02/26/19 05:12 Respiratory Rate 20 02/26/19 05:12 Blood Pressure 97/66 02/26/19 05:12 O2 Sat by Pulse Oximetry (%) 97 02/26/19 09:00 Constitutional: Yes: No Distress, Calm Neck: Yes: Supple Cardiovascular: Yes: Regular Rate and Rhythm Respiratory: Yes: Regular, CTA Bilaterally Gastrointestinal: Yes: Normal Bowel Sounds, Soft Edema: No Labs: CBC, BMP 02/26/19 06:00 02/26/19 06:00 Problem List - Problems (1) Diverticulitis Code(s): K57.92 - DVTRCLI OF INTEST, PART UNSP, W/O PERF OR ABSCESS W/O BLEED (2) Syncopal episodes Code(s): R55 - SYNCOPE AND COLLAPSE Qualifiers: Syncope type: vasovagal syncope Qualified Code(s): R55 - Syncope and collapse (3) Sepsis Code(s): A41.9 - SEPSIS, UNSPECIFIED ORGANISM Qualifiers: Sepsis type: Escherichia coli Qualified Code(s): A41.51 - Sepsis due to Escherichia coli [E. coli] (4) UTI (urinary tract infection) Code(s): N39.0 - URINARY TRACT INFECTION, SITE NOT SPECIFIED Qualifiers: Assessment/Plan 1. Syncope referable to sepsis 2. Acute mild sigmoid diverticulitis w/o abscess 3. Hafnia Alvei UTI 4. ? Organic brain 5. Demand ischemia PLAN: 1. Troponin plateaued, replete K 2. F/u echocardiography to assess LV/RV and valvular function 3. Abx course per C&S, IV hydration, bowel rest 4. GI evaluation for possible sigmoidoscopy after inflammation abates.
[2019-02-26] MEDS: SODIUM CHLORIDE 1,000 ML IV SCH (13:18)
--- NOTE | 2019-02-26 13:25 | ECHO ---
Name: WILFRED MAIN Exam:Adult Echocardiogram Study Date: 02/26/2019 07:41 AM Age: 83 yrs Reason For Study: SYNCOPE Height: 63 in Weight: 130 lb BSA: 1.6 m2 MMode/2D Measurements & Calculations IVSd: 1.3 cm Ao root diam: 3.3 cm LVIDd: 2.9 cm LA dimension: 2.1 cm LVIDs: 2.3 cm LVPWd: 1.00 cm EDV(Teich): 32.4 ml LVOT diam: 2.0 cm ESV(Teich): 17.8 ml Doppler Measurements & Calculations MV E max vikas: 68.9 cm/sec MV P1/2t max vikas: 70.8 cm/sec MV A max vikas: 73.7 cm/sec MV P1/2t: 45.1 msec MV E/A: 0.93 MVA(P1/2t): 4.9 cm2 MV dec slope: 460.2 cm/sec2 TR max ivkas: 267.4 cm/sec TR max P.6 mmHg Procedure A complete two-dimensional transthoracic echocardiogram was performed (2D, M-mode, Doppler and color flow Doppler). The study was technically difficult with many images being suboptimal in quality. Left Ventricle The left ventricular size, thickness and function are normal. The left ventricular ejection fraction is normal. Ejection Fraction = 60-65%. No regional wall motion abnormalities noted. Right Ventricle The right ventricle is normal in size and function. Atria Normal left and right atrial size and function. Mitral Valve There is no mitral regurgitation noted. Tricuspid Valve There is trace tricuspid regurgitation. There was insufficient TR detected to calculate RV systolic p ressure. Aortic Valve The aortic valve is trileaflet. No hemodynamically significant valvular aortic stenosis. No aortic regurgitation is present. Pulmonic Valve There is no pulmonic valvular regurgitation. Great Vessels The aortic root is normal size. Pericardium/Pleura There is no pericardial effusion. Interpretation Summary The study was technically difficult. The left ventricular size, thickness and function are normal The right ventricle is normal in size and function. There is trace tricuspid regurgitation. MD Sean Saleh 02/26/2019 01:24 PM
--- NOTE | 2019-02-26 14:13 | PN ---
Progress Note, Physician History of Present Illness: stable feeling better - Current Medication List Current Medications: Active Medications Acetaminophen (Tylenol -) 650 mg PO Q6H PRN PRN Reason: FEVER Docusate Sodium (Colace -) 100 mg PO BID [facility] Last Admin: 02/26/19 10:11 Dose: 100 mg Sodium Chloride (Normal Saline -) 1,000 mls @ 100 mls/hr IV ASDIR VIGNESH Last Admin: 02/26/19 13:18 Dose: 100 mls/hr Piperacillin Sod/Tazobactam (Sod 3.375 gm/ Dextrose) 50 mls @ 100 mls/hr IVPB Q8H-IV [facility]; Protocol Last Admin: 02/26/19 10:10 Dose: 100 mls/hr Potassium Chloride (Potassium Chloride 10 Meq Premix Ivpb -) 10 meq in 100 mls @ 100 mls/hr IVPB Q1H [facility] Stop: 02/26/19 15:29 Non-Formulary Medication (Mirabegron [Myrbetriq]) 25 mg PO DAILY [facility] Oxycodone HCl (Roxicodone -) 10 mg PO Q6H PRN PRN Reason: PAIN Last Admin: 02/26/19 12:49 Dose: 10 mg Pantoprazole Sodium (Protonix Iv) 40 mg IVPUSH DAILY [facility] Last Admin: 02/26/19 10:10 Dose: 40 mg Venlafaxine HCl (Effexor -) 25 mg PO BIDWM [facility] Last Admin: 02/26/19 09:21 Dose: 25 mg - Objective Vital Signs: Vital Signs Temperature 98.2 F 02/26/19 05:12 Pulse Rate 88 02/26/19 10:00 Respiratory Rate 20 02/26/19 10:00 Blood Pressure 97/60 02/26/19 10:00 O2 Sat by Pulse Oximetry (%) 97 02/26/19 09:00 Constitutional: Yes: No Distress, Calm Cardiovascular: Yes: S1, S2 Respiratory: Yes: Regular, CTA Bilaterally Gastrointestinal: Yes: Normal Bowel Sounds, Soft Musculoskeletal: Yes: WNL Extremities: Yes: WNL Neurological: Yes: Alert, Oriented Psychiatric: Yes: Alert, Oriented Labs: CBC, BMP 02/26/19 06:00 02/26/19 06:00 Assessment/Plan Problem List - Problems (1) Diverticulitis Code(s): K57.92 - DVTRCLI OF INTEST, PART UNSP, W/O PERF OR ABSCESS W/O BLEED (2) Syncopal episodes Code(s): R55 - SYNCOPE AND COLLAPSE Qualifiers: Syncope type: vasovagal syncope Qualified Code(s): R55 - Syncope and collapse (3) JONATHAN (acute kidney injury) Code(s): N17.9 - ACUTE KIDNEY FAILURE, UNSPECIFIED (4) Back pain Code(s): M54.9 - DORSALGIA, UNSPECIFIED Qualifiers: Back pain location: low back pain Chronicity: acute Back pain laterality : unspecified Sciatica presence: without sciatica Qualified Code(s): M54.5 - Low back pain (5) History of multiple strokes Code(s): Z86.73 - PRSNL HX OF TIA (TIA), AND CEREB INFRC W/O RESID DEFICITS (6) Sepsis Code(s): A41.9 - SEPSIS, UNSPECIFIED ORGANISM Qualifiers: Sepsis type: Escherichia coli Qualified Code(s): A41.51 - Sepsis due to Escherichia coli [E. coli] (7) UTI (urinary tract infection) Code(s): N39.0 - URINARY TRACT INFECTION, SITE NOT SPECIFIED Qualifiers: Assessment/Plan Sigmoid diverticulitis UTI - Hafina alvea isolated Chronic back pain AFIB IBS plan continue abx nutrition physio rest as per the team
--- NOTE | 2019-02-26 16:39 | CON.GI ---
Consult Consult Specialty:: GI Referred by:: Dr. Quinn Reason for Consultation:: Diverticulitis - History of Present Illness Chief Complaint: Multiple complaints History of Present Illness: 83F admitted from [place] for evaluation of syncopal episode. Complained of abdominal pain along with other pain complaints so I assume that is why a CT scan of the A/P was performed. It raised the question of mild sigmoid diverticulitis. She has had colonoscopies in the past. Shaka believes that her last colonoscopy was performed at [facility] (where she was treated for BCA) but is uncertain when it was performed. It was likely "many years ago". When asked about her left sided abdominal pain she states that she has had it for 2 years but it has gotten worse of late. She denies rectal bleeding, melena. She does have chronic constipation. Her father from colon cancer age 65. - History Source History Provided By: Patient, Medical Record - Past Medical History HEEL PAINTER: Yes: CVA, Other (Subdural hematoma s/p fall) Cardio/Vascular: Yes: AFIB Gastrointestinal: Yes: Diverticulosis Heme/Onc: Yes: Other (BCA s/p lumpectomy (treated at [facility])) Psych: Yes: Anxiety Musculoskeletal: Yes: Chronic low back pain - Past Surgical History Past Surgical History: Yes: Hysterectomy (SADIA/BSO (Transvaginal per patient)) - Alcohol/Substance Use Hx Alcohol Use: Yes (1-2 cups vodka daily) History of Substance Use: reports: None - Smoking History Smoking history: Former smoker (Quit 1973; 1.5 ppd x 30 years prior) Have you smoked in the past 12 months: No - Social History Usual Living Arrangement: Senior Care ADL: Support Services 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 Place of : [facility] History of Recent Travel: No Home Medications - Allergies Allergies/Adverse Reactions: Allergies Allergy/AdvReac Type Severity Reaction Status Date / Time No Known Allergies Allergy Verified 02/23/19 11:11 - Home Medications Home Medications: Ambulatory Orders Lidocaine [Lidocaine Pain Relief] 1 each TP DAILY 01/23/19 Mirabegron [Myrbetriq] 25 mg PO DAILY 01/23/19 Oxycodone HCl 5 mg PO Q6H PRN 01/23/19 Sennosides [Senna] 8.6 mg PO DAILY 01/23/19 Zinc Oxide 20% Topical Oint 1 applic NR TID 01/23/19 Acetaminophen [Pain Relief] 650 mg PO QID 02/23/19 Omeprazole 20 mg PO DAILY 02/23/19 Propylene Glycol [Systane Balance] 10 ml OP BID 02/23/19 Venlafaxine HCl [Effexor -] 25 mg PO BIDLASIX 02/23/19 Family Disease History - Family Disease History Family Disease History: Other: Father (: 65: Colon cancer), Mother (: 76 : BCA), Brother (None), Sister (None) Other Family History: No children Review of Systems - Review of Systems Constitutional: denies: Chills, Unintentional Wgt. Loss Cardiovascular: denies: Chest Pain Respiratory: denies: SOB Gastrointestinal: reports: Abdominal Pain Genitourinary: reports: Frequency Musculoskeletal: reports: Extremity Pain Physical Exam-GI Vital Signs: Vital Signs Temperature 98.4 F 02/26/19 14:00 Pulse Rate 82 02/26/19 14:00 Respiratory Rate 20 02/26/19 14:00 Blood Pressure 93/59 L 02/26/19 14:00 O2 Sat by Pulse Oximetry (%) 97 02/26/19 09:00 Constitutional: Yes: Calm Eyes: No: Sclera Icterus Cardiovascular: Yes: Regular Rate and Rhythm Respiratory: Yes: CTA Bilaterally Gastrointestinal Inspection: No: Distention, Scars ...Auscultate: Yes: Normoactive Bowel Sounds ...Palpate: Yes: Soft, Tenderness (TTP LLQ). No: Guarding, Tenderness, Rebound ...Percussion: No: Tympanitic Edema: No (No LE edema) Neurological: Yes: Alert Labs: CBC, BMP 02/26/19 06:00 02/26/19 06:00 Laboratory Tests 02/24/19 02/24/19 02/24/19 05:40 05:40 14:50 TIBC 192 L Iron Saturation 7 L Transferrin 127 L Ferritin 488.1 H Hepatic Panel Total Bilirubin 0.8 mg/dL (0.2-1) 02/26/19 06:00 AST 8 U/L (15-37) L 02/26/19 06:00 ALT 10 U/L (13-61) L 02/26/19 06:00 Alkaline Phosphatase 88 U/L (45-117) 02/26/19 06:00 Albumin 2.7 g/dl (3.4-5.0) L 02/26/19 06:00 Imaging - Results Cat Scan: Report Reviewed, Image Reviewed Problem List - Problems (1) Diverticulitis Assessment/Plan: Question of mild sigmoid diverticulitis IV Abx per ID Will need follow-up colonoscopy in 6-8 weeks as well as for iron deficiency component of her anemia +/- EGD. Discussed with patient If pain continued to improve, advance to clears in AM Correction of lytes per PMD. Ordered magnesium level, CRP, BMP, CBC for AM Code(s): K57.92 - DVTRCLI OF INTEST, PART UNSP, W/O PERF OR ABSCESS W/O BLEED
--- NOTE | 2019-02-26 18:15 | PN ---
Progress Note, Physician - Current Medication List Current Medications: Active Medications Acetaminophen (Tylenol -) 650 mg PO Q6H PRN PRN Reason: FEVER Docusate Sodium (Colace -) 100 mg PO BID [facility] Last Admin: 02/26/19 10:11 Dose: 100 mg Sodium Chloride (Normal Saline -) 1,000 mls @ 100 mls/hr IV ASDIR VIGNESH Last Admin: 02/26/19 13:18 Dose: 100 mls/hr Piperacillin Sod/Tazobactam (Sod 3.375 gm/ Dextrose) 50 mls @ 100 mls/hr IVPB Q8H-IV VIGNESH; Protocol Last Admin: 02/26/19 10:10 Dose: 100 mls/hr Non-Formulary Medication (Mirabegron [Myrbetriq]) 25 mg PO DAILY VIGNESH Pantoprazole Sodium (Protonix Iv) 40 mg IVPUSH DAILY [facility] Last Admin: 02/26/19 10:10 Dose: 40 mg Venlafaxine HCl (Effexor -) 25 mg PO BIDWM [facility] Last Admin: 02/26/19 18:13 Dose: 25 mg - Objective Vital Signs: Vital Signs Temperature 98.4 F 02/26/19 14:00 Pulse Rate 82 02/26/19 14:00 Respiratory Rate 20 02/26/19 14:00 Blood Pressure 93/59 L 02/26/19 14:00 O2 Sat by Pulse Oximetry (%) 97 02/26/19 09:00 Constitutional: Yes: No Distress HENT: Yes: Atraumatic Neck: Yes: Supple Cardiovascular: Yes: Regular Rate and Rhythm Respiratory: Yes: CTA Bilaterally Gastrointestinal: Yes: Normal Bowel Sounds Extremities: Yes: WNL Edema: No Peripheral Pulses WNL: Yes Neurological: Yes: Alert, Oriented Labs: CBC, BMP 02/26/19 06:00 02/26/19 06:00 Problem List - Problems (1) Diverticulitis Assessment/Plan: npo iv abx ivf Code(s): K57.92 - DVTRCLI OF INTEST, PART UNSP, W/O PERF OR ABSCESS W/O BLEED (2) Syncopal episodes Code(s): R55 - SYNCOPE AND COLLAPSE Qualifiers: Syncope type: vasovagal syncope Qualified Code(s): R55 - Syncope and collapse (3) History of multiple strokes Code(s): Z86.73 - PRSNL HX OF TIA (TIA), AND CEREB INFRC W/O RESID DEFICITS (4) UTI (urinary tract infection) Assessment/Plan: on ivabx cxs pending Code(s): N39.0 - URINARY TRACT INFECTION, SITE NOT SPECIFIED Qualifiers: (5) Hypokalemia Assessment/Plan: will replace Code(s): E87.6 - HYPOKALEMIA
[2019-02-26] MEDS: ACETAMINOPHEN 325 MG TABLET (FP) PO PRN (18:55)
[2019-02-27] MEDS ORDERED: DEXTROSE 5%-WATER - 50 ML IVPB ONE ×3 (03:43→17:42)
[2019-02-27] MEDS ORDERED: PIPERACILLIN/TAZOBACTAM 3.375 GM VIAL IVPB ONE ×4 (03:43→17:41)
[2019-02-27] MEDS: PIPERACILLIN/TAZOB 3.375 GM 3.375 GM in DEXTROSE 5%-WATER - 50 ML IVPB SCH ×3 (03:54→18:56)
[2019-02-27 07:36] LABS: BASO % 0.4 % (0-2.0); EOS % 2.2 % (0-4.5); HEMATOCRIT 28.5 % (32.4-45.2); HEMOGLOBIN 9.5 GM/dL (10.7-15.3); LYMPH % 3.8 % (8-40); MCH 26.4 pg (25.7-33.7); MCHC 33.4 g/dl (32.0-36.0); MEAN CELL VOLUME 78.9 fl (80-96); MEAN PLT VOLUME 8.4 fl (7.5-11.1); MONO % 9.8 % (3.8-10.2); NEUT % 83.8 % (42.8-82.8); PLATELET COUNT 341 K/MM3 (134-434); RBC 3.61 M/mm3 (3.60-5.2); RDW 16.4 % (11.6-15.6); WHITE BLOOD COUNT 17.9 K/mm3 (4.0-10.0)
[2019-02-27] MEDS: VENLAFAXINE HCL 25 MG TABLET PO SCH ×2 (08:33→18:55)
[2019-02-27 08:56] LABS: CALCIUM 8.6 mg/dL (8.5-10.1); CREATININE 1.6 mg/dL (0.55-1.3); MAGNESIUM 1.9 mg/dL (1.8-2.4)
[2019-02-27 09:10] LABS: POTASSIUM 2.7 mmol/L (3.5-5.1)
[2019-02-27] MEDS: ACETAMINOPHEN 325 MG TABLET (FP) PO PRN (10:27)
[2019-02-27] MEDS: DOCUSATE SODIUM 100 MG CAPSULE (FP) PO SCH ×2 (10:30→21:25)
[2019-02-27] MEDS: PANTOPRAZOLE SODIUM 40 MG VIAL IVPUSH SCH (10:30)
--- NOTE | 2019-02-27 10:42 | PN ---
Progress Note, Physician History of Present Illness: patient stable says she is doing not so well - Current Medication List Current Medications: Active Medications Acetaminophen (Tylenol -) 650 mg PO Q6H PRN PRN Reason: FEVER Last Admin: 02/26/19 18:55 Dose: 650 mg Docusate Sodium (Colace -) 100 mg PO BID VIGNESH Last Admin: 02/26/19 22:33 Dose: 100 mg Sodium Chloride (Normal Saline -) 1,000 mls @ 100 mls/hr IV ASDIR VIGNESH Last Admin: 02/26/19 13:18 Dose: 100 mls/hr Piperacillin Sod/Tazobactam (Sod 3.375 gm/ Dextrose) 50 mls @ 100 mls/hr IVPB Q8H-IV VIGNESH; Protocol Last Admin: 02/27/19 03:54 Dose: 100 mls/hr Non-Formulary Medication (Mirabegron [Myrbetriq]) 25 mg PO DAILY VIGNESH Pantoprazole Sodium (Protonix Iv) 40 mg IVPUSH DAILY [facility] Last Admin: 02/26/19 10:10 Dose: 40 mg Venlafaxine HCl (Effexor -) 25 mg PO BIDWM VIGNESH Last Admin: 02/27/19 08:33 Dose: 25 mg - Objective Vital Signs: Vital Signs Temperature 97.0 F L 02/27/19 09:30 Pulse Rate 75 02/27/19 09:30 Respiratory Rate 18 02/27/19 09:30 Blood Pressure 103/58 L 02/27/19 09:30 O2 Sat by Pulse Oximetry (%) 97 02/27/19 09:00 Constitutional: Yes: No Distress, Calm Cardiovascular: Yes: S1, S2 Respiratory: Yes: Regular, CTA Bilaterally Gastrointestinal: Yes: Normal Bowel Sounds, Soft Musculoskeletal: Yes: WNL Extremities: Yes: Other Neurological: Yes: Alert, Oriented Psychiatric: Yes: Alert, Oriented Labs: CBC, BMP 02/27/19 06:22 02/27/19 06:22 Assessment/Plan Problem List - Problems (1) Diverticulitis Code(s): K57.92 - DVTRCLI OF INTEST, PART UNSP, W/O PERF OR ABSCESS W/O BLEED (2) Syncopal episodes Code(s): R55 - SYNCOPE AND COLLAPSE Qualifiers: Syncope type: unspecified Qualified Code(s): R55 - Syncope and collapse (3) History of multiple strokes Code(s): Z86.73 - PRSNL HX OF TIA (TIA), AND CEREB INFRC W/O RESID DEFICITS (4) UTI (urinary tract infection) Code(s): N39.0 - URINARY TRACT INFECTION, SITE NOT SPECIFIED Qualifiers: plan conitnue abx rest as per the team
--- NOTE | 2019-02-27 10:47 | PN ---
Progress Note, Physician History of Present Illness: No further near or true syncope. Removed telemetry monitoring. - Current Medication List Current Medications: Active Medications Acetaminophen (Tylenol -) 650 mg PO Q6H PRN PRN Reason: FEVER Last Admin: 02/27/19 10:27 Dose: 650 mg Docusate Sodium (Colace -) 100 mg PO BID [facility]IGN[facility] Last Admin: 02/27/19 10:30 Dose: 100 mg Sodium Chloride (Normal Saline -) 1,000 mls @ 100 mls/hr IV ASDIR VIGNESH Last Admin: 02/26/19 13:18 Dose: 100 mls/hr Piperacillin Sod/Tazobactam (Sod 3.375 gm/ Dextrose) 50 mls @ 100 mls/hr IVPB Q8H-IV VIGNESH; Protocol Last Admin: 02/27/19 10:30 Dose: 100 mls/hr Non-Formulary Medication (Mirabegron [Myrbetriq]) 25 mg PO DAILY VIGNESH Pantoprazole Sodium (Protonix Iv) 40 mg IVPUSH DAILY [facility] Last Admin: 02/27/19 10:30 Dose: 40 mg Venlafaxine HCl (Effexor -) 25 mg PO BIDWM VIGNESH Last Admin: 02/27/19 08:33 Dose: 25 mg - Objective Vital Signs: Vital Signs Temperature 97.0 F L 02/27/19 09:30 Pulse Rate 75 02/27/19 09:30 Respiratory Rate 18 02/27/19 09:30 Blood Pressure 103/58 L 02/27/19 09:30 O2 Sat by Pulse Oximetry (%) 97 02/27/19 09:00 Constitutional: Yes: No Distress, Calm Neck: Yes: Supple Cardiovascular: Yes: Regular Rate and Rhythm Respiratory: Yes: Regular, CTA Bilaterally Gastrointestinal: Yes: Soft, Hypoactive Bowel Sounds Edema: No Labs: CBC, BMP 02/27/19 06:22 02/27/19 06:22 - ....Imaging EKG: Report Reviewed (Tele: NSR) Problem List - Problems (1) Diverticulitis Code(s): K57.92 - DVTRCLI OF INTEST, PART UNSP, W/O PERF OR ABSCESS W/O BLEED (2) Syncopal episodes Code(s): R55 - SYNCOPE AND COLLAPSE Qualifiers: Syncope type: vasovagal syncope Qualified Code(s): R55 - Syncope and collapse (3) Sepsis Code(s): A41.9 - SEPSIS, UNSPECIFIED ORGANISM Qualifiers: Sepsis type: Escherichia coli Qualified Code(s): A41.51 - Sepsis due to Escherichia coli [E. coli] (4) UTI (urinary tract infection) Code(s): N39.0 - URINARY TRACT INFECTION, SITE NOT SPECIFIED Qualifiers: Assessment/Plan 1. Syncope referable to sepsis 2. Acute mild sigmoid diverticulitis w/o abscess 3. Hafnia Alvei UTI 4. ? Organic brain 5. Demand ischemia 6. JONATHAN with hypokalemia PLAN: 1. Troponin plateaued, replete K, IVF with monitor renal recovery 2. F/u echocardiography to assess LV/RV and valvular function 3. Abx course per C&S, IV hydration, bowel rest 4. GI evaluation recommends colonoscopy after inflammation abates, plan for repeat abd/pelvic CT
--- NOTE | 2019-02-27 12:16 | PN.GI ---
GI Progress Note Subjective: No acute events States her main complaint is lower back pain. This is a chronic problem, however, it has been worse of late No diarrhea Abdominal pain improved - Objective Vital Signs: Vital Signs Temperature 97.0 F L 02/27/19 09:30 Pulse Rate 75 02/27/19 09:30 Respiratory Rate 18 02/27/19 09:30 Blood Pressure 103/58 L 02/27/19 09:30 O2 Sat by Pulse Oximetry (%) 97 02/27/19 09:00 Constitutional: Calm Eyes: No: Sclera Icterus Cardiovascular: Yes: Regular Rate and Rhythm Respiratory: Yes: Diminished (at bases bilaterally) Gastrointestinal Inspection: No: Distention ...Auscultate: Yes: Normoactive Bowel Sounds ...Palpate: Yes: Soft. No: Hepatomegaly, Tenderness ...Percussion: No: Tympanitic ...Rectal Exam: Yes: Other (Net Mvc Developer present: No external lesions, no masses, light donato stool, guaiac negative) Edema: No (No LE edema) Neurological: Yes: Alert Labs: CBC, BMP 02/27/19 06:22 02/27/19 06:22 Hepatic Panel Total Bilirubin 0.8 mg/dL (0.2-1) 02/26/19 06:00 AST 8 U/L (15-37) L 02/26/19 06:00 ALT 10 U/L (13-61) L 02/26/19 06:00 Alkaline Phosphatase 88 U/L (45-117) 02/26/19 06:00 Albumin 2.7 g/dl (3.4-5.0) L 02/26/19 06:00 Problem List - Problems (1) Diverticulitis Assessment/Plan: Abdominal pain improved. No diarrhea to explain persistent hypokalemia Not sure the degree of diverticulitis described on initial CT scan and clinical improvement can account for persistent/worsening leukocytosis. CRP elevated as well and she appears to have metabolic acidosis. She does complain of worsened chronic lower back pain. Alternate causes of inflammatory state / infection will need to be excluded per PMD. CT scan A/P with PO contrast ordered for follow-up Advance to clears Code(s): K57.92 - DVTRCLI OF INTEST, PART UNSP, W/O PERF OR ABSCESS W/O BLEED
[2019-02-27] MEDS ORDERED: POTASSIUM CHLORIDE TABS 20 MEQ TABLET.ER (FP) PO ONE ×2 (12:45→21:59)
--- NOTE | 2019-02-27 13:22 | CONSULT ---
Consult Consult Specialty:: Nephrology Reason for Consultation:: hypokalemia - History of Present Illness Chief Complaint: syncope History of Present Illness: Pt is an 83 year old female who is admitted with syncope. SHe was recently hospitalized. She was found to have mild sigmoid diverticulitis. SHe was found to be hypokalemic. Her potassium has been low for a few says. She also developed JONATHAN. She was hypotensive as well. She is a poor historian. She denies dysuria or hematuria. 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, Other (Subdural hematoma s/p fall) Cardio/Vascular: Yes: AFIB Gastrointestinal: Yes: Diverticulosis Psych: Yes: Anxiety Musculoskeletal: Yes: Chronic low back pain - Past Surgical History Past Surgical History: Yes: Hysterectomy (SADIA/BSO (Transvaginal per patient)) - Alcohol/Substance Use Hx Alcohol Use: Yes (1-2 cups vodka daily) History of Substance Use: reports: None - Smoking History Smoking history: Former smoker (Quit 1973; 1.5 ppd x 30 years prior) Have you smoked in the past 12 months: No - Social History Usual Living Arrangement: Senior Care ADL: Support Services 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 History of Recent Travel: No Home Medications - Allergies Allergies/Adverse Reactions: Allergies Allergy/AdvReac Type Severity Reaction Status Date / Time No Known Allergies Allergy Verified 02/23/19 11:11 - Home Medications Home Medications: Ambulatory Orders Lidocaine [Lidocaine Pain Relief] 1 each TP DAILY 01/23/19 Mirabegron [Myrbetriq] 25 mg PO DAILY 01/23/19 Oxycodone HCl 5 mg PO Q6H PRN 01/23/19 Sennosides [Senna] 8.6 mg PO DAILY 01/23/19 Zinc Oxide 20% Topical Oint 1 applic NR TID 01/23/19 Acetaminophen [Pain Relief] 650 mg PO QID 02/23/19 Omeprazole 20 mg PO DAILY 02/23/19 Propylene Glycol [Systane Balance] 10 ml OP BID 02/23/19 Venlafaxine HCl [Effexor -] 25 mg PO BIDLASIX 02/23/19 Family Disease History - Family Disease History Family Disease History: Other: Father (: 65: Colon cancer), Mother (: 76 : BCA), Brother (None), Sister (None) Other Family History: No children Review of Systems - Review of Systems Constitutional: reports: Malaise Eyes: reports: No Symptoms HENT: reports: No Symptoms Neck: reports: No Symptoms Cardiovascular: reports: No Symptoms Respiratory: reports: No Symptoms Gastrointestinal: reports: No Symptoms Genitourinary: reports: No Symptoms Musculoskeletal: reports: No Symptoms Integumentary: reports: No Symptoms Neurological: reports: No Symptoms Endocrine: reports: No Symptoms Hematology/Lymphatic: reports: No Symptoms Physical Exam Vital Signs: Vital Signs Temperature 97.0 F L 02/27/19 09:30 Pulse Rate 75 02/27/19 09:30 Respiratory Rate 18 02/27/19 09:30 Blood Pressure 103/58 L 02/27/19 09:30 O2 Sat by Pulse Oximetry (%) 97 02/27/19 09:00 Constitutional: Yes: Anxious Eyes: Yes: Conjunctiva Clear HENT: Yes: Atraumatic Neck: Yes: Supple Cardiovascular: Yes: S1, S2 Respiratory: Yes: CTA Bilaterally Gastrointestinal: Yes: Soft Renal/: Yes: Incontinence Musculoskeletal: Yes: WNL Edema: No Neurological: Yes: Oriented Labs: CBC, BMP 02/27/19 06:22 02/27/19 06:22 Laboratory Tests 02/24/19 02/25/19 02/26/19 20:20 20:30 06:00 WBC Hgb Sodium Potassium 2.7 L* 2.8 L* 2.7 L* Creatinine 0.7 0.8 02/27/19 02/27/19 06:22 06:22 WBC 17.9 H Hgb 9.5 L Sodium 145 Potassium 2.7 L* Creatinine 1.6 H Problem List - Problems (1) Diverticulitis Code(s): K57.92 - DVTRCLI OF INTEST, PART UNSP, W/O PERF OR ABSCESS W/O BLEED (2) Hypokalemia Code(s): E87.6 - HYPOKALEMIA (3) Syncopal episodes Code(s): R55 - SYNCOPE AND COLLAPSE Qualifiers: Syncope type: vasovagal syncope Qualified Code(s): R55 - Syncope and collapse (4) JONATHAN (acute kidney injury) Code(s): N17.9 - ACUTE KIDNEY FAILURE, UNSPECIFIED Assessment/Plan Current Medications Generic Name Dose Route Start Last Admin Trade Name John PRN Reason Stop Dose Admin Acetaminophen 650 mg 02/23/19 19:41 02/27/19 10:27 Tylenol - PO 650 mg Q6H PRN Administration FEVER Docusate Sodium 100 mg 02/23/19 22:00 02/27/19 10:30 Colace - PO 100 mg BID VIGNESH Administration Sodium Chloride 1,000 mls @ 100 mls/hr 02/23/19 18:00 02/26/19 13:18 Normal Saline - IV 100 mls/hr ASDIR VIGNESH Administration Piperacillin Sod/Tazobactam 50 mls @ 100 mls/hr 02/24/19 12:00 02/27/19 10:30 Sod 3.375 gm/ Dextrose IVPB 100 mls/hr Q8H-IV VIGNESH Administration Protocol Potassium Chloride 10 meq in 100 mls @ 100 mls/hr 02/27/19 13:00 Potassium Chloride 10 Meq Premix Ivpb - IVPB 02/27/19 15:59 Q60M VIGNESH Non-Formulary Medication 25 mg 02/24/19 10:00 Mirabegron [Myrbetriq] PO DAILY VIGNESH Pantoprazole Sodium 40 mg 02/25/19 19:00 02/27/19 10:30 Protonix Iv IVPUSH 40 mg DAILY VIGNESH Administration Venlafaxine HCl 25 mg 02/24/19 08:00 02/27/19 08:33 Effexor - PO 25 mg BIDWM VIGNESH Administration Impression 1. JONATHAN 2. hypokalemia 3. diverticulitis 4. a-fib 5. cva Plan - cont saline - replace potassium - check ua, lytes and line pilot - check bladder scan to rule out obstruction - pt started on diet - will add potassium to fluids as well - avoid hypotension
[2019-02-27] MEDS ORDERED: SODIUM CHLORIDE 1,000 ML with POTASSIUM CHLORIDE 10 MEQ IVPB SCH (13:26)
[2019-02-27] MEDS: KCL 10 MEQ IVPB 10 MEQ/100 ML INFUS.BAG IVPB SCH ×5 (13:30→23:57)
--- NOTE | 2019-02-27 16:19 | PN ---
Progress Note, Physician - Current Medication List Current Medications: Active Medications Acetaminophen (Tylenol -) 650 mg PO Q6H PRN PRN Reason: FEVER Last Admin: 02/27/19 10:27 Dose: 650 mg Docusate Sodium (Colace -) 100 mg PO BID VIGNESH Last Admin: 02/27/19 10:30 Dose: 100 mg Piperacillin Sod/Tazobactam (Sod 3.375 gm/ Dextrose) 50 mls @ 100 mls/hr IVPB Q8H-IV VIGNESH; Protocol Last Admin: 02/27/19 10:30 Dose: 100 mls/hr Potassium Chloride 10 meq/ (Sodium Chloride) 1,005 mls @ 83 mls/hr IVPB ASDIR VIGNESH Last Admin: 02/27/19 15:16 Dose: 83 mls/hr Non-Formulary Medication (Mirabegron [Myrbetriq]) 25 mg PO DAILY VIGNESH Pantoprazole Sodium (Protonix Iv) 40 mg IVPUSH DAILY [facility] Last Admin: 02/27/19 10:30 Dose: 40 mg Venlafaxine HCl (Effexor -) 25 mg PO BIDWM VIGNESH Last Admin: 02/27/19 08:33 Dose: 25 mg - Objective Vital Signs: Vital Signs Temperature 97.0 F L 02/27/19 09:30 Pulse Rate 75 02/27/19 09:30 Respiratory Rate 18 02/27/19 09:30 Blood Pressure 103/58 L 02/27/19 09:30 O2 Sat by Pulse Oximetry (%) 97 02/27/19 09:00 Constitutional: Yes: No Distress HENT: Yes: Atraumatic Neck: Yes: Supple Cardiovascular: Yes: Regular Rate and Rhythm Respiratory: Yes: CTA Bilaterally Gastrointestinal: Yes: Normal Bowel Sounds Extremities: Yes: WNL Edema: No Peripheral Pulses WNL: Yes Neurological: Yes: Alert Labs: CBC, BMP 02/27/19 06:22 02/27/19 06:22 Problem List - Problems (1) Diverticulitis Assessment/Plan: on clear liquid diet iv abx ivf Code(s): K57.92 - DVTRCLI OF INTEST, PART UNSP, W/O PERF OR ABSCESS W/O BLEED (2) Syncopal episodes Code(s): R55 - SYNCOPE AND COLLAPSE Qualifiers: Syncope type: vasovagal syncope Qualified Code(s): R55 - Syncope and collapse (3) History of multiple strokes Code(s): Z86.73 - PRSNL HX OF TIA (TIA), AND CEREB INFRC W/O RESID DEFICITS (4) UTI (urinary tract infection) Assessment/Plan: on ivabx cxs noted Code(s): N39.0 - URINARY TRACT INFECTION, SITE NOT SPECIFIED Qualifiers: (5) Hypokalemia Assessment/Plan: have been replacing will get renal consult at this point Code(s): E87.6 - HYPOKALEMIA
[2019-02-27 21:04] LABS: ALBUMIN 2.4 g/dl (3.4-5.0); BILIRUBIN,TOTAL 0.5 mg/dL (0.2-1); BLOOD UREA NITROGEN 16.3 mg/dL (7-18); CALCIUM 8.7 mg/dL (8.5-10.1); CREATININE 1.7 mg/dL (0.55-1.3); MAGNESIUM 1.5 mg/dL (1.8-2.4); POTASSIUM 3.2 mmol/L (3.5-5.1); TOT PROT 5.5 g/dl (6.4-8.2)
[2019-02-27 21:09] LABS: EPI CELLS 1.8 /HPF (0-5/HPF); HYALINE CASTS 17 /lpf (0-8); URINE APPEARANCE CLOUDY; URINE BACTERIA 19.3 /hpf (NEGATIVE); URINE BILIRUBIN NEGATIVE (NEGATIVE); URINE COLOR YELLOW; URINE GLUCOSE (UA) NEGATIVE (NEGATIVE); URINE KETONE TRACE (NEGATIVE); URINE LEUK ESTERASE 3+ (NEGATIVE); URINE NITRITE NEGATIVE (NEGATIVE); URINE PROTEIN TRACE (NEGATIVE); URINE UROBILINOGEN 0.2 mg/dL (0.2-1.0); URINE WBC 386 /hpf (0-5)
[2019-02-27 21:50] LABS: URINE RBC 6.2 /hpf (0-4)
[2019-02-28] MEDS ORDERED: POTASSIUM CHLORIDE 10 MEQ in SODIUM CHLORIDE 1,000 ML IVPB SCH (01:12)
[2019-02-28] MEDS ORDERED: PIPERACILLIN/TAZOBACTAM 3.375 GM VIAL IVPB ONE ×3 (01:28→17:52)
[2019-02-28] MEDS ORDERED: DEXTROSE 5%-WATER - 50 ML IVPB ONE ×3 (01:28→17:52)
[2019-02-28] MEDS: PIPERACILLIN/TAZOB 3.375 GM 3.375 GM in DEXTROSE 5%-WATER - 50 ML IVPB SCH ×3 (01:33→17:56)
--- NOTE | 2019-02-28 07:28 | PN.GI ---
GI Progress Note Subjective: states she is feeling better - still with lower abdominal pain, denies diarrhea / nausea/ vomiting. - Objective Vital Signs: Vital Signs Temperature 98.9 F 02/28/19 06:00 Pulse Rate 95 H 02/28/19 06:00 Respiratory Rate 17 02/28/19 06:00 Blood Pressure 112/64 02/28/19 06:00 O2 Sat by Pulse Oximetry (%) 99 02/27/19 21:00 Constitutional: Well Nourished, No Distress, Calm Eyes: Yes: WNL HENT: Yes: WNL Neck: Yes: WNL Cardiovascular: Yes: WNL, Regular Rate and Rhythm Respiratory: Yes: WNL, Regular, CTA Bilaterally Gastrointestinal Inspection: Yes: WNL ...Auscultate: Yes: Normoactive Bowel Sounds, No Bowel Sounds (tender to deep palpation in the llq - no rebound or guarding), Other Extremities: Yes: WNL Labs: CBC, BMP 02/27/19 06:22 02/27/19 20:05 Problem List - Problems (1) Diverticulitis Assessment/Plan: repeat ct scan reviewed - resolving diverticulitis rec: - c/w clear liquid diet for today if her pain decreased she can be advanced to full liquid diet tomorrow - unclear 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
[2019-02-28 08:21] LABS: ALBUMIN 2.4 g/dl (3.4-5.0); BILIRUBIN,TOTAL 0.6 mg/dL (0.2-1); BLOOD UREA NITROGEN 16.7 mg/dL (7-18); CREATININE 1.8 mg/dL (0.55-1.3); MAGNESIUM 2.1 mg/dL (1.8-2.4); POTASSIUM 3.7 mmol/L (3.5-5.1); TOT PROT 5.6 g/dl (6.4-8.2)
--- NOTE | 2019-02-28 09:24 | PN ---
Progress Note, Physician - Current Medication List Current Medications: Active Medications Acetaminophen (Tylenol -) 650 mg PO Q6H PRN PRN Reason: FEVER Last Admin: 02/27/19 10:27 Dose: 650 mg Docusate Sodium (Colace -) 100 mg PO BID VIGNESH Last Admin: 02/27/19 21:25 Dose: 100 mg Piperacillin Sod/Tazobactam (Sod 3.375 gm/ Dextrose) 50 mls @ 100 mls/hr IVPB Q8H-IV VIGNESH; Protocol Last Admin: 02/28/19 01:33 Dose: 100 mls/hr Potassium Chloride 10 meq/ (Sodium Chloride) 1,005 mls @ 83 mls/hr IVPB Q12H VIGNESH Last Admin: 02/28/19 03:00 Dose: 83 mls/hr Non-Formulary Medication (Mirabegron [Myrbetriq]) 25 mg PO DAILY VIGNESH Pantoprazole Sodium (Protonix Iv) 40 mg IVPUSH DAILY VIGN[facility] Last Admin: 02/27/19 10:30 Dose: 40 mg Venlafaxine HCl (Effexor -) 25 mg PO BIDWM VIGNESH Last Admin: 02/27/19 18:55 Dose: 25 mg - Objective Vital Signs: Vital Signs Temperature 98.9 F 02/28/19 06:00 Pulse Rate 95 H 02/28/19 06:00 Respiratory Rate 17 02/28/19 06:00 Blood Pressure 112/64 02/28/19 06:00 O2 Sat by Pulse Oximetry (%) 99 02/27/19 21:00 Eyes: Yes: WNL, Conjunctiva Clear, EOM Intact HENT: Yes: WNL, Atraumatic, Normocephalic Neck: Yes: WNL, Supple, Trachea Midline Cardiovascular: Yes: WNL, Regular Rate and Rhythm Respiratory: Yes: WNL, Regular, CTA Bilaterally Gastrointestinal: Yes: WNL, Normal Bowel Sounds Genitourinary: Yes: WNL Musculoskeletal: Yes: WNL Extremities: Yes: WNL Edema: No Integumentary: Yes: WNL Neurological: Yes: WNL, Alert, Oriented ...Motor Strength: WNL Psychiatric: Yes: WNL Labs: CBC, BMP 02/27/19 06:22 02/28/19 06:20 Assessment/Plan Problem List - Problems (1) Diverticulitis Code(s): K57.92 - DVTRCLI OF INTEST, PART UNSP, W/O PERF OR ABSCESS W/O BLEED (2) Syncopal episodes Code(s): R55 - SYNCOPE AND COLLAPSE Qualifiers: Syncope type: vasovagal syncope Qualified Code(s): R55 - Syncope and collapse (3) Sepsis Code(s): A41.9 - SEPSIS, UNSPECIFIED ORGANISM Qualifiers: Sepsis type: Escherichia coli Qualified Code(s): A41.51 - Sepsis due to Escherichia coli [E. coli] (4) UTI (urinary tract infection) Code(s): N39.0 - URINARY TRACT INFECTION, SITE NOT SPECIFIED Qualifiers: Assessment/Plan 1. Syncope referable to sepsis 2. Acute mild sigmoid diverticulitis w/o abscess 3. Hafnia Alvei UTI 4. ? Organic brain 5. Demand ischemia 6. JONATHAN with hypokalemia PLAN: 1. Troponin plateaued, replete K, IVF with monitor renal recovery 2. F/u echocardiography to assess LV/RV and valvular function 3. Abx course per C&S, IV hydration, bowel rest 4. GI evaluation recommends colonoscopy after inflammation abates, plan for repeat abd/pelvic CT Coverage for dr. Moses
[2019-02-28] MEDS: DOCUSATE SODIUM 100 MG CAPSULE (FP) PO SCH ×2 (09:32→21:04)
[2019-02-28] MEDS: VENLAFAXINE HCL 25 MG TABLET PO SCH ×2 (09:32→17:57)
[2019-02-28] MEDS: PANTOPRAZOLE SODIUM 40 MG VIAL IVPUSH SCH (09:32)
[2019-02-28] MEDS: ACETAMINOPHEN 325 MG TABLET (FP) PO PRN ×2 (09:37→20:38)
--- NOTE | 2019-02-28 11:49 | PN ---
Progress Note, Physician History of Present Illness: Pt seen and examined at bedside. She is awake and appears comfortable. - Current Medication List Current Medications: Active Medications Acetaminophen (Tylenol -) 650 mg PO Q6H PRN PRN Reason: FEVER Last Admin: 02/28/19 09:37 Dose: 650 mg Docusate Sodium (Colace -) 100 mg PO BID VIGNESH Last Admin: 02/28/19 09:32 Dose: 100 mg Piperacillin Sod/Tazobactam (Sod 3.375 gm/ Dextrose) 50 mls @ 100 mls/hr IVPB Q8H-IV VIGNESH; Protocol Last Admin: 02/28/19 09:32 Dose: 100 mls/hr Potassium Chloride 10 meq/ (Sodium Chloride) 1,005 mls @ 83 mls/hr IVPB Q12H VIGNESH Last Admin: 02/28/19 03:00 Dose: 83 mls/hr Non-Formulary Medication (Mirabegron [Myrbetriq]) 25 mg PO DAILY VIGNESH Pantoprazole Sodium (Protonix Iv) 40 mg IVPUSH DAILY VIGN[facility] Last Admin: 02/28/19 09:32 Dose: 40 mg Venlafaxine HCl (Effexor -) 25 mg PO BIDWM VIGNESH Last Admin: 02/28/19 09:32 Dose: 25 mg - Objective Vital Signs: Vital Signs Temperature 98.7 F 02/28/19 10:00 Pulse Rate 95 H 02/28/19 10:00 Respiratory Rate 20 02/28/19 10:00 Blood Pressure 117/74 02/28/19 10:00 O2 Sat by Pulse Oximetry (%) 99 02/27/19 21:00 Constitutional: Yes: Calm Eyes: Yes: Conjunctiva Clear HENT: Yes: Atraumatic Neck: Yes: Supple Cardiovascular: Yes: S1, S2 Respiratory: Yes: CTA Bilaterally Gastrointestinal: Yes: Soft Genitourinary: Yes: Incontinence Musculoskeletal: Yes: WNL Edema: No Neurological: Yes: Oriented Labs: CBC, BMP 02/27/19 06:22 02/28/19 06:20 Problem List - Problems (1) Diverticulitis Code(s): K57.92 - DVTRCLI OF INTEST, PART UNSP, W/O PERF OR ABSCESS W/O BLEED (2) Hypokalemia Code(s): E87.6 - HYPOKALEMIA (3) Syncopal episodes Code(s): R55 - SYNCOPE AND COLLAPSE Qualifiers: Syncope type: vasovagal syncope Qualified Code(s): R55 - Syncope and collapse (4) JONATHAN (acute kidney injury) Code(s): N17.9 - ACUTE KIDNEY FAILURE, UNSPECIFIED Assessment/Plan Current Medications Generic Name Dose Route Start Last Admin Trade Name Rossq PRN Reason Stop Dose Admin Acetaminophen 650 mg 02/23/19 19:41 02/28/19 09:37 Tylenol - PO 650 mg Q6H PRN Administration FEVER Docusate Sodium 100 mg 02/23/19 22:00 02/28/19 09:32 Colace - PO 100 mg BID VIGNESH Administration Piperacillin Sod/Tazobactam 50 mls @ 100 mls/hr 02/24/19 12:00 02/28/19 09:32 Sod 3.375 gm/ Dextrose IVPB 100 mls/hr Q8H-IV VIGNESH Administration Protocol Potassium Chloride 10 meq/ 1,005 mls @ 83 mls/hr 02/28/19 01:12 02/28/19 03: 00 Sodium Chloride IVPB 83 mls/hr Q12H VIGNESH Administration Non-Formulary Medication 25 mg 02/24/19 10:00 Mirabegron [Myrbetriq] PO DAILY VIGNESH Pantoprazole Sodium 40 mg 02/25/19 19:00 02/28/19 09:32 Protonix Iv IVPUSH 40 mg DAILY VIGNESH Administration Venlafaxine HCl 25 mg 02/24/19 08:00 02/28/19 09:32 Effexor - PO 25 mg BIDWM VIGNESH Administration Impression 1. JONATHAN 2. hypokalemia 3. diverticulitis 4. a-fib 5. cva Plan - change fluids to 1/2 ns - replace potassium - monitor renal function - monitor ruiz output - bp improving - avoid hypotension
[2019-02-28] MEDS ORDERED: POTASSIUM CHLORIDE TABS 20 MEQ TABLET.ER (FP) PO ONE (11:50)
[2019-02-28] MEDS: POTASSIUM CHLORIDE 10 MEQ in SODIUM CHLORIDE 0.45% 1,000 ML IVPB SCH (12:45)
--- NOTE | 2019-02-28 13:48 | PN ---
Progress Note, Physician History of Present Illness: stable - Current Medication List Current Medications: Active Medications Acetaminophen (Tylenol -) 650 mg PO Q6H PRN PRN Reason: FEVER Last Admin: 02/28/19 09:37 Dose: 650 mg Docusate Sodium (Colace -) 100 mg PO BID [facility] Last Admin: 02/28/19 09:32 Dose: 100 mg Piperacillin Sod/Tazobactam (Sod 3.375 gm/ Dextrose) 50 mls @ 100 mls/hr IVPB Q8H-IV [facility]; Protocol Last Admin: 02/28/19 09:32 Dose: 100 mls/hr Potassium Chloride 10 meq/ (Sodium Chloride) 1,005 mls @ 75 mls/hr IVPB Q13H [facility] Last Admin: 02/28/19 12:45 Dose: 75 mls/hr Non-Formulary Medication (Mirabegron [Myrbetriq]) 25 mg PO DAILY [facility] Pantoprazole Sodium (Protonix Iv) 40 mg IVPUSH DAILY [facility] Last Admin: 02/28/19 09:32 Dose: 40 mg Venlafaxine HCl (Effexor -) 25 mg PO BIDWM [facility] Last Admin: 02/28/19 09:32 Dose: 25 mg - Objective Vital Signs: Vital Signs Temperature 98.7 F 02/28/19 10:00 Pulse Rate 95 H 02/28/19 10:00 Respiratory Rate 20 02/28/19 10:00 Blood Pressure 117/74 02/28/19 10:00 O2 Sat by Pulse Oximetry (%) 99 02/27/19 21:00 Constitutional: Yes: No Distress HENT: Yes: Atraumatic Neck: Yes: Supple Cardiovascular: Yes: Regular Rate and Rhythm Respiratory: Yes: CTA Bilaterally Gastrointestinal: Yes: Normal Bowel Sounds Extremities: Yes: WNL Edema: No Peripheral Pulses WNL: Yes Neurological: Yes: Alert Labs: CBC, BMP 02/27/19 06:22 02/28/19 06:20 Problem List - Problems (1) Diverticulitis Assessment/Plan: npo iv abx ivf Code(s): K57.92 - DVTRCLI OF INTEST, PART UNSP, W/O PERF OR ABSCESS W/O BLEED (2) Syncopal episodes Code(s): R55 - SYNCOPE AND COLLAPSE Qualifiers: Syncope type: vasovagal syncope Qualified Code(s): R55 - Syncope and collapse (3) History of multiple strokes Code(s): Z86.73 - PRSNL HX OF TIA (TIA), AND CEREB INFRC W/O RESID DEFICITS (4) UTI (urinary tract infection) Assessment/Plan: on ivabx cxs noted Code(s): N39.0 - URINARY TRACT INFECTION, SITE NOT SPECIFIED Qualifiers: (5) Hypokalemia Assessment/Plan: have been replacing will get renal consult at this point Code(s): E87.6 - HYPOKALEMIA
--- NOTE | 2019-02-28 16:26 | PN ---
Progress Note, Physician History of Present Illness: Pt seen and examined, events noted. Labs/imaging results reviewed. Pt is alert and fully responsive. Denies abd pain unless palpated, reports 3 BMs today. Tmax 99.8F, currently afebrile. No other specific new complaints. - Current Medication List Current Medications: Active Medications Acetaminophen (Tylenol -) 650 mg PO Q6H PRN PRN Reason: FEVER Last Admin: 02/28/19 09:37 Dose: 650 mg Docusate Sodium (Colace -) 100 mg PO BID [facility] Last Admin: 02/28/19 09:32 Dose: 100 mg Piperacillin Sod/Tazobactam (Sod 3.375 gm/ Dextrose) 50 mls @ 100 mls/hr IVPB Q8H-IV [facility]; Protocol Last Admin: 02/28/19 09:32 Dose: 100 mls/hr Potassium Chloride 10 meq/ (Sodium Chloride) 1,005 mls @ 75 mls/hr IVPB Q13H [facility] Last Admin: 02/28/19 12:45 Dose: 75 mls/hr Non-Formulary Medication (Mirabegron [Myrbetriq]) 25 mg PO DAILY [facility] Pantoprazole Sodium (Protonix Iv) 40 mg IVPUSH DAILY [facility] Last Admin: 02/28/19 09:32 Dose: 40 mg Venlafaxine HCl (Effexor -) 25 mg PO BIDWM [facility] Last Admin: 02/28/19 09:32 Dose: 25 mg - Objective Vital Signs: Vital Signs Temperature 98.7 F 02/28/19 14:15 Pulse Rate 84 02/28/19 14:15 Respiratory Rate 20 02/28/19 14:15 Blood Pressure 111/67 02/28/19 14:15 O2 Sat by Pulse Oximetry (%) 96 02/28/19 09:00 Constitutional: Yes: No Distress, Calm Cardiovascular: Yes: Regular Rate and Rhythm Respiratory: Yes: CTA Bilaterally Gastrointestinal: Yes: Normal Bowel Sounds, Soft, Tenderness (lower abd with deep palpation, no guarding/no distension) Genitourinary: Yes: Incontinence Integumentary: Yes: WNL Neurological: Yes: Alert Labs: CBC, BMP 02/27/19 06:22 02/28/19 06:20 Microbiology 02/23/19 18:00 Blood - Peripheral Venous Blood Culture - Preliminary NO GROWTH OBTAINED AFTER 96 HOURS, INCUBATION TO CONTINUE FOR 1 DAYS. 02/23/19 18:00 Blood - Peripheral Venous Blood Culture - Preliminary NO GROWTH OBTAINED AFTER 96 HOURS, INCUBATION TO CONTINUE FOR 1 DAYS. 02/23/19 14:08 Urine - Urine Clean Catch Urine Culture - Final Cee Ashley - ....Imaging Chest X-ray: Report Reviewed Cat Scan: Report Reviewed Problem List - Problems (1) Diverticulitis Code(s): K57.92 - DVTRCLI OF INTEST, PART UNSP, W/O PERF OR ABSCESS W/O BLEED (2) Syncopal episodes Code(s): R55 - SYNCOPE AND COLLAPSE Qualifiers: Syncope type: vasovagal syncope Qualified Code(s): R55 - Syncope and collapse (3) JONATHAN (acute kidney injury) Code(s): N17.9 - ACUTE KIDNEY FAILURE, UNSPECIFIED (4) Back pain Code(s): M54.9 - DORSALGIA, UNSPECIFIED Qualifiers: Back pain location: low back pain Chronicity: acute Back pain laterality : unspecified Sciatica presence: without sciatica Qualified Code(s): M54.5 - Low back pain (5) History of multiple strokes Code(s): Z86.73 - PRSNL HX OF TIA (TIA), AND CEREB INFRC W/O RESID DEFICITS (6) Sepsis Code(s): A41.9 - SEPSIS, UNSPECIFIED ORGANISM Qualifiers: Sepsis type: Escherichia coli Qualified Code(s): A41.51 - Sepsis due to Escherichia coli [E. coli] (7) UTI (urinary tract infection) Code(s): N39.0 - URINARY TRACT INFECTION, SITE NOT SPECIFIED Qualifiers: Assessment/Plan Sigmoid diverticulitis UTI - Jodi read isolated Chronic back pain AFIB IBS -- Pt with low grade fever in early a.m., wbc remains elevated, creatinine rising -- repeat cbc, monitor wbc and temps -- continue Zosyn for now -- repeat CT abd/pelvis results noted Currently appears stable
[2019-03-01] MEDS: POTASSIUM CHLORIDE 10 MEQ in SODIUM CHLORIDE 0.45% 1,000 ML IVPB SCH ×2 (01:25→14:08)
[2019-03-01] MEDS ORDERED: PIPERACILLIN/TAZOBACTAM 3.375 GM VIAL IVPB ONE ×3 (02:25→17:22)
[2019-03-01] MEDS ORDERED: DEXTROSE 5%-WATER - 50 ML IVPB ONE ×3 (02:25→17:22)
[2019-03-01] MEDS: PIPERACILLIN/TAZOB 3.375 GM 3.375 GM in DEXTROSE 5%-WATER - 50 ML IVPB SCH ×3 (02:32→17:27)
[2019-03-01 07:30] LABS: BASO % 0.5 % (0-2.0); HEMATOCRIT 28.6 % (32.4-45.2); HEMOGLOBIN 9.4 GM/dL (10.7-15.3); LYMPH % 5.6 % (8-40); MCH 26.1 pg (25.7-33.7); MEAN PLT VOLUME 8.7 fl (7.5-11.1); MONO % 8.6 % (3.8-10.2); NEUT % 82.3 % (42.8-82.8); RBC 3.62 M/mm3 (3.60-5.2); RDW 16.9 % (11.6-15.6); WHITE BLOOD COUNT 18.8 K/mm3 (4.0-10.0)
--- NOTE | 2019-03-01 07:37 | PN.GI ---
GI Progress Note Subjective: NO NEW COMPLAINTS STILL WITH BACK PAIN ; TOLERATING LIQUID DIET - Objective Vital Signs: Vital Signs Temperature 98.7 F 03/01/19 01:22 Pulse Rate 94 H 03/01/19 01:22 Respiratory Rate 18 03/01/19 01:22 Blood Pressure 120/70 03/01/19 01:22 O2 Sat by Pulse Oximetry (%) 96 02/28/19 21:00 Constitutional: Well Nourished, No Distress, Calm Eyes: Yes: WNL HENT: Yes: WNL Neck: Yes: WNL, Supple Cardiovascular: Yes: WNL, Regular Rate and Rhythm Respiratory: Yes: WNL, Regular, CTA Bilaterally Gastrointestinal Inspection: Yes: WNL ...Auscultate: Yes: Normoactive Bowel Sounds, Other (NONTENDER , NML BS) Problem List - Problems (1) Diverticulitis Assessment/Plan: rec: - advanced to full liquid diet - c/w abx - rx for back pain as per primary medical team Code(s): K57.92 - DVTRCLI OF INTEST, PART UNSP, W/O PERF OR ABSCESS W/O BLEED
[2019-03-01 07:48] LABS: ALBUMIN 2.4 g/dl (3.4-5.0); ALK PHOS 82 U/L (45-117); ANION GAP 9 MMOL/L (8-16); BILIRUBIN,TOTAL 0.4 mg/dL (0.2-1); BLOOD UREA NITROGEN 17.2 mg/dL (7-18); CALCIUM 8.8 mg/dL (8.5-10.1); CHLORIDE 118 mmol/L (98-107); CO2 17 mmol/L (21-32); CREATININE 1.8 mg/dL (0.55-1.3); GLUCOSE,RANDOM 99 mg/dL (74-106); MAGNESIUM 1.7 mg/dL (1.8-2.4); POTASSIUM 3.4 mmol/L (3.5-5.1); SGOT/AST 4 U/L (15-37); SGPT/ALT < 6 U/L (13-61); SODIUM 145 mmol/L (136-145); TOT PROT 5.6 g/dl (6.4-8.2)
--- NOTE | 2019-03-01 08:51 | PN ---
Progress Note, Physician - Current Medication List Current Medications: Active Medications Acetaminophen (Tylenol -) 650 mg PO Q6H PRN PRN Reason: FEVER Last Admin: 02/28/19 20:38 Dose: 650 mg Docusate Sodium (Colace -) 100 mg PO BID [facility] Last Admin: 02/28/19 21:04 Dose: Not Given Piperacillin Sod/Tazobactam (Sod 3.375 gm/ Dextrose) 50 mls @ 100 mls/hr IVPB Q8H-IV [facility]; Protocol Last Admin: 03/01/19 02:32 Dose: 100 mls/hr Potassium Chloride 10 meq/ (Sodium Chloride) 1,005 mls @ 75 mls/hr IVPB Q13H [facility] Last Admin: 03/01/19 01:25 Dose: 75 mls/hr Pantoprazole Sodium (Protonix Iv) 40 mg IVPUSH DAILY [facility] Last Admin: 02/28/19 09:32 Dose: 40 mg Venlafaxine HCl (Effexor -) 25 mg PO BIDWM [facility] Last Admin: 02/28/19 17:57 Dose: 25 mg - Objective Vital Signs: Vital Signs Temperature 98.6 F 03/01/19 06:00 Pulse Rate 93 H 03/01/19 06:00 Respiratory Rate 17 03/01/19 06:00 Blood Pressure 113/76 03/01/19 06:00 O2 Sat by Pulse Oximetry (%) 96 02/28/19 21:00 Eyes: Yes: WNL, Conjunctiva Clear, EOM Intact HENT: Yes: WNL, Atraumatic, Normocephalic Neck: Yes: WNL, Supple, Trachea Midline Cardiovascular: Yes: WNL, Regular Rate and Rhythm Respiratory: Yes: WNL, Regular, CTA Bilaterally Gastrointestinal: Yes: WNL, Normal Bowel Sounds Genitourinary: Yes: WNL Musculoskeletal: Yes: WNL Extremities: Yes: WNL Edema: No Integumentary: Yes: WNL Neurological: Yes: WNL, Alert, Oriented ...Motor Strength: WNL Psychiatric: Yes: WNL Labs: CBC, BMP 03/01/19 06:00 03/01/19 06:00 Assessment/Plan Problem List - Problems (1) Diverticulitis Code(s): K57.92 - DVTRCLI OF INTEST, PART UNSP, W/O PERF OR ABSCESS W/O BLEED (2) Syncopal episodes Code(s): R55 - SYNCOPE AND COLLAPSE Qualifiers: Syncope type: vasovagal syncope Qualified Code(s): R55 - Syncope and collapse (3) Sepsis Code(s): A41.9 - SEPSIS, UNSPECIFIED ORGANISM Qualifiers: Sepsis type: Escherichia coli Qualified Code(s): A41.51 - Sepsis due to Escherichia coli [E. coli] (4) UTI (urinary tract infection) Code(s): N39.0 - URINARY TRACT INFECTION, SITE NOT SPECIFIED Qualifiers: Assessment/Plan 1. Syncope referable to sepsis 2. Acute mild sigmoid diverticulitis w/o abscess 3. Hafnia Alvei UTI 4. ? Organic brain 5. Demand ischemia 6. JONATHAN with hypokalemia PLAN: 1. Troponin plateaued, replete K, IVF with monitor renal recovery 2. F/u echocardiography to assess LV/RV and valvular function 3. Abx course per C&S, IV hydration, bowel rest 4. GI evaluation recommends colonoscopy after inflammation abates, plan for repeat abd/pelvic CT Coverage for dr. Moses
[2019-03-01] MEDS: DOCUSATE SODIUM 100 MG CAPSULE (FP) PO SCH ×2 (10:13→21:18)
[2019-03-01] MEDS: PANTOPRAZOLE SODIUM 40 MG VIAL IVPUSH SCH (10:14)
[2019-03-01] MEDS: VENLAFAXINE HCL 25 MG TABLET PO SCH ×2 (10:14→17:28)
[2019-03-01] MEDS ORDERED: POTASSIUM CHLORIDE ORAL LIQUID 20 MEQ/15 ML PO ONE (11:09)
[2019-03-01] MEDS ORDERED: MAGNESIUM SULF 50% (8.12 MEQ/2 ML-1 GM VIAL) IVPB ONE (12:18)
--- NOTE | 2019-03-01 12:19 | PN ---
Progress Note, Physician History of Present Illness: Pt seen and examined at bedside. She is awake and alert. She is not eating much. - Current Medication List Current Medications: Active Medications Acetaminophen (Tylenol -) 650 mg PO Q6H PRN PRN Reason: FEVER Last Admin: 02/28/19 20:38 Dose: 650 mg Docusate Sodium (Colace -) 100 mg PO BID [facility] Last Admin: 03/01/19 10:13 Dose: Not Given Piperacillin Sod/Tazobactam (Sod 3.375 gm/ Dextrose) 50 mls @ 100 mls/hr IVPB Q8H-IV [facility]; Protocol Last Admin: 03/01/19 10:14 Dose: 100 mls/hr Potassium Chloride 10 meq/ (Sodium Chloride) 1,005 mls @ 75 mls/hr IVPB Q13H [facility] Last Admin: 03/01/19 01:25 Dose: 75 mls/hr Pantoprazole Sodium (Protonix Iv) 40 mg IVPUSH DAILY [facility] Last Admin: 03/01/19 10:14 Dose: 40 mg Venlafaxine HCl (Effexor -) 25 mg PO BIDWM [facility] Last Admin: 03/01/19 10:14 Dose: 25 mg - Objective Vital Signs: Vital Signs Temperature 98.6 F 03/01/19 10:00 Pulse Rate 90 03/01/19 10:00 Respiratory Rate 22 H 03/01/19 10:00 Blood Pressure 112/76 03/01/19 10:00 O2 Sat by Pulse Oximetry (%) 96 03/01/19 09:00 Constitutional: Yes: Anxious Eyes: Yes: Conjunctiva Clear HENT: Yes: Atraumatic Cardiovascular: Yes: S1, S2 Respiratory: Yes: CTA Bilaterally Gastrointestinal: Yes: Soft Genitourinary: Yes: Shea Present Musculoskeletal: Yes: WNL Edema: No Neurological: Yes: Oriented Labs: CBC, BMP 03/01/19 06:00 03/01/19 06:00 Problem List - Problems (1) Diverticulitis Code(s): K57.92 - DVTRCLI OF INTEST, PART UNSP, W/O PERF OR ABSCESS W/O BLEED (2) Hypokalemia Code(s): E87.6 - HYPOKALEMIA (3) Syncopal episodes Code(s): R55 - SYNCOPE AND COLLAPSE Qualifiers: Syncope type: vasovagal syncope Qualified Code(s): R55 - Syncope and collapse (4) JONATHAN (acute kidney injury) Code(s): N17.9 - ACUTE KIDNEY FAILURE, UNSPECIFIED Assessment/Plan Current Medications Generic Name Dose Route Start Last Admin Trade Name John PRN Reason Stop Dose Admin Acetaminophen 650 mg 02/23/19 19:41 02/28/19 20:38 Tylenol - PO 650 mg Q6H PRN Administration FEVER Docusate Sodium 100 mg 02/23/19 22:00 03/01/19 10:13 Colace - PO Not Given BID [facility] Piperacillin Sod/Tazobactam 50 mls @ 100 mls/hr 02/24/19 12:00 03/01/19 10:14 Sod 3.375 gm/ Dextrose IVPB 100 mls/hr Q8H-IV [facility] Administration Protocol Potassium Chloride 10 meq/ 1,005 mls @ 75 mls/hr 02/28/19 12:00 03/01/19 01: 25 Sodium Chloride IVPB 75 mls/hr Q13H [facility] Administration Magnesium Sulfate 1 gm 03/01/19 12:18 Magnesium Sulfate IVPB 03/01/19 12:19 ONCE ONE Pantoprazole Sodium 40 mg 02/25/19 19:00 03/01/19 10:14 Protonix Iv IVPUSH 40 mg DAILY [facility] Administration Venlafaxine HCl 25 mg 02/24/19 08:00 03/01/19 10:14 Effexor - PO 25 mg BIDWM [facility] Administration Impression 1. JONATHAN 2. hypokalemia 3. diverticulitis 4. a-fib 5. cva Plan - cont fluids - replace potassium - replace mag - repeat labs in am - avoid hypotension - encourage PO intake
[2019-03-01 12:39] LABS: PLATELET COUNT 438 K/MM3 (134-434)
--- NOTE | 2019-03-01 15:40 | PN ---
Progress Note, Physician History of Present Illness: Pt is alert, calm. Denies current abd discomfort, afebrile. No new complaints. - Current Medication List Current Medications: Active Medications Acetaminophen (Tylenol -) 650 mg PO Q6H PRN PRN Reason: FEVER Last Admin: 02/28/19 20:38 Dose: 650 mg Docusate Sodium (Colace -) 100 mg PO BID [facility] Last Admin: 03/01/19 10:13 Dose: Not Given Piperacillin Sod/Tazobactam (Sod 3.375 gm/ Dextrose) 50 mls @ 100 mls/hr IVPB Q8H-IV [facility]; Protocol Last Admin: 03/01/19 10:14 Dose: 100 mls/hr Potassium Chloride 10 meq/ (Sodium Chloride) 1,005 mls @ 75 mls/hr IVPB Q13H [facility] Last Admin: 03/01/19 14:08 Dose: 75 mls/hr Pantoprazole Sodium (Protonix Iv) 40 mg IVPUSH DAILY [facility] Last Admin: 03/01/19 10:14 Dose: 40 mg Venlafaxine HCl (Effexor -) 25 mg PO BIDWM [facility] Last Admin: 03/01/19 10:14 Dose: 25 mg - Objective Vital Signs: Vital Signs Temperature 98.8 F 03/01/19 14:12 Pulse Rate 102 H 03/01/19 14:12 Respiratory Rate 20 03/01/19 14:12 Blood Pressure 105/72 03/01/19 14:12 O2 Sat by Pulse Oximetry (%) 96 03/01/19 09:00 Constitutional: Yes: No Distress Cardiovascular: Yes: Regular Rate and Rhythm Respiratory: Yes: Regular Gastrointestinal: Yes: Normal Bowel Sounds, Soft Genitourinary: Yes: Shea Present Neurological: Yes: Alert Labs: CBC, BMP 03/01/19 06:00 03/01/19 06:00 Microbiology 02/27/19 19:30 Urine - Urine Shea Urine Culture - Final NO GROWTH OBTAINED 02/23/19 18:00 Blood - Peripheral Venous Blood Culture - Final NO GROWTH AFTER 5 DAYS INCUBATION 02/23/19 18:00 Blood - Peripheral Venous Blood Culture - Final NO GROWTH AFTER 5 DAYS INCUBATION 02/23/19 14:08 Urine - Urine Clean Catch Urine Culture - Final Dieudonnefnia Alvei Problem List - Problems (1) Diverticulitis Code(s): K57.92 - DVTRCLI OF INTEST, PART UNSP, W/O PERF OR ABSCESS W/O BLEED (2) Syncopal episodes Code(s): R55 - SYNCOPE AND COLLAPSE Qualifiers: Syncope type: vasovagal syncope Qualified Code(s): R55 - Syncope and collapse (3) JONATHAN (acute kidney injury) Code(s): N17.9 - ACUTE KIDNEY FAILURE, UNSPECIFIED (4) Back pain Code(s): M54.9 - DORSALGIA, UNSPECIFIED Qualifiers: Back pain location: low back pain Chronicity: acute Back pain laterality : unspecified Sciatica presence: without sciatica Qualified Code(s): M54.5 - Low back pain (5) History of multiple strokes Code(s): Z86.73 - PRSNL HX OF TIA (TIA), AND CEREB INFRC W/O RESID DEFICITS (6) Sepsis Code(s): A41.9 - SEPSIS, UNSPECIFIED ORGANISM Qualifiers: Sepsis type: Escherichia coli Qualified Code(s): A41.51 - Sepsis due to Escherichia coli [E. coli] (7) UTI (urinary tract infection) Code(s): N39.0 - URINARY TRACT INFECTION, SITE NOT SPECIFIED Qualifiers: Assessment/Plan Sigmoid diverticulitis UTI - Hafina alvea isolated Chronic back pain AFIB IBS -- Fevers resolved, wbc remains elevated -- no current abd pain -- continue Zosyn -- repeat CT shows resolving diverticulitis -- repeat cbc, monitor vitals closely Currently appears stable
[2019-03-01] MEDS: ACETAMINOPHEN 325 MG TABLET (FP) PO PRN (17:47)
--- NOTE | 2019-03-01 21:42 | PN ---
Progress Note, Physician History of Present Illness: No new complaints - Current Medication List Current Medications: Active Medications Acetaminophen (Tylenol -) 650 mg PO Q6H PRN PRN Reason: FEVER Last Admin: 03/01/19 17:47 Dose: 650 mg Docusate Sodium (Colace -) 100 mg PO BID [facility] Last Admin: 03/01/19 21:18 Dose: Not Given Piperacillin Sod/Tazobactam (Sod 3.375 gm/ Dextrose) 50 mls @ 100 mls/hr IVPB Q8H-IV [facility]; Protocol Last Admin: 03/01/19 17:27 Dose: 100 mls/hr Potassium Chloride 10 meq/ (Sodium Chloride) 1,005 mls @ 75 mls/hr IVPB Q13H [facility] Last Admin: 03/01/19 14:08 Dose: 75 mls/hr Pantoprazole Sodium (Protonix Iv) 40 mg IVPUSH DAILY [facility] Last Admin: 03/01/19 10:14 Dose: 40 mg Venlafaxine HCl (Effexor -) 25 mg PO BIDWM [facility] Last Admin: 03/01/19 17:28 Dose: 25 mg - Objective Vital Signs: Vital Signs Temperature 98.8 F 03/01/19 19:44 Pulse Rate 90 03/01/19 19:44 Respiratory Rate 20 03/01/19 21:00 Blood Pressure 103/72 03/01/19 19:44 O2 Sat by Pulse Oximetry (%) 97 03/01/19 21:00 Cardiovascular: Yes: WNL, Regular Rate and Rhythm Respiratory: Yes: WNL, Regular, CTA Bilaterally Gastrointestinal: Yes: WNL, Normal Bowel Sounds, Soft Labs: CBC, BMP 03/01/19 06:00 03/01/19 06:00 Problem List - Problems (1) Diverticulitis Assessment/Plan: Cont antibxs Code(s): K57.92 - DVTRCLI OF INTEST, PART UNSP, W/O PERF OR ABSCESS W/O BLEED (2) JONATHAN (acute kidney injury) Code(s): N17.9 - ACUTE KIDNEY FAILURE, UNSPECIFIED (3) UTI (urinary tract infection) Code(s): N39.0 - URINARY TRACT INFECTION, SITE NOT SPECIFIED Qualifiers:
[2019-03-02] MEDS ORDERED: PIPERACILLIN/TAZOBACTAM 3.375 GM VIAL IVPB ONE ×3 (01:32→17:28)
[2019-03-02] MEDS ORDERED: DEXTROSE 5%-WATER - 50 ML IVPB ONE ×3 (01:33→17:28)
[2019-03-02] MEDS: PIPERACILLIN/TAZOB 3.375 GM 3.375 GM in DEXTROSE 5%-WATER - 50 ML IVPB SCH ×3 (01:36→17:50)
[2019-03-02] MEDS: POTASSIUM CHLORIDE 10 MEQ in SODIUM CHLORIDE 0.45% 1,000 ML IVPB SCH (03:37)
[2019-03-02 06:23] LABS: BASO % 0.8 % (0-2.0); EOS % 6.3 % (0-4.5); HEMATOCRIT 27.7 % (32.4-45.2); HEMOGLOBIN 9.3 GM/dL (10.7-15.3); LYMPH % 10.6 % (8-40); MCH 26.2 pg (25.7-33.7); MCHC 33.7 g/dl (32.0-36.0); MEAN CELL VOLUME 77.7 fl (80-96); MEAN PLT VOLUME 8.4 fl (7.5-11.1); MONO % 9.9 % (3.8-10.2); NEUT % 72.4 % (42.8-82.8); RBC 3.56 M/mm3 (3.60-5.2); RDW 16.6 % (11.6-15.6)
[2019-03-02 06:35] LABS: ALBUMIN 2.2 g/dl (3.4-5.0); BILIRUBIN,TOTAL 0.3 mg/dL (0.2-1); BLOOD UREA NITROGEN 16.1 mg/dL (7-18); CALCIUM 8.4 mg/dL (8.5-10.1); CREATININE 1.8 mg/dL (0.55-1.3); MAGNESIUM 1.9 mg/dL (1.8-2.4); POTASSIUM 3.4 mmol/L (3.5-5.1); TOT PROT 5.4 g/dl (6.4-8.2)
[2019-03-02 08:36] LABS: PLATELET COUNT 354 K/MM3 (134-434)
[2019-03-02] MEDS: PANTOPRAZOLE SODIUM 40 MG VIAL IVPUSH SCH (09:24)
[2019-03-02] MEDS: DOCUSATE SODIUM 100 MG CAPSULE (FP) PO SCH ×2 (09:51→21:15)
[2019-03-02] MEDS: VENLAFAXINE HCL 25 MG TABLET PO SCH ×2 (09:51→17:50)
--- NOTE | 2019-03-02 10:42 | PN ---
Progress Note, Physician Chief Complaint: No further near or true syncope. History of Present Illness: No further near or true syncope. Removed telemetry monitoring. CT scan shows resolving diverticulitis. - Current Medication List Current Medications: Active Medications Acetaminophen (Tylenol -) 650 mg PO Q6H PRN PRN Reason: FEVER Last Admin: 03/01/19 17:47 Dose: 650 mg Docusate Sodium (Colace -) 100 mg PO BID [facility] Last Admin: 03/02/19 09:51 Dose: Not Given Piperacillin Sod/Tazobactam (Sod 3.375 gm/ Dextrose) 50 mls @ 100 mls/hr IVPB Q8H-IV [facility]; Protocol Last Admin: 03/02/19 09:24 Dose: 100 mls/hr Potassium Chloride 10 meq/ (Sodium Chloride) 1,005 mls @ 75 mls/hr IVPB Q13H [facility] Last Admin: 03/02/19 03:37 Dose: 75 mls/hr Pantoprazole Sodium (Protonix Iv) 40 mg IVPUSH DAILY [facility] Last Admin: 03/02/19 09:24 Dose: 40 mg Venlafaxine HCl (Effexor -) 25 mg PO BIDWM [facility] Last Admin: 03/02/19 09:51 Dose: 25 mg - Objective Vital Signs: Vital Signs Temperature 97.5 F L 03/02/19 08:09 Pulse Rate 85 03/02/19 08:09 Respiratory Rate 18 03/02/19 09:00 Blood Pressure 113/70 03/02/19 08:09 O2 Sat by Pulse Oximetry (%) 97 03/02/19 09:00 Constitutional: Yes: No Distress, Calm, Thin Neck: Yes: Supple Cardiovascular: Yes: Regular Rate and Rhythm Respiratory: Yes: Regular, Diminished Gastrointestinal: Yes: Soft, Hypoactive Bowel Sounds Edema: No Labs: CBC, BMP 03/02/19 05:15 03/02/19 05:15 Problem List - Problems (1) Diverticulitis Code(s): K57.92 - DVTRCLI OF INTEST, PART UNSP, W/O PERF OR ABSCESS W/O BLEED (2) Syncopal episodes Code(s): R55 - SYNCOPE AND COLLAPSE Qualifiers: Syncope type: vasovagal syncope Qualified Code(s): R55 - Syncope and collapse (3) Sepsis Code(s): A41.9 - SEPSIS, UNSPECIFIED ORGANISM Qualifiers: Sepsis type: Escherichia coli Qualified Code(s): A41.51 - Sepsis due to Escherichia coli [E. coli] (4) UTI (urinary tract infection) Code(s): N39.0 - URINARY TRACT INFECTION, SITE NOT SPECIFIED Qualifiers: Assessment/Plan 1. Syncope referable to sepsis 2. Acute mild sigmoid diverticulitis w/o abscess 3. Hafnia Alvei UTI 4. ? Organic brain 5. Demand ischemia 6. JONATHAN with hypokalemia PLAN: 1. Troponin plateaued, replete K, Mg, IVF with monitor renal recovery 2. F/u echocardiography to assess LV/RV and valvular function 3. Abx course per C&S, IV hydration, advancing diet as tolerated 4. GI evaluation recommends colonoscopy after inflammation abates
--- NOTE | 2019-03-02 13:57 | PN ---
Progress Note, Physician History of Present Illness: Pt seen and examined at bedside. She is awake and alert. She denies shortness of breath. She is not eating much. - Current Medication List Current Medications: Active Medications Acetaminophen (Tylenol -) 650 mg PO Q6H PRN PRN Reason: FEVER Last Admin: 03/01/19 17:47 Dose: 650 mg Docusate Sodium (Colace -) 100 mg PO BID [facility] Last Admin: 03/02/19 09:51 Dose: Not Given Piperacillin Sod/Tazobactam (Sod 3.375 gm/ Dextrose) 50 mls @ 100 mls/hr IVPB Q8H-IV [facility]; Protocol Last Admin: 03/02/19 09:24 Dose: 100 mls/hr Potassium Chloride 10 meq/ (Sodium Chloride) 1,005 mls @ 75 mls/hr IVPB Q13H [facility] Last Admin: 03/02/19 03:37 Dose: 75 mls/hr Pantoprazole Sodium (Protonix Iv) 40 mg IVPUSH DAILY [facility] Last Admin: 03/02/19 09:24 Dose: 40 mg Potassium Chloride (Potassium Chloride Oral Liquid) 40 meq PO ONCE ONE Stop: 03/02/19 13:55 Venlafaxine HCl (Effexor -) 25 mg PO BIDWM [facility] Last Admin: 03/02/19 09:51 Dose: 25 mg - Objective Vital Signs: Vital Signs Temperature 97.5 F L 03/02/19 08:09 Pulse Rate 85 03/02/19 08:09 Respiratory Rate 18 03/02/19 09:00 Blood Pressure 113/70 03/02/19 08:09 O2 Sat by Pulse Oximetry (%) 97 03/02/19 09:00 Constitutional: Yes: Calm Eyes: Yes: Conjunctiva Clear HENT: Yes: Atraumatic Neck: Yes: Supple Cardiovascular: Yes: S1, S2 Respiratory: Yes: CTA Bilaterally Gastrointestinal: Yes: Soft Genitourinary: Yes: Shea Present Musculoskeletal: Yes: WNL Edema: No Neurological: Yes: Oriented Labs: CBC, BMP 03/02/19 05:15 03/02/19 05:15 Problem List - Problems (1) Diverticulitis Code(s): K57.92 - DVTRCLI OF INTEST, PART UNSP, W/O PERF OR ABSCESS W/O BLEED (2) Hypokalemia Code(s): E87.6 - HYPOKALEMIA (3) Syncopal episodes Code(s): R55 - SYNCOPE AND COLLAPSE Qualifiers: Syncope type: vasovagal syncope Qualified Code(s): R55 - Syncope and collapse (4) JONATHAN (acute kidney injury) Code(s): N17.9 - ACUTE KIDNEY FAILURE, UNSPECIFIED Assessment/Plan Current Medications Generic Name Dose Route Start Last Admin Trade Name Freq PRN Reason Stop Dose Admin Acetaminophen 650 mg 02/23/19 19:41 03/01/19 17:47 Tylenol - PO 650 mg Q6H PRN Administration FEVER Docusate Sodium 100 mg 02/23/19 22:00 03/02/19 09:51 Colace - PO Not Given BID [facility] Piperacillin Sod/Tazobactam 50 mls @ 100 mls/hr 02/24/19 12:00 03/02/19 09:24 Sod 3.375 gm/ Dextrose IVPB 100 mls/hr Q8H-IV [facility] Administration Protocol Potassium Chloride 20 meq/ 1,005 mls @ 75 mls/hr 03/02/19 13:55 Sodium Chloride IVPB Q13H [facility] Pantoprazole Sodium 40 mg 02/25/19 19:00 03/02/19 09:24 Protonix Iv IVPUSH 40 mg DAILY [facility] Administration Potassium Chloride 40 meq 03/02/19 13:54 Potassium Chloride Oral Liquid PO 03/02/19 13:55 ONCE ONE Venlafaxine HCl 25 mg 02/24/19 08:00 03/02/19 09:51 Effexor - PO 25 mg BIDWM [facility] Administration Impression 1. JONATHAN 2. hypokalemia 3. diverticulitis 4. a-fib 5. cva Plan - replace potassium - cont fluids - monitor renal function - avoid hypotension - encourage PO intake
[2019-03-02] MEDS ORDERED: POTASSIUM CHLORIDE ORAL LIQUID 20 MEQ/15 ML PO ONE (14:00)
--- NOTE | 2019-03-02 14:28 | PN ---
Progress Note, Physician History of Present Illness: stable in some discomfort - Current Medication List Current Medications: Active Medications Acetaminophen (Tylenol -) 650 mg PO Q6H PRN PRN Reason: FEVER Last Admin: 03/01/19 17:47 Dose: 650 mg Docusate Sodium (Colace -) 100 mg PO BID [facility] Last Admin: 03/02/19 09:51 Dose: Not Given Piperacillin Sod/Tazobactam (Sod 3.375 gm/ Dextrose) 50 mls @ 100 mls/hr IVPB Q8H-IV [facility]; Protocol Last Admin: 03/02/19 09:24 Dose: 100 mls/hr Potassium Chloride 20 meq/ (Sodium Chloride) 1,005 mls @ 75 mls/hr IVPB Q13H [facility] Pantoprazole Sodium (Protonix Iv) 40 mg IVPUSH DAILY [facility] Last Admin: 03/02/19 09:24 Dose: 40 mg Venlafaxine HCl (Effexor -) 25 mg PO BIDWM [facility] Last Admin: 03/02/19 09:51 Dose: 25 mg - Objective Vital Signs: Vital Signs Temperature 97.5 F L 03/02/19 08:09 Pulse Rate 85 03/02/19 08:09 Respiratory Rate 18 03/02/19 09:00 Blood Pressure 113/70 03/02/19 08:09 O2 Sat by Pulse Oximetry (%) 97 03/02/19 09:00 Constitutional: Yes: Calm, Mild Distress Cardiovascular: Yes: Regular Rate and Rhythm Respiratory: Yes: Regular, CTA Bilaterally Gastrointestinal: Yes: Normal Bowel Sounds, Soft Musculoskeletal: Yes: WNL Extremities: Yes: WNL Neurological: Yes: Alert Psychiatric: Yes: Alert Labs: CBC, BMP 03/02/19 05:15 03/02/19 05:15 Assessment/Plan Problem List - Problems (1) Diverticulitis Code(s): K57.92 - DVTRCLI OF INTEST, PART UNSP, W/O PERF OR ABSCESS W/O BLEED (2) Syncopal episodes Code(s): R55 - SYNCOPE AND COLLAPSE Qualifiers: Syncope type: vasovagal syncope Qualified Code(s): R55 - Syncope and collapse (3) JONATHAN (acute kidney injury) Code(s): N17.9 - ACUTE KIDNEY FAILURE, UNSPECIFIED (4) Back pain Code(s): M54.9 - DORSALGIA, UNSPECIFIED Qualifiers: Back pain location: low back pain Chronicity: acute Back pain laterality : unspecified Sciatica presence: without sciatica Qualified Code(s): M54.5 - Low back pain (5) History of multiple strokes Code(s): Z86.73 - PRSNL HX OF TIA (TIA), AND CEREB INFRC W/O RESID DEFICITS (6) Sepsis Code(s): A41.9 - SEPSIS, UNSPECIFIED ORGANISM Qualifiers: Sepsis type: Escherichia coli Qualified Code(s): A41.51 - Sepsis due to Escherichia coli [E. coli] (7) UTI (urinary tract infection) Code(s): N39.0 - URINARY TRACT INFECTION, SITE NOT SPECIFIED Qualifiers: Assessment/Plan Sigmoid diverticulitis UTI - Hafina alvea isolated Chronic back pain AFIB IBS wbc trending down continue current mgmt will probably deescalte abx after tomorrow rest as per the team monitor wbc
[2019-03-02] MEDS: SODIUM CHLORIDE 0.45% IVPB SCH (15:13)
[2019-03-02] MEDS: POTASSIUM CHLORIDE IVPB SCH (15:13)
--- NOTE | 2019-03-02 16:42 | PN ---
Progress Note, Physician History of Present Illness: stable - Current Medication List Current Medications: Active Medications Acetaminophen (Tylenol -) 650 mg PO Q6H PRN PRN Reason: FEVER Last Admin: 03/01/19 17:47 Dose: 650 mg Docusate Sodium (Colace -) 100 mg PO BID [facility] Last Admin: 03/02/19 09:51 Dose: Not Given Piperacillin Sod/Tazobactam (Sod 3.375 gm/ Dextrose) 50 mls @ 100 mls/hr IVPB Q8H-IV [facility]; Protocol Last Admin: 03/02/19 09:24 Dose: 100 mls/hr Potassium Chloride 20 meq/ (Sodium Chloride) 1,005 mls @ 75 mls/hr IVPB Q13H [facility] Last Admin: 03/02/19 15:13 Dose: 75 mls/hr Pantoprazole Sodium (Protonix Iv) 40 mg IVPUSH DAILY [facility] Last Admin: 03/02/19 09:24 Dose: 40 mg Venlafaxine HCl (Effexor -) 25 mg PO BIDWM [facility] Last Admin: 03/02/19 09:51 Dose: 25 mg - Objective Vital Signs: Vital Signs Temperature 97.5 F L 03/02/19 08:09 Pulse Rate 85 03/02/19 08:09 Respiratory Rate 18 03/02/19 09:00 Blood Pressure 113/70 03/02/19 08:09 O2 Sat by Pulse Oximetry (%) 97 03/02/19 09:00 Constitutional: Yes: No Distress HENT: Yes: Atraumatic Neck: Yes: Supple Cardiovascular: Yes: Regular Rate and Rhythm Respiratory: Yes: CTA Bilaterally Gastrointestinal: Yes: Normal Bowel Sounds Extremities: Yes: WNL Edema: No Peripheral Pulses WNL: Yes Neurological: Yes: Alert, Oriented Labs: CBC, BMP 03/02/19 05:15 03/02/19 05:15 Problem List - Problems (1) Diverticulitis Assessment/Plan: on full liquid diet iv abx ivf Code(s): K57.92 - DVTRCLI OF INTEST, PART UNSP, W/O PERF OR ABSCESS W/O BLEED (2) Syncopal episodes Code(s): R55 - SYNCOPE AND COLLAPSE Qualifiers: Syncope type: vasovagal syncope Qualified Code(s): R55 - Syncope and collapse (3) History of multiple strokes Code(s): Z86.73 - PRSNL HX OF TIA (TIA), AND CEREB INFRC W/O RESID DEFICITS (4) UTI (urinary tract infection) Assessment/Plan: on ivabx cxs noted Code(s): N39.0 - URINARY TRACT INFECTION, SITE NOT SPECIFIED Qualifiers: (5) Hypokalemia Code(s): E87.6 - HYPOKALEMIA
[2019-03-03] MEDS ORDERED: PIPERACILLIN/TAZOBACTAM 3.375 GM VIAL IVPB ONE ×2 (02:50→08:41)
[2019-03-03] MEDS ORDERED: DEXTROSE 5%-WATER - 50 ML IVPB ONE ×2 (02:51→08:41)
[2019-03-03] MEDS: PIPERACILLIN/TAZOB 3.375 GM 3.375 GM in DEXTROSE 5%-WATER - 50 ML IVPB SCH ×2 (02:57→09:26)
[2019-03-03] MEDS: SODIUM CHLORIDE 0.45% IVPB SCH (02:58)
[2019-03-03] MEDS: POTASSIUM CHLORIDE IVPB SCH (02:58)
[2019-03-03] MEDS: ACETAMINOPHEN 325 MG TABLET (FP) PO PRN ×2 (06:10→13:00)
[2019-03-03 07:48] LABS: ALBUMIN 2.2 g/dl (3.4-5.0); BILIRUBIN,TOTAL 0.3 mg/dL (0.2-1); BLOOD UREA NITROGEN 15.4 mg/dL (7-18); CALCIUM 8.7 mg/dL (8.5-10.1); CREATININE 1.7 mg/dL (0.55-1.3); MAGNESIUM 1.5 mg/dL (1.8-2.4); POTASSIUM 3.5 mmol/L (3.5-5.1); TOT PROT 5.5 g/dl (6.4-8.2)
[2019-03-03] MEDS: PANTOPRAZOLE SODIUM 40 MG VIAL IVPUSH SCH (09:27)
[2019-03-03] MEDS: VENLAFAXINE HCL 25 MG TABLET PO SCH ×2 (09:27→17:19)
[2019-03-03] MEDS: DOCUSATE SODIUM 100 MG CAPSULE (FP) PO SCH ×2 (09:27→23:18)
[2019-03-03] MEDS ORDERED: SODIUM CHLORIDE 0.45%/POT 20 MEQ/1,000 ML INFUS.BAG IV SCH (12:30)
--- NOTE | 2019-03-03 13:31 | PN ---
Progress Note, Physician History of Present Illness: stable in some discomfort - Current Medication List Current Medications: Active Medications Acetaminophen (Tylenol -) 650 mg PO Q6H PRN PRN Reason: FEVER Last Admin: 03/03/19 13:00 Dose: 650 mg Docusate Sodium (Colace -) 100 mg PO BID [facility] Last Admin: 03/03/19 09:27 Dose: Not Given Piperacillin Sod/Tazobactam (Sod 3.375 gm/ Dextrose) 50 mls @ 100 mls/hr IVPB Q8H-IV [facility]; Protocol Last Admin: 03/03/19 09:26 Dose: 100 mls/hr Potassium Chloride/Sodium Chloride (1/2ns+20meq Kcl) 20 meq in 1,000 mls @ 75 mls/hr IV Q13H [facility] Pantoprazole Sodium (Protonix Iv) 40 mg IVPUSH DAILY [facility] Last Admin: 03/03/19 09:27 Dose: 40 mg Venlafaxine HCl (Effexor -) 25 mg PO BIDWM [facility] Last Admin: 03/03/19 09:27 Dose: 25 mg - Objective Vital Signs: Vital Signs Temperature 98.6 F 03/03/19 05:53 Pulse Rate 93 H 03/03/19 05:53 Respiratory Rate 20 03/03/19 05:53 Blood Pressure 114/68 03/03/19 05:53 O2 Sat by Pulse Oximetry (%) 95 03/03/19 09:00 Constitutional: Yes: No Distress, Calm Cardiovascular: Yes: Regular Rate and Rhythm Respiratory: Yes: Regular, CTA Bilaterally Gastrointestinal: Yes: Normal Bowel Sounds, Soft Musculoskeletal: Yes: WNL Extremities: Yes: WNL Neurological: Yes: Alert Psychiatric: Yes: Alert Labs: CBC, BMP 03/02/19 05:15 03/03/19 05:06 Assessment/Plan Problem List - Problems (1) Diverticulitis Code(s): K57.92 - DVTRCLI OF INTEST, PART UNSP, W/O PERF OR ABSCESS W/O BLEED (2) Syncopal episodes Code(s): R55 - SYNCOPE AND COLLAPSE Qualifiers: Syncope type: vasovagal syncope Qualified Code(s): R55 - Syncope and collapse (3) JONATHAN (acute kidney injury) Code(s): N17.9 - ACUTE KIDNEY FAILURE, UNSPECIFIED (4) Back pain Code(s): M54.9 - DORSALGIA, UNSPECIFIED Qualifiers: Back pain location: low back pain Chronicity: acute Back pain laterality : unspecified Sciatica presence: without sciatica Qualified Code(s): M54.5 - Low back pain (5) History of multiple strokes Code(s): Z86.73 - PRSNL HX OF TIA (TIA), AND CEREB INFRC W/O RESID DEFICITS (6) Sepsis Code(s): A41.9 - SEPSIS, UNSPECIFIED ORGANISM Qualifiers: Sepsis type: Escherichia coli Qualified Code(s): A41.51 - Sepsis due to Escherichia coli [E. coli] (7) UTI (urinary tract infection) Code(s): N39.0 - URINARY TRACT INFECTION, SITE NOT SPECIFIED Qualifiers: Assessment/Plan Sigmoid diverticulitis UTI - Hafina alvea isolated Chronic back pain AFIB IBS plan will stop abx cdiff result noted continue current mgmt rest as per the team
--- NOTE | 2019-03-03 13:53 | PN ---
Progress Note, Physician History of Present Illness: Pt seen and examined at bedside. She is awake and alert. She still has poor intake. - Current Medication List Current Medications: Active Medications Acetaminophen (Tylenol -) 650 mg PO Q6H PRN PRN Reason: FEVER Last Admin: 03/03/19 13:00 Dose: 650 mg Docusate Sodium (Colace -) 100 mg PO BID [facility] Last Admin: 03/03/19 09:27 Dose: Not Given Potassium Chloride/Sodium Chloride (1/2ns+20meq Kcl) 20 meq in 1,000 mls @ 75 mls/hr IV Q13H [facility] Pantoprazole Sodium (Protonix Iv) 40 mg IVPUSH DAILY [facility] Last Admin: 03/03/19 09:27 Dose: 40 mg Potassium Chloride (Potassium Chloride Oral Liquid) 40 meq PO ONCE ONE Stop: 03/03/19 13:52 Venlafaxine HCl (Effexor -) 25 mg PO BIDWM [facility] Last Admin: 03/03/19 09:27 Dose: 25 mg - Objective Vital Signs: Vital Signs Temperature 98.6 F 03/03/19 05:53 Pulse Rate 93 H 03/03/19 05:53 Respiratory Rate 20 03/03/19 05:53 Blood Pressure 114/68 03/03/19 05:53 O2 Sat by Pulse Oximetry (%) 95 03/03/19 09:00 Constitutional: Yes: Calm Eyes: Yes: Conjunctiva Clear HENT: Yes: Atraumatic Neck: Yes: Supple Cardiovascular: Yes: S1, S2 Respiratory: Yes: CTA Bilaterally Gastrointestinal: Yes: Normal Bowel Sounds, Soft Genitourinary: Yes: Shea Present Musculoskeletal: Yes: WNL Edema: No Neurological: Yes: Oriented Psychiatric: Yes: Oriented Labs: CBC, BMP 03/02/19 05:15 03/03/19 05:06 Problem List - Problems (1) Diverticulitis Code(s): K57.92 - DVTRCLI OF INTEST, PART UNSP, W/O PERF OR ABSCESS W/O BLEED (2) Hypokalemia Code(s): E87.6 - HYPOKALEMIA (3) Syncopal episodes Code(s): R55 - SYNCOPE AND COLLAPSE Qualifiers: Syncope type: vasovagal syncope Qualified Code(s): R55 - Syncope and collapse (4) JONATHAN (acute kidney injury) Code(s): N17.9 - ACUTE KIDNEY FAILURE, UNSPECIFIED Assessment/Plan Current Medications Generic Name Dose Route Start Last Admin Trade Name Freq PRN Reason Stop Dose Admin Acetaminophen 650 mg 02/23/19 19:41 03/03/19 13:00 Tylenol - PO 650 mg Q6H PRN Administration FEVER Docusate Sodium 100 mg 02/23/19 22:00 03/03/19 09:27 Colace - PO Not Given BID [facility] Potassium Chloride/Sodium Chloride 20 meq in 1,000 mls @ 75 mls/hr 03/03/19 12 :30 1/2ns+20meq Kcl IV Q13H [facility] Magnesium Oxide 400 mg 03/03/19 22:00 Mag-Ox - PO BID [facility] Magnesium Sulfate 2 gm 03/03/19 13:51 Magnesium Sulfate IVPB 03/03/19 13:52 ONCE ONE Pantoprazole Sodium 40 mg 02/25/19 19:00 03/03/19 09:27 Protonix Iv IVPUSH 40 mg DAILY [facility] Administration Potassium Chloride 40 meq 03/03/19 13:51 Potassium Chloride Oral Liquid PO 03/03/19 13:52 ONCE ONE Venlafaxine HCl 25 mg 02/24/19 08:00 03/03/19 09:27 Effexor - PO 25 mg BIDWM [facility] Administration Impression 1. JONATHAN 2. hypokalemia 3. diverticulitis 4. a-fib 5. cva Plan - replace mag - replace potassium - decrease rate of fluids - renal function starting to improve - avoid hypotension - encourage PO intake
[2019-03-03] MEDS: SODIUM CHLORIDE 0.45%/POT 20 MEQ/1,000 ML INFUS.BAG IV SCH (14:43)
[2019-03-03] MEDS ORDERED: POTASSIUM CHLORIDE ORAL LIQUID 20 MEQ/15 ML PO ONE (15:00)
[2019-03-03] MEDS ORDERED: MAGNESIUM SULF 50% (8.12 MEQ/2 ML-1 GM VIAL) IVPB ONE (15:00)
--- NOTE | 2019-03-03 15:29 | PN ---
Progress Note, Physician History of Present Illness: stable - Current Medication List Current Medications: Active Medications Acetaminophen (Tylenol -) 650 mg PO Q6H PRN PRN Reason: FEVER Last Admin: 03/03/19 13:00 Dose: 650 mg Docusate Sodium (Colace -) 100 mg PO BID [facility] Last Admin: 03/03/19 09:27 Dose: Not Given Potassium Chloride/Sodium Chloride (1/2ns+20meq Kcl) 20 meq in 1,000 mls @ 42 mls/hr IV Q13H [facility] Last Admin: 03/03/19 14:43 Dose: 42 mls/hr Pantoprazole Sodium (Protonix Iv) 40 mg IVPUSH DAILY [facility] Last Admin: 03/03/19 09:27 Dose: 40 mg Venlafaxine HCl (Effexor -) 25 mg PO BIDWM [facility] Last Admin: 03/03/19 09:27 Dose: 25 mg - Objective Vital Signs: Vital Signs Temperature 98.2 F 03/03/19 14:44 Pulse Rate 79 03/03/19 14:44 Respiratory Rate 20 03/03/19 14:44 Blood Pressure 107/73 03/03/19 14:44 O2 Sat by Pulse Oximetry (%) 95 03/03/19 09:00 Constitutional: Yes: No Distress Eyes: Yes: Conjunctiva Clear HENT: Yes: Atraumatic Neck: Yes: Supple Cardiovascular: Yes: Regular Rate and Rhythm Respiratory: Yes: CTA Bilaterally Gastrointestinal: Yes: Normal Bowel Sounds Extremities: Yes: WNL Neurological: Yes: Alert, Oriented Labs: CBC, BMP 03/02/19 05:15 03/03/19 05:06 Problem List - Problems (1) Diverticulitis Assessment/Plan: low fiber diet completed iv abx course dc ivf Code(s): K57.92 - DVTRCLI OF INTEST, PART UNSP, W/O PERF OR ABSCESS W/O BLEED (2) Syncopal episodes Code(s): R55 - SYNCOPE AND COLLAPSE Qualifiers: Syncope type: vasovagal syncope Qualified Code(s): R55 - Syncope and collapse (3) History of multiple strokes Code(s): Z86.73 - PRSNL HX OF TIA (TIA), AND CEREB INFRC W/O RESID DEFICITS (4) UTI (urinary tract infection) Assessment/Plan: abx completed Code(s): N39.0 - URINARY TRACT INFECTION, SITE NOT SPECIFIED Qualifiers: (5) Hypokalemia Assessment/Plan: have been replacing will get renal consult at this point Code(s): E87.6 - HYPOKALEMIA
--- NOTE | 2019-03-03 18:16 | PN.GI ---
GI Progress Note Subjective: No abdominal pain Complains of continued joint and back pain - Objective Vital Signs: Vital Signs Temperature 98.2 F 03/03/19 14:44 Pulse Rate 79 03/03/19 14:44 Respiratory Rate 20 03/03/19 14:44 Blood Pressure 107/73 03/03/19 14:44 O2 Sat by Pulse Oximetry (%) 95 03/03/19 09:00 Constitutional: Calm Eyes: No: Sclera Icterus Cardiovascular: Yes: Regular Rate and Rhythm Gastrointestinal Inspection: No: Distention ...Auscultate: Yes: Normoactive Bowel Sounds ...Palpate: Yes: Soft. No: Hepatomegaly, Splenomegaly, Tenderness Edema: No (No LE edema) Neurological: Yes: Alert Labs: CBC, BMP 03/02/19 05:15 03/03/19 05:06 Problem List - Problems (1) Diverticulitis Assessment/Plan: Clinically much improved from a GI perspective Will need outpatient follow-up to discuss follow-up colonoscopy in 6-8 weeks for follow-up of questionable mild diverticulitis Code(s): K57.92 - DVTRCLI OF INTEST, PART UNSP, W/O PERF OR ABSCESS W/O BLEED
--- NOTE | 2019-03-03 18:33 | PN ---
Progress Note, Physician Chief Complaint: Events noted Complains of back pain History of Present Illness: Patient was seen and examined. Awake and alert. Chart was reviewed. Denies chest pain, SOB or palpitations - Current Medication List Current Medications: Active Medications Acetaminophen (Tylenol -) 650 mg PO Q6H PRN PRN Reason: FEVER Last Admin: 03/03/19 13:00 Dose: 650 mg Docusate Sodium (Colace -) 100 mg PO BID [facility] Last Admin: 03/03/19 09:27 Dose: Not Given Potassium Chloride/Sodium Chloride (1/2ns+20meq Kcl) 20 meq in 1,000 mls @ 42 mls/hr IV Q13H [facility] Last Admin: 03/03/19 14:43 Dose: 42 mls/hr Pantoprazole Sodium (Protonix Iv) 40 mg IVPUSH DAILY [facility] Last Admin: 03/03/19 09:27 Dose: 40 mg Venlafaxine HCl (Effexor -) 25 mg PO BIDWM [facility] Last Admin: 03/03/19 17:19 Dose: 25 mg - Objective Vital Signs: Vital Signs Temperature 98.2 F 03/03/19 14:44 Pulse Rate 79 03/03/19 14:44 Respiratory Rate 20 03/03/19 14:44 Blood Pressure 107/73 03/03/19 14:44 O2 Sat by Pulse Oximetry (%) 95 03/03/19 09:00 Eyes: Yes: PERRL HENT: Yes: Atraumatic Neck: Yes: Supple Cardiovascular: Yes: Regular Rate and Rhythm, S1, S2 Respiratory: Yes: Diminished Gastrointestinal: Yes: Normal Bowel Sounds, Soft. No: Tenderness Edema: No Additional Findings/Remarks: - Review of Systems Constitutional: reports: Weakness. denies: Chills, Fever Cardiovascular: denies: Chest Pain, Palpitations, Shortness of Breath Respiratory: denies: Cough, Hemoptysis, Orthopnea, PND, SOB, SOB on Exertion Gastrointestinal: denies: Abdominal Pain, Constipation, Diarrhea, Melena, Nausea , Rectal Bleeding, Vomiting Genitourinary: denies: Dysuria, Hematuria Musculoskeletal: denies: Back Pain, Joint Pain Neurological: reports: Syncope. denies: Dizziness, Headache, Seizure Labs: CBC, BMP 03/02/19 05:15 03/03/19 05:06 Problem List - Problems (1) Diverticulitis Code(s): K57.92 - DVTRCLI OF INTEST, PART UNSP, W/O PERF OR ABSCESS W/O BLEED (2) Syncopal episodes Code(s): R55 - SYNCOPE AND COLLAPSE Qualifiers: Syncope type: vasovagal syncope Qualified Code(s): R55 - Syncope and collapse (3) [id number] kidney injury Code(s): N17.9 - ACUTE KIDNEY FAILURE, UNSPECIFIED; N18.9 - CHRONIC KIDNEY DISEASE, UNSPECIFIED (4) Sepsis Code(s): A41.9 - SEPSIS, UNSPECIFIED ORGANISM Qualifiers: Sepsis type: Escherichia coli Qualified Code(s): A41.51 - Sepsis due to Escherichia coli [E. coli] (5) UTI (urinary tract infection) Code(s): N39.0 - URINARY TRACT INFECTION, SITE NOT SPECIFIED Qualifiers: Assessment/Plan 1. Syncope referable to sepsis 2. Acute mild sigmoid diverticulitis w/o abscess 3. Hafnia Alvei UTI 4. Demand ischemia 5. JONATHAN with hypokalemia PLAN: 1. Continue current management 2. Echocardiography to assess LV/RV and valvular function 3. Antibiotic coverage 4. GI input to follow Adarsh Degroot MD
[2019-03-03] MEDS ORDERED: MAGNESIUM OXIDE 400 MG TABLET (FP) PO SCH (22:00)
[2019-03-04 07:51] LABS: HEMATOCRIT 31.6 % (32.4-45.2); HEMOGLOBIN 10.5 GM/dL (10.7-15.3); MCHC 33.2 g/dl (32.0-36.0); MEAN CELL VOLUME 78.3 fl (80-96); MEAN PLT VOLUME 8.6 fl (7.5-11.1); PLATELET COUNT 373 K/MM3 (134-434); RBC 4.04 M/mm3 (3.60-5.2); RDW 16.9 % (11.6-15.6); WHITE BLOOD COUNT 12.6 K/mm3 (4.0-10.0)
[2019-03-04] MEDS: VENLAFAXINE HCL 25 MG TABLET PO SCH ×2 (07:56→18:55)
[2019-03-04 09:18] LABS: ALBUMIN 2.5 g/dl (3.4-5.0); BILIRUBIN,TOTAL 0.3 mg/dL (0.2-1); BLOOD UREA NITROGEN 14.2 mg/dL (7-18); CALCIUM 8.7 mg/dL (8.5-10.1); CREATININE 1.6 mg/dL (0.55-1.3); MAGNESIUM 2.3 mg/dL (1.8-2.4); POTASSIUM 3.8 mmol/L (3.5-5.1); TOT PROT 5.7 g/dl (6.4-8.2)
[2019-03-04] MEDS: DOCUSATE SODIUM 100 MG CAPSULE (FP) PO SCH ×2 (10:07→21:27)
[2019-03-04] MEDS: PANTOPRAZOLE SODIUM 40 MG VIAL IVPUSH SCH (10:07)
--- NOTE | 2019-03-04 12:00 | PN ---
Progress Note, Physician History of Present Illness: Pt seen and examined at bedside. She is awake and appears comfortable. She denies shortness of breath. - Current Medication List Current Medications: Active Medications Acetaminophen (Tylenol -) 650 mg PO Q6H PRN PRN Reason: FEVER Last Admin: 03/03/19 13:00 Dose: 650 mg Docusate Sodium (Colace -) 100 mg PO BID [facility] Last Admin: 03/04/19 10:07 Dose: 100 mg Potassium Chloride/Sodium Chloride (1/2ns+20meq Kcl) 20 meq in 1,000 mls @ 42 mls/hr IV Q13H [facility] Last Admin: 03/03/19 14:43 Dose: 42 mls/hr Pantoprazole Sodium (Protonix Iv) 40 mg IVPUSH DAILY [facility] Last Admin: 03/04/19 10:07 Dose: 40 mg Venlafaxine HCl (Effexor -) 25 mg PO BIDWM [facility] Last Admin: 03/04/19 07:56 Dose: 25 mg - Objective Vital Signs: Vital Signs Temperature 98.2 F 03/04/19 09:00 Pulse Rate 90 03/04/19 09:00 Respiratory Rate 20 03/04/19 09:00 Blood Pressure 109/67 03/04/19 09:00 O2 Sat by Pulse Oximetry (%) 97 03/04/19 09:00 Constitutional: Yes: Calm Eyes: Yes: Conjunctiva Clear HENT: Yes: Atraumatic Neck: Yes: Supple Cardiovascular: Yes: S1, S2 Respiratory: Yes: CTA Bilaterally Gastrointestinal: Yes: Soft Genitourinary: Yes: Incontinence Musculoskeletal: Yes: WNL Edema: No Neurological: Yes: Oriented Psychiatric: Yes: Oriented Labs: CBC, BMP 03/04/19 06:55 03/04/19 06:55 Problem List - Problems (1) Diverticulitis Code(s): K57.92 - DVTRCLI OF INTEST, PART UNSP, W/O PERF OR ABSCESS W/O BLEED (2) Hypokalemia Code(s): E87.6 - HYPOKALEMIA (3) Syncopal episodes Code(s): R55 - SYNCOPE AND COLLAPSE Qualifiers: Syncope type: vasovagal syncope Qualified Code(s): R55 - Syncope and collapse (4) JONATHAN (acute kidney injury) Code(s): N17.9 - ACUTE KIDNEY FAILURE, UNSPECIFIED Assessment/Plan Current Medications Generic Name Dose Route Start Last Admin Trade Name John PRN Reason Stop Dose Admin Acetaminophen 650 mg 02/23/19 19:41 03/03/19 13:00 Tylenol - PO 650 mg Q6H PRN Administration FEVER Docusate Sodium 100 mg 02/23/19 22:00 03/04/19 10:07 Colace - PO 100 mg BID [facility] Administration Potassium Chloride/Sodium Chloride 20 meq in 1,000 mls @ 42 mls/hr 03/03/19 13 :53 03/03/19 14:43 1/2ns+20meq Kcl IV 42 mls/hr Q13H [facility] Administration Pantoprazole Sodium 40 mg 02/25/19 19:00 03/04/19 10:07 Protonix Iv IVPUSH 40 mg DAILY [facility] Administration Venlafaxine HCl 25 mg 02/24/19 08:00 03/04/19 07:56 Effexor - PO 25 mg BIDWM [facility] Administration Impression 1. JONATHAN 2. hypokalemia 3. diverticulitis 4. a-fib 5. cva Plan - cont fluids - renal function improving - potassium and mag are improved - repeat labs in am - avoid hypotension - encourage PO intake
--- NOTE | 2019-03-04 12:08 | PN ---
Progress Note, Physician History of Present Illness: No further near or true syncope. Removed telemetry monitoring. CT scan shows resolving diverticulitis. - Current Medication List Current Medications: Active Medications Acetaminophen (Tylenol -) 650 mg PO Q6H PRN PRN Reason: FEVER Last Admin: 03/03/19 13:00 Dose: 650 mg Docusate Sodium (Colace -) 100 mg PO BID [facility] Last Admin: 03/04/19 10:07 Dose: 100 mg Potassium Chloride/Sodium Chloride (1/2ns+20meq Kcl) 20 meq in 1,000 mls @ 42 mls/hr IV Q13H [facility] Last Admin: 03/03/19 14:43 Dose: 42 mls/hr Pantoprazole Sodium (Protonix Iv) 40 mg IVPUSH DAILY [facility] Last Admin: 03/04/19 10:07 Dose: 40 mg Venlafaxine HCl (Effexor -) 25 mg PO BIDWM [facility] Last Admin: 03/04/19 07:56 Dose: 25 mg - Objective Vital Signs: Vital Signs Temperature 98.2 F 03/04/19 09:00 Pulse Rate 90 03/04/19 09:00 Respiratory Rate 20 03/04/19 09:00 Blood Pressure 109/67 03/04/19 09:00 O2 Sat by Pulse Oximetry (%) 97 03/04/19 09:00 Constitutional: Yes: No Distress, Calm, Thin Neck: Yes: Supple Cardiovascular: Yes: Regular Rate and Rhythm Respiratory: Yes: Regular, Diminished Gastrointestinal: Yes: Soft, Hypoactive Bowel Sounds Edema: No Labs: CBC, BMP 03/04/19 06:55 03/04/19 06:55 Problem List - Problems (1) Diverticulitis Code(s): K57.92 - DVTRCLI OF INTEST, PART UNSP, W/O PERF OR ABSCESS W/O BLEED (2) Syncopal episodes Code(s): R55 - SYNCOPE AND COLLAPSE Qualifiers: Syncope type: vasovagal syncope Qualified Code(s): R55 - Syncope and collapse (3) Sepsis Code(s): A41.9 - SEPSIS, UNSPECIFIED ORGANISM Qualifiers: Sepsis type: Escherichia coli Qualified Code(s): A41.51 - Sepsis due to Escherichia coli [E. coli] (4) UTI (urinary tract infection) Code(s): N39.0 - URINARY TRACT INFECTION, SITE NOT SPECIFIED Qualifiers: Assessment/Plan Echocardiography done on 02/26/19 with normal LV systolic function 1. Syncope referable to sepsis 2. Acute mild sigmoid diverticulitis w/o abscess 3. Hafnia Alvei UTI 4. Demand ischemia 5. JONATHAN with hypokalemia PLAN: 1. Troponin plateaued, replete K, Mg, IVF with monitor renal recovery 2. Abx course per C&S, IV hydration, advancing diet as tolerated, replete K and Mg 3. GI evaluation recommends colonoscopy after inflammation abates 4. D/c telemetry
--- NOTE | 2019-03-04 13:05 | PN ---
Progress Note, Physician History of Present Illness: stable no dirrhoea - Current Medication List Current Medications: Active Medications Acetaminophen (Tylenol -) 650 mg PO Q6H PRN PRN Reason: FEVER Last Admin: 03/03/19 13:00 Dose: 650 mg Docusate Sodium (Colace -) 100 mg PO BID [facility] Last Admin: 03/04/19 10:07 Dose: 100 mg Potassium Chloride/Sodium Chloride (1/2ns+20meq Kcl) 20 meq in 1,000 mls @ 42 mls/hr IV Q13H [facility] Last Admin: 03/03/19 14:43 Dose: 42 mls/hr Pantoprazole Sodium (Protonix Iv) 40 mg IVPUSH DAILY [facility] Last Admin: 03/04/19 10:07 Dose: 40 mg Venlafaxine HCl (Effexor -) 25 mg PO BIDWM [facility] Last Admin: 03/04/19 07:56 Dose: 25 mg - Objective Vital Signs: Vital Signs Temperature 98.2 F 03/04/19 09:00 Pulse Rate 90 03/04/19 09:00 Respiratory Rate 20 03/04/19 09:00 Blood Pressure 109/67 03/04/19 09:00 O2 Sat by Pulse Oximetry (%) 97 03/04/19 09:00 Constitutional: Yes: No Distress, Calm Cardiovascular: Yes: S1, S2 Respiratory: Yes: Regular, CTA Bilaterally Gastrointestinal: Yes: Normal Bowel Sounds, Soft Musculoskeletal: Yes: WNL Extremities: Yes: WNL Neurological: Yes: Alert, Oriented Psychiatric: Yes: Alert, Oriented Labs: CBC, BMP 03/04/19 06:55 03/04/19 06:55 Assessment/Plan Problem List - Problems (1) Diverticulitis Code(s): K57.92 - DVTRCLI OF INTEST, PART UNSP, W/O PERF OR ABSCESS W/O BLEED (2) Syncopal episodes Code(s): R55 - SYNCOPE AND COLLAPSE Qualifiers: Syncope type: vasovagal syncope Qualified Code(s): R55 - Syncope and collapse (3) JONATHAN (acute kidney injury) Code(s): N17.9 - ACUTE KIDNEY FAILURE, UNSPECIFIED (4) Back pain Code(s): M54.9 - DORSALGIA, UNSPECIFIED Qualifiers: Back pain location: low back pain Chronicity: acute Back pain laterality : unspecified Sciatica presence: without sciatica Qualified Code(s): M54.5 - Low back pain (5) History of multiple strokes Code(s): Z86.73 - PRSNL HX OF TIA (TIA), AND CEREB INFRC W/O RESID DEFICITS (6) Sepsis Code(s): A41.9 - SEPSIS, UNSPECIFIED ORGANISM Qualifiers: Sepsis type: Escherichia coli Qualified Code(s): A41.51 - Sepsis due to Escherichia coli [E. coli] (7) UTI (urinary tract infection) Code(s): N39.0 - URINARY TRACT INFECTION, SITE NOT SPECIFIED Qualifiers: Assessment/Plan Sigmoid diverticulitis UTI - Hafina alvea isolated Chronic back pain AFIB IBS plan stop abx nutrition physio rest as per the team
--- NOTE | 2019-03-04 17:26 | PN ---
Progress Note, Physician History of Present Illness: stable - Current Medication List Current Medications: Active Medications Acetaminophen (Tylenol -) 650 mg PO Q6H PRN PRN Reason: FEVER Last Admin: 03/03/19 13:00 Dose: 650 mg Docusate Sodium (Colace -) 100 mg PO BID [facility] Last Admin: 03/04/19 10:07 Dose: 100 mg Potassium Chloride/Sodium Chloride (1/2ns+20meq Kcl) 20 meq in 1,000 mls @ 42 mls/hr IV Q13H [facility] Last Admin: 03/03/19 14:43 Dose: 42 mls/hr Pantoprazole Sodium (Protonix Iv) 40 mg IVPUSH DAILY [facility] Last Admin: 03/04/19 10:07 Dose: 40 mg Venlafaxine HCl (Effexor -) 25 mg PO BIDWM [facility] Last Admin: 03/04/19 07:56 Dose: 25 mg - Objective Vital Signs: Vital Signs Temperature 98 F 03/04/19 17:17 Pulse Rate 86 03/04/19 17:17 Respiratory Rate 20 03/04/19 17:17 Blood Pressure 119/74 03/04/19 17:17 O2 Sat by Pulse Oximetry (%) 97 03/04/19 09:00 Constitutional: Yes: No Distress HENT: Yes: Atraumatic Neck: Yes: Supple Cardiovascular: Yes: Regular Rate and Rhythm Respiratory: Yes: Rhonchi Gastrointestinal: Yes: Normal Bowel Sounds Extremities: Yes: WNL Edema: No Neurological: Yes: Alert, Oriented Labs: CBC, BMP 03/04/19 06:55 03/04/19 06:55 Problem List - Problems (1) Diverticulitis Assessment/Plan: low fiber diet completed iv abx course on ivf per nephro Code(s): K57.92 - DVTRCLI OF INTEST, PART UNSP, W/O PERF OR ABSCESS W/O BLEED (2) Syncopal episodes Code(s): R55 - SYNCOPE AND COLLAPSE Qualifiers: Syncope type: vasovagal syncope Qualified Code(s): R55 - Syncope and collapse (3) History of multiple strokes Code(s): Z86.73 - PRSNL HX OF TIA (TIA), AND CEREB INFRC W/O RESID DEFICITS (4) UTI (urinary tract infection) Assessment/Plan: abx completed Code(s): N39.0 - URINARY TRACT INFECTION, SITE NOT SPECIFIED Qualifiers: (5) Hypokalemia Code(s): E87.6 - HYPOKALEMIA
[2019-03-04] MEDS: SODIUM CHLORIDE 0.45%/POT 20 MEQ/1,000 ML INFUS.BAG IV SCH (18:08)
[2019-03-05 09:12] LABS: ALBUMIN 2.5 g/dl (3.4-5.0); BILIRUBIN,TOTAL 0.3 mg/dL (0.2-1); BLOOD UREA NITROGEN 13.7 mg/dL (7-18); CALCIUM 8.8 mg/dL (8.5-10.1); CREATININE 1.7 mg/dL (0.55-1.3); MAGNESIUM 2.2 mg/dL (1.8-2.4); POTASSIUM 3.6 mmol/L (3.5-5.1); TOT PROT 5.9 g/dl (6.4-8.2)
[2019-03-05 09:17] LABS: BASO % 0.3 % (0-2.0); EOS % 3.2 % (0-4.5); HEMATOCRIT 32.1 % (32.4-45.2); HEMOGLOBIN 10.7 GM/dL (10.7-15.3); LYMPH % 9.8 % (8-40); MCH 26.2 pg (25.7-33.7); MCHC 33.2 g/dl (32.0-36.0); MEAN CELL VOLUME 78.9 fl (80-96); MEAN PLT VOLUME 8.4 fl (7.5-11.1); MONO % 6.2 % (3.8-10.2); NEUT % 80.5 % (42.8-82.8); RBC 4.07 M/mm3 (3.60-5.2); RDW 16.6 % (11.6-15.6); WHITE BLOOD COUNT 16.7 K/mm3 (4.0-10.0)
[2019-03-05 09:42] LABS: PLATELET COUNT 402 K/MM3 (134-434)
[2019-03-05] MEDS: VENLAFAXINE HCL 25 MG TABLET PO SCH ×2 (10:59→18:30)
[2019-03-05] MEDS: PANTOPRAZOLE SODIUM 40 MG VIAL IVPUSH SCH (10:59)
[2019-03-05] MEDS: DOCUSATE SODIUM 100 MG CAPSULE (FP) PO SCH ×2 (10:59→21:27)
--- NOTE | 2019-03-05 12:24 | PN ---
Progress Note, Physician - Current Medication List Current Medications: Active Medications Acetaminophen (Tylenol -) 650 mg PO Q6H PRN PRN Reason: FEVER Last Admin: 03/03/19 13:00 Dose: 650 mg Docusate Sodium (Colace -) 100 mg PO BID [facility] Last Admin: 03/05/19 10:59 Dose: 100 mg Potassium Chloride/Sodium Chloride (1/2ns+20meq Kcl) 20 meq in 1,000 mls @ 42 mls/hr IV Q13H [facility] Last Admin: 03/04/19 18:08 Dose: 42 mls/hr Pantoprazole Sodium (Protonix Iv) 40 mg IVPUSH DAILY [facility] Last Admin: 03/05/19 10:59 Dose: 40 mg Venlafaxine HCl (Effexor -) 25 mg PO BIDWM [facility] Last Admin: 03/05/19 10:59 Dose: 25 mg - Objective Vital Signs: Vital Signs Temperature 98.7 F 03/05/19 05:00 Pulse Rate 91 H 03/05/19 05:00 Respiratory Rate 18 03/05/19 05:00 Blood Pressure 104/64 03/05/19 05:00 O2 Sat by Pulse Oximetry (%) 97 03/04/19 21:00 Constitutional: Yes: No Distress HENT: Yes: Atraumatic Neck: Yes: Supple Cardiovascular: Yes: Regular Rate and Rhythm Respiratory: Yes: CTA Bilaterally Gastrointestinal: Yes: Normal Bowel Sounds Extremities: Yes: WNL Edema: No Peripheral Pulses WNL: Yes Neurological: Yes: Alert, Oriented Labs: CBC, BMP 03/05/19 06:50 03/05/19 06:50 Problem List - Problems (1) Diverticulitis Assessment/Plan: low fiber diet completed iv abx course on ivf per nephro Code(s): K57.92 - DVTRCLI OF INTEST, PART UNSP, W/O PERF OR ABSCESS W/O BLEED (2) Syncopal episodes Code(s): R55 - SYNCOPE AND COLLAPSE Qualifiers: Syncope type: vasovagal syncope Qualified Code(s): R55 - Syncope and collapse (3) History of multiple strokes Code(s): Z86.73 - PRSNL HX OF TIA (TIA), AND CEREB INFRC W/O RESID DEFICITS (4) UTI (urinary tract infection) Assessment/Plan: abx completed Code(s): N39.0 - URINARY TRACT INFECTION, SITE NOT SPECIFIED Qualifiers: (5) Hypokalemia Assessment/Plan: have been replacing will get renal consult at this point Code(s): E87.6 - HYPOKALEMIA
--- NOTE | 2019-03-05 15:57 | PN ---
Progress Note, Physician History of Present Illness: Pt seen and examined at bedside. She is awake and alert. - Current Medication List Current Medications: Active Medications Acetaminophen (Tylenol -) 650 mg PO Q6H PRN PRN Reason: FEVER Last Admin: 03/03/19 13:00 Dose: 650 mg Docusate Sodium (Colace -) 100 mg PO BID [facility] Last Admin: 03/05/19 10:59 Dose: 100 mg Potassium Chloride/Sodium Chloride (1/2ns+20meq Kcl) 20 meq in 1,000 mls @ 42 mls/hr IV Q13H [facility] Last Admin: 03/04/19 18:08 Dose: 42 mls/hr Pantoprazole Sodium (Protonix Iv) 40 mg IVPUSH DAILY [facility] Last Admin: 03/05/19 10:59 Dose: 40 mg Venlafaxine HCl (Effexor -) 25 mg PO BIDWM [facility] Last Admin: 03/05/19 10:59 Dose: 25 mg - Objective Vital Signs: Vital Signs Temperature 97.9 F 03/05/19 15:16 Pulse Rate 87 03/05/19 15:16 Respiratory Rate 18 03/05/19 15:16 Blood Pressure 102/76 03/05/19 15:16 O2 Sat by Pulse Oximetry (%) 97 03/04/19 21:00 Constitutional: Yes: Calm Eyes: Yes: Conjunctiva Clear HENT: Yes: Atraumatic Neck: Yes: Supple Cardiovascular: Yes: S1, S2 Respiratory: Yes: CTA Bilaterally Gastrointestinal: Yes: Normal Bowel Sounds, Soft Genitourinary: Yes: Incontinence Musculoskeletal: Yes: WNL Edema: No Neurological: Yes: Oriented Labs: CBC, BMP 03/05/19 06:50 03/05/19 06:50 Problem List - Problems (1) Diverticulitis Code(s): K57.92 - DVTRCLI OF INTEST, PART UNSP, W/O PERF OR ABSCESS W/O BLEED (2) Hypokalemia Code(s): E87.6 - HYPOKALEMIA (3) Syncopal episodes Code(s): R55 - SYNCOPE AND COLLAPSE Qualifiers: Syncope type: vasovagal syncope Qualified Code(s): R55 - Syncope and collapse (4) JONATHAN (acute kidney injury) Code(s): N17.9 - ACUTE KIDNEY FAILURE, UNSPECIFIED Assessment/Plan Current Medications Generic Name Dose Route Start Last Admin Trade Name Freq PRN Reason Stop Dose Admin Acetaminophen 650 mg 02/23/19 19:41 03/03/19 13:00 Tylenol - PO 650 mg Q6H PRN Administration FEVER Docusate Sodium 100 mg 02/23/19 22:00 03/05/19 10:59 Colace - PO 100 mg BID VIGNESH Administration Potassium Chloride/Sodium Chloride 20 meq in 1,000 mls @ 42 mls/hr 03/03/19 13 :53 03/04/19 18:08 1/2ns+20meq Kcl IV 42 mls/hr Q13H VIGNESH Administration Pantoprazole Sodium 40 mg 02/25/19 19:00 03/05/19 10:59 Protonix Iv IVPUSH 40 mg DAILY [facility] Administration Venlafaxine HCl 25 mg 02/24/19 08:00 03/05/19 10:59 Effexor - PO 25 mg BIDWM VIGNESH Administration Impression 1. JONATHAN 2. hypokalemia 3. diverticulitis 4. a-fib 5. cva Plan - cont to monitor renal function - potassium stable - cont fluids for now - PO intake remains poor - avoid hypotension - encourage PO intake
--- NOTE | 2019-03-05 18:00 | PN ---
Progress Note, Physician History of Present Illness: Pt seen, events noted. She denies loose BMs today, no significant abd pain. Remains afebrile, wbc increased from yesterday. No specific complaints. - Current Medication List Current Medications: Active Medications Acetaminophen (Tylenol -) 650 mg PO Q6H PRN PRN Reason: FEVER Last Admin: 03/03/19 13:00 Dose: 650 mg Docusate Sodium (Colace -) 100 mg PO BID [facility] Last Admin: 03/05/19 10:59 Dose: 100 mg Potassium Chloride/Sodium Chloride (1/2ns+20meq Kcl) 20 meq in 1,000 mls @ 42 mls/hr IV Q13H [facility] Last Admin: 03/04/19 18:08 Dose: 42 mls/hr Pantoprazole Sodium (Protonix Iv) 40 mg IVPUSH DAILY [facility] Last Admin: 03/05/19 10:59 Dose: 40 mg Venlafaxine HCl (Effexor -) 25 mg PO BIDWM [facility] Last Admin: 03/05/19 10:59 Dose: 25 mg - Objective Vital Signs: Vital Signs Temperature 98.4 F 03/05/19 16:52 Pulse Rate 84 03/05/19 16:52 Respiratory Rate 20 03/05/19 16:52 Blood Pressure 123/75 03/05/19 16:52 O2 Sat by Pulse Oximetry (%) 97 03/05/19 09:00 Constitutional: Yes: No Distress, Calm Cardiovascular: Yes: Regular Rate and Rhythm Respiratory: Yes: CTA Bilaterally Gastrointestinal: Yes: Normal Bowel Sounds, Soft Integumentary: Yes: WNL Neurological: Yes: Alert Labs: CBC, BMP 03/05/19 06:50 03/05/19 06:50 Problem List - Problems (1) Diverticulitis Code(s): K57.92 - DVTRCLI OF INTEST, PART UNSP, W/O PERF OR ABSCESS W/O BLEED (2) Syncopal episodes Code(s): R55 - SYNCOPE AND COLLAPSE Qualifiers: Syncope type: vasovagal syncope Qualified Code(s): R55 - Syncope and collapse (3) JONATHAN (acute kidney injury) Code(s): N17.9 - ACUTE KIDNEY FAILURE, UNSPECIFIED (4) Back pain Code(s): M54.9 - DORSALGIA, UNSPECIFIED Qualifiers: Back pain location: low back pain Chronicity: acute Back pain laterality : unspecified Sciatica presence: without sciatica Qualified Code(s): M54.5 - Low back pain (5) History of multiple strokes Code(s): Z86.73 - PRSNL HX OF TIA (TIA), AND CEREB INFRC W/O RESID DEFICITS (6) Sepsis Code(s): A41.9 - SEPSIS, UNSPECIFIED ORGANISM Qualifiers: Sepsis type: Escherichia coli Qualified Code(s): A41.51 - Sepsis due to Escherichia coli [E. coli] (7) UTI (urinary tract infection) Code(s): N39.0 - URINARY TRACT INFECTION, SITE NOT SPECIFIED Qualifiers: Assessment/Plan Sigmoid diverticulitis UTI Chronic back pain AFIB IBS -- wbc elevated today, remains febrile/without distress -- repeat cbc -- continue monitor off antibiotics for now -- If wbc noted to show an upward trend would consider workup/restart antibiotics -- monitor vitals Pt currently stable
[2019-03-05] MEDS ORDERED: PT OWN MED DRAWER 7, Y5N ONE (18:09)
[2019-03-05] MEDS: SODIUM CHLORIDE 0.45%/POT 20 MEQ/1,000 ML INFUS.BAG IV SCH ×3 (18:30→21:57)
--- NOTE | 2019-03-05 18:33 | PN ---
Progress Note, Physician History of Present Illness: No further near or true syncope. CT scan shows resolving diverticulitis. - Current Medication List Current Medications: Active Medications Acetaminophen (Tylenol -) 650 mg PO Q6H PRN PRN Reason: FEVER Last Admin: 03/03/19 13:00 Dose: 650 mg Docusate Sodium (Colace -) 100 mg PO BID [facility] Last Admin: 03/05/19 10:59 Dose: 100 mg Potassium Chloride/Sodium Chloride (1/2ns+20meq Kcl) 20 meq in 1,000 mls @ 42 mls/hr IV Q13H [facility] Last Admin: 03/05/19 18:30 Dose: Not Given Pantoprazole Sodium (Protonix Iv) 40 mg IVPUSH DAILY [facility] Last Admin: 03/05/19 10:59 Dose: 40 mg Venlafaxine HCl (Effexor -) 25 mg PO BIDWM [facility] Last Admin: 03/05/19 18:30 Dose: 25 mg - Objective Vital Signs: Vital Signs Temperature 98.4 F 03/05/19 16:52 Pulse Rate 84 03/05/19 16:52 Respiratory Rate 20 03/05/19 16:52 Blood Pressure 123/75 03/05/19 16:52 O2 Sat by Pulse Oximetry (%) 97 03/05/19 09:00 Constitutional: Yes: No Distress, Calm, Thin Neck: Yes: Supple Cardiovascular: Yes: Regular Rate and Rhythm Respiratory: Yes: Regular, Diminished Gastrointestinal: Yes: Normal Bowel Sounds, Soft Edema: No Labs: CBC, BMP 03/05/19 06:50 03/05/19 06:50 Problem List - Problems (1) Diverticulitis Code(s): K57.92 - DVTRCLI OF INTEST, PART UNSP, W/O PERF OR ABSCESS W/O BLEED (2) Syncopal episodes Code(s): R55 - SYNCOPE AND COLLAPSE Qualifiers: Syncope type: vasovagal syncope Qualified Code(s): R55 - Syncope and collapse (3) Sepsis Code(s): A41.9 - SEPSIS, UNSPECIFIED ORGANISM Qualifiers: Sepsis type: Escherichia coli Qualified Code(s): A41.51 - Sepsis due to Escherichia coli [E. coli] (4) UTI (urinary tract infection) Code(s): N39.0 - URINARY TRACT INFECTION, SITE NOT SPECIFIED Qualifiers: Assessment/Plan Echocardiography done on 02/26/19 with normal LV systolic function 1. Syncope referable to sepsis 2. Acute mild sigmoid diverticulitis w/o abscess 3. Hafnia Alvei UTI 4. Demand ischemia 5. JONATHAN with hypokalemia PLAN: 1. Troponin plateaued, replete K, Mg, IVF with monitor renal recovery 2. Observe off abx, advancing diet as tolerated, replete K and Mg 3. GI evaluation recommends colonoscopy after inflammation abates
[2019-03-06] MEDS ORDERED: PT OWN MED DRAWER 7, Y5N ONE ×2 (07:55→17:35)
[2019-03-06 08:09] LABS: BASO % 0.9 % (0-2.0); EOS % 3.2 % (0-4.5); HEMATOCRIT 31.4 % (32.4-45.2); HEMOGLOBIN 10.4 GM/dL (10.7-15.3); LYMPH % 10.6 % (8-40); MCH 25.7 pg (25.7-33.7); MCHC 33.2 g/dl (32.0-36.0); MEAN CELL VOLUME 77.4 fl (80-96); MONO % 6.3 % (3.8-10.2); PLATELET COUNT 412 K/MM3 (134-434); RBC 4.05 M/mm3 (3.60-5.2); RDW 16.7 % (11.6-15.6); WHITE BLOOD COUNT 16.2 K/mm3 (4.0-10.0)
[2019-03-06] MEDS: VENLAFAXINE HCL 25 MG TABLET PO SCH ×2 (08:23→17:39)
[2019-03-06] MEDS: ACETAMINOPHEN 325 MG TABLET (FP) PO PRN (09:27)
[2019-03-06] MEDS: PANTOPRAZOLE SODIUM 40 MG VIAL IVPUSH SCH (11:22)
[2019-03-06] MEDS: DOCUSATE SODIUM 100 MG CAPSULE (FP) PO SCH ×2 (11:22→11:25)
--- NOTE | 2019-03-06 11:44 | PN ---
Progress Note, Physician History of Present Illness: no new issues remaining stable wbc marginally down - Current Medication List Current Medications: Active Medications Acetaminophen (Tylenol -) 650 mg PO Q6H PRN PRN Reason: FEVER Last Admin: 03/06/19 09:27 Dose: 650 mg Docusate Sodium (Colace -) 100 mg PO BID [facility] Last Admin: 03/06/19 11:25 Dose: Not Given Potassium Chloride/Sodium Chloride (1/2ns+20meq Kcl) 20 meq in 1,000 mls @ 42 mls/hr IV Q13H [facility] Last Admin: 03/05/19 21:57 Dose: 42 mls/hr Pantoprazole Sodium (Protonix Iv) 40 mg IVPUSH DAILY [facility] Last Admin: 03/06/19 11:22 Dose: 40 mg Venlafaxine HCl (Effexor -) 25 mg PO BIDWM [facility] Last Admin: 03/06/19 08:23 Dose: 25 mg - Objective Vital Signs: Vital Signs Temperature 97.6 F 03/06/19 07:03 Pulse Rate 94 H 03/06/19 07:03 Respiratory Rate 20 03/06/19 07:03 Blood Pressure 120/76 03/06/19 07:03 O2 Sat by Pulse Oximetry (%) 97 03/05/19 21:00 Constitutional: Yes: No Distress, Calm Cardiovascular: Yes: S1, S2 Respiratory: Yes: Regular, CTA Bilaterally Gastrointestinal: Yes: Normal Bowel Sounds, Soft Musculoskeletal: Yes: WNL Extremities: Yes: WNL Labs: CBC, BMP 03/06/19 07:50 03/05/19 06:50 Assessment/Plan Problem List - Problems (1) Diverticulitis Code(s): K57.92 - DVTRCLI OF INTEST, PART UNSP, W/O PERF OR ABSCESS W/O BLEED (2) Syncopal episodes Code(s): R55 - SYNCOPE AND COLLAPSE Qualifiers: Syncope type: vasovagal syncope Qualified Code(s): R55 - Syncope and collapse (3) JONATHAN (acute kidney injury) Code(s): N17.9 - ACUTE KIDNEY FAILURE, UNSPECIFIED (4) Back pain Code(s): M54.9 - DORSALGIA, UNSPECIFIED Qualifiers: Back pain location: low back pain Chronicity: acute Back pain laterality : unspecified Sciatica presence: without sciatica Qualified Code(s): M54.5 - Low back pain (5) History of multiple strokes Code(s): Z86.73 - PRSNL HX OF TIA (TIA), AND CEREB INFRC W/O RESID DEFICITS (6) Sepsis Code(s): A41.9 - SEPSIS, UNSPECIFIED ORGANISM Qualifiers: Sepsis type: Escherichia coli Qualified Code(s): A41.51 - Sepsis due to Escherichia coli [E. coli] (7) UTI (urinary tract infection) Code(s): N39.0 - URINARY TRACT INFECTION, SITE NOT SPECIFIED Qualifiers: Assessment/Plan Sigmoid diverticulitis UTI - Hafina alvea isolated Chronic back pain AFIB IBS plan monitor wbc rest as per the team
--- NOTE | 2019-03-06 13:07 | PN ---
Progress Note, Physician History of Present Illness: No further near or true syncope. CT scan shows resolving diverticulitis. - Current Medication List Current Medications: Active Medications Acetaminophen (Tylenol -) 650 mg PO Q6H PRN PRN Reason: FEVER Last Admin: 03/06/19 09:27 Dose: 650 mg Docusate Sodium (Colace -) 100 mg PO BID [facility] Last Admin: 03/06/19 11:25 Dose: Not Given Potassium Chloride/Sodium Chloride (1/2ns+20meq Kcl) 20 meq in 1,000 mls @ 42 mls/hr IV Q13H [facility] Last Admin: 03/05/19 21:57 Dose: 42 mls/hr Pantoprazole Sodium (Protonix Iv) 40 mg IVPUSH DAILY [facility] Last Admin: 03/06/19 11:22 Dose: 40 mg Venlafaxine HCl (Effexor -) 25 mg PO BIDWM [facility] Last Admin: 03/06/19 08:23 Dose: 25 mg - Objective Vital Signs: Vital Signs Temperature 97.6 F 03/06/19 07:03 Pulse Rate 94 H 03/06/19 07:03 Respiratory Rate 20 03/06/19 07:03 Blood Pressure 120/76 03/06/19 07:03 O2 Sat by Pulse Oximetry (%) 97 03/05/19 21:00 Constitutional: Yes: No Distress, Calm, Thin Neck: Yes: Supple Cardiovascular: Yes: Regular Rate and Rhythm Respiratory: Yes: Regular, Diminished Gastrointestinal: Yes: Soft, Hypoactive Bowel Sounds Edema: No Labs: CBC, BMP 03/06/19 07:50 03/05/19 06:50 Problem List - Problems (1) Diverticulitis Code(s): K57.92 - DVTRCLI OF INTEST, PART UNSP, W/O PERF OR ABSCESS W/O BLEED (2) Syncopal episodes Code(s): R55 - SYNCOPE AND COLLAPSE Qualifiers: Syncope type: vasovagal syncope Qualified Code(s): R55 - Syncope and collapse (3) Sepsis Code(s): A41.9 - SEPSIS, UNSPECIFIED ORGANISM Qualifiers: Sepsis type: Escherichia coli Qualified Code(s): A41.51 - Sepsis due to Escherichia coli [E. coli] (4) UTI (urinary tract infection) Code(s): N39.0 - URINARY TRACT INFECTION, SITE NOT SPECIFIED Qualifiers: Assessment/Plan Echocardiography done on 02/26/19 with normal LV systolic function 1. Syncope referable to sepsis 2. Acute mild sigmoid diverticulitis w/o abscess 3. Hafnia Alvei UTI 4. Demand ischemia 5. JONATHAN with hypokalemia PLAN: 1. Troponin plateaued, replete K, Mg, IVF with monitor renal recovery 2. Observe off abx, advancing diet as tolerated, replete K and Mg 3. GI evaluation recommends colonoscopy after inflammation abates
--- NOTE | 2019-03-06 13:40 | PN ---
Progress Note, Physician - Current Medication List Current Medications: Active Medications Acetaminophen (Tylenol -) 650 mg PO Q6H PRN PRN Reason: FEVER Last Admin: 03/06/19 09:27 Dose: 650 mg Docusate Sodium (Colace -) 100 mg PO BID [facility] Last Admin: 03/06/19 11:25 Dose: Not Given Potassium Chloride/Sodium Chloride (1/2ns+20meq Kcl) 20 meq in 1,000 mls @ 42 mls/hr IV Q13H [facility] Last Admin: 03/05/19 21:57 Dose: 42 mls/hr Pantoprazole Sodium (Protonix Iv) 40 mg IVPUSH DAILY [facility] Last Admin: 03/06/19 11:22 Dose: 40 mg Venlafaxine HCl (Effexor -) 25 mg PO BIDWM [facility] Last Admin: 03/06/19 08:23 Dose: 25 mg - Objective Vital Signs: Vital Signs Temperature 97.6 F 03/06/19 07:03 Pulse Rate 94 H 03/06/19 07:03 Respiratory Rate 20 03/06/19 07:03 Blood Pressure 120/76 03/06/19 07:03 O2 Sat by Pulse Oximetry (%) 97 03/05/19 21:00 Constitutional: Yes: No Distress HENT: Yes: Atraumatic Neck: Yes: Supple Cardiovascular: Yes: Regular Rate and Rhythm Respiratory: Yes: CTA Bilaterally Gastrointestinal: Yes: Normal Bowel Sounds Extremities: Yes: WNL Neurological: Yes: Alert, Oriented Labs: CBC, BMP 03/06/19 07:50 03/05/19 06:50 Problem List - Problems (1) Diverticulitis Assessment/Plan: low fiber diet completed iv abx course on ivf per nephro Code(s): K57.92 - DVTRCLI OF INTEST, PART UNSP, W/O PERF OR ABSCESS W/O BLEED (2) Syncopal episodes Code(s): R55 - SYNCOPE AND COLLAPSE Qualifiers: Syncope type: vasovagal syncope Qualified Code(s): R55 - Syncope and collapse (3) History of multiple strokes Code(s): Z86.73 - PRSNL HX OF TIA (TIA), AND CEREB INFRC W/O RESID DEFICITS (4) UTI (urinary tract infection) Assessment/Plan: abx completed wbc elevated now Code(s): N39.0 - URINARY TRACT INFECTION, SITE NOT SPECIFIED Qualifiers: (5) Hypokalemia Assessment/Plan: have been replacing will get renal consult at this point Code(s): E87.6 - HYPOKALEMIA
--- NOTE | 2019-03-06 15:23 | PN ---
Progress Note, Physician History of Present Illness: Pt seen and examined at bedside. She is awake and appears comfortable. She denies shortness of breath. - Current Medication List Current Medications: Active Medications Acetaminophen (Tylenol -) 650 mg PO Q6H PRN PRN Reason: FEVER Last Admin: 03/06/19 09:27 Dose: 650 mg Docusate Sodium (Colace -) 100 mg PO BID [facility] Last Admin: 03/06/19 11:25 Dose: Not Given Potassium Chloride/Sodium Chloride (1/2ns+20meq Kcl) 20 meq in 1,000 mls @ 42 mls/hr IV Q13H [facility] Last Admin: 03/05/19 21:57 Dose: 42 mls/hr Pantoprazole Sodium (Protonix Iv) 40 mg IVPUSH DAILY [facility] Last Admin: 03/06/19 11:22 Dose: 40 mg Venlafaxine HCl (Effexor -) 25 mg PO BIDWM [facility] Last Admin: 03/06/19 08:23 Dose: 25 mg - Objective Vital Signs: Vital Signs Temperature 98 F 03/06/19 11:00 Pulse Rate 104 H 03/06/19 11:00 Respiratory Rate 20 03/06/19 11:00 Blood Pressure 131/69 03/06/19 11:00 O2 Sat by Pulse Oximetry (%) 97 03/06/19 09:00 Constitutional: Yes: Calm Eyes: Yes: Conjunctiva Clear HENT: Yes: Atraumatic Cardiovascular: Yes: S1, S2 Respiratory: Yes: CTA Bilaterally Gastrointestinal: Yes: Soft Genitourinary: Yes: WNL, Incontinence Musculoskeletal: Yes: WNL Edema: No Neurological: Yes: Oriented Labs: CBC, BMP 03/06/19 07:50 03/05/19 06:50 Problem List - Problems (1) Diverticulitis Code(s): K57.92 - DVTRCLI OF INTEST, PART UNSP, W/O PERF OR ABSCESS W/O BLEED (2) Hypokalemia Code(s): E87.6 - HYPOKALEMIA (3) Syncopal episodes Code(s): R55 - SYNCOPE AND COLLAPSE Qualifiers: Syncope type: vasovagal syncope Qualified Code(s): R55 - Syncope and collapse (4) JONATHAN (acute kidney injury) Code(s): N17.9 - ACUTE KIDNEY FAILURE, UNSPECIFIED Assessment/Plan Current Medications Generic Name Dose Route Start Last Admin Trade Name John PRN Reason Stop Dose Admin Acetaminophen 650 mg 02/23/19 19:41 03/06/19 09:27 Tylenol - PO 650 mg Q6H PRN Administration FEVER Docusate Sodium 100 mg 02/23/19 22:00 03/06/19 11:25 Colace - PO Not Given BID VIGNESH Potassium Chloride/Sodium Chloride 20 meq in 1,000 mls @ 42 mls/hr 03/03/19 13 :53 03/05/19 21:57 1/2ns+20meq Kcl IV 42 mls/hr Q13H VIGNESH Administration Pantoprazole Sodium 40 mg 02/25/19 19:00 03/06/19 11:22 Protonix Iv IVPUSH 40 mg DAILY [facility]IGN[facility] Administration Venlafaxine HCl 25 mg 02/24/19 08:00 03/06/19 08:23 Effexor - PO 25 mg BIDWM [facility]IGNESH Administration Impression 1. JONATHAN 2. hypokalemia 3. diverticulitis 4. a-fib 5. cva Plan - cont hydration - repeat labs in am - avoid hypotension - encourage PO intake
[2019-03-06] MEDS: SODIUM CHLORIDE 0.45%/POT 20 MEQ/1,000 ML INFUS.BAG IV SCH (22:59)
[2019-03-07] MEDS: HEPARIN NA (PORCINE) 5,000 UNITS/ML 1ML VIAL SQ SCH ×3 (01:06→21:59)
[2019-03-07] MEDS: DOCUSATE SODIUM 100 MG CAPSULE (FP) PO SCH ×3 (01:06→21:59)
[2019-03-07] MEDS ORDERED: PT OWN MED DRAWER 7, Y5N ONE ×2 (09:04→21:12)
[2019-03-07] MEDS: ACETAMINOPHEN 325 MG TABLET (FP) PO PRN ×2 (09:34→21:59)
[2019-03-07] MEDS: PANTOPRAZOLE SODIUM 40 MG VIAL IVPUSH SCH (09:35)
[2019-03-07] MEDS: VENLAFAXINE HCL 25 MG TABLET PO SCH ×2 (10:16→16:40)
[2019-03-07] MEDS: SODIUM CHLORIDE 0.45%/POT 20 MEQ/1,000 ML INFUS.BAG IV SCH (10:16)
--- NOTE | 2019-03-07 13:08 | PN ---
Progress Note, Physician History of Present Illness: denies any dirrhoea now work up done toxin negative - Current Medication List Current Medications: Active Medications Acetaminophen (Tylenol -) 650 mg PO Q6H PRN PRN Reason: FEVER Last Admin: 03/07/19 09:34 Dose: 650 mg Docusate Sodium (Colace -) 100 mg PO BID [facility] Last Admin: 03/07/19 09:33 Dose: 100 mg Heparin Sodium (Porcine) (Heparin -) 5,000 unit SQ BID [facility] Last Admin: 03/07/19 09:35 Dose: 5,000 unit Potassium Chloride/Sodium Chloride (1/2ns+20meq Kcl) 20 meq in 1,000 mls @ 42 mls/hr IV Q13H [facility] Last Admin: 03/07/19 10:16 Dose: Not Given Pantoprazole Sodium (Protonix Iv) 40 mg IVPUSH DAILY [facility] Last Admin: 03/07/19 09:35 Dose: 40 mg Venlafaxine HCl (Effexor -) 25 mg PO BIDWM [facility] Last Admin: 03/07/19 10:16 Dose: 25 mg - Objective Vital Signs: Vital Signs Temperature 98 F 03/07/19 09:45 Pulse Rate 82 03/07/19 09:45 Respiratory Rate 20 03/07/19 09:45 Blood Pressure 119/72 03/07/19 09:45 O2 Sat by Pulse Oximetry (%) 97 03/07/19 09:00 Constitutional: Yes: No Distress, Calm Cardiovascular: Yes: S1, S2 Respiratory: Yes: Regular, CTA Bilaterally Gastrointestinal: Yes: Normal Bowel Sounds, Soft Musculoskeletal: Yes: WNL Extremities: Yes: WNL Neurological: Yes: Alert, Oriented Psychiatric: Yes: Alert, Oriented Labs: CBC, BMP 03/06/19 07:50 03/05/19 06:50 Assessment/Plan Problem List - Problems (1) Diverticulitis Code(s): K57.92 - DVTRCLI OF INTEST, PART UNSP, W/O PERF OR ABSCESS W/O BLEED (2) Syncopal episodes Code(s): R55 - SYNCOPE AND COLLAPSE Qualifiers: Syncope type: vasovagal syncope Qualified Code(s): R55 - Syncope and collapse (3) JONATHAN (acute kidney injury) Code(s): N17.9 - ACUTE KIDNEY FAILURE, UNSPECIFIED (4) Back pain Code(s): M54.9 - DORSALGIA, UNSPECIFIED Qualifiers: Back pain location: low back pain Chronicity: acute Back pain laterality : unspecified Sciatica presence: without sciatica Qualified Code(s): M54.5 - Low back pain (5) History of multiple strokes Code(s): Z86.73 - PRSNL HX OF TIA (TIA), AND CEREB INFRC W/O RESID DEFICITS (6) Sepsis Code(s): A41.9 - SEPSIS, UNSPECIFIED ORGANISM Qualifiers: Sepsis type: Escherichia coli Qualified Code(s): A41.51 - Sepsis due to Escherichia coli [E. coli] (7) UTI (urinary tract infection) Code(s): N39.0 - URINARY TRACT INFECTION, SITE NOT SPECIFIED Qualifiers: Assessment/Plan Sigmoid diverticulitis UTI - Hafina alvea isolated Chronic back pain AFIB IBS plan monitor wbc rest as per the team
--- NOTE | 2019-03-07 14:12 | PN ---
Progress Note, Physician History of Present Illness: stable - Current Medication List Current Medications: Active Medications Acetaminophen (Tylenol -) 650 mg PO Q6H PRN PRN Reason: FEVER Last Admin: 03/07/19 09:34 Dose: 650 mg Docusate Sodium (Colace -) 100 mg PO BID [facility] Last Admin: 03/07/19 09:33 Dose: 100 mg Heparin Sodium (Porcine) (Heparin -) 5,000 unit SQ BID [facility] Last Admin: 03/07/19 09:35 Dose: 5,000 unit Potassium Chloride/Sodium Chloride (1/2ns+20meq Kcl) 20 meq in 1,000 mls @ 42 mls/hr IV Q13H [facility] Last Admin: 03/07/19 10:16 Dose: Not Given Pantoprazole Sodium (Protonix Iv) 40 mg IVPUSH DAILY [facility] Last Admin: 03/07/19 09:35 Dose: 40 mg Venlafaxine HCl (Effexor -) 25 mg PO BIDWM [facility] Last Admin: 03/07/19 10:16 Dose: 25 mg - Objective Vital Signs: Vital Signs Temperature 98 F 03/07/19 09:45 Pulse Rate 82 03/07/19 09:45 Respiratory Rate 20 03/07/19 09:45 Blood Pressure 119/72 03/07/19 09:45 O2 Sat by Pulse Oximetry (%) 97 03/07/19 09:00 Constitutional: Yes: No Distress HENT: Yes: Atraumatic Neck: Yes: Supple Cardiovascular: Yes: Regular Rate and Rhythm Respiratory: Yes: CTA Bilaterally Extremities: Yes: WNL Edema: No Peripheral Pulses WNL: Yes Neurological: Yes: Alert, Oriented Labs: CBC, BMP 03/06/19 07:50 03/05/19 06:50 Problem List - Problems (1) Diverticulitis Assessment/Plan: low fiber diet completed iv abx course on ivf per nephro Code(s): K57.92 - DVTRCLI OF INTEST, PART UNSP, W/O PERF OR ABSCESS W/O BLEED (2) Syncopal episodes Code(s): R55 - SYNCOPE AND COLLAPSE Qualifiers: Syncope type: vasovagal syncope Qualified Code(s): R55 - Syncope and collapse (3) History of multiple strokes Code(s): Z86.73 - PRSNL HX OF TIA (TIA), AND CEREB INFRC W/O RESID DEFICITS (4) UTI (urinary tract infection) Assessment/Plan: abx completed wbc elevated now Code(s): N39.0 - URINARY TRACT INFECTION, SITE NOT SPECIFIED Qualifiers: (5) Hypokalemia Assessment/Plan: resolved Code(s): E87.6 - HYPOKALEMIA
--- NOTE | 2019-03-07 17:38 | PN ---
Progress Note (short form) - Note Progress Note: s/p rani on fluids diarrhea Current Medications Acetaminophen (Tylenol -) 650 mg PO Q6H PRN PRN Reason: FEVER Last Admin: 03/07/19 09:34 Dose: 650 mg Docusate Sodium (Colace -) 100 mg PO BID [facility] Last Admin: 03/07/19 09:33 Dose: 100 mg Heparin Sodium (Porcine) (Heparin -) 5,000 unit SQ BID [facility] Last Admin: 03/07/19 09:35 Dose: 5,000 unit Potassium Chloride/Sodium Chloride (1/2ns+20meq Kcl) 20 meq in 1,000 mls @ 42 mls/hr IV Q13H [facility] Last Admin: 03/07/19 10:16 Dose: Not Given Pantoprazole Sodium (Protonix Iv) 40 mg IVPUSH DAILY [facility] Last Admin: 03/07/19 09:35 Dose: 40 mg Venlafaxine HCl (Effexor -) 25 mg PO BIDWM [facility] Last Admin: 03/07/19 16:40 Dose: 25 mg Last Vital Signs Temp Pulse Resp BP Pulse Ox 98.0 F 89 20 112/71 97 03/07/19 14:49 03/07/19 14:49 03/07/19 14:49 03/07/19 14:49 03/07/19 09:00 alert confused upset about loos bms lungs clear heart reg abd soft nontender ext no edema CBC, BMP 03/06/19 07:50 03/05/19 06:50 Plan- continue same rx
[2019-03-08] MEDS ORDERED: PT OWN MED DRAWER 7, Y5N ONE (07:27)
[2019-03-08 08:06] LABS: WHITE BLOOD COUNT 15.6 K/mm3 (4.0-10.0)
[2019-03-08 08:07] LABS: BASO % 0.9 % (0-2.0); EOS % 1.8 % (0-4.5); HEMOGLOBIN 10.5 GM/dL (10.7-15.3); LYMPH % 11.6 % (8-40); MCH 25.8 pg (25.7-33.7); MCHC 32.9 g/dl (32.0-36.0); MEAN CELL VOLUME 78.5 fl (80-96); MEAN PLT VOLUME 8.3 fl (7.5-11.1); MONO % 5.8 % (3.8-10.2); NEUT % 79.9 % (42.8-82.8); RBC 4.08 M/mm3 (3.60-5.2); RDW 16.6 % (11.6-15.6)
[2019-03-08 08:42] LABS: ALBUMIN 2.6 g/dl (3.4-5.0); BILIRUBIN,TOTAL 0.3 mg/dL (0.2-1); BLOOD UREA NITROGEN 17.7 mg/dL (7-18); CALCIUM 9.2 mg/dL (8.5-10.1); CREATININE 1.7 mg/dL (0.55-1.3); POTASSIUM 3.5 mmol/L (3.5-5.1); TOT PROT 6.1 g/dl (6.4-8.2)
[2019-03-08 08:58] LABS: PLATELET COUNT 435 K/MM3 (134-434)
[2019-03-08] MEDS: DOCUSATE SODIUM 100 MG CAPSULE (FP) PO SCH ×2 (09:16→21:30)
[2019-03-08] MEDS: HEPARIN NA (PORCINE) 5,000 UNITS/ML 1ML VIAL SQ SCH ×2 (09:17→21:30)
[2019-03-08] MEDS: VENLAFAXINE HCL 25 MG TABLET PO SCH ×2 (09:17→17:13)
[2019-03-08] MEDS: PANTOPRAZOLE SODIUM 40 MG VIAL IVPUSH SCH (09:44)
[2019-03-08] MEDS: SODIUM CHLORIDE 0.45%/POT 20 MEQ/1,000 ML INFUS.BAG IV SCH ×2 (11:00→21:38)
--- NOTE | 2019-03-08 12:02 | PN ---
Progress Note, Physician History of Present Illness: no new issues doing well - Current Medication List Current Medications: Active Medications Acetaminophen (Tylenol -) 650 mg PO Q6H PRN PRN Reason: FEVER Last Admin: 03/07/19 21:59 Dose: 650 mg Docusate Sodium (Colace -) 100 mg PO BID [facility] Last Admin: 03/08/19 09:16 Dose: 100 mg Heparin Sodium (Porcine) (Heparin -) 5,000 unit SQ BID [facility] Last Admin: 03/08/19 09:17 Dose: 5,000 unit Potassium Chloride/Sodium Chloride (1/2ns+20meq Kcl) 20 meq in 1,000 mls @ 42 mls/hr IV Q13H [facility] Last Admin: 03/07/19 10:16 Dose: Not Given Pantoprazole Sodium (Protonix Iv) 40 mg IVPUSH DAILY [facility] Last Admin: 03/08/19 09:44 Dose: 40 mg Venlafaxine HCl (Effexor -) 25 mg PO BIDWM [facility] Last Admin: 03/08/19 09:17 Dose: 25 mg - Objective Vital Signs: Vital Signs Temperature 98.6 F 03/08/19 06:00 Pulse Rate 88 03/08/19 06:00 Respiratory Rate 18 03/08/19 08:30 Blood Pressure 110/68 03/08/19 06:00 O2 Sat by Pulse Oximetry (%) 97 03/08/19 08:30 Constitutional: Yes: No Distress, Calm Cardiovascular: Yes: S1, S2 Respiratory: Yes: Regular, CTA Bilaterally Musculoskeletal: Yes: WNL Extremities: Yes: WNL Neurological: Yes: Alert, Oriented Psychiatric: Yes: Alert, Oriented Labs: CBC, BMP 03/08/19 07:14 03/08/19 07:14 Assessment/Plan Problem List - Problems (1) Diverticulitis Code(s): K57.92 - DVTRCLI OF INTEST, PART UNSP, W/O PERF OR ABSCESS W/O BLEED (2) Syncopal episodes Code(s): R55 - SYNCOPE AND COLLAPSE Qualifiers: Syncope type: vasovagal syncope Qualified Code(s): R55 - Syncope and collapse (3) JONATHAN (acute kidney injury) Code(s): N17.9 - ACUTE KIDNEY FAILURE, UNSPECIFIED (4) Back pain Code(s): M54.9 - DORSALGIA, UNSPECIFIED Qualifiers: Back pain location: low back pain Chronicity: acute Back pain laterality : unspecified Sciatica presence: without sciatica Qualified Code(s): M54.5 - Low back pain (5) History of multiple strokes Code(s): Z86.73 - PRSNL HX OF TIA (TIA), AND CEREB INFRC W/O RESID DEFICITS (6) Sepsis Code(s): A41.9 - SEPSIS, UNSPECIFIED ORGANISM Qualifiers: Sepsis type: Escherichia coli Qualified Code(s): A41.51 - Sepsis due to Escherichia coli [E. coli] (7) UTI (urinary tract infection) Code(s): N39.0 - URINARY TRACT INFECTION, SITE NOT SPECIFIED Qualifiers: Assessment/Plan Sigmoid diverticulitis UTI - Hafina alvea isolated Chronic back pain AFIB IBS plan stable nutrition physio rest as per the team
--- NOTE | 2019-03-08 12:40 | PN ---
Progress Note, Physician - Current Medication List Current Medications: Active Medications Acetaminophen (Tylenol -) 650 mg PO Q6H PRN PRN Reason: FEVER Last Admin: 03/07/19 21:59 Dose: 650 mg Docusate Sodium (Colace -) 100 mg PO BID [facility] Last Admin: 03/08/19 09:16 Dose: 100 mg Heparin Sodium (Porcine) (Heparin -) 5,000 unit SQ BID [facility] Last Admin: 03/08/19 09:17 Dose: 5,000 unit Potassium Chloride/Sodium Chloride (1/2ns+20meq Kcl) 20 meq in 1,000 mls @ 42 mls/hr IV Q13H [facility] Last Admin: 03/07/19 10:16 Dose: Not Given Pantoprazole Sodium (Protonix Iv) 40 mg IVPUSH DAILY [facility] Last Admin: 03/08/19 09:44 Dose: 40 mg Venlafaxine HCl (Effexor -) 25 mg PO BIDWM [facility] Last Admin: 03/08/19 09:17 Dose: 25 mg - Objective Vital Signs: Vital Signs Temperature 98.6 F 03/08/19 06:00 Pulse Rate 88 03/08/19 06:00 Respiratory Rate 18 03/08/19 08:30 Blood Pressure 110/68 03/08/19 06:00 O2 Sat by Pulse Oximetry (%) 97 03/08/19 08:30 HENT: Yes: Atraumatic Neck: Yes: Supple Cardiovascular: Yes: Regular Rate and Rhythm Respiratory: Yes: CTA Bilaterally Gastrointestinal: Yes: Normal Bowel Sounds Extremities: Yes: WNL Edema: No Peripheral Pulses WNL: Yes Neurological: Yes: Alert Labs: CBC, BMP 03/08/19 07:14 03/08/19 07:14 Problem List - Problems (1) Diverticulitis Assessment/Plan: low fiber diet completed iv abx course on ivf per nephro Code(s): K57.92 - DVTRCLI OF INTEST, PART UNSP, W/O PERF OR ABSCESS W/O BLEED (2) Syncopal episodes Code(s): R55 - SYNCOPE AND COLLAPSE Qualifiers: Syncope type: vasovagal syncope Qualified Code(s): R55 - Syncope and collapse (3) History of multiple strokes Code(s): Z86.73 - PRSNL HX OF TIA (TIA), AND CEREB INFRC W/O RESID DEFICITS (4) UTI (urinary tract infection) Assessment/Plan: abx completed wbc trending down Code(s): N39.0 - URINARY TRACT INFECTION, SITE NOT SPECIFIED Qualifiers: (5) Hypokalemia Assessment/Plan: resolved Code(s): E87.6 - HYPOKALEMIA (6) [id number] kidney injury Assessment/Plan: on ivf renal on board Code(s): N17.9 - ACUTE KIDNEY FAILURE, UNSPECIFIED; N18.9 - CHRONIC KIDNEY DISEASE, UNSPECIFIED
--- NOTE | 2019-03-08 14:54 | PN ---
Progress Note (short form) - Note Progress Note: s/p rani on fluids diarrhea Current Medications Acetaminophen (Tylenol -) 650 mg PO Q6H PRN PRN Reason: FEVER Last Admin: 03/07/19 21:59 Dose: 650 mg Docusate Sodium (Colace -) 100 mg PO BID [facility] Last Admin: 03/08/19 09:16 Dose: 100 mg Heparin Sodium (Porcine) (Heparin -) 5,000 unit SQ BID [facility] Last Admin: 03/08/19 09:17 Dose: 5,000 unit Potassium Chloride/Sodium Chloride (1/2ns+20meq Kcl) 20 meq in 1,000 mls @ 42 mls/hr IV Q13H [facility] Last Admin: 03/07/19 10:16 Dose: Not Given Pantoprazole Sodium (Protonix Iv) 40 mg IVPUSH DAILY [facility] Last Admin: 03/08/19 09:44 Dose: 40 mg Venlafaxine HCl (Effexor -) 25 mg PO BIDWM [facility] Last Admin: 03/08/19 09:17 Dose: 25 mg Last Vital Signs Temp Pulse Resp BP Pulse Ox 98.4 F 94 H 20 100/57 L 97 03/08/19 14:00 03/08/19 14:00 03/08/19 14:00 03/08/19 14:00 03/08/19 08:30 lungs clear heart reg abd soft nontender ext no edema CBC, BMP 03/08/19 07:14 03/08/19 07:14 CBC, BMP 03/06/19 07:50 03/05/19 06:50 Plan- continue same rx
[2019-03-08] MEDS: ACETAMINOPHEN 325 MG TABLET (FP) PO PRN (21:30)
[2019-03-09] MEDS: ACETAMINOPHEN 325 MG TABLET (FP) PO PRN ×3 (03:12→19:08)
--- NOTE | 2019-03-09 08:45 | PN ---
Progress Note, Physician History of Present Illness: stable no new issues - Current Medication List Current Medications: Active Medications Acetaminophen (Tylenol -) 650 mg PO Q6H PRN PRN Reason: FEVER Last Admin: 03/09/19 03:12 Dose: 650 mg Docusate Sodium (Colace -) 100 mg PO BID [facility] Last Admin: 03/08/19 21:30 Dose: 100 mg Heparin Sodium (Porcine) (Heparin -) 5,000 unit SQ BID [facility] Last Admin: 03/08/19 21:30 Dose: 5,000 unit Potassium Chloride/Sodium Chloride (1/2ns+20meq Kcl) 20 meq in 1,000 mls @ 42 mls/hr IV Q13H [facility] Last Admin: 03/08/19 21:38 Dose: 42 mls/hr Pantoprazole Sodium (Protonix Iv) 40 mg IVPUSH DAILY [facility] Last Admin: 03/08/19 09:44 Dose: 40 mg Venlafaxine HCl (Effexor -) 25 mg PO BIDWM [facility] Last Admin: 03/08/19 17:13 Dose: 25 mg - Objective Vital Signs: Vital Signs Temperature 97.4 F L 03/09/19 06:58 Pulse Rate 78 03/09/19 06:58 Respiratory Rate 18 03/09/19 06:58 Blood Pressure 102/76 03/09/19 06:58 O2 Sat by Pulse Oximetry (%) 97 03/08/19 21:00 Labs: CBC, BMP 03/08/19 07:14 03/08/19 07:14
[2019-03-09] MEDS ORDERED: PT OWN MED DRAWER 7, Y5N ONE (09:42)
[2019-03-09] MEDS: HEPARIN NA (PORCINE) 5,000 UNITS/ML 1ML VIAL SQ SCH ×2 (09:49→22:32)
[2019-03-09] MEDS: PANTOPRAZOLE SODIUM 40 MG VIAL IVPUSH SCH (09:49)
[2019-03-09] MEDS: DOCUSATE SODIUM 100 MG CAPSULE (FP) PO SCH ×2 (09:50→22:33)
[2019-03-09] MEDS: VENLAFAXINE HCL 25 MG TABLET PO SCH ×2 (09:50→18:38)
--- NOTE | 2019-03-09 10:24 | PN ---
Progress Note, Physician Chief Complaint: Events noted Complains of back pain History of Present Illness: Patient was seen and examined. Awake and alert. Chart was reviewed. Denies chest pain, SOB or palpitations - Current Medication List Current Medications: Active Medications Acetaminophen (Tylenol -) 650 mg PO Q6H PRN PRN Reason: FEVER Last Admin: 03/09/19 03:12 Dose: 650 mg Docusate Sodium (Colace -) 100 mg PO BID [facility] Last Admin: 03/09/19 09:50 Dose: 100 mg Heparin Sodium (Porcine) (Heparin -) 5,000 unit SQ BID [facility] Last Admin: 03/09/19 09:49 Dose: 5,000 unit Potassium Chloride/Sodium Chloride (1/2ns+20meq Kcl) 20 meq in 1,000 mls @ 42 mls/hr IV Q13H [facility] Last Admin: 03/08/19 21:38 Dose: 42 mls/hr Pantoprazole Sodium (Protonix Iv) 40 mg IVPUSH DAILY [facility] Last Admin: 03/09/19 09:49 Dose: 40 mg Venlafaxine HCl (Effexor -) 25 mg PO BIDWM [facility] Last Admin: 03/09/19 09:50 Dose: 25 mg - Objective Vital Signs: Vital Signs Temperature 97.4 F L 03/09/19 06:58 Pulse Rate 78 03/09/19 06:58 Respiratory Rate 18 03/09/19 06:58 Blood Pressure 102/76 03/09/19 06:58 O2 Sat by Pulse Oximetry (%) 97 03/08/19 21:00 Eyes: Yes: PERRL HENT: Yes: Atraumatic Neck: Yes: Supple Cardiovascular: Yes: Regular Rate and Rhythm Respiratory: Yes: Diminished Gastrointestinal: Yes: Normal Bowel Sounds, Soft. No: Tenderness Edema: No Labs: CBC, BMP 03/08/19 07:14 03/08/19 07:14 Problem List - Problems (1) Diverticulitis Code(s): K57.92 - DVTRCLI OF INTEST, PART UNSP, W/O PERF OR ABSCESS W/O BLEED (2) Syncopal episodes Code(s): R55 - SYNCOPE AND COLLAPSE Qualifiers: Syncope type: vasovagal syncope Qualified Code(s): R55 - Syncope and collapse (3) Mvrac-[id number] kidney injury Code(s): N17.9 - ACUTE KIDNEY FAILURE, UNSPECIFIED; N18.9 - CHRONIC KIDNEY DISEASE, UNSPECIFIED (4) Sepsis Code(s): A41.9 - SEPSIS, UNSPECIFIED ORGANISM Qualifiers: Sepsis type: Escherichia coli Qualified Code(s): A41.51 - Sepsis due to Escherichia coli [E. coli] (5) UTI (urinary tract infection) Code(s): N39.0 - URINARY TRACT INFECTION, SITE NOT SPECIFIED Qualifiers: Assessment/Plan 1. Syncope referable to sepsis 2. Acute mild sigmoid diverticulitis w/o abscess 3. Hafnia Alvei UTI 4. Demand ischemia 5. JONATHAN with hypokalemia PLAN: 1. Continue current management 2. Antibiotic coverage as per ID 3. Supportive care. PO intake 4. Monitor for decubiti ulcer Adarsh Degroto MD
--- NOTE | 2019-03-09 11:16 | PN ---
Progress Note, Physician History of Present Illness: Pt seen and examined at bedside. She is awake and alert. She denies shortness of breath. - Current Medication List Current Medications: Active Medications Acetaminophen (Tylenol -) 650 mg PO Q6H PRN PRN Reason: FEVER Last Admin: 03/09/19 03:12 Dose: 650 mg Docusate Sodium (Colace -) 100 mg PO BID [facility] Last Admin: 03/09/19 09:50 Dose: 100 mg Heparin Sodium (Porcine) (Heparin -) 5,000 unit SQ BID [facility] Last Admin: 03/09/19 09:49 Dose: 5,000 unit Potassium Chloride/Sodium Chloride (1/2ns+20meq Kcl) 20 meq in 1,000 mls @ 42 mls/hr IV Q13H [facility] Last Admin: 03/08/19 21:38 Dose: 42 mls/hr Pantoprazole Sodium (Protonix Iv) 40 mg IVPUSH DAILY [facility] Last Admin: 03/09/19 09:49 Dose: 40 mg Venlafaxine HCl (Effexor -) 25 mg PO BIDWM [facility] Last Admin: 03/09/19 09:50 Dose: 25 mg - Objective Vital Signs: Vital Signs Temperature 97.4 F L 03/09/19 06:58 Pulse Rate 78 03/09/19 06:58 Respiratory Rate 18 03/09/19 06:58 Blood Pressure 102/76 03/09/19 06:58 O2 Sat by Pulse Oximetry (%) 97 03/08/19 21:00 Constitutional: Yes: Calm Eyes: Yes: Conjunctiva Clear HENT: Yes: Atraumatic Neck: Yes: Supple Cardiovascular: Yes: S1, S2 Respiratory: Yes: CTA Bilaterally Genitourinary: Yes: Incontinence Musculoskeletal: Yes: Muscle Weakness Neurological: Yes: Oriented Labs: CBC, BMP 03/08/19 07:14 03/08/19 07:14 Problem List - Problems (1) Diverticulitis Code(s): K57.92 - DVTRCLI OF INTEST, PART UNSP, W/O PERF OR ABSCESS W/O BLEED (2) Hypokalemia Code(s): E87.6 - HYPOKALEMIA (3) Syncopal episodes Code(s): R55 - SYNCOPE AND COLLAPSE Qualifiers: Syncope type: vasovagal syncope Qualified Code(s): R55 - Syncope and collapse (4) JONATHAN (acute kidney injury) Code(s): N17.9 - ACUTE KIDNEY FAILURE, UNSPECIFIED Assessment/Plan Current Medications Generic Name Dose Route Start Last Admin Trade Name Freq PRN Reason Stop Dose Admin Acetaminophen 650 mg 02/23/19 19:41 03/09/19 03:12 Tylenol - PO 650 mg Q6H PRN Administration FEVER Docusate Sodium 100 mg 02/23/19 22:00 03/09/19 09:50 Colace - PO 100 mg BID [facility] Administration Heparin Sodium (Porcine) 5,000 unit 03/06/19 22:00 03/09/19 09:49 Heparin - SQ 5,000 unit BID [facility] Administration Potassium Chloride/Sodium Chloride 20 meq in 1,000 mls @ 42 mls/hr 03/03/19 13 :53 03/08/19 21:38 1/2ns+20meq Kcl IV 42 mls/hr Q13H [facility] Administration Pantoprazole Sodium 40 mg 02/25/19 19:00 03/09/19 09:49 Protonix Iv IVPUSH 40 mg DAILY [facility] Administration Venlafaxine HCl 25 mg 02/24/19 08:00 03/09/19 09:50 Effexor - PO 25 mg BIDWM [facility] Administration Impression 1. JONATHAN 2. hypokalemia 3. diverticulitis 4. a-fib 5. cva Plan - cont to monitor renal function - pt not eating much - avoid hypotension - encourage PO intake
[2019-03-09] MEDS: SODIUM CHLORIDE 0.45%/POT 20 MEQ/1,000 ML INFUS.BAG IV SCH ×3 (12:53→23:07)
[2019-03-09 16:34] LABS: BLOOD UREA NITROGEN 13.6 mg/dL (7-18); CALCIUM 8.8 mg/dL (8.5-10.1); CREATININE 1.6 mg/dL (0.55-1.3); POTASSIUM 3.7 mmol/L (3.5-5.1)
[2019-03-09 16:43] LABS: HEMATOCRIT 30.6 % (32.4-45.2); HEMOGLOBIN 10.1 GM/dL (10.7-15.3); MCH 25.6 pg (25.7-33.7); MEAN CELL VOLUME 77.6 fl (80-96); MEAN PLT VOLUME 8.5 fl (7.5-11.1); RBC 3.94 M/mm3 (3.60-5.2); RDW 17.1 % (11.6-15.6); WHITE BLOOD COUNT 13.7 K/mm3 (4.0-10.0)
[2019-03-09 17:21] LABS: PLATELET COUNT 472 K/MM3 (134-434)
--- NOTE | 2019-03-09 18:21 | PN ---
Progress Note, Physician - Current Medication List Current Medications: Active Medications Acetaminophen (Tylenol -) 650 mg PO Q6H PRN PRN Reason: FEVER Last Admin: 03/09/19 12:55 Dose: 650 mg Docusate Sodium (Colace -) 100 mg PO BID [facility] Last Admin: 03/09/19 09:50 Dose: 100 mg Heparin Sodium (Porcine) (Heparin -) 5,000 unit SQ BID [facility] Last Admin: 03/09/19 09:49 Dose: 5,000 unit Potassium Chloride/Sodium Chloride (1/2ns+20meq Kcl) 20 meq in 1,000 mls @ 42 mls/hr IV Q13H [facility] Last Admin: 03/09/19 12:53 Dose: Not Given Pantoprazole Sodium (Protonix Iv) 40 mg IVPUSH DAILY [facility] Last Admin: 03/09/19 09:49 Dose: 40 mg Venlafaxine HCl (Effexor -) 25 mg PO BIDWM [facility] Last Admin: 03/09/19 09:50 Dose: 25 mg - Objective Vital Signs: Vital Signs Temperature 97.9 F 03/09/19 17:32 Pulse Rate 88 03/09/19 17:32 Respiratory Rate 20 03/09/19 17:32 Blood Pressure 114/72 03/09/19 17:32 O2 Sat by Pulse Oximetry (%) 97 03/08/19 21:00 Constitutional: Yes: No Distress HENT: Yes: Atraumatic Neck: Yes: Supple Cardiovascular: Yes: Regular Rate and Rhythm Respiratory: Yes: CTA Bilaterally Gastrointestinal: Yes: Normal Bowel Sounds Extremities: Yes: WNL Edema: No Neurological: Yes: Alert, Oriented Labs: CBC, BMP 03/09/19 15:00 03/09/19 15:00 Problem List - Problems (1) Diverticulitis Assessment/Plan: low fiber diet completed iv abx course on ivf per nephro Code(s): K57.92 - DVTRCLI OF INTEST, PART UNSP, W/O PERF OR ABSCESS W/O BLEED (2) Syncopal episodes Code(s): R55 - SYNCOPE AND COLLAPSE Qualifiers: Syncope type: vasovagal syncope Qualified Code(s): R55 - Syncope and collapse (3) History of multiple strokes Code(s): Z86.73 - PRSNL HX OF TIA (TIA), AND CEREB INFRC W/O RESID DEFICITS (4) UTI (urinary tract infection) Assessment/Plan: abx completed wbc trending down Code(s): N39.0 - URINARY TRACT INFECTION, SITE NOT SPECIFIED Qualifiers: (5) Hypokalemia Assessment/Plan: resolved Code(s): E87.6 - HYPOKALEMIA (6) [id number] kidney injury Assessment/Plan: on ivf renal on board can be dc tomorrow per renal fu as out patient Code(s): N17.9 - ACUTE KIDNEY FAILURE, UNSPECIFIED; N18.9 - CHRONIC KIDNEY DISEASE, UNSPECIFIED
--- NOTE | 2019-03-09 18:36 | DS ---
Physical Examination Vital Signs: Vital Signs Temperature 97.9 F 03/09/19 17:32 Pulse Rate 88 03/09/19 17:32 Respiratory Rate 20 03/09/19 17:32 Blood Pressure 114/72 03/09/19 17:32 O2 Sat by Pulse Oximetry (%) 97 03/08/19 21:00 Labs: CBC, BMP 03/09/19 15:00 03/09/19 15:00 Discharge Summary Reason For Visit: Syncope Current Active Problems Diverticulitis (Acute) Hypokalemia (Acute) Syncopal episodes (Acute) Condition: Guarded - Instructions - Home Medications Comprehensive Discharge Medication List: Ambulatory Orders Lidocaine [Lidocaine Pain Relief] 1 each TP DAILY 01/23/19 Mirabegron [Myrbetriq] 25 mg PO DAILY 01/23/19 Oxycodone HCl 5 mg PO Q6H PRN 01/23/19 Sennosides [Senna] 8.6 mg PO DAILY 01/23/19 Zinc Oxide 20% Topical Oint 1 applic NR TID 01/23/19 Acetaminophen [Pain Relief] 650 mg PO QID 02/23/19 Omeprazole 20 mg PO DAILY 02/23/19 Propylene Glycol [Systane Balance] 10 ml OP BID 02/23/19 Venlafaxine HCl [Effexor -] 25 mg PO BIDLASIX 02/23/19 follow up creatinine see kidney doctor
[2019-03-09] MEDS: MINERAL OIL/PET HY-PHL TOPICAL OINTMENT 454 GM JAR TP SCH (22:32)
[2019-03-10] MEDS: ACETAMINOPHEN 325 MG TABLET (FP) PO PRN ×2 (01:09→16:23)
[2019-03-10] MEDS: SODIUM CHLORIDE 0.45%/POT 20 MEQ/1,000 ML INFUS.BAG IV SCH (02:44)
[2019-03-10 07:56] LABS: HEMATOCRIT 31.2 % (32.4-45.2); HEMOGLOBIN 10.5 GM/dL (10.7-15.3); MCH 26.3 pg (25.7-33.7); MCHC 33.5 g/dl (32.0-36.0); MEAN CELL VOLUME 78.6 fl (80-96); MEAN PLT VOLUME 8.4 fl (7.5-11.1); PLATELET COUNT 458 K/MM3 (134-434); RBC 3.98 M/mm3 (3.60-5.2); RDW 16.5 % (11.6-15.6); WHITE BLOOD COUNT 17.4 K/mm3 (4.0-10.0)
[2019-03-10] MEDS: VENLAFAXINE HCL 25 MG TABLET PO SCH ×2 (09:22→18:15)
[2019-03-10] MEDS: MINERAL OIL/PET HY-PHL TOPICAL OINTMENT 454 GM JAR TP SCH ×2 (09:22→21:52)
[2019-03-10] MEDS: DOCUSATE SODIUM 100 MG CAPSULE (FP) PO SCH (09:23)
[2019-03-10] MEDS: HEPARIN NA (PORCINE) 5,000 UNITS/ML 1ML VIAL SQ SCH ×2 (09:23→21:52)
[2019-03-10] MEDS: PANTOPRAZOLE SODIUM 40 MG VIAL IVPUSH SCH (09:23)
--- NOTE | 2019-03-10 11:52 | PN ---
Progress Note, Physician History of Present Illness: Pt seen and examined at bedside. She is awake and alert. She denies shortness of breath. - Current Medication List Current Medications: Active Medications Acetaminophen (Tylenol -) 650 mg PO Q6H PRN PRN Reason: PAIN LEVEL 1-5 Last Admin: 03/10/19 01:09 Dose: 650 mg Docusate Sodium (Colace -) 100 mg PO BID [facility] Last Admin: 03/10/19 09:23 Dose: Not Given Emollient Ointment (Aquaphor -) 1 applic TP BID [facility] Last Admin: 03/10/19 09:22 Dose: 1 applic Heparin Sodium (Porcine) (Heparin -) 5,000 unit SQ BID [facility] Last Admin: 03/10/19 09:23 Dose: 5,000 unit Potassium Chloride/Sodium Chloride (1/2ns+20meq Kcl) 20 meq in 1,000 mls @ 42 mls/hr IV Q13H [facility] Last Admin: 03/10/19 02:44 Dose: Not Given Pantoprazole Sodium (Protonix Iv) 40 mg IVPUSH DAILY [facility] Last Admin: 03/10/19 09:23 Dose: 40 mg Venlafaxine HCl (Effexor -) 25 mg PO BIDWM [facility] Last Admin: 03/10/19 09:22 Dose: 25 mg - Objective Vital Signs: Vital Signs Temperature 97.8 F 03/10/19 06:00 Pulse Rate 96 H 03/10/19 06:00 Respiratory Rate 20 03/10/19 06:00 Blood Pressure 122/80 03/10/19 06:00 O2 Sat by Pulse Oximetry (%) 97 03/08/19 21:00 Constitutional: Yes: Calm Eyes: Yes: Conjunctiva Clear HENT: Yes: Atraumatic Neck: Yes: Supple Cardiovascular: Yes: S1, S2 Respiratory: Yes: CTA Bilaterally Gastrointestinal: Yes: Soft Genitourinary: Yes: Incontinence Musculoskeletal: Yes: Muscle Weakness Edema: No Neurological: Yes: Oriented Psychiatric: Yes: Oriented Labs: CBC, BMP 03/10/19 06:00 03/09/19 15:00 Problem List - Problems (1) Diverticulitis Code(s): K57.92 - DVTRCLI OF INTEST, PART UNSP, W/O PERF OR ABSCESS W/O BLEED (2) Hypokalemia Code(s): E87.6 - HYPOKALEMIA (3) Syncopal episodes Code(s): R55 - SYNCOPE AND COLLAPSE Qualifiers: Syncope type: vasovagal syncope Qualified Code(s): R55 - Syncope and collapse (4) JONATHAN (acute kidney injury) Code(s): N17.9 - ACUTE KIDNEY FAILURE, UNSPECIFIED Assessment/Plan Current Medications Generic Name Dose Route Start Last Admin Trade Name Freq PRN Reason Stop Dose Admin Acetaminophen 650 mg 03/09/19 18:32 03/10/19 01:09 Tylenol - PO 650 mg Q6H PRN Administration PAIN LEVEL 1-5 Docusate Sodium 100 mg 02/23/19 22:00 03/10/19 09:23 Colace - PO Not Given BID [facility] Emollient Ointment 1 applic 03/09/19 22:00 03/10/19 09:22 Aquaphor - TP 1 applic BID [facility] Administration Heparin Sodium (Porcine) 5,000 unit 03/06/19 22:00 03/10/19 09:23 Heparin - SQ 5,000 unit BID [facility] Administration Potassium Chloride/Sodium Chloride 20 meq in 1,000 mls @ 42 mls/hr 03/03/19 13 :53 03/10/19 02:44 1/2ns+20meq Kcl IV Not Given Q13H [facility] Pantoprazole Sodium 40 mg 02/25/19 19:00 03/10/19 09:23 Protonix Iv IVPUSH 40 mg DAILY [facility] Administration Venlafaxine HCl 25 mg 02/24/19 08:00 03/10/19 09:22 Effexor - PO 25 mg BIDWM [facility] Administration Impression 1. JONATHAN 2. hypokalemia 3. diverticulitis 4. a-fib 5. 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
[2019-03-10 13:07] LABS: BASO % 0.6 % (0-2.0); EOS % 1.3 % (0-4.5); HEMATOCRIT 32.4 % (32.4-45.2); HEMOGLOBIN 10.9 GM/dL (10.7-15.3); LYMPH % 6.4 % (8-40); MCH 26.2 pg (25.7-33.7); MCHC 33.6 g/dl (32.0-36.0); MEAN PLT VOLUME 8.1 fl (7.5-11.1); MONO % 4.5 % (3.8-10.2); NEUT % 87.2 % (42.8-82.8); PLATELET COUNT 464 K/MM3 (134-434); RBC 4.15 M/mm3 (3.60-5.2); RDW 16.7 % (11.6-15.6); WHITE BLOOD COUNT 19.1 K/mm3 (4.0-10.0)
--- NOTE | 2019-03-10 13:53 | PN ---
Progress Note, Physician History of Present Illness: patient mentions that she is having loose stools wbc has increased clinically patient is stable had antigen positive before - Current Medication List Current Medications: Active Medications Acetaminophen (Tylenol -) 650 mg PO Q6H PRN PRN Reason: PAIN LEVEL 1-5 Last Admin: 03/10/19 01:09 Dose: 650 mg Docusate Sodium (Colace -) 100 mg PO BID COUNTS INCLUDE 234 BEDS AT THE [facility] Last Admin: 03/10/19 09:23 Dose: Not Given Emollient Ointment (Aquaphor -) 1 applic TP BID COUNTS INCLUDE 234 BEDS AT THE [facility] Last Admin: 03/10/19 09:22 Dose: 1 applic Heparin Sodium (Porcine) (Heparin -) 5,000 unit SQ BID COUNTS INCLUDE 234 BEDS AT THE [facility] Last Admin: 03/10/19 09:23 Dose: 5,000 unit Potassium Chloride/Sodium Chloride (1/2ns+20meq Kcl) 20 meq in 1,000 mls @ 42 mls/hr IV Q13H COUNTS INCLUDE 234 BEDS AT THE [facility] Last Admin: 03/10/19 02:44 Dose: Not Given Pantoprazole Sodium (Protonix Iv) 40 mg IVPUSH DAILY COUNTS INCLUDE 234 BEDS AT THE [facility] Last Admin: 03/10/19 09:23 Dose: 40 mg Vancomycin HCl (Vancomycin Oral Solution) 125 mg PO Q6HPO COUNTS INCLUDE 234 BEDS AT THE [facility] Venlafaxine HCl (Effexor -) 25 mg PO BIDWM COUNTS INCLUDE 234 BEDS AT THE [facility] Last Admin: 03/10/19 09:22 Dose: 25 mg - Objective Vital Signs: Vital Signs Temperature 97.8 F 03/10/19 06:00 Pulse Rate 96 H 03/10/19 06:00 Respiratory Rate 20 03/10/19 06:00 Blood Pressure 122/80 03/10/19 06:00 O2 Sat by Pulse Oximetry (%) 97 03/08/19 21:00 Constitutional: Yes: No Distress, Calm Cardiovascular: Yes: Regular Rate and Rhythm Respiratory: Yes: Regular, CTA Bilaterally Gastrointestinal: Yes: Normal Bowel Sounds, Soft Musculoskeletal: Yes: WNL Extremities: Yes: WNL Neurological: Yes: Alert, Oriented Psychiatric: Yes: Alert, Oriented Labs: CBC, BMP 03/10/19 12:28 03/09/19 15:00 Assessment/Plan Problem List - Problems (1) Diverticulitis Code(s): K57.92 - DVTRCLI OF INTEST, PART UNSP, W/O PERF OR ABSCESS W/O BLEED (2) Syncopal episodes Code(s): R55 - SYNCOPE AND COLLAPSE Qualifiers: Syncope type: vasovagal syncope Qualified Code(s): R55 - Syncope and collapse (3) JONATHAN (acute kidney injury) Code(s): N17.9 - ACUTE KIDNEY FAILURE, UNSPECIFIED (4) Back pain Code(s): M54.9 - DORSALGIA, UNSPECIFIED Qualifiers: Back pain location: low back pain Chronicity: acute Back pain laterality : unspecified Sciatica presence: without sciatica Qualified Code(s): M54.5 - Low back pain (5) History of multiple strokes Code(s): Z86.73 - PRSNL HX OF TIA (TIA), AND CEREB INFRC W/O RESID DEFICITS (6) Sepsis Code(s): A41.9 - SEPSIS, UNSPECIFIED ORGANISM Qualifiers: Sepsis type: Escherichia coli Qualified Code(s): A41.51 - Sepsis due to Escherichia coli [E. coli] (7) UTI (urinary tract infection) Code(s): N39.0 - URINARY TRACT INFECTION, SITE NOT SPECIFIED Qualifiers: Assessment/Plan Sigmoid diverticulitis UTI - Hafina alvea isolated Chronic back pain AFIB IBS plan will start patient on oral vanco and see will send cdiff will stop laxatives for now if still continues to go high do a urine cx
[2019-03-10] MEDS: VANCOMYCIN 250 MG/5 ML ORAL SOLUTION PO SCH ×2 (15:15→18:14)
[2019-03-10] MEDS ORDERED: PT OWN MED DRAWER 7, Y5N ONE (18:09)
--- NOTE | 2019-03-10 18:15 | PN ---
Progress Note, Physician History of Present Illness: stable - Current Medication List Current Medications: Active Medications Acetaminophen (Tylenol -) 650 mg PO Q6H PRN PRN Reason: PAIN LEVEL 1-5 Last Admin: 03/10/19 16:23 Dose: 650 mg Emollient Ointment (Aquaphor -) 1 applic TP BID [facility] Last Admin: 03/10/19 09:22 Dose: 1 applic Heparin Sodium (Porcine) (Heparin -) 5,000 unit SQ BID [facility] Last Admin: 03/10/19 09:23 Dose: 5,000 unit Potassium Chloride/Sodium Chloride (1/2ns+20meq Kcl) 20 meq in 1,000 mls @ 42 mls/hr IV Q13H [facility] Last Admin: 03/10/19 02:44 Dose: Not Given Pantoprazole Sodium (Protonix Iv) 40 mg IVPUSH DAILY [facility] Last Admin: 03/10/19 09:23 Dose: 40 mg Vancomycin HCl (Vancomycin Oral Solution) 125 mg PO Q6HPO [facility] Last Admin: 03/10/19 15:15 Dose: 125 mg Venlafaxine HCl (Effexor -) 25 mg PO BIDWM [facility] Last Admin: 03/10/19 09:22 Dose: 25 mg - Objective Vital Signs: Vital Signs Temperature 97.3 F L 03/10/19 16:25 Pulse Rate 91 H 03/10/19 16:25 Respiratory Rate 18 03/10/19 16:25 Blood Pressure 111/72 03/10/19 16:25 O2 Sat by Pulse Oximetry (%) 95 03/10/19 09:00 Constitutional: Yes: No Distress HENT: Yes: Atraumatic Neck: Yes: Supple Cardiovascular: Yes: Regular Rate and Rhythm Respiratory: Yes: CTA Bilaterally Gastrointestinal: Yes: Normal Bowel Sounds Extremities: Yes: WNL Edema: No Neurological: Yes: Alert, Oriented Labs: CBC, BMP 03/10/19 12:28 03/09/19 15:00 Problem List - Problems (1) Diverticulitis Assessment/Plan: low fiber diet completed iv abx course on ivf per nephro Code(s): K57.92 - DVTRCLI OF INTEST, PART UNSP, W/O PERF OR ABSCESS W/O BLEED (2) Syncopal episodes Code(s): R55 - SYNCOPE AND COLLAPSE Qualifiers: Syncope type: vasovagal syncope Qualified Code(s): R55 - Syncope and collapse (3) History of multiple strokes Code(s): Z86.73 - PRSNL HX OF TIA (TIA), AND CEREB INFRC W/O RESID DEFICITS (4) UTI (urinary tract infection) Assessment/Plan: abx completed wbc trending down Code(s): N39.0 - URINARY TRACT INFECTION, SITE NOT SPECIFIED Qualifiers: (5) Hypokalemia Assessment/Plan: resolved Code(s): E87.6 - HYPOKALEMIA (6) [id number] kidney injury Assessment/Plan: on ivf renal on board can be dc tomorrow per renal fu as out patient Code(s): N17.9 - ACUTE KIDNEY FAILURE, UNSPECIFIED; N18.9 - CHRONIC KIDNEY DISEASE, UNSPECIFIED (7) C. difficile colitis Assessment/Plan: on po vancomycin per id for 10 days Code(s): A04.72 - ENTEROCOLITIS D/T CLOSTRIDIUM DIFFICILE, NOT SPCF RECUR
--- NOTE | 2019-03-10 18:15 | DS ---
Physical Examination Vital Signs: Vital Signs Temperature 97.3 F L 03/10/19 16:25 Pulse Rate 91 H 03/10/19 16:25 Respiratory Rate 18 03/10/19 16:25 Blood Pressure 111/72 03/10/19 16:25 O2 Sat by Pulse Oximetry (%) 95 03/10/19 09:00 Labs: CBC, BMP 03/10/19 12:28 03/09/19 15:00 Discharge Summary Reason For Visit: Syncope Current Active Problems C. difficile colitis (Acute) Diverticulitis (Acute) Hypokalemia (Acute) Syncopal episodes (Acute) Condition: Guarded - Instructions Diet, Activity, Other Instructions: see kidney doctor 1 week fu cbc and cmp Referrals: Jd Dang MD [Staff Physician] - - Home Medications Comprehensive Discharge Medication List: Ambulatory Orders Lidocaine [Lidocaine Pain Relief] 1 each TP DAILY 01/23/19 Mirabegron [Myrbetriq] 25 mg PO DAILY 01/23/19 Oxycodone HCl 5 mg PO Q6H PRN 01/23/19 Sennosides [Senna] 8.6 mg PO DAILY 01/23/19 Zinc Oxide 20% Topical Oint 1 applic NR TID 01/23/19 Acetaminophen [Pain Relief] 650 mg PO QID 02/23/19 Omeprazole 20 mg PO DAILY 02/23/19 Propylene Glycol [Systane Balance] 10 ml OP BID 02/23/19 Venlafaxine HCl [Effexor -] 25 mg PO BIDLASIX 02/23/19 Vancomycin Oral Solution 125 mg PO Q6HPO #100 ml 03/10/19 FOR 1O DAYS
[2019-03-11] MEDS: SODIUM CHLORIDE 0.45%/POT 20 MEQ/1,000 ML INFUS.BAG IV SCH ×2 (00:46→06:34)
[2019-03-11] MEDS: VANCOMYCIN 250 MG/5 ML ORAL SOLUTION PO SCH ×2 (00:47→06:36)
[2019-03-11] MEDS: ACETAMINOPHEN 325 MG TABLET (FP) PO PRN (06:41)
[2019-03-11 06:50] VITALS: PULSE 100; TEMP 98.8
[2019-03-11 07:25] LABS: BASO % 0.9 % (0-2.0); EOS % 1.4 % (0-4.5); HEMATOCRIT 30.7 % (32.4-45.2); HEMOGLOBIN 10.5 GM/dL (10.7-15.3); LYMPH % 8.6 % (8-40); MCH 26.7 pg (25.7-33.7); MCHC 34.3 g/dl (32.0-36.0); MEAN CELL VOLUME 77.9 fl (80-96); MEAN PLT VOLUME 8.3 fl (7.5-11.1); MONO % 4.8 % (3.8-10.2); NEUT % 84.3 % (42.8-82.8); PLATELET COUNT 461 K/MM3 (134-434); RBC 3.94 M/mm3 (3.60-5.2); RDW 16.9 % (11.6-15.6); WHITE BLOOD COUNT 18.1 K/mm3 (4.0-10.0)
[2019-03-11 07:49] LABS: ALBUMIN 2.7 g/dl (3.4-5.0); BILIRUBIN,TOTAL 0.4 mg/dL (0.2-1); BLOOD UREA NITROGEN 11.6 mg/dL (7-18); CALCIUM 8.9 mg/dL (8.5-10.1); CREATININE 1.5 mg/dL (0.55-1.3); POTASSIUM 3.6 mmol/L (3.5-5.1); TOT PROT 6.2 g/dl (6.4-8.2)
[2019-03-11] MEDS ORDERED: PT OWN MED DRAWER 7, Y5N ONE (08:44)
[2019-03-11] MEDS: VENLAFAXINE HCL 25 MG TABLET PO SCH (09:56)
[2019-03-11] MEDS: HEPARIN NA (PORCINE) 5,000 UNITS/ML 1ML VIAL SQ SCH (09:57)
[2019-03-11] MEDS: MINERAL OIL/PET HY-PHL TOPICAL OINTMENT 454 GM JAR TP SCH (09:57)
[2019-03-11] MEDS ORDERED: PANTOPRAZOLE 40 MG TABLET (FP) PO SCH (10:00)
[2019-03-11 10:49] VITALS: BP 120/81
--- NOTE | 2019-03-11 12:01 | PN ---
Progress Note, Physician History of Present Illness: patient stable no new issues - Current Medication List Current Medications: Active Medications Acetaminophen (Tylenol -) 650 mg PO Q6H PRN PRN Reason: PAIN LEVEL 1-5 Last Admin: 03/11/19 06:41 Dose: 650 mg Emollient Ointment (Aquaphor -) 1 applic TP BID [facility] Last Admin: 03/11/19 09:57 Dose: 1 applic Heparin Sodium (Porcine) (Heparin -) 5,000 unit SQ BID [facility] Last Admin: 03/11/19 09:57 Dose: 5,000 unit Potassium Chloride/Sodium Chloride (1/2ns+20meq Kcl) 20 meq in 1,000 mls @ 42 mls/hr IV Q13H [facility] Last Admin: 03/11/19 06:34 Dose: Not Given Pantoprazole Sodium (Protonix -) 40 mg PO DAILY [facility] Last Admin: 03/11/19 09:57 Dose: 40 mg Vancomycin HCl (Vancomycin Oral Solution) 125 mg PO Q6HPO [facility] Last Admin: 03/11/19 06:36 Dose: 125 mg Venlafaxine HCl (Effexor -) 25 mg PO BIDWM [facility] Last Admin: 03/11/19 09:56 Dose: 25 mg - Objective Vital Signs: Vital Signs Temperature 98.8 F 03/11/19 10:00 Pulse Rate 100 H 03/11/19 10:00 Respiratory Rate 20 03/11/19 10:00 Blood Pressure 120/81 03/11/19 10:00 O2 Sat by Pulse Oximetry (%) 98 03/11/19 09:00 Constitutional: Yes: No Distress, Calm Cardiovascular: Yes: S1, S2 Respiratory: Yes: Regular, CTA Bilaterally Gastrointestinal: Yes: Normal Bowel Sounds, Soft Breast(s): Yes: WNL Musculoskeletal: Yes: WNL Extremities: Yes: WNL Neurological: Yes: Alert, Oriented Psychiatric: Yes: Alert, Oriented Labs: CBC, BMP 03/11/19 06:05 03/11/19 06:05 Assessment/Plan Problem List - Problems (1) Diverticulitis Code(s): K57.92 - DVTRCLI OF INTEST, PART UNSP, W/O PERF OR ABSCESS W/O BLEED (2) Syncopal episodes Code(s): R55 - SYNCOPE AND COLLAPSE Qualifiers: Syncope type: vasovagal syncope Qualified Code(s): R55 - Syncope and collapse (3) JONATHAN (acute kidney injury) Code(s): N17.9 - ACUTE KIDNEY FAILURE, UNSPECIFIED (4) Back pain Code(s): M54.9 - DORSALGIA, UNSPECIFIED Qualifiers: Back pain location: low back pain Chronicity: acute Back pain laterality : unspecified Sciatica presence: without sciatica Qualified Code(s): M54.5 - Low back pain (5) History of multiple strokes Code(s): Z86.73 - PRSNL HX OF TIA (TIA), AND CEREB INFRC W/O RESID DEFICITS (6) Sepsis Code(s): A41.9 - SEPSIS, UNSPECIFIED ORGANISM Qualifiers: Sepsis type: Escherichia coli Qualified Code(s): A41.51 - Sepsis due to Escherichia coli [E. coli] (7) UTI (urinary tract infection) Code(s): N39.0 - URINARY TRACT INFECTION, SITE NOT SPECIFIED Qualifiers: Assessment/Plan Sigmoid diverticulitis UTI - Hafina alvea isolated Chronic back pain AFIB IBS plan wbc down continue vanco for 10 days rest as per the team stable
--- NOTE | 2019-03-11 19:09 | DS ---
Physical Examination Vital Signs: Vital Signs Temperature 98.8 F 03/11/19 10:00 Pulse Rate 100 H 03/11/19 10:00 Respiratory Rate 20 03/11/19 10:00 Blood Pressure 120/81 03/11/19 10:00 O2 Sat by Pulse Oximetry (%) 98 03/11/19 09:00 Constitutional: Yes: No Distress HENT: Yes: Atraumatic Neck: Yes: Supple Cardiovascular: Yes: Regular Rate and Rhythm Respiratory: Yes: CTA Bilaterally Gastrointestinal: Yes: Normal Bowel Sounds Extremities: Yes: WNL Neurological: Yes: Alert, Oriented Labs: CBC, BMP 03/11/19 06:05 03/11/19 06:05 Discharge Summary Reason For Visit: Syncope Condition: Guarded - Instructions Diet, Activity, Other Instructions: see kidney doctor 1 week fu cbc and cmp , UA , UCX, CDIFF STOOL 1-2 WEEKS Referrals: Carola Pearl MD [Staff Physician] - Jd Dang MD [Staff Physician] - Disposition: SNF FACILITY - Home Medications Comprehensive Discharge Medication List: Ambulatory Orders Lidocaine [Lidocaine Pain Relief] 1 each TP DAILY 01/23/19 Mirabegron [Myrbetriq] 25 mg PO DAILY 01/23/19 Oxycodone HCl 5 mg PO Q6H PRN 01/23/19 Sennosides [Senna] 8.6 mg PO DAILY 01/23/19 Zinc Oxide 20% Topical Oint 1 applic NR TID 01/23/19 Acetaminophen [Pain Relief] 650 mg PO QID 02/23/19 Omeprazole 20 mg PO DAILY 02/23/19 Propylene Glycol [Systane Balance] 10 ml OP BID 02/23/19 Venlafaxine HCl [Effexor -] 25 mg PO BIDLASIX 02/23/19 Heparin - 5,000 unit SQ BID #14 vial 03/10/19 Vancomycin Oral Solution 125 mg PO Q6HPO #100 ml 03/10/19 dc
== END 2019-03-11 12:13 | DRG 392 ==
LOC: JER 11:03 → JERBED 17:32 → J4W 02-24 00:29 → J8W 03-04 15:46
PROVIDERS: ADMIT Internal Medicine; ATTEND Internal Medicine
DX: K57.92 Diverticulitis of intestine, part unspecified, without perforation or abscess without bleeding (principal); N39.0 Urinary tract infection, site not specified; N17.9 Acute kidney failure, unspecified; I24.8 Other forms of acute ischemic heart disease; A04.72 Enterocolitis due to Clostridium difficile, not specified as recurrent; R55 Syncope and collapse; K58.9 Irritable bowel syndrome, unspecified; E87.6 Hypokalemia; I48.91 Unspecified atrial fibrillation; M54.5 Low back pain; N32.81 Overactive bladder; N18.9 Chronic kidney disease, unspecified; B96.89 Other specified bacterial agents as the cause of diseases classified elsewhere; K57.90 Diverticulosis of intestine, part unspecified, without perforation or abscess without bleeding; D72.829 Elevated white blood cell count, unspecified; Z86.73 Personal history of transient ischemic attack (TIA), and cerebral infarction without residual deficits; Z87.891 Personal history of nicotine dependence
CPT/HCPCS: 36415; 71045-TC-FY; 74176-TC; 74177-TC; 80048; 80053; 81003; 82436; 82550; 82565; 82728; 83540; 83550; 83735; 84100; 84133; 84300; 84466; 84484; 85025; 85027; 85044; 86140; 87040; 87086; 87186; 87324; 87449; 93005; 93010; 93306-TC; 97116-GP; 97161-GP; 99285-25; J0131; J1644; J3480; J7030; Q9967

== ENCOUNTER 2019-04-12 16:50 | Emergency (ER) | payer OTHER, MEDICARE ==
--- NOTE | 2019-04-12 16:58 | PDOC ---
History of Present Illness - General History Source: Patient, Care Provider - History of Present Illness Initial Comments: 04/12/19 17:42 83yo F PMHx of anxiety, irritable bladder, back pain, recent workup for fall presenting BIBEMS for back pain in setting of no home medications today given AID care without nursing and no medications pre-arranged. Pt denies any changes in her back pain except worsening in the absence of medication. Requesting her home Oxy. No CP, SOB, Nausea / Vomiting, Headache, Cough, Dizziness, Weakness, or urinary complaints. All: NKDA PMH: as above PSH: right breast lumpectomy <Feng Caraballo - Last Filed: 04/12/19 19:53> <Ofelia Everett - Last Filed: 04/12/19 20:13> - General Chief Complaint: Chronic pain Stated Complaint: BACK PAIN Time Seen by Provider: 04/12/19 16:58 Past History - Travel Traveled outside of the country in the last 30 days: No Close contact w/someone who was outside of country & ill: No - Past Medical History Anemia: No Asthma: No Cancer: Yes Cardiac Disorders: Yes (AF) CVA: (TIA's) COPD: No CHF: No Dementia: No Diabetes: No GI Disorders: Yes (diverticulitis) Disorders: Yes (UTI) HTN: No Hypercholesterolemia: No Liver Disease: No Seizures: No Thyroid Disease: No - Surgical History Abdominal Surgery: No Appendectomy: No Cardiac Surgery: No Cholecystectomy: No Lung Surgery: No Neurologic Surgery: No Orthopedic Surgery: No - Family Disease History Family Disease History: CA: Mother (Colon) - Immunization History Immunization Up to Date: No - Suicide/Smoking/Psychosocial Hx Smoking History: Former smoker (Quit 1973; 1.5 ppd x 30 years prior) Have you smoked in the past 12 months: No Hx Alcohol Use: Yes (1-2 cups vodka daily) Drug/Substance Use Hx: No <Feng Caraballo - Last Filed: 04/12/19 19:53> <Ofelia Everett - Last Filed: 04/12/19 20:13> - Past Medical History Allergies/Adverse Reactions: Allergies Allergy/AdvReac Type Severity Reaction Status Date / Time No Known Allergies Allergy Verified 04/12/19 17:01 Home Medications: Ambulatory Orders Lidocaine [Lidocaine Pain Relief] 1 each TP DAILY 01/23/19 Mirabegron [Myrbetriq] 25 mg PO DAILY 01/23/19 Oxycodone HCl 5 mg PO Q6H PRN 01/23/19 Sennosides [Senna] 8.6 mg PO DAILY 01/23/19 Acetaminophen [Pain Relief] 650 mg PO QID 02/23/19 Omeprazole 20 mg PO DAILY 02/23/19 Review of Systems - Review of Systems Able to Perform ROS?: Yes Is the patient limited Green[place]ic proficient: No Constitutional: No: Symptoms Reported HEENTM: No: Symptoms Reported Respiratory: No: Symptoms reported Cardiac (ROS): No: Symptoms Reported ABD/GI: No: Symptoms Reported : No: Symptoms Reported Musculoskeletal: No: Symptoms Reported Integumentary: No: Symptoms Reported Neurological: No: Symptoms reported <Feng Caraballo - Last Filed: 04/12/19 19:53> *Physical Exam - Physical Exam Comments: 04/12/19 18:18 Gen: WDWN, elderly woman laying in bed, anxious CV: RRR, nl s1/s2, no murmurs, good capillary refill Pulm: CTA BL, no wheezes rales or crackles, good air entry, normal WOB Skin: warm and well perfused, no clubbing cyanosis edema, no scars or markings, no signs of recent SQH use Abd: soft, nontender, nondistended Back: no CVA tenderness, diffuse tenderness to light palpation intermittently, no spinal tenderness evident, no scars or rashes, no erythema or ecchymosis Pulses: 2+ radial, 2+ DP <Feng Caraballo - Last Filed: 04/12/19 19:53> - Vital Signs Last Vital Signs Temp Pulse Resp BP Pulse Ox 98.0 F 91 H 20 113/79 97 04/12/19 16:59 04/12/19 16:59 04/12/19 16:59 04/12/19 16:59 04/12/19 16:59 <fOelia Everett - Last Filed: 04/12/19 20:13> ED Treatment Course - Medications Given in the ED: ED Medications Discontinued Medications Generic Name Dose Route Start Last Admin Trade Name Freq PRN Reason Stop Dose Admin Acetaminophen 650 mg 04/12/19 17:30 04/12/19 17:56 Tylenol - PO 04/12/19 17:31 650 mg ONCE ONE Administration Heparin Sodium (Porcine) 5,000 unit 04/12/19 17:32 04/12/19 18:13 Heparin - SQ 04/12/19 17:33 Not Given ONCE ONE Oxycodone HCl 5 mg 04/12/19 17:27 04/12/19 17:56 Roxicodone - PO 04/12/19 17:28 5 mg ONCE ONE Administration Pantoprazole Sodium 40 mg 04/12/19 17:30 04/12/19 17:56 Protonix - PO 04/12/19 17:31 40 mg ONCE ONE Administration Senna 1 tab 04/12/19 22:00 04/12/19 17:56 Senna - PO 1 tab HS VIGNESH Administration <Ofelia Everett - Last Filed: 04/12/19 20:13> Medical Decision Making - Medical Decision Making 04/12/19 18:22 83yo woman with anxiety, urinary incontinence, chronic back pain, prior falls, recently seen last month for back pain after a fall with negative workup presenting with pain in the setting of no medications for one day due to nurse vs aid situation and absence of prearranged medications for AID administration. No clear list of medications available, no clear indication in the chart or recent puncture sites indicative of SQ heparin - not administered. No urinary or bowel complaints. Given home acetaminophen 650mg, oxycodone 5mg, senna, and pantoprazole 40mg (no omeprazole 20 on formulary). Pt without red flags or other concerning symptoms. Pain responding well to home medications. Plan for coordination within the nursing / aid organization to administer home medications tomorrow and avoid future miscommunication. Dispo: home via [facility] 04/12/19 19:53 Pt requesting to go home. Pain is improving. Awaiting [facility]. <Feng Caraballo - Last Filed: 04/12/19 19:53> *DC/Admit/Observation/Transfer - Discharge Dispostion Decision to Admit order: No <Feng Caraballo - Last Filed: 04/12/19 19:53> <Ofelia Everett - Last Filed: 04/12/19 20:13> Diagnosis at time of Disposition: Back pain Qualifiers: Back pain location: low back pain Chronicity: chronic Back pain laterality: unspecified Sciatica presence: without sciatica Qualified Code(s): M54.5 - Low back pain; G89.29 - Other chronic pain - Discharge Dispostion Disposition: HOME Condition at time of disposition: Improved - Patient Instructions Printed Discharge Instructions: DI for Prescription Opioid Use
--- NOTE | 2019-04-12 16:59 | PDOC ---
Attending Attestation - Resident Resident Name: IlyaFeng - ED Attending Attestation I have performed the following: I have examined & evaluated the patient, The case was reviewed & discussed with the resident, I agree w/resident's findings & plan, Exceptions are as noted - HPI HPI: 04/12/19 17:17 this 83-year-old female was brought by ambulance from [address] [place] [address] because of chronic back pain. History of present illness this patient was recently upgraded from independent living to a status requiring an aide to provide greater assistance so personal aide has been assigned to her. The problem is that this aide is not a registered nurse and since the patients medications for pain were not laid out for her ,she could not give them to the patient. She cannot give any pain medications. The patient has been complaining of severe low back pain. Patient states typically she'll take oxycodone for her pain. She has had no falls today or any trauma in the last 24 hours. - Physicial Exam PE: 04/12/19 18:08 alert 83 yo female p/w chronic low back pain head ncat neck supple lungs cta b/l cvs [id number] abd no rebound ext no edema skin warm and dry low back pain ++ in lumbar area(chronic) neuro alert and conversant 04/12/19 18:18 - Medical Decision Making 04/12/19 18:18 pt was given oxycodone that she regularly takes and an ambulance was called to transport her back to [facility]
[2019-04-12 17:01] VITALS: BP 113/79; PULSE 91; TEMP 98; BMI 25.7
[2019-04-12] MEDS ORDERED: oxyCODONE HCL 5 MG TABLET PO ONE (17:27)
[2019-04-12] MEDS ORDERED: ACETAMINOPHEN 325 MG TABLET (FP) PO ONE (17:30)
[2019-04-12] MEDS ORDERED: PANTOPRAZOLE 40 MG TABLET (FP) PO ONE (17:30)
[2019-04-12] MEDS ORDERED: HEPARIN NA (PORCINE) 5,000 UNITS/ML 1ML VIAL SQ ONE (17:32)
[2019-04-12] MEDS ORDERED: PANTOPRAZOLE 40 MG TABLET (FP) ONE (17:44)
[2019-04-12] MEDS ORDERED: ACETAMINOPHEN 325 MG TABLET (FP) ONE (17:44)
[2019-04-12] MEDS ORDERED: oxyCODONE HCL 5 MG TABLET ONE (17:45)
[2019-04-12] MEDS ORDERED: SENNOSIDES 8.6MG TABLET (FP) PO ONE (17:45)
[2019-04-12] MEDS ORDERED: SENNOSIDES 8.6MG TABLET (FP) PO SCH (22:00)
== END 2019-04-12 19:55 | disposition home or self-care (01) ==
LOC: JER 16:50
DX: M54.5 Low back pain (principal); G89.29 Other chronic pain; F41.9 Anxiety disorder, unspecified; Z91.81 History of falling; R32 Unspecified urinary incontinence
CPT/HCPCS: 99282-25

== ENCOUNTER 2019-10-06 10:25 | Emergency (ER) | payer OTHER, MEDICARE ==
[2019-10-06 10:43] VITALS: BMI 22.6
[2019-10-06] MEDS ORDERED: ACETAMINOPHEN 325 MG TABLET (FP) PO ONE (11:14)
--- NOTE | 2019-10-06 11:19 | PDOC ---
History of Present Illness - General Chief Complaint: Injury Stated Complaint: FALL Time Seen by Provider: 10/06/19 10:44 - History of Present Illness Initial Comments: Ms. Mccann is a 84 y/o female with PMH significant for lumbar spinal stenosis , anxiety, ambulatory with walker, presenting today s/p fall. Reports that she was standing in her dining room when she fell backwards. Denies syncope, loss of consciousness, head trauma, palpitations. Reports that she fell onto her back and has some lower back pain. Reports that she has had frequent falls in the past. Not on any blood thinners. Past History - Past Medical History Allergies/Adverse Reactions: Allergies Allergy/AdvReac Type Severity Reaction Status Date / Time No Known Allergies Allergy Verified 04/12/19 17:01 Home Medications: Ambulatory Orders Mirabegron [Myrbetriq] 25 mg PO DAILY 01/23/19 Sennosides [Senna] 8.6 mg PO DAILY 01/23/19 Celecoxib 100 mg PO BID 10/06/19 Fludrocortisone Acetate 0.1 mg PO DAILY 10/06/19 Memantine HCl [Memantine HCl ER] 28 mg PO DAILY 10/06/19 Pantoprazole Sodium 40 mg PO DAILY 10/06/19 Phenelzine Sulfate 15 mg PO TID 10/06/19 Potassium Chloride 20 meq PO BID 10/06/19 Anemia: No Asthma: No Cancer: Yes Cardiac Disorders: Yes (AF) CVA: (TIA's) COPD: No CHF: No Dementia: No Diabetes: No GI Disorders: Yes (diverticulitis) Disorders: Yes (UTI) HTN: No Hypercholesterolemia: No Liver Disease: No Seizures: No Thyroid Disease: No - Surgical History Abdominal Surgery: No Appendectomy: No Cardiac Surgery: No Cholecystectomy: No Lung Surgery: No Neurologic Surgery: No Orthopedic Surgery: No - Immunization History Immunization Up to Date: No - Psycho Social/Smoking Cessation Hx Smoking History: Former smoker Have you smoked in the past 12 months: No Information on smoking cessation initiated: No Hx Alcohol Use: No Drug/Substance Use Hx: No Review of Systems - Review of Systems Comments:: GENERAL/CONSTITUTIONAL: No fever or chills. No weakness._ HEAD, EYES, EARS, NOSE AND THROAT: No change in vision. No change in hearing. No sore throat._ CARDIOVASCULAR: No chest pain or shortness of breath_ RESPIRATORY: Denies cough, hemoptysis_ GASTROINTESTINAL: No nausea, vomiting, diarrhea or constipation._ GENITOURINARY: Reports dysuria and frequency. MUSCULOSKELETAL: No joint or muscle swelling or pain. No neck. Reports lower back pain. SKIN: No rash_ NEUROLOGIC: No headache, vertigo, loss of consciousness, or change in strength/ sensation._ ENDOCRINE: No increased thirst. No abnormal weight change_ HEMATOLOGIC/LYMPHATIC: No anemia, easy bleeding, or history of blood clots._ ALLERGIC/IMMUNOLOGIC: No hives or skin allergy._ *Physical Exam - Vital Signs Last Vital Signs Temp Pulse Resp BP Pulse Ox 97.9 F 54 L 18 95/64 96 10/06/19 10:40 10/06/19 10:40 10/06/19 10:40 10/06/19 10:40 10/06/19 10:40 - Physical Exam GENERAL: Awake, alert, and oriented to person/place/time, in no acute distress_ HEAD: No signs of trauma, normoc ephalic, atraumatic _ EYES: PERRLA, EOMI, sclera anicteric, conjunctiva clear_ ENT: Hearing grossly normal, nares patent, oropharynx clear without exudates. No uvular deviation. Moist mucosa_ NECK: Normal ROM, supple, no lymphadenopathy, JVD, or masses_ LUNGS: No distress, speaks in full sentences, clear to auscultation bilaterally _ HEART: Regular rate and rhythm, normal S1 and S2, no murmurs appreciated, peripheral pulses normal and equal bilaterally._ ABDOMEN: Soft, nontender, normoactive bowel sounds. No guarding, no rebound. No masses_ BACK: Reports lumbar TTP, no bruising or injuries noted. EXTREMITIES: Normal inspection, Normal range of motion, no edema. No clubbing or cyanosis_ NEUROLOGICAL: CN II-XII tested and intact. Sensation intact to sharp/dull differentiation in all extremities. Motor: Normal tone and bulk. No abnormal movements appreciated. No pronator drift. Strength tested and 5/5 in bilateral wrist flexion/extension, elbow flexion/extension, shoulder abduction, straight leg raise, knee flexion/ extension, ankle dorsiflexion/plantarflexion. Patient ambulates with a steady gait. Coordination: Finger to nose and heel to granados testing intact bilaterally. SKIN: Warm, Dry, normal turgor, no rashes or lesions noted_ ED Treatment Course - RADIOLOGY Radiology Studies Ordered: Category Date Time Status CERVICAL SPINE CT W/O CONTR [CT] Stat CT Scan 10/06/19 10:[address] WITHOUT CONTRAST [CT] Stat CT Scan 10/06/19 10:54 Ordered CHEST X-RAY PORTABLE* [RAD] Stat Radiology 10/06/19 10:55 Taken Medical Decision Making - Medical Decision Making 10/06/19 11:18 84F presenting s/p fall backwards. D/w the shelter who provided the same story. -ct head, c-spine, L-spine -XR bilateral hips/pelvis -tylenol 10/06/19 13:20 CXR shows no acute intrathoracic process. 10/06/19 13:45 Pt reassessed. Able to ambulate bedside. 10/06/19 14:41 CT images reviewed. no acute fracture or subluxation. Small nodule noted on the thyroid and on the lung. Discussed with the patient the importance of PCP f/u for further work up. XR shows no hip fracture or dislocation. Plan to d/c home with PCP f/u. D/w the patient who verbalized understanding and agreement with the plan. All questions answered. Return precautions given. Discharge - Discharge Information Problems reviewed: Yes Clinical Impression/Diagnosis: Fall Qualifiers: Encounter type: initial encounter Qualified Code(s): W19.XXXA - Unspecified fall, initial encounter Condition: Stable Disposition: HOME - Admission No - Follow up/Referral Referrals: Sean Oneill MD [Primary Care Provider] - - Patient Discharge Instructions Additional Instructions: Please return to the emergency department with any new or worsening symptoms or concerns. Please follow up with your primary care physician within 72 hours. Please follow up with your primary care physician for findings on your CT report (Right sided thyroid lobe and Right sided pulmonary nodule) as discussed in the emergency department (10/06/18). - Post Discharge Activity
--- NOTE | 2019-10-06 11:31 | PDOC ---
Documentation entered by Nicanor Good SCRIBE, acting as scribe for Jason Escobar MD. Jason Escobar MD: This documentation has been prepared by the Florentino adam Xhesika, SCRIBE, under my direction and personally reviewed by me in its entirety. I confirm that the documentation accurately reflects all work, treatment, procedures, and medical decision making performed by me. Attending Attestation - Resident Resident Name: Chito Alberto - ED Attending Attestation I have performed the following: I have examined & evaluated the patient, The case was reviewed & discussed with the resident, I agree w/resident's findings & plan, Exceptions are as noted - HPI HPI: 10/06/19 11:03 The patient is an 84 year old female, with a significant PMH of chronic back pain, anxiety, and hyperactive bladder, who presents to the emergency department [facility] from [address] [place] [address] with mid-lower back pain s/p fall. Pt reports she was standing, walking, tripped and fell backwards. Pt denies hitting head or LOC. Pt notes after her fall she crawled back to her bed because it hurt her back to stand up. Pt denies ay lightheadedness or LOC. The patient denies chest pain, shortness of breath, headache and dizziness. Denies fever, chills, cough, nausea, vomiting, diarrhea and constipation. Denies dysuria, frequency, urgency and hematuria. Allergies: NKDA PCP: Dr. Oneill - Physicial Exam PE: 10/06/19 11:04 GENERAL: Awake, alert, and fully oriented, in no acute distress. HEAD: No signs of trauma EYES: PERRLA, EOMI, sclera anicteric, conjunctiva clear ENT: Auricles normal inspection, hearing grossly normal, nares patent, oropharynx clear without exudates. Moist mucosa NECK: Nontender, no stepoffs, Normal ROM, supple, no lymphadenopathy, JVD, or masses LUNGS: Breath sounds equal, clear to auscultation bilaterally. No wheezes, and no crackles HEART: Regular rate and rhythm, normal S1 and S2, no murmurs, rubs or gallops ABDOMEN: Soft, nontender, normoactive bowel sounds. No guarding, no rebound. No masses EXTREMITIES: Normal range of motion, no edema. No clubbing or cyanosis. No cords, erythema, or tenderness NEUROLOGICAL: Cranial nerves II through XII intact. 5/5 strength and sensation in all extremities, Normal speech, normal gait, normal cerebellar function SKIN: Warm, Dry, normal turgor, no rashes or lesions noted. BACK: + lumbar TTP, no stepoffs - Medical Decision Making 10/06/19 11:33 84 F with mechanical fall. - CT head/c-spine/l-spine - XR hip/pelvis - Tylenol 10/06/19 14:39 CTs and XRs negative for acute process Pt ambulatory in ED without assistance. Pt informed of incidental nodules (thyroid and lung) and instructed to f/u with PCP Pt is well appearing, with normal vitals. Clinically stable for DC at this time. I discussed the physical exam findings, ancillary test results and final diagnoses with the patient. I answered all of the patient's questions. The patient was satisfied with the care received and felt comfortable with the discharge plan and treatment plan. The patient agrees to follow up with the primary care physician within 24-72 hours.
[2019-10-06] MEDS ORDERED: ACETAMINOPHEN 325 MG TABLET (FP) ONE (11:34)
[2019-10-06 15:40] VITALS: BP 98/52; PULSE 68
[2019-10-06 15:44] VITALS: TEMP 97.7
== END 2019-10-06 16:18 ==
LOC: JER 10:25
DX: M54.5 Low back pain (principal); W18.39XA Other fall on same level, initial encounter; Y93.89 Activity, other specified; Y92.122 Bedroom in nursing home as the place of occurrence of the external cause; Y99.8 Other external cause status; M48.061 Spinal stenosis, lumbar region without neurogenic claudication; F41.9 Anxiety disorder, unspecified; I48.91 Unspecified atrial fibrillation; Z86.73 Personal history of transient ischemic attack (TIA), and cerebral infarction without residual deficits; Z87.448 Personal history of other diseases of urinary system; Z87.19 Personal history of other diseases of the digestive system; Z87.891 Personal history of nicotine dependence; Z99.89 Dependence on other enabling machines and devices
CPT/HCPCS: 70450-TC; 71045-TC-FY; 72125-TC; 72128-TC; 72131-TC; 73523-TC-FY; 99282-25

== ENCOUNTER 2019-10-24 12:08 | Emergency (ER) | payer OTHER, MEDICARE ==
--- NOTE | 2019-10-24 12:22 | PDOC ---
History of Present Illness - General Chief Complaint: Injury Stated Complaint: FALL Time Seen by Provider: 10/24/19 12:22 History Source: Patient Exam Limitations: No Limitations - History of Present Illness Initial Comments: 10/24/19 12:23 84yF w PMHx significant for lumbar spinal stenosis, hypotension, chronic back pain, irritable bowel, syncope, a fib, anxiety, ambulatory with walker, presenting from [facility] with low back pain s/p fall. At undetermined time this morning, pt was getting out of bed, fell backwards w subsequent diffuse lumbar/sacral back pain. Cannot recall how long she was down before staff found her. Denies head trauma, LOC, headache, vision change, nausea/vomiting, chest pain, SOB, ABD pain, urinary/bowel mvnt changes, extremity weakness/numbness. Last seen 10/06/19 for fall, negative syncope workup Past History - Past Medical History Allergies/Adverse Reactions: Allergies Allergy/AdvReac Type Severity Reaction Status Date / Time No Known Allergies Allergy Verified 04/12/19 17:01 Home Medications: Ambulatory Orders Mirabegron [Myrbetriq] 25 mg PO DAILY 01/23/19 Sennosides [Senna] 8.6 mg PO DAILY 01/23/19 Celecoxib 100 mg PO BID 10/06/19 Fludrocortisone Acetate 0.1 mg PO DAILY 10/06/19 Memantine HCl [Memantine HCl ER] 28 mg PO DAILY 10/06/19 Pantoprazole Sodium 40 mg PO DAILY 10/06/19 Phenelzine Sulfate 15 mg PO TID 10/06/19 Potassium Chloride 20 meq PO BID 10/06/19 Cephalexin [Keflex] 500 mg PO QID 7 Days #28 capsule 10/24/19 Anemia: No Asthma: No Cancer: Yes Cardiac Disorders: Yes (AF) CVA: (TIA's) COPD: No CHF: No Dementia: No Diabetes: No GI Disorders: Yes (diverticulitis) Disorders: Yes (UTI) HTN: No Hypercholesterolemia: No Liver Disease: No Seizures: No Thyroid Disease: No - Surgical History Abdominal Surgery: No Appendectomy: No Cardiac Surgery: No Cholecystectomy: No Lung Surgery: No Neurologic Surgery: No Orthopedic Surgery: No - Immunization History Immunization Up to Date: No - Psycho Social/Smoking Cessation Hx Smoking History: Former smoker Have you smoked in the past 12 months: No Hx Alcohol Use: No Drug/Substance Use Hx: No Review of Systems - Review of Systems Able to Perform ROS?: Yes Constitutional: No: Chills, Fever HEENTM: No: Eye Pain, Recent change in vision, Nose Pain, Throat Pain Respiratory: No: Cough, Shortness of Breath Cardiac (ROS): No: Chest Pain, Palpitations, Syncope ABD/GI: No: Abdominal Distended, Constipated, Diarrhea, Nausea, Vomiting : No: Burning, Dysuria Musculoskeletal: Yes: Back Pain. No: Joint Pain Integumentary: No: Bruising, Flushing Neurological: No: Headache, Seizure Psychiatric: No: Anxiety, Depression Endocrine: No: Excessive Sweating, Intolerance to Cold, Intolerance to Heat Hematologic/Lymphatic: No: Anemia, Blood Clots *Physical Exam - Physical Exam General Appearance: Yes: Nourished, Appropriately Dressed, Mild Distress HEENT: positive: EOMI, EVONNE, Normal Voice, Hearing Grossly Normal. negative: Scleral Icterus (R), Scleral Icterus (L) Neck: positive: Supple. negative: Tender, Rigid Respiratory/Chest: positive: Lungs Clear, Normal Breath Sounds. negative: Chest Tender, Respiratory Distress, Crackles, Rales, Rhonchi, Stridor, Wheezing Cardiovascular: positive: Regular Rhythm, Regular Rate, S1, S2. negative: Edema , Murmur Gastrointestinal/Abdominal: positive: Normal Bowel Sounds, Flat, Soft. negative : Tender, Organomegaly Musculoskeletal: positive: Vertebral Tenderness (lumbar/sacral midline+ paraspinal mild tenderness), Other (pelvis stable, non tender, no midline stepoffs/deformities) Extremity: positive: Delayed Capillary Refill Integumentary: positive: Normal Color, Dry. negative: Rash, Swelling, Bruising Neurologic: positive: ply bander II-XII NML intact, Alert, Normal Mood/Affect, Normal Response, Respond to painful stimul, Responsive. negative: Fully Oriented (AOx2 ), Motor Strength 5/5 (4/5 throughout), Numbness, Sensory Deficit ED Treatment Course - LABORATORY CBC & Chemistry Diagram: 10/24/19 12:50 10/24/19 12:50 Medical Decision Making - Medical Decision Making 10/24/19 12:41 Head/c-spine CT CXR Lumbar/sacral/pelvis XR EKG NSR, L axis deviation, no ST changes, HR 64, QTc 449 --- 84yF w PMHx significant for lumbar spinal stenosis, chronic back pain, hypotension. irritable bowel, syncope, a fib, anxiety, ambulatory with walker, presenting from [facility] with low back pain s/p fall d/t UTI. Low concern for ACS (neg trop, NSR EKG) vs CVA (no focal neuro deficits) vs hypoglycemia (BG 92). Low BP 90/60 consistent with previous admissions. No acute bleed/infarct/fracture/mass/subluxation on imaging. 1.7cm R thyroid nodule visualized on CT. Given 2 morphine, tylenol, 1L NS, keflex, toradol DC home w keflex, neuro f/u, PCP for R thyroid nodule Discharge - Discharge Information Problems reviewed: Yes Clinical Impression/Diagnosis: UTI (urinary tract infection) Condition: Stable Disposition: HOME - Admission No - Additional Discharge Information Prescriptions: Cephalexin [Keflex] 500 mg PO QID 7 Days #28 capsule - Follow up/Referral Referrals: Avtar Otoole MD [Staff Physician] - - Patient Discharge Instructions Patient Printed Discharge Instructions: How to Prevent Falls Additional Instructions: Follow up with a neurologist regarding Soraya's mental status Follow up with a primary care doctor regarding the visualized right thyroid nodule Take the prescribed keflex as directed Come back if she falls, hits her head, becomes lethargic, trouble breathing, or has chest pain - Post Discharge Activity
[2019-10-24] MEDS ORDERED: morphine CARPU-JECT 4 MG/1 ML DISP.SYRIN IVPUSH ONE (12:37)
[2019-10-24] MEDS ORDERED: SODIUM CHLORIDE 0.9% 500 ML INFUS.BAG IV ONE ×3 (12:42→14:57)
[2019-10-24 12:48] VITALS: BMI 24.7
[2019-10-24] MEDS ORDERED: morphine SULFATE 4 MG/ML VIAL ONE (12:56)
[2019-10-24 13:19] LABS: BASO % 0.4 % (0-2.0); EOS % 1.5 % (0-4.5); HEMATOCRIT 35.2 % (32.4-45.2); HEMOGLOBIN 11.4 GM/dL (10.7-15.3); LYMPH % 18.8 % (8-40); MCH 27.6 pg (25.7-33.7); MCHC 32.4 g/dl (32.0-36.0); MEAN CELL VOLUME 85.3 fl (80-96); MEAN PLT VOLUME 8.6 fl (7.5-11.1); MONO % 5.6 % (3.8-10.2); NEUT % 73.7 % (42.8-82.8); PLATELET COUNT 288 K/MM3 (134-434); RBC 4.13 M/mm3 (3.60-5.2); RDW 14.9 % (11.6-15.6); WHITE BLOOD COUNT 7.2 K/mm3 (4.0-10.0)
[2019-10-24 13:40] LABS: EPI CELLS 0.5 /HPF (0-5/HPF); HYALINE CASTS 56 /lpf (0-8); URINE APPEARANCE CLOUDY; URINE BACTERIA >9000 /hpf (NEGATIVE); URINE BILIRUBIN NEGATIVE (NEGATIVE); URINE COLOR YELLOW; URINE GLUCOSE (UA) NEGATIVE (NEGATIVE); URINE KETONE NEGATIVE (NEGATIVE); URINE LEUK ESTERASE 2+ (NEGATIVE); URINE NITRITE POSITIVE (NEGATIVE); URINE PROTEIN NEGATIVE (NEGATIVE); URINE RBC 2 /hpf (0-4); URINE UROBILINOGEN 0.2 mg/dL (0.2-1.0); URINE WBC 140 /hpf (0-5)
[2019-10-24 14:16] LABS: ALBUMIN 3.4 g/dl (3.4-5.0); ALK PHOS 121 U/L (45-117); ANION GAP 6 MMOL/L (8-16); BILIRUBIN,TOTAL 0.4 mg/dL (0.2-1); BLOOD UREA NITROGEN 20.9 mg/dL (7-18); CALCIUM 9.2 mg/dL (8.5-10.1); CHLORIDE 111 mmol/L (98-107); CO2 22 mmol/L (21-32); CREATININE 0.9 mg/dL (0.55-1.3); GLUCOSE,RANDOM 92 mg/dL (74-106); POTASSIUM 4.7 mmol/L (3.5-5.1); SGOT/AST 12 U/L (15-37); SGPT/ALT 10 U/L (13-61); SODIUM 139 mmol/L (136-145); TOT PROT 6.1 g/dl (6.4-8.2)
[2019-10-24] MEDS ORDERED: CEPHALEXIN MONOHYDRATE 500 MG CAPSULE (UD) PO ONE (14:50)
[2019-10-24] MEDS ORDERED: ACETAMINOPHEN 500 MG TABLET (FP) PO ONE (14:52)
[2019-10-24] MEDS ORDERED: CEPHALEXIN MONOHYDRATE 500 MG CAPSULE (UD) ONE (15:33)
[2019-10-24] MEDS ORDERED: ACETAMINOPHEN 325 MG TABLET (FP) ONE (15:33)
--- NOTE | 2019-10-24 15:55 | PDOC ---
Attending Attestation - Resident Resident Name: Dominguez Gross - HPI HPI: 10/24/19 15:45 pt presents to the Ed complaining of back pain and R arm pain after apparently mechanical trip and fall. Denies LOC, chest or abdominal pain. Unable to ambulate after the fall. - Physicial Exam PE: 10/24/19 15:47 Agree with resident exam. Patient is alert and oriented and in no acute distress. HEENT: normocephalic, atraumatic. CV: rrr no m/r/g Pulm: CTA b/l abdomen: soft, non tender, non distended without guarding or rebound. 10/24/19 15:47 - Medical Decision Making 10/24/19 15:49 Pt presents to the ED complaining of apparently mechanical fall. Recently admitted for similar fall with negative syncope work up. Blood pressure is low in the ED, although patient has chronically low bp. Ct head and C spine checked to rule out intracranial or cervical spinal injury and are negative. Will treat UTI with antibiotics. Will check lactate to evaluate for sepsis. Will reassess.
[2019-10-24] MEDS ORDERED: KETOROLAC TROMETHAMINE 30 MG/1 ML VIAL IVPUSH ONE (16:22)
[2019-10-24] MEDS ORDERED: KETOROLAC TROMETHAMINE 30 MG/1 ML VIAL ONE (16:37)
[2019-10-24 19:26] VITALS: BP 110/64; PULSE 67; TEMP 98.1
--- NOTE | 2019-10-25 14:34 | EKG ---
Test Reason : Blood Pressure : / mmHG Vent. Rate : 064 BPM Atrial Rate : 064 BPM P-R Int : 176 ms QRS Dur : 088 ms QT Int : 436 ms P-R-T Axes : 046 -33 062 degrees QTc Int : 449 ms NORMAL SINUS RHYTHM LEFT AXIS DEVIATION NONSPECIFIC T WAVE ABNORMALITY ABNORMAL ECG Confirmed by MD YVONNE, SHERIF ([id number]) on 10/25/2019 2:34:16 PM Referred By: Confirmed By:SHERIF RUSSELL MD
== END 2019-10-24 19:25 ==
LOC: SUPCPDRO 12:08 → JER 12:08
PROC: 3E033NZ Introduction of Analgesics, Hypnotics, Sedatives into Peripheral Vein, Percutaneous Approach (ICD-10-PCS; principal; 2019-10-24)
PROC: 3E0333Z Introduction of Anti-inflammatory into Peripheral Vein, Percutaneous Approach (ICD-10-PCS; 2019-10-24)
DX: N39.0 Urinary tract infection, site not specified (principal); M54.5 Low back pain; W06.XXXA Fall from bed, initial encounter; Y93.89 Activity, other specified; Y92.122 Bedroom in nursing home as the place of occurrence of the external cause; Y99.8 Other external cause status; I95.9 Hypotension, unspecified; I48.91 Unspecified atrial fibrillation; F41.9 Anxiety disorder, unspecified; M48.061 Spinal stenosis, lumbar region without neurogenic claudication; Z99.89 Dependence on other enabling machines and devices
CPT/HCPCS: 36415; 70450-TC; 71045-TC-FY; 72100-TC-FY; 72125-TC; 72170-TC-FY; 80053; 81003; 82550; 83605; 84484; 85025; 87086; 87186; 93005; 93010; 96374; 96375; 99284-25

== ENCOUNTER 2019-10-30 22:25 | Emergency (ER) | payer OTHER, MEDICARE ==
[2019-10-30 22:42] VITALS: BMI 27.4
--- NOTE | 2019-10-30 22:45 | PDOC ---
History of Present Illness <Augusta Abdi - Last Filed: 10/31/19 02:04> - History of Present Illness Initial Comments: HPI: 84yo F with PMH of lumbar spine stenosis, chronic back pain, hypotension, irritable bowel, syncope, Afib, anxiety set by [facility] for evaluation after a fall. Patient states she was in bed when she was reaching for an object on her nightstand that was too far away. She fell out of bed and landed on the floor. Remembers the entire episode. No loss of consciousness, nausea, or vomiting. She pushed her help button and was attended to by staff. Per chart review, this is patient's third fall in the past month. Last fall about four days ago with lab workup benign with the exception of a UTI. Patient reports back pain at baseline. No fevers, chills, chest pain, or shortness of breath. ROS: Constitutional: no fever, no chills HEENT: no throat pain, no dysphagia Cardiovascular: no chest pain, no palpitations Respiratory: no cough, no shortness of breath Gastrointestinal: no abdominal pain, no nausea Genitourinary: no dysuria, no hematuria Musculoskeletal: no myalgia, no arthralgia Skin: no rash, no itching Neurologic: no headache, no weakness Psych: no agitation, no anxiety PE: General: Awake, alert, and fully oriented x 3, in no acute distress Head: No signs of trauma Eyes: EOMI, sclera anicteric ENT: Moist mucus membranes Neck: Normal ROM, supple Lungs: Lungs clear, Normal breath sounds Cardio: Regular rhythm, S1 and S2 present Abdomen: Soft, nontender. No guarding, no rebound, no masses Extremities: Normal range of motion, Distal pulses present SKIN: Warm, Dry, normal turgor Neurologic: Cranial nerves II through XII intact. Normal speech, sensation, strength, coordination. Deferred gait eam Back: Tender to palpation in thoracic and sacral area, midline, no step-offs/ deformities/fluctuance; no overlying wound or lesion; negative straight leg test bilaterally ED Course/MDM: DDX including but not limited to mechanical fall, syncope, ACS, anemia, metabolic derangement CT Head CT Cspine, Tspine, Lspine CT Pelvis 975mg tylenol 10/30/19 22:45 Spoke with Sergei at [facility] 3rd floor nurses station Patient was found on the floor by side of bed Fell around 8:35pm, staff heard the call button At baseline, can be confused 10/30/19 23:11 Call to [facility], ext [phone], went to voicemail 10/31/19 03:31 CT Head: " EXAM#: TYPE/EXAM: RESULT: CT/HEAD CT WITHOUT CONTRAST Status post fall. Rule out bleed CT scan of the head without intravenous contrast. Compared to prior examination dated 10/24/2019 There is moderate atrophy and ventricular dilatation. Moderate periventricular chronic microvascular ischemic disease changes are present. Focal encephalomalacia again seen in the right frontal lobe, anteriorly. No mass lesion, gross acute infarct or intracranial hemorrhage are identified. There is no shift of the midline structures. The calvarium is intact Impression: No significant interval change or acute intracranial pathology is identified Reported By: Tanya Goff MD 10/31/19 0811 " CT Facial Bones: " EXAM#: TYPE/EXAM: RESULT: [id number] CT/FACIAL BONES CT W/O CONTRAST Status post fall. Right eyelid swelling. CT scan of the facial bones without intravenous contrast. Coronal and sagittal reconstruction images were obtained. No gross fracture is identified. There is mild right periorbital soft tissue swelling, mainly laterally. Both orbits are intact . Bilateral upper neck and submandibular subcentimeter lymph nodes are present which are nonspecific .Mild degenerative changes in the left temporomandibular joint. IMPRESSION: Mild right periorbital soft tissue swelling , mainly laterally. No gross fracture is identified. Both orbits and their intracranial contents appear unremarkable A preliminary report was forwarded by the [facility] service, IMAGING CRITICAL CARE PHYSICIAN Reported By: Tanya Goff MD 10/31/19 1006 " CT C/T/L-Spine/Pelvis: "EXAM#: TYPE/EXAM: RESULT: [id number] CT/CERVICAL SPINE CT W/O CONTR [id number] CT/THORACIC SPINE CT W/O CONTRAST [id number] CT/LUMBAR SPINE CT W/O CONTRAST [id number] CT/PELVIS CT WITHOUT CONTRAST ADDENDUM ADDENDUM #1 Addendum: Case discussed with Dr. Medley, caring attending physician ORIGINAL REPORT Status post fall. Rule out fracture CT scan of the cervical spine without intravenous contrast Coronal and sagittal reconstruction images were obtained. Compared to prior CT scan of the cervical spine dated 10/24/2019 No gross fracture, subluxation or prevertebral soft tissue swelling is seen. No jumped facets are identified. Moderate degenerative disc disease from C4 down to T1 level. Multilevel mild disc osteophyte complex that is most prominent at C6-C7 level as well as bilateral uncovertebral hypertrophy moderately narrowing the left foramen at C5-C6 level and moderately narrowing the foramina at C6-C7 level. Visualized portion of the airway appears unremarkable. No gross enlarged lymph nodes are identified. Lung windows at the thoracic inlet Estrace 2 adjacent tiny pleural-based nodules in the right lung apex, posteriorly measuring approximately 3 mm each which are nonspecific. 1.7 cm low- attenuation nodule in the right thyroid lobe IMPRESSION : The alignment is satisfactory. No gross fracture or subluxation is seen. No jumped facets are identified. Multilevel moderate degenerative disc disease, mild disc osteophyte complex and bilateral uncovertebral hypertrophy, as described above. 1.7 cm low-attenuation right thyroid lobe nodule for which a nonemergent thyroid ultrasound is needed. CT scan of the thoracic spine without intravenous contrast Contiguous axial scans were obtained followed with coronal and sagittal reconstruction images. Compared to prior CT scan of the thoracic spine dated 10/06/2019 There is a lucent line in upper third of T12 vertebral body consistent with a lucent fracture with minimal retropulsion of its posterior/superior margin and without gross compromise of the spinal canal. No other gross fracture or subluxation are identified. Intravertebral disc spaces appear intact. Multilevel prominent anterior bridging osteophytes are present No gross paraspinal soft tissue mass is seen. Aneurysmal dilatation of the ascending aorta measuring 4.1 cm in AP dimension. In the included portion of the lung, there is an approximately 10 x 8 mm nodule in the right upper lobe, posteriorly abutting the fissure, axial image #41. Another adjacent nodular density is present measuring 7.5 mm. Pleural-based nodule in the superior segment of the left lower lobe measuring 7 mm. Partially included nodule in the right middle lobe measuring 5.5 mm. There is suggestion of mild COPD changes. IMPRESSION: Mild compression/nondisplaced fracture in the upper third of T12 vertebral body without compromise of the spinal canal. No other gross compression fracture or subluxation are identified. Prominent anterior bridging osteophytes are present. Mild aneurysmal dilatation of the ascending aorta measuring 4.1 cm in AP dimension. No gross enlarged mediastinal or hilar lymph nodes are identified. Multiple nodules in included portion of the lung for which a CT scan of the chest is needed for further evaluation. CT scan of the lumbar spine without intravenous contrast. Coronal and sagittal reconstruction images were obtained. Compared to prior CT scan of the lumbar spine dated 2019 The height and alignment of the vertebral bodies appear unremarkable without gross evidence of a compression fracture or subluxation. A horizontal lucent line with mild compression of T12 vertebral body again seen compatible with a recent fracture, acute versus subacute with minimal retropulsion of its posterior/superior margin and without compromise of the spinal canal. A slightly displaced fracture at the junction of S1 and S2 is again seen, of indeterminate age. Moderate degenerative disc disease mainly at L2-L3 and L4-L5 level. There is mild levoscoliosis of the lumbar spine No paraspinal soft tissue mass is seen. Note is made of a 1.7 cm focal low-attenuation density in the right hepatic lobe likely representing a cyst. Multiple diverticula in included portion of the sigmoid colon without evidence of acute diverticulitis. Impression: See discussion above. Recent mild compression fracture of T12 again seen. A slightly displaced fracture at the junction of S1 and S2, of indeterminate age, unchanged since the prior examination. 1.7 cm right hepatic low-attenuation lesion likely representing a cyst. Diverticulosis coli in the included the sigmoid colon without evidence of acute diverticulitis CT scan of the pelvis without intravenous contrast Axial images were obtained from above the level of the iliac crest down to below the level of both hip joints. A fracture at the junction of S1 and S2 with mild displacement is again seen, of indeterminate age. Degenerative changes in the included lower lumbar spine. Both hip joints appear to be intact without evidence of an acute fracture or dislocation. Soft tissue of the included lower abdomen and pelvis demonstrates a few tiny gallstones layering posteriorly with a slightly over distended gallbladder measuring 8.2 cm in sagittal length. A small left renal parapelvic cyst is present. Diverticulosis coli in the distal descending and sigmoid colon without evidence of acute diverticulitis. Nonvisualization of the uterus likely status post hysterectomy. Impression: See discussion above. Both hip joints are intact. A preliminary report was forwarded by the [facility] service, IMAGING CRITICAL CARE PHYSICIAN Reported By: Tanya Goff MD 10/31/19 1417 Status post fall. Rule out fracture CT scan of the cervical spine without intravenous contrast Coronal and sagittal reconstruction images were obtained. Compared to prior CT scan of the cervical spine dated 10/24/2019 No gross fracture, subluxation or prevertebral soft tissue swelling is seen. No jumped facets are identified. Moderate degenerative disc disease from C4 down to T1 level. Multilevel mild disc osteophyte complex that is most prominent at C6-C7 level as well as bilateral uncovertebral hypertrophy moderately narrowing the left foramen at C5-C6 level and moderately narrowing the foramina at C6-C7 level. Visualized portion of the airway appears unremarkable. No gross enlarged lymph nodes are identified. Lung windows at the thoracic inlet Estrace 2 adjacent tiny pleural-based nodules in the right lung apex, posteriorly measuring approximately 3 mm each which are nonspecific. 1.7 cm low- attenuation nodule in the right thyroid lobe IMPRESSION : The alignment is satisfactory. No gross fracture or subluxation is seen. No jumped facets are identified. Multilevel moderate degenerative disc disease, mild disc osteophyte complex and bilateral uncovertebral hypertrophy, as described above. 1.7 cm low-attenuation right thyroid lobe nodule for which a nonemergent thyroid ultrasound is needed. CT scan of the thoracic spine without intravenous contrast Contiguous axial scans were obtained followed with coronal and sagittal reconstruction images. Compared to prior CT scan of the thoracic spine dated 10/06/2019 There is a lucent line in upper third of T12 vertebral body consistent with a lucent fracture with minimal retropulsion of its posterior/superior margin and without gross compromise of the spinal canal. No other gross fracture or subluxation are identified. Intravertebral disc spaces appear intact. Multilevel prominent anterior bridging osteophytes are present No gross paraspinal soft tissue mass is seen. Aneurysmal dilatation of the ascending aorta measuring 4.1 cm in AP dimension. In the included portion of the lung, there is an approximately 10 x 8 mm nodule in the right upper lobe, posteriorly abutting the fissure, axial image #41. Another adjacent nodular density is present measuring 7.5 mm. Pleural-based nodule in the superior segment of the left lower lobe measuring 7 mm. Partially included nodule in the right middle lobe measuring 5.5 mm. There is suggestion of mild COPD changes. IMPRESSION: Mild compression/nondisplaced fracture in the upper third of T12 vertebral body without compromise of the spinal canal. No other gross compression fracture or subluxation are identified. Prominent anterior bridging osteophytes are present. Mild aneurysmal dilatation of the ascending aorta measuring 4.1 cm in AP dimension. No gross enlarged mediastinal or hilar lymph nodes are identified. Multiple nodules in included portion of the lung for which a CT scan of the chest is needed for further evaluation. CT scan of the lumbar spine without intravenous contrast. Coronal and sagittal reconstruction images were obtained. Compared to prior CT scan of the lumbar spine dated 2019 The height and alignment of the vertebral bodies appear unremarkable without gross evidence of a compression fracture or subluxation. A horizontal lucent line with mild compression of T12 vertebral body again seen compatible with a recent fracture, acute versus subacute with minimal retropulsion of its posterior/superior margin and without compromise of the spinal canal. A slightly displaced fracture at the junction of S1 and S2 is again seen, of indeterminate age. Moderate degenerative disc disease mainly at L2-L3 and L4-L5 level. There is mild levoscoliosis of the lumbar spine No paraspinal soft tissue mass is seen. Note is made of a 1.7 cm focal low-attenuation density in the right hepatic lobe likely representing a cyst. Multiple diverticula in included portion of the sigmoid colon without evidence of acute diverticulitis. Impression: See discussion above. Recent mild compression fracture of T12 again seen. A slightly displaced fracture at the junction of S1 and S2, of indeterminate age, unchanged since the prior examination. 1.7 cm right hepatic low-attenuation lesion likely representing a cyst. Diverticulosis coli in the included the sigmoid colon without evidence of acute diverticulitis CT scan of the pelvis without intravenous contrast Axial images were obtained from above the level of the iliac crest down to below the level of both hip joints. A fracture at the junction of S1 and S2 with mild displacement is again seen, of indeterminate age. Degenerative changes in the included lower lumbar spine. Both hip joints appear to be intact without evidence of an acute fracture or dislocation. Soft tissue of the included lower abdomen and pelvis demonstrates a few tiny gallstones layering posteriorly with a slightly over distended gallbladder measuring 8.2 cm in sagittal length. A small left renal parapelvic cyst is present. Diverticulosis coli in the distal descending and sigmoid colon without evidence of acute diverticulitis. Nonvisualization of the uterus likely status post hysterectomy. Impression: See discussion above. Both hip joints are intact. A preliminary report was forwarded by the [facility] service, IMAGING CRITICAL CARE PHYSICIAN Reported By: Tanya Goff MD 10/31/19 1032 " <Maryam Byrd - Last Filed: 10/31/19 20:13> - General Chief Complaint: Injury Stated Complaint: FELL Time Seen by Provider: 10/30/19 22:44 Past History <Augusta Abdi - Last Filed: 10/31/19 02:04> - Past Medical History Anemia: No Asthma: No Cancer: Yes Cardiac Disorders: Yes (AF) CVA: (TIA's) COPD: No CHF: No Dementia: No Diabetes: No GI Disorders: Yes (diverticulitis) Disorders: Yes (UTI) HTN: No Hypercholesterolemia: No Liver Disease: No Psychiatric Problems: Yes (Depression) Seizures: No Thyroid Disease: No - Surgical History Abdominal Surgery: No Appendectomy: No Cardiac Surgery: No Cholecystectomy: No Lung Surgery: No Neurologic Surgery: No Orthopedic Surgery: No - Immunization History Immunization Up to Date: No - Psycho Social/Smoking Cessation Hx Smoking History: Unknown if ever smoked Have you smoked in the past 12 months: No Information on smoking cessation initiated: No Hx Alcohol Use: No Drug/Substance Use Hx: No <Maryam Byrd - Last Filed: 10/31/19 20:13> - Past Medical History Allergies/Adverse Reactions: Allergies Allergy/AdvReac Type Severity Reaction Status Date / Time No Known Allergies Allergy Verified 10/30/19 22:39 Home Medications: Ambulatory Orders Mirabegron [Myrbetriq] 25 mg PO DAILY 01/23/19 Sennosides [Senna] 8.6 mg PO DAILY 01/23/19 Celecoxib 100 mg PO BID 10/06/19 Fludrocortisone Acetate 0.1 mg PO DAILY 10/06/19 Memantine HCl [Memantine HCl ER] 28 mg PO DAILY 10/06/19 Pantoprazole Sodium 40 mg PO DAILY 10/06/19 Phenelzine Sulfate 15 mg PO TID 10/06/19 Potassium Chloride 20 meq PO BID 10/06/19 Cephalexin [Keflex] 500 mg PO QID 7 Days #28 capsule 10/24/19 *Physical Exam - Vital Signs Last Vital Signs Temp Pulse Resp BP Pulse Ox 97.9 F 72 16 89/65 L 97 10/30/19 22:39 10/31/19 00:15 10/31/19 00:15 10/31/19 00:15 10/31/19 00:15 <Augusta Abdi - Last Filed: 10/31/19 02:04> - Vital Signs Last Vital Signs Temp Pulse Resp BP Pulse Ox 97.9 F 63 18 99/61 95 10/30/19 22:39 10/30/19 22:39 10/30/19 22:39 10/30/19 22:39 10/30/19 22:39 <Maryam Byrd - Last Filed: 10/31/19 20:13> ED Treatment Course - Medications Given in the ED: ED Medications Discontinued Medications Generic Name Dose Route Start Last Admin Trade Name John PRN Reason Stop Dose Admin Acetaminophen 975 mg 10/30/19 23:29 10/30/19 23:43 Tylenol - PO 10/30/19 23:30 975 mg ONCE ONE Administration <Augusta Abdi - Last Filed: 10/31/19 02:04> Medical Decision Making - Medical Decision Making 10/31/19 02:03 Patient Name: WILFRED MAIN THIS IS A PRELIMINARY REPORT FROM IMAGING CRITICAL CARE PHYSICIAN DATE OF SERVICE: 2019-10-31 01:07:52 IMAGES: [id number] EXAM: FACIAL BONES CT W/O CONTRAST HISTORY: 84-year-old female fall right eyelid swelling COMPARISON: None. FINDINGS: Mild right periorbital soft tissue swelling and subcutaneous hematoma. No fracture or dislocation. Mild to moderate degenerative disc disease. Chronic right frontal lobe encephalomalacia. IMPRESSION: Mild right periorbital soft tissue swelling and subcutaneous hematoma. If clinically indicated recommend correlation with direct visualization of the globes. No fracture or dislocation. Mild to moderate degenerative disc disease. Chronic right frontal lobe encephalomalacia 10/31/19 02:05 Patient Name: WILFRED MAIN THIS IS A PRELIMINARY REPORT FROM IMAG[facility] CRITICAL CARE PHYSICIAN DATE OF SERVICE: 2019-10-31 01:00:36 IMAGES: [id number] EXAM: CERVICAL SPINE CT W/O CONTR HISTORY: 84-Year-Old Female For Assess For Fracture. COMPARISON: None. FINDINGS: There is no prevertebral soft tissue swelling. There is no evidence of acute fracture or subluxation. There are no destructive lesions. Moderate degenerative disc disease and degenerative joint disease of the uncovertebral joints and facets throughout the cervical spine. Mild to moderate spinal canal narrowing in the middle and lower cervical levels. Moderate to severe multilevel neural foraminal in the middle and lower cervical levels. Right thyroid 2.5 x 2.2 x 2.1 cm nonspecific mass may be benign or malignant on axial image 61 coronal image 64. There are 2 separate 4 mm irregular pleural-based lung nodules in the right upper lobe on the last axial image 77 that may be larger outside the field of view in the right chest. IMPRESSION: No evidence of acute fracture or subluxation. Moderate degenerative disc disease and degenerative joint disease of the uncovertebral joints and facets throughout the cervical spine. Mild to moderate spinal canal narrowing in the middle and lower cervical levels. Moderate to severe multilevel neural foraminal in the middle and lower cervical levels. If clinically indicated follow-up outpatient MRI cervical spine may be needed. Right thyroid 2.5 x 2.2 x 2.1 cm nonspecific mass may be benign or malignant on axial image 61 coronal image 64. If clinically indicated follow-up outpatient thyroid ultrasound and outpatient thyroid ultrasound guided biopsy may be needed. There are 2 separate 4 mm irregular pleural-based lung nodules in the right upper lobe on the last axial image 77 that may be larger outside the field of view in the right chest. Fleischner Society guidelines for follow-up and management of pulmonary nodules : Nodule size = 4-6 mm. In a low-risk patient, follow-up CT at 12 months; if unchanged, no further follow-up. In a high-risk patient, initial follow-up CT at 6-12 months then at 18-24 months if no change. Low risk patients include individuals with minimal or absent history of smoking and other known risk factors. High risk patients include individuals with a history of smoking or other known risk factors. <Augusta Abdi - Last Filed: 10/31/19 02:04> Discharge <Augusta Abdi - Last Filed: 10/31/19 02:04> - Discharge Information Problems reviewed: Yes <Maryam Byrd - Last Filed: 10/31/19 20:13> - Discharge Information Clinical Impression/Diagnosis: Fall Qualifiers: Encounter type: initial encounter Qualified Code(s): W19.XXXA - Unspecified fall, initial encounter Condition: Stable Disposition: HOME - Follow up/Referral Referrals: Sean Oneill MD [Primary Care Provider] - - Patient Discharge Instructions Patient Printed Discharge Instructions: How to Prevent Falls Additional Instructions: You came into the emergency department after a fall. We performed CT scans of your head, neck, back, and pelvis which did not indicate acute pathology. You can take [id number] tylenol or motrin for pain. Follow the instructions on the medication bottle. You suffered a soft tissue injury to your right eyelid that did not require stitches. Apply an antibiotic ointment to the area twice a day to prevent infection. Follow-up with a primary care provider within 72 hours to discuss this ED visit and to further evaluate your symptoms. Your workup is not complete until you do so. You have been referred to the [facility] in case you do not have a primary care doctor. Call and make an appointment at the number provided. Immediate medical attention is required if you experience: severe headache, fever and chills, nausea and vomiting, lightheadedness, inability to breathe or very rapid breathing, rapid irregular heartbeat, chest pain, or trouble breathing. If you think you are having an emergency, call for emergency medical services or present to the emergency department right away
--- NOTE | 2019-10-30 22:46 | PDOC ---
Attending Attestation - Resident Resident Name: Maryam Byrd - ED Attending Attestation I have performed the following: I have examined & evaluated the patient, The case was reviewed & discussed with the resident, I agree w/resident's findings & plan - HPI HPI: 10/30/19 23:49 see resident hpi - Physicial Exam PE: 10/30/19 23:49 agree with resident exam - Medical Decision Making 10/30/19 23:49 84-year-old female status post mechanical fall with contusion and abrasion to the right periorbital region as well as tenderness to the spine diffusely, point tender over the lower thoracic and sacral areas Plan for CT scan of the head facial bones cervical/thoracic/lumbar spines as well as pelvis Pending results will plan for DC back to facility if possible
[2019-10-30] MEDS ORDERED: ACETAMINOPHEN 325 MG TABLET (FP) PO ONE (23:29)
[2019-10-30] MEDS ORDERED: ACETAMINOPHEN 325 MG TABLET (FP) ONE (23:38)
--- NOTE | 2019-10-31 02:07 | PDOC ---
*Physical Exam - Vital Signs Last Vital Signs Temp Pulse Resp BP Pulse Ox 97.9 F 72 16 89/65 L 97 10/30/19 22:39 10/31/19 00:15 10/31/19 00:15 10/31/19 00:15 10/31/19 00:15 ED Treatment Course - Medications Given in the ED: ED Medications Discontinued Medications Generic Name Dose Route Start Last Admin Trade Name John PRN Reason Stop Dose Admin Acetaminophen 975 mg 10/30/19 23:29 10/30/19 23:43 Tylenol - PO 10/30/19 23:30 975 mg ONCE ONE Administration Medical Decision Making - Medical Decision Making 10/31/19 02:07 Patient Name: WILFRED MAIN THIS IS A PRELIMINARY REPORT FROM [facility] DATE OF SERVICE: 2019-10-31 01:00:36 IMAGES: [id number] EXAM: CERVICAL SPINE CT W/O CONTR HISTORY: 84-Year-Old Female For Assess For Fracture. COMPARISON: None. FINDINGS: There is no prevertebral soft tissue swelling. There is no evidence of acute fracture or subluxation. There are no destructive lesions. Moderate degenerative disc disease and degenerative joint disease of the uncovertebral joints and facets throughout the cervical spine. Mild to moderate spinal canal narrowing in the middle and lower cervical levels. Moderate to severe multilevel neural foraminal in the middle and lower cervical levels. Right thyroid 2.5 x 2.2 x 2.1 cm nonspecific mass may be benign or malignant on axial image 61 coronal image 64. There are 2 separate 4 mm irregular pleural-based lung nodules in the right upper lobe on the last axial image 77 that may be larger outside the field of view in the right chest. IMPRESSION: No evidence of acute fracture or subluxation. Moderate degenerative disc disease and degenerative joint disease of the uncovertebral joints and facets throughout the cervical spine. Mild to moderate spinal canal narrowing in the middle and lower cervical levels. Moderate to severe multilevel neural foraminal in the middle and lower cervical levels. If clinically indicated follow-up outpatient MRI cervical spine may be needed. Right thyroid 2.5 x 2.2 x 2.1 cm nonspecific mass may be benign or malignant on axial image 61 coronal image 64. If clinically indicated follow-up outpatient thyroid ultrasound and outpatient thyroid ultrasound guided biopsy may be needed. There are 2 separate 4 mm irregular pleural-based lung nodules in the right upper lobe on the last axial image 77 that may be larger outside the field of view in the right chest. Fleischner Society guidelines for follow-up and management of pulmonary nodules : Nodule size = 4-6 mm. In a low-risk patient, follow-up CT at 12 months; if unchanged, no further follow-up. In a high-risk patient, initial follow-up CT at 6-12 months then at 18-24 months if no change. Low risk patients include individuals with minimal or absent history of smoking and other known risk factors. High risk patients include individuals with a history of smoking or other known risk factors. This CT exam was performed using one or more of the following dose reduction techniques: automated exposure control, adjustment of the mA and/or kV according to patient size, use of iterative reconstruction technique. 10/31/19 02:51 Patient Name: WILFRED MAIN THIS IS A PRELIMINARY REPORT FROM [facility] DATE OF SERVICE: 2019-10-31 01:05:51 IMAGES: [id number] EXAM: HEAD CT WITHOUT CONTRAST HISTORY: 84-year-old female fall COMPARISON: October 31, 2019 FINDINGS: Mild right periorbital soft tissue swelling and subcutaneous hematoma. No acute intracranial hemorrhage mass effect or midline shift. The ventricles sulci and basilar cisterns are mildly prominent consistent with mild central volume loss. Mild nonspecific periventricular predominant low density throughout the deep white matter is most likely due to mild small vessel ischemic white matter disease. Chronic encephalomalacia of the anterior inferior aspect of the bilateral right greater than left frontal lobe. Calcified arteriosclerosis of the cavernous carotids noted. The sinuses and mastoid air cells are clear within the [id number]. The calvarium is intact. IMPRESSION No acute intracranial hemorrhage mass effect or midline shift. Mild right periorbital soft tissue swelling and subcutaneous hematoma. Chronic encephalomalacia of the anterior inferior aspect of the bilateral right greater than left frontal lobe. Mild nonspecific periventricular predominant low density throughout the deep white matter is most likely due to mild small vessel ischemic white matter disease. Calcified arteriosclerosis of the cavernous carotids noted. Patient Name: WILFRED MAIN THIS IS A PRELIMINARY REPORT FROM [facility] DATE OF SERVICE: 2019-10-31 01:07:52 IMAGES: [id number] EXAM: FACIAL BONES CT W/O CONTRAST HISTORY: 84-year-old female fall right eyelid swelling COMPARISON: None. FINDINGS: Mild right periorbital soft tissue swelling and subcutaneous hematoma. No fracture or dislocation. Mild to moderate degenerative disc disease. Chronic right frontal lobe encephalomalacia. IMPRESSION: Mild right periorbital soft tissue swelling and subcutaneous hematoma. If clinically indicated recommend correlation with direct visualization of the globes. No fracture or dislocation. Mild to moderate degenerative disc disease. Chronic right frontal lobe encephalomalacia Discharge - Discharge Information Problems reviewed: Yes Clinical Impression/Diagnosis: Fall Qualifiers: Encounter type: initial encounter Qualified Code(s): W19.XXXA - Unspecified fall, initial encounter Condition: Stable [facility] - Follow up/Referral Referrals: Sean Oneill MD [Primary Care Provider] - - Patient Discharge Instructions Patient Printed Discharge Instructions: How to Prevent Falls Additional Instructions: You came into the emergency department after a fall. We performed CT scans of your head, neck, back, and pelvis which did not indicate acute pathology. You can take [id number] tylenol or motrin for pain. Follow the instructions on the medication bottle. You suffered a soft tissue injury to your right eyelid that did not require stitches. Apply an antibiotic ointment to the area twice a day to prevent infection. Follow-up with a primary care provider within 72 hours to discuss this ED visit and to further evaluate your symptoms. Your workup is not complete until you do so. You have been referred to the [facility] in case you do not have a primary care doctor. Call and make an appointment at the number provided. Immediate medical attention is required if you experience: severe headache, fever and chills, nausea and vomiting, lightheadedness, inability to breathe or very rapid breathing, rapid irregular heartbeat, chest pain, or trouble breathing. If you think you are having an emergency, call for emergency medical services or present to the emergency department right away - Post Discharge Activity
[2019-10-31] MEDS ORDERED: BACITRACIN 15 GM TUBE TOPICAL OINTMENT TP ONE (02:56)
[2019-10-31] MEDS ORDERED: BACITRACIN 0.9 GM PACKET ONE (03:25)
[2019-10-31 03:45] VITALS: BP 92/58; PULSE 61; TEMP 98.5
== END 2019-10-31 03:45 ==
LOC: JER 22:25
DX: S05.11XA Contusion of eyeball and orbital tissues, right eye, initial encounter (principal); W06.XXXA Fall from bed, initial encounter; Y93.89 Activity, other specified; Y92.122 Bedroom in nursing home as the place of occurrence of the external cause; Y99.8 Other external cause status; I95.9 Hypotension, unspecified; I48.91 Unspecified atrial fibrillation; M48.07 Spinal stenosis, lumbosacral region; K58.9 Irritable bowel syndrome, unspecified; F41.9 Anxiety disorder, unspecified; F32.9 Major depressive disorder, single episode, unspecified; R29.6 Repeated falls; Z86.73 Personal history of transient ischemic attack (TIA), and cerebral infarction without residual deficits; Z87.19 Personal history of other diseases of the digestive system; Z87.448 Personal history of other diseases of urinary system
CPT/HCPCS: 70450-TC; 70486-TC; 72125-TC; 72128-TC; 72131-TC; 72192-TC; 99283-25

== ENCOUNTER 2021-06-01 23:27 | Emergency (ER) | payer OTHER, MEDICARE ==
[2021-06-01 23:37] VITALS: BMI 27.4
[2021-06-02] MEDS ORDERED: DIPHTH,PERTUSS(ACELL),TET 0.5 ML DISP.SYRIN IM ONE ×3 (00:14→01:22)
[2021-06-02] MEDS ORDERED: LIDOCAINE HCL 1%, 10 MG/ML (50 mL VIAL) SQ ONE (02:30)
[2021-06-02] MEDS ORDERED: LIDOCAINE HCL 1%, 10 MG/ML (20ML VIAL) ONE (02:34)
[2021-06-02 10:06] VITALS: BP 101/83; PULSE 70; TEMP 97.8
== END 2021-06-02 10:11 | disposition home or self-care (01) ==
LOC: JER 23:27
PROC: 3E0234Z Introduction of Serum, Toxoid and Vaccine into Muscle, Percutaneous Approach (ICD-10-PCS; principal; 2021-06-01)
PROC: 0HQ0XZZ Repair Scalp Skin, External Approach (ICD-10-PCS; principal; 2021-06-01)
DX: S32.038A Other fracture of third lumbar vertebra, initial encounter for closed fracture (principal); S01.01XA Laceration without foreign body of scalp, initial encounter; W01.198A Fall on same level from slipping, tripping and stumbling with subsequent striking against other object, initial encounter
CPT/HCPCS: 12001; 70450-TC; 71045-TC-FY; 72125-TC; 72131-TC; 72170-TC-FY; 90471; 90715; 99284-25

== ENCOUNTER 2021-06-15 17:09 | Inpatient (IN) | payer OTHER, MEDICARE ==
[2021-06-15] MEDS ORDERED: LIDOCAINE 5% TOPICAL PATCH TP ONE (19:14)
[2021-06-15] MEDS ORDERED: traMADol HCL 50 MG TABLET PO ONE (19:20)
[2021-06-15] MEDS ORDERED: traMADol HCL 50 MG TABLET ONE (19:35)
[2021-06-15] MEDS ORDERED: LIDOCAINE 5% TOPICAL PATCH ONE (19:36)
[2021-06-15 22:34] LABS: BASO % 0.7 % (0-2.0); EOS % 2.8 % (0-4.5); HEMATOCRIT 37.7 % (32.4-45.2); HEMOGLOBIN 12.4 GM/dL (10.7-15.3); LYMPH % 24.1 % (8-40); MCH 27.5 pg (25.7-33.7); MCHC 32.8 g/dl (32.0-36.0); MEAN CELL VOLUME 83.7 fl (80-96); MEAN PLT VOLUME 8.1 fl (7.5-11.1); MONO % 7.3 % (3.8-10.2); NEUT % 65.1 % (42.8-82.8); PLATELET COUNT 276 10^3/uL (134-434); RDW 14.9 % (11.6-15.6); WHITE BLOOD COUNT 6.5 K/mm3 (4.0-10.0)
[2021-06-15 22:41] LABS: INR 0.96 (0.83-1.09); PROTHROMBIN TIME (PATIENT) 11.8 SEC (9.7-13.0)
[2021-06-15 22:43] LABS: ACTIVATED PTT 28.7 SECONDS (25.2-36.5)
[2021-06-15 22:54] LABS: ALBUMIN 3.1 g/dl (3.4-5.0); CALCIUM 8.8 mg/dL (8.5-10.1)
[2021-06-15 22:55] LABS: BLOOD UREA NITROGEN 18.2 mg/dL (7-18)
[2021-06-15 22:57] LABS: CREATININE 0.9 mg/dL (0.55-1.3)
[2021-06-15 23:00] LABS: BILIRUBIN,TOTAL 0.3 mg/dL (0.2-1)
[2021-06-15] MEDS ORDERED: morphine CARPU-JECT 2 MG/1 ML DISP.SYRIN IVPUSH ONE (23:44)
[2021-06-15] MEDS ORDERED: MORPHINE SULFATE 2 MG/ML VIAL ONE (23:47)
[2021-06-16] MEDS ORDERED: ACETAMINOPHEN 325 MG TABLET (FP) PO PRN (01:04)
[2021-06-16 04:35] LABS: EPI CELLS 5 /uL (0-25.1); HYALINE CASTS 3 /uL (0-3.1); PH,URINE 5.5 (5.0-8.0); URINE APPEARANCE CLOUDY; URINE BACTERIA >9,000 /uL (0-1359); URINE BILIRUBIN NEGATIVE (NEGATIVE); URINE COLOR YELLOW; URINE GLUCOSE (UA) NEGATIVE (NEGATIVE); URINE KETONE TRACE (NEGATIVE); URINE LEUK ESTERASE 1+ (NEGATIVE); URINE NITRITE POSITIVE (NEGATIVE); URINE PROTEIN NEGATIVE (NEGATIVE); URINE RBC 63 /uL (0-23.9); URINE WBC 118 /uL (0-25.8)
[2021-06-16 04:39] LABS: URINE CRYSTALS PRESENT /hpf
[2021-06-16 04:46] VITALS: BMI 24.0
[2021-06-16] MEDS ORDERED: cefTRIAXone SODIUM 1 GM VIAL ONE (06:35)
[2021-06-16] MEDS ORDERED: DEXTROSE 5%-WATER - 50 ML IVPB ONE (06:35)
[2021-06-16] MEDS: CEFTRIAXONE 1 GM in DEXTROSE 5%-WATER - 50 ML IVPB SCH (06:36)
[2021-06-16 08:41] LABS: HEMATOCRIT 37.2 % (32.4-45.2); HEMOGLOBIN 12.1 GM/dL (10.7-15.3); MCH 27.2 pg (25.7-33.7); MCHC 32.5 g/dl (32.0-36.0); MEAN CELL VOLUME 83.7 fl (80-96); MEAN PLT VOLUME 8.5 fl (7.5-11.1); PLATELET COUNT 259 10^3/uL (134-434); RBC 4.44 M/mm3 (3.60-5.2); RDW 15.2 % (11.6-15.6); WHITE BLOOD COUNT 7.5 K/mm3 (4.0-10.0)
[2021-06-16 09:03] LABS: ALBUMIN 2.9 g/dl (3.4-5.0); PHOSPHOROUS 3.7 mg/dL (2.5-4.9)
[2021-06-16 09:04] LABS: BLOOD UREA NITROGEN 17.7 mg/dL (7-18); CALCIUM 8.8 mg/dL (8.5-10.1)
[2021-06-16 09:05] LABS: MAGNESIUM 2.2 mg/dL (1.8-2.4)
[2021-06-16 09:08] LABS: CREATININE 0.7 mg/dL (0.55-1.3)
[2021-06-16 09:10] LABS: TOT PROT 5.7 g/dl (6.4-8.2)
[2021-06-16 09:11] LABS: BILIRUBIN,TOTAL 0.2 mg/dL (0.2-1); CHOLESTEROL 229 mg/dL (50-200); TRIGLYCERIDES 145 mg/dL (0-150)
[2021-06-16 09:12] LABS: LDL CHOLESTEROL (ONLY SJRH) 137 mg/dL (5-100)
[2021-06-16 09:14] LABS: HDL CHOLESTEROL 56 mg/dL (40-60)
[2021-06-16] MEDS: LIDOCAINE 5% TOPICAL PATCH TP SCH (09:54)
[2021-06-16] MEDS: LIDOCAINE PATCH REMOVAL MC SCH (21:54)
[2021-06-16] MEDS: SENNOSIDES 8.6MG TABLET (FP) PO SCH (21:55)
[2021-06-17] MEDS ORDERED: cefTRIAXone SODIUM 1 GM VIAL ONE (10:05)
[2021-06-17] MEDS ORDERED: DEXTROSE 5%-WATER - 50 ML IVPB ONE (10:05)
[2021-06-17] MEDS: LIDOCAINE 5% TOPICAL PATCH TP SCH (10:32)
[2021-06-17] MEDS: CEFTRIAXONE 1 GM in DEXTROSE 5%-WATER - 50 ML IVPB SCH (10:32)
[2021-06-17] MEDS: SENNOSIDES 8.6MG TABLET (FP) PO SCH (21:38)
[2021-06-17] MEDS: LIDOCAINE PATCH REMOVAL MC SCH (21:38)
[2021-06-18] MEDS ORDERED: cefTRIAXone SODIUM 1 GM VIAL ONE (10:07)
[2021-06-18] MEDS ORDERED: DEXTROSE 5%-WATER - 50 ML IVPB ONE (10:08)
[2021-06-18] MEDS: CEFTRIAXONE 1 GM in DEXTROSE 5%-WATER - 50 ML IVPB SCH (10:33)
[2021-06-18] MEDS: LIDOCAINE 5% TOPICAL PATCH TP SCH (10:33)
[2021-06-18] MEDS ORDERED: ACETAMINOPHEN 325 MG TABLET (FP) PO PRN (10:37)
[2021-06-18] MEDS: ACETAMINOPHEN 1000 MG/100 ML VIAL (NON FORMULARY) IVPB PRN (11:40)
[2021-06-18] MEDS ORDERED: SODIUM CHLORIDE 0.9% 500 ML INFUS.BAG IV ONE (13:31)
[2021-06-18] MEDS ORDERED: PT OWN MED DRAWER 7, Y5N ONE (22:36)
[2021-06-18] MEDS: SENNOSIDES 8.6MG TABLET (FP) PO SCH (22:42)
[2021-06-18] MEDS: LIDOCAINE PATCH REMOVAL MC SCH (22:42)
[2021-06-19] MEDS: ACETAMINOPHEN 1000 MG/100 ML VIAL (NON FORMULARY) IVPB PRN ×2 (02:34→10:59)
[2021-06-19] MEDS ORDERED: KETOROLAC TROMETHAMINE 15 MG/ML VIAL IVPUSH ONE (04:51)
[2021-06-19] MEDS ORDERED: CELECOXIB 100 MG CAPSULE PO SCH (10:00)
[2021-06-19] MEDS ORDERED: PANTOPRAZOLE 40 MG TABLET PO SCH (10:00)
[2021-06-19] MEDS: LIDOCAINE 5% TOPICAL PATCH TP SCH (10:09)
[2021-06-19 10:27] LABS: BASO % 0.7 % (0-2.0); EOS % 2.2 % (0-4.5); HEMATOCRIT 37.2 % (32.4-45.2); HEMOGLOBIN 12.5 GM/dL (10.7-15.3); LYMPH % 18.5 % (8-40); MCH 27.5 pg (25.7-33.7); MCHC 33.6 g/dl (32.0-36.0); MEAN PLT VOLUME 8.8 fl (7.5-11.1); MONO % 6.8 % (3.8-10.2); NEUT % 71.8 % (42.8-82.8); PLATELET COUNT 239 10^3/uL (134-434); RBC 4.53 M/mm3 (3.60-5.2); RDW 14.4 % (11.6-15.6)
[2021-06-19 11:12] VITALS: BP 103/62; PULSE 68; TEMP 98.1
[2021-06-19 11:22] LABS: ALBUMIN 2.9 g/dl (3.4-5.0); BLOOD UREA NITROGEN 20.8 mg/dL (7-18); CALCIUM 8.6 mg/dL (8.5-10.1); MAGNESIUM 2.1 mg/dL (1.8-2.4)
[2021-06-19 11:25] LABS: WHITE BLOOD COUNT 8.5 K/mm3 (4.0-10.0)
[2021-06-19 11:26] LABS: CREATININE 0.8 mg/dL (0.55-1.3)
[2021-06-19 11:27] LABS: BILIRUBIN,TOTAL 0.5 mg/dL (0.2-1); TOT PROT 5.7 g/dl (6.4-8.2)
[2021-06-19] MEDS ORDERED: ACETAMINOPHEN 1000 MG/100 ML VIAL (NON FORMULARY) IVPB PRN (16:25)
== END 2021-06-19 17:49 | DRG 552 ==
LOC: JER 17:09 → JERBED 22:54 → J5S 06-16 03:15
PROVIDERS: ADMIT Internal Medicine; ATTEND Nurse Practitioner Acute Care
DX: S32.020A Wedge compression fracture of second lumbar vertebra, initial encounter for closed fracture (principal); M80.08XA Age-related osteoporosis with current pathological fracture, vertebra(e), initial encounter for fracture; N39.0 Urinary tract infection, site not specified; M48.061 Spinal stenosis, lumbar region without neurogenic claudication; F41.9 Anxiety disorder, unspecified; M47.812 Spondylosis without myelopathy or radiculopathy, cervical region; R32 Unspecified urinary incontinence; F03.90 Unspecified dementia, unspecified severity, without behavioral disturbance, psychotic disturbance, mood disturbance, and anxiety; W19.XXXA Unspecified fall, initial encounter; Y93.9 Activity, unspecified; Y92.89 Other specified places as the place of occurrence of the external cause; Y99.9 Unspecified external cause status
CPT/HCPCS: 36415; 70450-TC; 71045-TC-FY; 72125-TC; 72131-TC; 80053; 80061; 81003; 83735; 84100; 84443; 85025; 85027; 85610; 85730; 86850; 86900; 86901; 87086; 93005; 93010; 93306-TC; 93880-TC; 97116-GP; 97162-GP; 99285-25; C9803; J0131; U0003; U0005